=== PATIENT | male | born 1930 | race Caucasian/White ===

== ENCOUNTER → 2016-11-11 | Outpatient (CLI) | payer OTHER ==
[~2016-11-11] MED LIST: ASPEC81 PO; ATOR10TA82 PO; CALC-5 PO; CMD5 PO; HYDR25TA4 PO; MISCTAB30 PO; MULT-845 PO; OMEG10007 PO
== END | disposition home or self-care (01) ==
LOC: C.LABPVFM 15:46
PROVIDERS: ATTEND Family Medicine
DX: R25.2 Cramp and spasm (principal); R82.90 Unspecified abnormal findings in urine

== ENCOUNTER → 2016-11-20 | Outpatient (CLI) | payer OTHER ==
[~2016-11-20] MED LIST changes: -ATOR10TA82 PO; +ATOR10TA88 PO
[2016-11-20 13:25] LABS: URINE APPEARANCE CLEAR (CLEAR); URINE BILIRUBIN NEG (NEG); URINE COLOR YELLOW; URINE EPITHELIAL CELL AUTO 0-5 /lpf (0-5); URINE NITRITE NEG (NEG); URINE PH 6.5 (4.5-7.5); URINE SPECIFIC GRAVITY 1.018 (1.000-1.030); UROBILINOGEN NEG (NEG); ZZUR CULT IF INDIC CLEAN CATCH NO
[2016-11-20 13:26] LABS: MANUAL MICROSCOPIC REQUIRED? NO; REVIEW REQ? NO
== END | disposition home or self-care (01) ==
LOC: C.PATHSPEC 12:05
PROVIDERS: ATTEND Family Medicine
DX: R82.90 Unspecified abnormal findings in urine (principal)

== ENCOUNTER → 2017-02-23 | Outpatient (CLI) | payer OTHER ==
[2017-02-23 13:22] LABS: BLOOD UREA NITROGEN 21 mg/dl (7-18); CREATININE 0.99 mg/dl (0.60-1.40)
== END | disposition home or self-care (01) ==
LOC: C.LAB 10:39
PROVIDERS: ATTEND Urology
DX: R31.0 Gross hematuria (principal); R36.1 Hematospermia

== ENCOUNTER → 2017-03-09 | Outpatient (CLI) | payer OTHER ==
[~2017-03-09] MED LIST changes: +OPTIRAY 320 IV PRN
--- NOTE | 2017-03-09 15:58 | DIAGNOSTIC IMAGING REPORT ---
CT OF THE ABDOMEN AND PELVIS WITH AND WITHOUT CONTRAST HEMATURIA PROTOCOL CLINICAL HISTORY: Gross hematuria. COMPARISON STUDY: None. TECHNIQUE: Unenhanced and split bolus phase imaging of the abdomen and pelvis was performed. Injection of 93 cc of Optiray 320 IV was uneventful. A dose lowering technique was utilized adhering to the principles of ALARA. CT DOSE: 646.98 mGycm FINDINGS: A few tiny nodules within visualized portions of the lower lungs are likely benign. The liver, spleen, adrenal glands, kidneys and pancreas are unremarkable. There is no hydronephrosis or hydroureter. No renal, ureteral or bladder calculi are present. No upper tract urothelial lesions are identified by CT. No bladder lesion is identified although bladder is incompletely opacified. The prostate is moderately enlarged. A fat-containing left inguinal hernia is present. There is trace fluid within the pelvis. Caliber and wall thickness of small and large bowel are normal. No enlarged abdominal or pelvic lymph nodes are present. There is mild mesenteric infiltration with small mesenteric lymph nodes. The findings are of doubtful significance. No suspicious osseous lesions are identified. IMPRESSION: 1. No urinary calculi or hydronephrosis. No upper tract urothelial lesions identified. 2. No bladder lesion identified although bladder incompletely opacified. Moderate enlargement of the prostate. 3. Trace fluid within the pelvis. Electronically signed by: Ramon Cabrera M.D. 03/09/2017 3:57 PM Dictated Date/Time: 03/09/2017 3:17 PM
== END | disposition home or self-care (01) ==
LOC: C.CTS 14:10
PROVIDERS: ATTEND Urology
DX: R31.0 Gross hematuria (principal); N40.1 Benign prostatic hyperplasia with lower urinary tract symptoms

== ENCOUNTER → 2017-03-23 | Outpatient (CLI) | payer OTHER ==
[~2017-03-23] MED LIST changes: +ATOR10TA82 PO; -ATOR10TA88 PO; -OPTIRAY 320 IV PRN
[2017-03-23 11:43] LABS: BLOOD UREA NITROGEN 20 mg/dl (7-18); BUN/CREATININE RATIO 19.9 (10-20); CALCIUM 8.4 mg/dl (8.5-10.1); CARBON DIOXIDE 30 mmol/L (21-32); CHLORIDE 108 mmol/L (98-107); CREATININE 1.02 mg/dl (0.60-1.40); GLUCOSE 93 mg/dl (70-99); POTASSIUM 4.4 mmol/L (3.5-5.1); SODIUM 143 mmol/L (136-145)
[2017-03-23 11:45] LABS: CHOLESTEROL 121 mg/dl (0-200); HDL CHOLESTEROL 60 mg/dl; LDL CHOLESTEROL CALCULATED 49 mg/dl; TRIGLYCERIDES 61 mg/dl (0-150); VERY LOW DENSITY LIPOPROT CALC 12 mg/dl
== END | disposition home or self-care (01) ==
LOC: C.LAB 09:33
PROVIDERS: ATTEND Family Medicine
DX: E78.5 Hyperlipidemia, unspecified (principal); I10 Essential (primary) hypertension

== ENCOUNTER → 2017-05-12 | Outpatient (CLI) | payer OTHER ==
--- NOTE | 2017-05-12 13:42 | DIAGNOSTIC IMAGING REPORT ---
L SHOULDER MIN 2 VIEWS ROUTINE, L HUMERUS MIN 2 VIEWS ROUTINE CLINICAL HISTORY: Left shoulder and arm pain. COMPARISON STUDY: None. FINDINGS: No fracture or dislocation. Small calcification within the distal supraspinatus tendon. Mild AC joint arthrosis. The left clavicle is intact. No soft tissue swelling. Mild osteoarthritis at the glenohumeral joint. There appears be a patchy airspace opacity within the left midlung zone. IMPRESSION: 1. No fracture or dislocation within the left shoulder or left humerus. 2. Supraspinatus calcific tendinitis. 3. Mild osteoarthritis within the left shoulder. 4. Suggestion of a patchy airspace opacity within left midlung zone. Follow-up dedicated chest x-ray is recommended to assess for an abnormality such as a pneumonia or pulmonary lesion. 5. These findings were called/faxed to the referring physician's office following dictation. Electronically signed by: Odilon Cain M.D. 05/12/2017 1:40 PM Dictated Date/Time: 05/12/2017 1:36 PM
== END | disposition home or self-care (01) ==
LOC: C.RADPV 12:59
PROVIDERS: ATTEND Family Medicine
DX: S49.92XA Unspecified injury of left shoulder and upper arm, initial encounter (principal); X58.XXXA Exposure to other specified factors, initial encounter; M75.32 Calcific tendinitis of left shoulder; R91.8 Other nonspecific abnormal finding of lung field

== ENCOUNTER 2017-05-19 16:33 | Inpatient (IN) | payer OTHER ==
[~2017-05-19] VITALS: Ht 165.1 cm; Wt 61.3 kg
[2017-05-19 18:37] LABS: ISTAT IONIZED CALCIUM 1.16 mmol/l (1.12-1.32); ISTAT POTASSIUM 4.3 mEq/L (3.3-5.0)
[2017-05-19 18:56] LABS: HEMATOCRIT 27.1 % (42-52); MEAN CELL VOLUME 95.1 fL (80-100); MEAN CORPUSCULAR HEMOGLOBIN 31.6 pg (25-34); MEAN CORPUSCULAR HGB CONC 33.2 g/dl (32-36); MEAN PLATELET VOLUME 8.9 fL (7.4-10.4); PLATELET COUNT 507 K/uL (130-400); RED CELL DISTRIBUTION WIDTH CV 15.1 % (11.5-14.5); RED CELL DISTRIBUTION WIDTH SD 52.2 fL (36.4-46.3); WHITE BLOOD COUNT 9.83 K/uL (4.8-10.8)
[2017-05-19] MEDS ORDERED: PHYTONADIONE INJ 10 MG in SODIUM CHLORIDE 0.9% 50ML 50 ML IV ONE (19:00)
[2017-05-19] MEDS ORDERED: PRAM0.1212 PO ×2 (19:04)
[2017-05-19] MEDS ORDERED: ASPI-319 PO ×2 (19:07)
[2017-05-19] MEDS ORDERED: HYDR12.56 PO (19:13)
--- NOTE | 2017-05-19 19:39 | EMERGENCY ROOM VISIT NOTE ---
History Report prepared by Laura: Philip Heck Under the Supervision of: Dr. Shiva Argueta D.O. First contact with patient: 17:34 Chief Complaint: EDEMA TO EXTREMITY Stated Complaint: SWOLLEN LEGS History of Present Illness The patient is an 86 year old male who presents to the Emergency Room with complaints of constant swelling to his bilateral lower extremities beginning a few months ago. The patient states he was taking hydrochlorothiazide three times a day, but his swelling kept increasing. He reports he started taking hydrochlorothiazide every day, and his swelling decreased. The patient notes he has not tried using compression stockings even though his PCP told him to. He reports he has been sitting with his feel on a stool. He states he had his INR checked today, and it was elevated to a 6 when his baseline is a 2. The patient reports he just finished an antibiotic two days ago that was used to treat his recent bronchitis. He notes he just started a medication for arthritis in his hands. The patient states it controls his arthritis, but he did not know if it was causing his legs to swell as well. The patient denies calf pain. Source of History: patient Onset: few months ago Position: leg (bilateral) Quality: other (swelling) Timing: constant Modifying Factors (Relieving): other (hydrochlorothiazide) Note: Denies: calf tenderness Review of Systems See HPI for pertinent positives & negatives. A total of 10 systems reviewed and were otherwise negative. Past Medical & Surgical Medical Problems: (1) Atrial Fibrillation (2) Hypertension Nos (3) Hypertrophy Of Prostate (Benign) (4) Mixed Hyperlipidemia (5) S/P herniorrhaphy Surgical Problems: (1) S/P carotid endarterectomy (2) S/P radiofrequency ablation operation for arrhythmia Family History Patient reports no known family medical history. Social History Smoking Status: Never Smoker Marital Status: Occupation Status: retired Current/Historical Medications Scheduled Aspirin Enteric Coated (Ecotrin Or Generic), 81 MG PO QPM Atorvastatin (Lipitor), 10 MG PO DAILY Calcium-Magnesium W/ Vitamin D (Calcium 500), 1 TAB PO QAM Fish Oil ([place]-3), 1 CAP PO DAILY Hydrochlorothiazide (Hctz), 12.5 MG PO DAILY Misc Natural Products (Osteo Bi-Flex Joint Shiel), 1 TAB PO QAM Multiple Vitamins W/ Minerals (Centrum Silver Adult 50+), 1 TAB PO DAILY Pramipexole (Mirapex), 0.125 MG PO DAILY Allergies Coded Allergies: Clonazepam (Unverified Allergy, Unknown, WHEN TAKEN WITH HEART MEDS, 05/19) Prednisone (Unverified Allergy, Unknown, WHEN TAKEN WITH HEART MEDS, 05/19) Sulindac (Unverified Allergy, Unknown, ., 05/19/17) Physical Exam Vital Signs Date Time Temp Pulse Resp B/P (MAP) Pulse Ox O2 Delivery O2 Flow Rate FiO2 05/19/17 18:19 86 16 129/69 97 Room Air 05/19/17 16:41 36.6 102 20 131/63 96 Room Air Physical Exam CONSTITUTIONAL/VITAL SIGNS: Reviewed / noted above. GENERAL: Non-toxic in appearance. INTEGUMENTARY: Warm, dry, and [place]. HEAD: Normocephalic. EYES: without scleral icterus or trauma. ENT/OROPHARYNX: clear and moist. LYMPHADENOPATHY/NECK: Is supple without lymphadenopathy or meningismus. RESPIRATORY: Lungs clear and equal. CARDIOVASCULAR: Regular rate and rhythm. GI/ABDOMEN: Soft and nontender. No organomegaly or pulsatile mass. No rebound or guarding. Normal bowel sounds. RECTAL: Guaiac positive. Light brown stool. EXTREMITIES: Warm and well perfused. Moderate bilateral lower extremity pitting edema. No calf tenderness. BACK: No CVA tenderness. NEUROLOGICAL: Intact without focal deficits. PSYCHIATRIC: normal affect. MUSCULOSKELETAL: Normally developed with good muscle tone. Medical Decision & Procedures Laboratory Results 05/19/17 18:05 Test 05/19/17 18:05 05/19/17 18:25 05/19/17 18:35 Red Blood Count 2.85 M/uL (4.7-6.1) Mean Corpuscular Volume 95.1 fL (80-100) Mean Corpuscular Hemoglobin 31.6 pg (25-34) Mean Corpuscular Hemoglobin Concent 33.2 g/dl (32-36) RDW Standard Deviation 52.2 fL (36.4-46.3) RDW Coefficient of Variation 15.1 % (11.5-14.5) Mean Platelet Volume 8.9 fL (7.4-10.4) Bedside Hemoglobin 8.2 g/dl (14.0-18.0) Bedside Hematocrit 24 % (42-52) Bedside Sodium 140 mEq/L (135-144) Bedside Potassium 4.3 mEq/L (3.3-5.0) Bedside Chloride 101 mEq/L (101-112) Bedside Total CO2 28 mEq/l (24-31) Anion Gap 16.0 mmol/L (16-25) Bedside Blood Urea Nitrogen 16 mg/dl (7-18) Bedside Creatinine 1.0 mg/dl (0.6-1.3) Bedside Glucose (other) 96 mg/dl (70-99) Bedside Ionized Calcium (Liya) 1.16 mmol/l (1.12-1.32) Bedside Prothrombin Time INR 6.9 (0.9-1.1) Laboratory results as stated above per my review. ECG Indication: weakness Rate (beats per minute): 87 Rhythm: atrial fibrillation Findings: no acute ischemic change, no ectopy ED Course 1733: Previous medical records were reviewed. The patient was evaluated in room C05. A complete history and physical examination was performed. 1837: On reevaluation, the patient is resting comfortably. I performed a rectal exam. Refer to the PE for more information. I discussed the results and findings with him and his daughter. They verbalized agreement of the treatment plan. The patient will be evaluated for further management and care. 1899: Ordered Phytonadione 10mg/Sodium Chloride 51ml @ 102mls/hr Protocol IV 1932: I discussed the patient's case with Dr. Bill, [facility] Hospitalist. The patient will be evaluated for further management and care. Medical Decision Differential diagnosis: Etiologies such as DVT, musculoskeletal, infection, joint effusion, trauma, lymphedema, idiopathic, CHF, as well as others were entertained. This is an 86-year-old male who presents to the ED with a chief complaint of lower extremity edema. The patient states that he has had lower extremity edema for weeks. He states that he is on hydrochlorothiazide. He was initially on it 3 times a week and then recently increased to 5 times a week. The edema has not subsided. The patient had his INR checked earlier today and it was around 6. The patient has no other significant complaints. Denies any chest pains or shortness of breath. He has not had fevers or recent illness. Denies any trauma or local tenderness or pain to the lower extremities. The patient's exam reveals some bilateral lower extremity pitting edema. It appears to be symmetric. He has no calf tenderness. The patient's initial i- STAT lab revealed a hemoglobin of 8.2. Formal lab results showed 9.0. Guaiac testing of the stool revealed light brown stool that was guaiac positive. Chemistry panel was unremarkable. EKG shows a atrial fibrillation. INR 6.9. He is chronically on Coumadin.. The patient was told results of the test. Because of his low hemoglobin and the only recent hemoglobin that was taken was around a 12 in 2013 in addition to the guaiac positive stools, the patient was seen for further inpatient evaluation by the hospitalist. Medication Reconcilliation Current Medication List: was personally reviewed by me Blood Pressure Screening Patient's blood pressure: Normal blood pressure Blood pressure disposition: Did not require urgent referral Consults Time Called: 1848 Consulting Physician: Dr. Bill [facility] Hospitalist Returned Call: 1932 I discussed the patient's case with Dr. Bill [facility] Hospitalist. The patient will be evaluated for further management and care. Impression Primary Impression: Anemia Additional Impressions: GI bleed Elevated INR Scribe Attestation The scribe's documentation has been prepared under my direction and personally reviewed by me in its entirety. I confirm that the note above accurately reflects all work, treatment, procedures, and medical decision making performed by me. Departure Information Dispostion Being Evaluated By Hospitalist Referrals Carmen Chambers M.D. (PCP) Patient Instructions My [facility] Problem Qualifiers
[2017-05-19] MEDS ORDERED: ACETAMINOPHEN 325 MG TAB PO PRN ×2 (20:00→22:00)
[2017-05-19 20:42] LABS: ALBUMIN 2.5 gm/dl (3.4-5.0); CALCIUM 8.4 mg/dl (8.5-10.1); CREATININE 0.93 mg/dl (0.60-1.40); POTASSIUM 4.4 mmol/L (3.5-5.1)
[2017-05-19 20:43] LABS: TOTAL PROTEIN 6.2 gm/dl (6.4-8.2)
[2017-05-19 20:47] LABS: INR 6.2 (0.9-1.1); PTT PATIENT 59.2 SECONDS (21.0-31.0)
[2017-05-19 21:02] LABS: BASO % 0.9 %; BASO ABS # 0.09 K/uL (0-0.2); EOS % 3.2 %; EOS ABS # 0.32 K/uL (0-0.5); IG# 0.12 K/uL (0.00-0.02); LYMPH % 19.3 %; LYMPH ABS # 1.93 K/uL (1.2-3.4); MONO % 11.1 %; MONO ABS # 1.11 K/uL (0.11-0.59); NEUT % 64.3 %; NEUT ABS # 6.42 K/uL (1.4-6.5)
--- NOTE | 2017-05-19 22:00 | History and Physical ---
History & Physical Date & Time of Service: May 19, 2017 at 22:00 Chief Complaint: Swollen Legs Primary Care Physician: Carmen Chambers M.D. History of Present Illness Source: patient, hospital records The patient is an 86-year-old male who presents to the emergency department with complaint of persistent swelling of bilateral lower extremities over the past few months, with his 's concern regarding worsening over the past few weeks. He had had his hydrochlorothiazide increased, with some improvement in his lower extremity edema, but did not do a trial of compression stockings as directed by his PCP. His INR was tested in the outpatient setting and was found to be elevated at 6 earlier in the day today, thought secondary to being on antibiotics for bronchitis that resolved 2 days ago. Past Medical/Surgical History Medical Problems: (1) Atrial Fibrillation Status: Chronic (2) Hypertension Nos Status: Chronic (3) Hypertrophy Of Prostate (Benign) Status: Chronic (4) Mixed Hyperlipidemia Status: Chronic (5) S/P herniorrhaphy Status: Resolved Surgical Problems: (1) S/P carotid endarterectomy Status: Resolved (2) S/P radiofrequency ablation operation for arrhythmia Status: Resolved Family History Patient reports no known family medical history. Social History Smoking Status: Never Smoker Smokeless Tobacco Use: No Alcohol Use: none Drug Use: none Marital Status: Housing status: lives with family Occupational Status: retired Immunizations History of Influenza Vaccine: Unknown History of Tetanus Vaccine?: Unknown History of Pneumococcal: Unknown History of Hepatitis B Vaccine: Unknown Multi-Drug Resistant Organisms History of MDRO: No Allergies Coded Allergies: Clonazepam (Unverified Allergy, Unknown, WHEN TAKEN WITH HEART MEDS, 05/19) Prednisone (Unverified Allergy, Unknown, WHEN TAKEN WITH HEART MEDS, 05/19) Sulindac (Unverified Allergy, Unknown, ., 05/19/17) Home Medications Scheduled Aspirin Enteric Coated (Ecotrin Or Generic), 81 MG PO QPM Atorvastatin (Lipitor), 10 MG PO DAILY Calcium-Magnesium W/ Vitamin D (Calcium 500), 1 TAB PO QAM Fish Oil ([place]-3), 1 CAP PO DAILY Hydrochlorothiazide (Hctz), 12.5 MG PO DAILY Misc Natural Products (Osteo Bi-Flex Joint Shiel), 1 TAB PO QAM Multiple Vitamins W/ Minerals (Centrum Silver Adult 50+), 1 TAB PO DAILY Pramipexole (Mirapex), 0.125 MG PO DAILY Review of Systems The patient denies chest pain, palpitations, shortness of breath, cough, vision change, hearing change, sore throat, fevers, chills, sweats, weight change, nausea, vomiting, diarrhea or constipation, abdominal pain, pelvic pain, blood in urine or stool, dysuria, urinary frequency or urgency, lightheadedness , dizziness, headache, loss of consciousness, rash, abnormal bruising or bleeding, imbalance, focal weakness, numbness or tingling in arms or legs, generalized arthralgias or myalgias, back or neck pain, or night sweats. The review of systems is otherwise negative other than for that already noted above, and at least 10 systems have been reviewed. Physical Exam Vital Signs Date Time Temp Pulse Resp B/P (MAP) Pulse Ox O2 Delivery O2 Flow Rate FiO2 05/19/17 21:01 70 117/61 97 Room Air 05/19/17 18:19 86 16 129/69 97 Room Air 05/19/17 16:41 36.6 102 20 131/63 96 Room Air The patient is awake, well-developed and adequately nourished, alert and oriented 3, normocephalic and atraumatic, lying in bed and in no acute distress. HEENT--PERRL, EOMI, mucous membranes and oropharynx normal. Neck--supple, no JVD or bruits, thyroid normal, trachea midline, no adenopathy. Heart--irregularly irregular. No murmurs, rubs or gallops. Lungs--clear bilaterally with good air movement, no respiratory distress, no accessory muscle use. Abdomen--normal bowel sounds and soft, nontender and nondistended, no hernias or masses, no organomegaly. Extremities--no cyanosis or clubbing. There is 1+ bilateral pretibial and pedal pitting edema. There are good distal pulses b/l. Dermatologic--normal skin turgor, normal color, warm and dry, no abnormal lymph nodes, no rash. Neurologic--cranial nerves II through XII grossly intact. Rheumatologic--normal range of motion. Psychiatric--normal affect. Diagnostics Laboratory Results Results Past 24 Hours Test 05/19/17 18:05 05/19/17 18:15 05/19/17 18:25 05/19/17 18:35 Range/Units White Blood Count 9.83 4.8-10.8 K/uL Red Blood Count 2.85 4.7-6.1 M/uL Hemoglobin 9.0 14.0-18.0 g/dL Hematocrit 27.1 42-52 % Mean Corpuscular Volume 95.1 80-100 fL Mean Corpuscular Hemoglobin 31.6 25-34 pg Mean Corpuscular Hemoglobin Concent 33.2 32-36 g/dl Platelet Count 507 130-400 K/uL Mean Platelet Volume 8.9 7.4-10.4 fL Neutrophils (%) (Auto) 64.3 % Lymphocytes (%) (Auto) 19.3 % Monocytes (%) (Auto) 11.1 % Eosinophils (%) (Auto) 3.2 % Basophils (%) (Auto) 0.9 % Neutrophils # (Auto) 6.42 1.4-6.5 K/uL Lymphocytes # (Auto) 1.93 1.2-3.4 K/uL Monocytes # (Auto) 1.11 0.11-0.59 K/uL Eosinophils # (Auto) 0.32 0-0.5 K/uL Basophils # (Auto) 0.09 0-0.2 K/uL RDW Standard Deviation 52.2 36.4-46.3 fL RDW Coefficient of Variation 15.1 11.5-14.5 % Immature Granulocyte % (Auto) 1.2 % Immature Granulocyte # (Auto) 0.12 0.00-0.02 K/uL Nucleated RBC Absolute Count (auto) 0.00 0-0 K/uL Nucleated Red Blood Cells % 0.0 % Prothrombin Time 62.7 9.0-12.0 SECONDS Prothromb Time International Ratio 6.2 0.9-1.1 Activated Partial Thromboplast Time 59.2 21.0-31.0 SECONDS Partial Thromboplastin Ratio 2.3 Sodium Level 139 136-145 mmol/L Potassium Level 4.4 3.5-5.1 mmol/L Chloride Level 104 98-107 mmol/L Carbon Dioxide Level 29 21-32 mmol/L Anion Gap 6.0 16.0 16-25 mmol/L Blood Urea Nitrogen 16 7-18 mg/dl Creatinine 0.93 0.60-1.40 mg/dl Est Creatinine Clear Calc Drug Dose 49.6 ml/min Estimated GFR () 85.9 Estimated GFR (Non- 74.1 BUN/Creatinine Ratio 17.1 10-20 Random Glucose 92 70-99 mg/dl Calcium Level 8.4 8.5-10.1 mg/dl Magnesium Level 2.2 1.8-2.4 mg/dl Total Bilirubin 0.3 0.2-1 mg/dl Aspartate Amino Transf (AST/SGOT) 36 15-37 U/L Alanine Aminotransferase (ALT/SGPT) 37 12-78 U/L Alkaline Phosphatase 95 45-117 U/L Total Protein 6.2 6.4-8.2 gm/dl Albumin 2.5 3.4-5.0 gm/dl Globulin 3.7 2.5-4.0 gm/dl Albumin/Globulin Ratio 0.7 0.9-2 Bedside Hemoglobin 8.2 14.0-18.0 g/dl Bedside Hematocrit 24 42-52 % Bedside Sodium 140 135-144 mEq/L Bedside Potassium 4.3 3.3-5.0 mEq/L Bedside Chloride 101 101-112 mEq/L Bedside Total CO2 28 24-31 mEq/l Bedside Blood Urea Nitrogen 16 7-18 mg/dl Bedside Creatinine 1.0 0.6-1.3 mg/dl Bedside Glucose (other) 96 70-99 mg/dl Bedside Ionized Calcium (Liya) 1.16 1.12-1.32 mmol/l Bedside Prothrombin Time INR 6.9 0.9-1.1 EKG EKG shows atrial fibrillation at 87 bpm, no acute ST-T changes, and no change compared to 01/31/2014 Impression Assessment and Plan Supratherapeutic INR/Atrial fibrillation/hypertension-- The patient will be admitted to telemetry for serial cardiac enzymes, cardiac rhythm monitoring and a 2-D echocardiogram with Dopplers. INR 6.2 in the ED. Give vitamin K 10 mg IV 1. Hold warfarin Repeat INR in the a.m. Hold HCTZ Anemia/heme positive stool/supratherapeutic INR-- Nothing by mouth after midnight except medications NSS with KCl 20 mEq at 50 ML's per hour Hold aspirin and fish oil Vitamin K as noted above Add a differential to the CBC Repeat all laboratories in a.m. He is not anxious to have a colonoscopy, but we will consult gastroenterology for their opinion. He has not had any symptoms of upper or lower GI bleeding. Restless leg syndrome-- Continue pramipexole 0.15 mg by mouth daily Level of Care Telemetry Advanced Directives Existing Advance Directive: No Existing Living Will: No Existing Power of Scow Hand: No Resuscitation Status FULL RESUSCITATION VTE Prophylaxis VTE Risk Assessment Done? Y/N: Yes Risk Level: Moderate Given or contraindicated: Warfarin (Coumadin)
[2017-05-19] MEDS ORDERED: TAMSULOSIN HCL 0.4 MG CAP PO STA (22:09)
[2017-05-19] MEDS ORDERED: ONDANSETRON INJ 2 MG/ML 2 ML VIAL IV PRN (22:15)
[2017-05-19 22:30] VITALS: BP 130/56; PULSE 76; TEMP 36.8; O2SAT 95; Ht 165.1 cm; Wt 61.3 kg
--- NOTE | 2017-05-19 22:30 | NUR ---
Pt received from ED via wheelchair. Pt alert and oriented. Monitor A-Fib. Heart sounds regular. +1 edema of lower extrmities. Pulses +. Breath sounds diminished and clear. Pt denies any pain. Pt oriented to environment of care. Family at bedside. Call light at hand monitor on. Fall risk reinforced with patient.
[2017-05-19 22:37] LABS: CKMB 2.7 ng/ml (0.5-3.6)
[2017-05-19 23:45] VITALS: BP 138/75; PULSE 89; TEMP 36.4; O2SAT 96
[2017-05-19] MEDS: PRAMIPEXOLE DIHYDROCHLORIDE 0.25MG TAB PO SCH (23:54)
--- NOTE | 2017-05-20 | NUR ---
A: PT is alert and oriented x4, A-Fib on cardiac rehabilitation program director, denies chest pain or SOB, VSS, DC plan uncertain, supervision assist, SL, VIT, no complaints at this time, assessment compleat.
[2017-05-20 03:17] VITALS: BP 96/59; PULSE 72; TEMP 36.7; O2SAT 97
--- NOTE | 2017-05-20 04:00 | NUR ---
A: PT is alert and oriented x4, A-Fib on monitoring specialist, denies chest pain or SOB, no complaints at this time, assessment compleat.
--- NOTE | 2017-05-20 06:36 | NUR ---
A: completed a post residual void BS PT voided total of 200ml, and was blader scanned after for 38ml.
[2017-05-20] MEDS ORDERED: FUROSEMIDE INJ 40 MG in SYRINGE 0 ML IV ONE (06:45)
[2017-05-20 07:01] LABS: BASO % 1.4 %; BASO ABS # 0.11 K/uL (0-0.2); EOS % 4.1 %; EOS ABS # 0.33 K/uL (0-0.5); HEMATOCRIT 25.8 % (42-52); HEMOGLOBIN 8.6 g/dL (14.0-18.0); IG# 0.11 K/uL (0.00-0.02); LYMPH % 24.5 %; LYMPH ABS # 1.96 K/uL (1.2-3.4); MEAN CELL VOLUME 94.9 fL (80-100); MEAN CORPUSCULAR HEMOGLOBIN 31.6 pg (25-34); MEAN CORPUSCULAR HGB CONC 33.3 g/dl (32-36); MEAN PLATELET VOLUME 8.7 fL (7.4-10.4); MONO ABS # 1.04 K/uL (0.11-0.59); NEUT % 55.6 %; NEUT ABS # 4.46 K/uL (1.4-6.5); PLATELET COUNT 461 K/uL (130-400); RED CELL DISTRIBUTION WIDTH SD 51.6 fL (36.4-46.3); WHITE BLOOD COUNT 8.01 K/uL (4.8-10.8)
[2017-05-20 07:12] LABS: INR 1.7 (0.9-1.1); PTT PATIENT 39.8 SECONDS (21.0-31.0)
[2017-05-20 07:20] LABS: ALBUMIN 2.3 gm/dl (3.4-5.0); CALCIUM 8.1 mg/dl (8.5-10.1); CREATININE 0.87 mg/dl (0.60-1.40); POTASSIUM 4.1 mmol/L (3.5-5.1)
[2017-05-20 07:23] LABS: CKMB 2.1 ng/ml (0.5-3.6); TOTAL PROTEIN 5.5 gm/dl (6.4-8.2)
[2017-05-20 07:41] VITALS: BP 121/66; PULSE 88; TEMP 36.6; O2SAT 95
--- NOTE | 2017-05-20 08:00 | NUR ---
A: denies complaints. NPO status maintained. 20 jelco intact LAC, site clear. voiding without difficulty. bilateral TEDs on.
--- NOTE | 2017-05-20 08:40 | Clinical Documentation Query ---
KIMBERLEE Xiong : CLINICAL DOCUMENTATION QUERY Patient is an 86 year old male admitted for evaluation and treatment of anemia in the setting of an elevated INR while on Coumadin therapy. INR peaked at 6.9. H&H minimum of 8.2 g/dl and 24%. H&P notes that patient denies hematuria but then makes reference to the anemia being related to hematuria. Stool was guaiac positive. He was given Vitamin K IV x 1 in the ED. Warfarin held at this time. ASA held. GI consultation pending. He is being monitored with serial hematologic and coagulation studies. In your clinical opinion is this patient being managed for: (x ) Hemorrhagic disorder due to extrinsic circulating anticoagulants ( ) Not Agree ( ) Other explanation of clinical findings (Please Explain) ( ) Unable to determine (Please Define) ( ) Need to Discuss The medical record reflects the following clinical findings, treatment, and risk factors. Clinical Indicators:As above Treatment:He was given Vitamin K IV x 1 in the ED. Warfarin held at this time. ASA held. GI consultation pending. He is being monitored with serial hematologic and coagulation studies. Risk Factors: Elevated INR in the setting of coumadin use CC: Bleeding d/t Therapeutic Anticoagulation [facility]oding [facility] [id number], p14 Question: Should bleeding due to therapeutic anticoagulant be coded as a hemorrhagic disorder (category D68)? Answer: For the most part, "hemorrhagic disorder" or "coagulation defects" must be specifically diagnosed and documented by the provider, in order to assign codes at category D68, Other coagulation defects. However, for bleeding such as hemoptysis, hematuria, hematemesis, hematochezia, etc., that is associated with a drug, as part of anticoagulation therapy, assign code D68.32, Hemorrhagic disorder due to extrinsic circulating anticoagulants. This is supported by the inclusion term at D68.32 of "Drug-induced hemorrhagic disorder." The sequencing of code D68.32 and other codes describing the type or site of bleeding, (e.g., hemoptysis or hematuria), would be dependent on the circumstances of the admission. Copyright (2017), [facility] [employer] ("[employer]"), [place], [place]. Reproduced with permission. No portion of this publication may be copied without the express, written consent of [employer]. Your Clinical Example A 73 yo male presents to the ED from the physician's office for direct admit. He is complaining of blood in his urine. He has a history of recurrent Afib and takes Coumadin on daily basis. Interview of the patient reveals that he has taken his medication as directed. His admitting diagnosis is "Coumadin induced Coagulopathy with hematuria." *This patient's PDX is: D68.32, Hemorrhagic disorder due to extrinsic circulating anticoagulants with R31.9 Hematuria Please clarify and document your clinical opinion in the progress notes and discharge summary. Terms such as "probable", "suspected", "likely", "questionable", "possible", or "still to be ruled out" are acceptable. IF IN AGREEMENT, YOU MUST DOCUMENT ABOVE DIAGNOSTIC STATEMENT IN DAILY PROGRESS NOTES AND DISCHARGE SUMMARY. This document is not part of the patient's record. Thank You, Yusef Crespo, WARREN [phone]
[2017-05-20] MEDS ORDERED: NURSING VERBAL MED ORDER ONE (08:45)
[2017-05-20] MEDS ORDERED: PRAMIPEXOLE DIHYDROCHLORIDE 0.25MG TAB PO SCH (09:00)
[2017-05-20] MEDS ORDERED: ATORVASTATIN 10 MG TAB PO SCH (09:00)
--- NOTE | 2017-05-20 09:56 | NUR ---
Case Management: Consult received. Met with patient in room. He states he lives with his and is independent at baseline, including driving. He does not use any assistive devices or home health services. He denies any needs a d/c and plans to return home. Case management to follow
[2017-05-20 11:11] VITALS: BP 96/58; PULSE 86; TEMP 36.6; O2SAT 93
--- NOTE | 2017-05-20 12:00 | NUR ---
A: denies complaints. NPO maintained. saline lock intact, site clear. voiding without difficulty. assessment unchanged.
[2017-05-20 13:13] LABS: HEMOGLOBIN 8.9 g/dL (14.0-18.0)
--- NOTE | 2017-05-20 15:19 | Progress Note ---
Subjective Date of Service: May 20, 2017. Subjective Pt evaluation today including: conversation w/ patient, conversation w/ family , physical exam, lab review, review of inpatient medication list Pain: no pain PO Intake: adequate Voiding: no voiding problems patient feeling well, no vomiting, no melena reviewed labs, Hb stable at 8.9, INR now normalized after being reversed hold on GI consult, allow patient to eat Problem List Medical Problems: (1) Anemia Status: Acute (2) Atrial Fibrillation Status: Chronic (3) Elevated INR Status: Acute (4) GI bleed Status: Acute (5) Hypertension Nos Status: Chronic (6) Hypertrophy Of Prostate (Benign) Status: Chronic (7) Mixed Hyperlipidemia Status: Chronic Review of Systems Cardiac: + edema Male : + slowing stream All Other Systems: Reviewed and Negative Medications Current Inpatient Medications Medications (Trade) Dose Ordered Sig/Radha Route Start Time Stop Time Status Last Admin Dose Admin Acetaminophen (Tylenol Tab) 650 mg Q4H PRN PO 05/19/17 20:00 06/18/17 19:59 05/19/17 19:57 650 MG Tamsulosin HCl (Flomax Cap) 0.4 mg HS PO 05/20/17 21:00 06/19/17 20:59 Ondansetron HCl (Zofran Inj) 4 mg Q6H PRN IV 05/19/17 22:15 06/18/17 22:14 Pramipexole Dihydrochloride (miraPEX TAB) 0.125 mg HS PO 05/20/17 21:00 06/19/17 20:59 05/19/17 23:54 0.125 MG Atorvastatin Calcium (Lipitor Tab) 10 mg DAILY@1700 PO 05/20/17 17:00 06/19/17 08:59 Objective Vital Signs Date Time Temp Pulse Resp B/P (MAP) Pulse Ox O2 Delivery O2 Flow Rate FiO2 05/20/17 12:00 Room Air 05/20/17 11:11 36.6 86 20 96/58 (71) 93 Room Air 05/20/17 08:00 Room Air 05/20/17 07:41 36.6 88 20 121/66 (84) 95 Room Air 05/20/17 04:00 Room Air 05/20/17 03:17 36.7 72 18 96/59 (71) 97 Room Air 05/20/17 00:00 Room Air 05/19/17 23:45 36.4 89 18 138/75 (96) 96 Room Air 05/19/17 22:30 36.8 76 18 130/56 95 Room Air 05/19/17 22:15 36.6 70 16 117/61 97 05/19/17 21:01 70 117/61 97 Room Air 05/19/17 18:19 86 16 129/69 97 Room Air 05/19/17 16:41 36.6 102 20 131/63 96 Room Air Physical Exam General Appearance: WD/WN, no apparent distress Eyes: normal inspection, EOMI, sclerae normal Neck: supple, no adenopathy, no JVD, trachea midline Respiratory/Chest: chest non-tender, lungs clear, normal breath sounds, no respiratory distress, no accessory muscle use Cardiovascular: no edema, no gallop, no JVD, no murmur, + irregularly irregular Abdomen: normal bowel sounds, non tender, soft, no organomegaly Extremities: normal range of motion, non-tender, normal inspection, no pedal edema, no calf tenderness, pelvis stable 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, no motor/sensory deficits, alert, normal mood/affect, oriented x 3 Skin: normal color, warm/dry, no rash Laboratory Results Last 24 Hours Test 05/19/17 18:05 05/19/17 18:15 05/19/17 18:25 05/19/17 18:35 White Blood Count 9.83 K/uL Red Blood Count 2.85 M/uL Hemoglobin 9.0 g/dL Hematocrit 27.1 % Mean Corpuscular Volume 95.1 fL Mean Corpuscular Hemoglobin 31.6 pg Mean Corpuscular Hemoglobin Concent 33.2 g/dl Platelet Count 507 K/uL Mean Platelet Volume 8.9 fL Neutrophils (%) (Auto) 64.3 % Lymphocytes (%) (Auto) 19.3 % Monocytes (%) (Auto) 11.1 % Eosinophils (%) (Auto) 3.2 % Basophils (%) (Auto) 0.9 % Neutrophils # (Auto) 6.42 K/uL Lymphocytes # (Auto) 1.93 K/uL Monocytes # (Auto) 1.11 K/uL Eosinophils # (Auto) 0.32 K/uL Basophils # (Auto) 0.09 K/uL RDW Standard Deviation 52.2 fL RDW Coefficient of Variation 15.1 % Immature Granulocyte % (Auto) 1.2 % Immature Granulocyte # (Auto) 0.12 K/uL Nucleated RBC Absolute Count (auto) 0.00 K/uL Nucleated Red Blood Cells % 0.0 % Prothrombin Time 62.7 SECONDS Prothromb Time International Ratio 6.2 Activated Partial Thromboplast Time 59.2 SECONDS Partial Thromboplastin Ratio 2.3 Sodium Level 139 mmol/L Potassium Level 4.4 mmol/L Chloride Level 104 mmol/L Carbon Dioxide Level 29 mmol/L Anion Gap 6.0 mmol/L 16.0 mmol/L Blood Urea Nitrogen 16 mg/dl Creatinine 0.93 mg/dl Est Creatinine Clear Calc Drug Dose 49.6 ml/min Estimated GFR () 85.9 Estimated GFR (Non- 74.1 BUN/Creatinine Ratio 17.1 Random Glucose 92 mg/dl Calcium Level 8.4 mg/dl Magnesium Level 2.2 mg/dl Total Bilirubin 0.3 mg/dl Aspartate Amino Transf (AST/SGOT) 36 U/L Alanine Aminotransferase (ALT/SGPT) 37 U/L Alkaline Phosphatase 95 U/L Total Creatine Kinase 102 U/L Creatine Kinase MB 2.7 ng/ml Creatine Kinase MB Ratio 2.6 Troponin I < 0.015 ng/ml Total Protein 6.2 gm/dl Albumin 2.5 gm/dl Globulin 3.7 gm/dl Albumin/Globulin Ratio 0.7 Bedside Hemoglobin 8.2 g/dl Bedside Hematocrit 24 % Bedside Sodium 140 mEq/L Bedside Potassium 4.3 mEq/L Bedside Chloride 101 mEq/L Bedside Total CO2 28 mEq/l Bedside Blood Urea Nitrogen 16 mg/dl Bedside Creatinine 1.0 mg/dl Bedside Glucose (other) 96 mg/dl Bedside Ionized Calcium (Liya) 1.16 mmol/l Bedside Prothrombin Time INR 6.9 Test 05/19/17 23:45 05/20/17 06:40 05/20/17 13:01 Urine Color YELLOW Urine Appearance CLEAR Urine pH 7.5 Urine Specific [place] 1.011 Urine Protein NEG Urine Glucose (UA) NEG Urine Ketones NEG Urine Occult Blood NEG Urine Nitrite NEG Urine Bilirubin NEG Urine Urobilinogen NEG Urine Leukocyte Esterase NEG White Blood Count 8.01 K/uL Red Blood Count 2.72 M/uL Hemoglobin 8.6 g/dL 8.9 g/dL Hematocrit 25.8 % 27.0 % Mean Corpuscular Volume 94.9 fL Mean Corpuscular Hemoglobin 31.6 pg Mean Corpuscular Hemoglobin Concent 33.3 g/dl Platelet Count 461 K/uL Mean Platelet Volume 8.7 fL Neutrophils (%) (Auto) 55.6 % Lymphocytes (%) (Auto) 24.5 % Monocytes (%) (Auto) 13.0 % Eosinophils (%) (Auto) 4.1 % Basophils (%) (Auto) 1.4 % Neutrophils # (Auto) 4.46 K/uL Lymphocytes # (Auto) 1.96 K/uL Monocytes # (Auto) 1.04 K/uL Eosinophils # (Auto) 0.33 K/uL Basophils # (Auto) 0.11 K/uL RDW Standard Deviation 51.6 fL RDW Coefficient of Variation 15.0 % Immature Granulocyte % (Auto) 1.4 % Immature Granulocyte # (Auto) 0.11 K/uL Red Blood Cell Morphology Unremarkable Prothrombin Time 17.3 SECONDS Prothromb Time International Ratio 1.7 Activated Partial Thromboplast Time 39.8 SECONDS Partial Thromboplastin Ratio 1.5 Sodium Level 140 mmol/L Potassium Level 4.1 mmol/L Chloride Level 108 mmol/L Carbon Dioxide Level 30 mmol/L Anion Gap 2.0 mmol/L Blood Urea Nitrogen 17 mg/dl Creatinine 0.87 mg/dl Est Creatinine Clear Calc Drug Dose 53.0 ml/min Estimated GFR () 90.6 Estimated GFR (Non- 78.1 BUN/Creatinine Ratio 19.4 Random Glucose 100 mg/dl Calcium Level 8.1 mg/dl Magnesium Level 2.0 mg/dl Iron Level 70 mcg/dl Total Iron Binding Capacity 185 mcg/dl Total Bilirubin 0.4 mg/dl Direct Bilirubin 0.2 mg/dl Aspartate Amino Transf (AST/SGOT) 33 U/L Alanine Aminotransferase (ALT/SGPT) 32 U/L Alkaline Phosphatase 77 U/L Total Creatine Kinase 53 U/L Creatine Kinase MB 2.1 ng/ml Creatine Kinase MB Ratio 4.0 Troponin I 0.016 ng/ml 0.015 ng/ml Total Protein 5.5 gm/dl Albumin 2.3 gm/dl Vitamin B12 Level 1374 pg/mL Folate 20.88 ng/mL Assessment and Plan 86 yo male with h/o atrial fibrillation, had increased swelling in legs, supratherapeutic INR and heme positive stools with some anemia - Anemia: Hb stable, was 9.0 then 8.6 and then 8.9 no signs of active bleeding and patient not interested in scopes will allow him to eat repeat Hb tomorrow AM - Hemorrhagic disorder due to extrinsic circulating anticoagulants: reversed yesterday follow INR, should be able to resume Coumadin in another day - Chronic atrial fibrillation: rates controlled - Restless leg syndrome - Peripheral edema: continue compression stockings, HCTZ, edema is not significant continue on tele, repeat labs in the AM, PT/OT consult, likely try for d/c to home tomorrow
[2017-05-20 15:36] VITALS: BP 110/65; PULSE 112; TEMP 36.4; O2SAT 95
--- NOTE | 2017-05-20 15:58 | NUR ---
A:ID PT ALERT IN BED. INSTRUCTED PATIENT TO DRINK WATER AND CALL THIS RN TO SEND HIM FOR HIS BLADDER U/S. PT VERBALIZED UNDERSTANDING. PT FROM HOME WITH WILL RETURN THERE ON D.C ASSESSMENT COMPLETED. DENIES NEEDS AT THIS TIME. CALL MARTIN IN REACH WILL CONT TO MONITOR.
--- NOTE | 2017-05-20 16:55 | NUR ---
RD At Risk Screen completed, see linked note for details. Will assign pt to level of care I & f/u on a PRN basis. Addendum: 05/20/17 at [address] Amended: Links added.
[2017-05-20] MEDS: ATORVASTATIN 10 MG TAB PO SCH (17:39)
--- NOTE | 2017-05-20 17:42 | DIAGNOSTIC IMAGING REPORT ---
ULTRASOUND OF THE BLADDER CLINICAL HISTORY: Bladder outlet obstruction. COMPARISON STUDY: Pelvic CT dated 03/09/2017. FINDINGS: Real-time grayscale and color flow sonography of the bladder is performed. The bladder wall appears mildly thickened and trabeculated consistent with chronic outlet obstruction. The prostate gland is enlarged and there is evidence of median lobe hypertrophy. Both ureteral jets are identified. The prevoid volume measures 284 cc. There is no significant post void residual. The post void volume measures 13 cc. IMPRESSION: 1. Prostatomegaly with evidence of chronic bladder outlet obstruction. 2. The post void residual volume measures 13 cc. Electronically signed by: Timur Rios M.D. 05/20/2017 5:41 PM Dictated Date/Time: 05/20/2017 5:39 PM
[2017-05-20 20:00] VITALS: BP 121/70; PULSE 85; TEMP 36.5; O2SAT 97
--- NOTE | 2017-05-20 20:00 | NUR ---
pt alert in bed. reassessed. denies needs at this time. call fernández in reach will cont to monitor.
[2017-05-20] MEDS: TAMSULOSIN HCL 0.4 MG CAP PO SCH (20:05)
[2017-05-20] MEDS: PRAMIPEXOLE DIHYDROCHLORIDE 0.25MG TAB PO SCH (20:05)
[2017-05-20 23:57] VITALS: BP 140/55; PULSE 79; TEMP 36.7; O2SAT 97
[2017-05-21] VITALS (11 sets, daily range): BP systolic 82–127; BP diastolic 45–84; PULSE 67–86; TEMP 36.4–36.9; O2SAT 90–95
--- NOTE | 2017-05-21 00:01 | NUR ---
PT ASSESSMENT COMPLETE. SEE EMR FOR DETAILS. PT RESTING IN BED. VSS. DENIES PAIN/SOB. CALL MARTIN WITHIN REACH. PT ENCOURAGED TO RING FOR ASSISTANCE. CALL MARTIN WITHIN REACH.
--- NOTE | 2017-05-21 04:00 | NUR ---
PT ASSESSMENT COMPLETE. SEE EMR FOR DETAILS. PT RESTING IN BED. VSS. PT OFFERS NO COMPLAINTS. CALL MARTIN WITHIN REACH. WILL CONTINUE TO MONITOR.
[2017-05-21 06:43] LABS: BASO % 1.6 %; BASO ABS # 0.14 K/uL (0-0.2); EOS % 2.9 %; EOS ABS # 0.25 K/uL (0-0.5); HEMATOCRIT 26.7 % (42-52); HEMOGLOBIN 8.9 g/dL (14.0-18.0); IG# 0.07 K/uL (0.00-0.02); LYMPH % 24.8 %; LYMPH ABS # 2.11 K/uL (1.2-3.4); MEAN CELL VOLUME 94.7 fL (80-100); MEAN CORPUSCULAR HEMOGLOBIN 31.6 pg (25-34); MEAN CORPUSCULAR HGB CONC 33.3 g/dl (32-36); MEAN PLATELET VOLUME 8.8 fL (7.4-10.4); MONO % 8.7 %; MONO ABS # 0.74 K/uL (0.11-0.59); NEUT % 61.2 %; PLATELET COUNT 516 K/uL (130-400); RED CELL DISTRIBUTION WIDTH CV 14.8 % (11.5-14.5); RED CELL DISTRIBUTION WIDTH SD 51.1 fL (36.4-46.3); WHITE BLOOD COUNT 8.51 K/uL (4.8-10.8)
[2017-05-21 06:59] LABS: INR 1.2 (0.9-1.1); PTT PATIENT 31.8 SECONDS (21.0-31.0)
[2017-05-21 07:14] LABS: CREATININE 0.91 mg/dl (0.60-1.40); POTASSIUM 3.9 mmol/L (3.5-5.1)
--- NOTE | 2017-05-21 08:00 | NUR ---
A: denies complaints this morning. OOB to chair with assist of one. 20 jelco intact LAC, site clear. consumed 100% breakfast. voiding without difficulty.
--- NOTE | 2017-05-21 08:46 | NUR ---
OT screen received and completed this date. EMR and nursing notes reviewed. Recommend OT evaluation to assist with safe discharge planning when medically stable
[2017-05-21] MEDS ORDERED: METOPROLOL TARTRATE 25 MG TAB PO SCH ×2 (09:00→21:00)
[2017-05-21] MEDS ORDERED: METOPROLOL TARTRATE 1 MG/ML VIAL IV STA (09:02)
[2017-05-21] MEDS ORDERED: METOPROLOL TARTRATE 1 MG/ML VIAL ONE (09:03)
--- NOTE | 2017-05-21 09:30 | NUR ---
A: patient back to bed. HR up 120-150. Dr. Ness aware. orders received, will follow.
--- NOTE | 2017-05-21 12:00 | NUR ---
A: denies complaints at present. sitting in bed. consumed 100% lunch. saline lock intact, site clear. voiding without difficulty. assessment unchanged.
--- NOTE | 2017-05-21 14:07 | Progress Note ---
Subjective Date of Service: May 21, 2017. Subjective Pt evaluation today including: conversation w/ patient, conversation w/ family (), physical exam, lab review, review of inpatient medication list Pain: denies pain PO Intake: eating well Voiding: no voiding problems Hb stable on morning labs, patient feeling well, OOB to chair his then went into SVT and we broke her with Adenosine the patient started to get worked up, his HR went into the 130-140's but he was not symptomatic he used the bathroom and HR again up into the 140's typically does not take rate control medications gave him 5mg of Lopressor IV and HR came down, BP low normal discussed that we would keep him here instead of discharging him as previously planned Problem List Medical Problems: (1) Anemia Status: Acute (2) Atrial Fibrillation Status: Chronic (3) Elevated INR Status: Acute (4) GI bleed Status: Acute (5) Hypertension Nos Status: Chronic (6) Hypertrophy Of Prostate (Benign) Status: Chronic (7) Mixed Hyperlipidemia Status: Chronic Review of Systems Constitutional: + weakness, + fatigue Cardiac: + edema All Other Systems: Reviewed and Negative Medications Current Inpatient Medications Medications (Trade) Dose Ordered Sig/Radha Route Start Time Stop Time Status Last Admin Dose Admin Acetaminophen (Tylenol Tab) 650 mg Q4H PRN PO 05/19/17 20:00 06/18/17 19:59 05/19/17 19:57 650 MG Tamsulosin HCl (Flomax Cap) 0.4 mg HS PO 05/20/17 21:00 06/19/17 20:59 05/20/17 20:05 0.4 MG Ondansetron HCl (Zofran Inj) 4 mg Q6H PRN IV 05/19/17 22:15 06/18/17 22:14 Pramipexole Dihydrochloride (miraPEX TAB) 0.125 mg HS PO 05/20/17 21:00 06/19/17 20:59 05/20/17 20:05 0.125 MG Atorvastatin Calcium (Lipitor Tab) 10 mg DAILY@1700 PO 05/20/17 17:00 06/19/17 08:59 05/20/17 17:39 10 MG Metoprolol Tartrate (Lopressor Tab) 25 mg BID PO 05/21/17 21:00 1/27/18 08:59 Future Hold Objective Vital Signs Date Time Temp Pulse Resp B/P (MAP) Pulse Ox O2 Delivery O2 Flow Rate FiO2 05/21/17 11:06 36.5 67 20 96/58 (71) 95 Room Air 05/21/17 10:02 69 95/60 (72) 05/21/17 09:29 70 86/45 (59) 95 Room Air 05/21/17 09:12 77 82/46 (58) 92 Room Air 05/21/17 09:07 105 105/62 05/21/17 08:00 Room Air 05/21/17 07:30 36.6 81 20 104/60 (75) 92 Room Air 05/21/17 04:06 36.9 80 18 102/52 (69) 93 Room Air 05/21/17 04:00 Room Air 05/20/17 23:59 Room Air 05/20/17 23:57 36.7 79 18 140/55 (83) 97 Room Air 05/20/17 20:00 Room Air 05/20/17 20:00 36.5 85 18 121/70 (87) 97 Room Air 05/20/17 16:00 Room Air 05/20/17 15:36 36.4 112 16 110/65 (80) 95 Room Air Physical Exam General Appearance: WD/WN, no apparent distress Eyes: normal inspection, EOMI, sclerae normal ENT: normal ENT inspection, hearing grossly normal, pharynx normal Neck: supple, no adenopathy, no JVD, trachea midline Respiratory/Chest: chest non-tender, lungs clear, normal breath sounds, no respiratory distress, no accessory muscle use Cardiovascular: no edema, no gallop, no JVD, no murmur, + tachycardia, + irregularly irregular Abdomen: normal bowel sounds, non tender, soft, no organomegaly Extremities: normal range of motion, non-tender, normal inspection, no pedal edema, no calf tenderness, pelvis stable 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, no motor/sensory deficits, alert, normal mood/affect, oriented x 3 Skin: normal color, warm/dry, no rash Lymphatic: no adenopathy Laboratory Results Last 24 Hours Test 05/21/17 06:24 White Blood Count 8.51 K/uL Red Blood Count 2.82 M/uL Hemoglobin 8.9 g/dL Hematocrit 26.7 % Mean Corpuscular Volume 94.7 fL Mean Corpuscular Hemoglobin 31.6 pg Mean Corpuscular Hemoglobin Concent 33.3 g/dl Platelet Count 516 K/uL Mean Platelet Volume 8.8 fL Neutrophils (%) (Auto) 61.2 % Lymphocytes (%) (Auto) 24.8 % Monocytes (%) (Auto) 8.7 % Eosinophils (%) (Auto) 2.9 % Basophils (%) (Auto) 1.6 % Neutrophils # (Auto) 5.20 K/uL Lymphocytes # (Auto) 2.11 K/uL Monocytes # (Auto) 0.74 K/uL Eosinophils # (Auto) 0.25 K/uL Basophils # (Auto) 0.14 K/uL RDW Standard Deviation 51.1 fL RDW Coefficient of Variation 14.8 % Immature Granulocyte % (Auto) 0.8 % Immature Granulocyte # (Auto) 0.07 K/uL Red Blood Cell Morphology Unremarkable Prothrombin Time 12.2 SECONDS Prothromb Time International Ratio 1.2 Activated Partial Thromboplast Time 31.8 SECONDS Partial Thromboplastin Ratio 1.2 Sodium Level 140 mmol/L Potassium Level 3.9 mmol/L Chloride Level 105 mmol/L Carbon Dioxide Level 28 mmol/L Anion Gap 7.0 mmol/L Blood Urea Nitrogen 18 mg/dl Creatinine 0.91 mg/dl Est Creatinine Clear Calc Drug Dose 50.7 ml/min Estimated GFR () 88.1 Estimated GFR (Non- 76.0 BUN/Creatinine Ratio 19.3 Random Glucose 98 mg/dl Calcium Level 8.0 mg/dl Assessment and Plan 86 yo male with h/o atrial fibrillation, had increased swelling in legs, supratherapeutic INR and heme positive stools with some anemia - Anemia: Hb stable, was 9.0 then 8.6 and then 8.9 and today it is 8.9 again no signs of active bleeding and patient not interested in scopes will allow him to eat no further work up in the hospital and issue appears to be stable - Hemorrhagic disorder due to extrinsic circulating anticoagulants: reversed on 05/19 INR normal today, will resume Coumadin today - Chronic atrial fibrillation: rates became elevated today reaching 130-140's when anxious and when walking typically not on rate control medications gave him Lopressor 5mg, responded well - Restless leg syndrome - Peripheral edema: continue compression stockings, HCTZ, edema is not significant keep on tele today, try to d/c home tomorrow
[2017-05-21] MEDS: ATORVASTATIN 10 MG TAB PO SCH (15:34)
--- NOTE | 2017-05-21 16:00 | NUR ---
A: Patient resting in bed. Denies any pain or SOB. Afib on the monitor. HR is controlled. One assist with ambulation. Call fernández is in reach.
--- NOTE | 2017-05-21 20:00 | NUR ---
A: Patient resting in bed. Denies any pain or SOB. Afib on the monitor. HR is controlled. One assist with ambulation. Call fernández is in reach.
[2017-05-21] MEDS: PRAMIPEXOLE DIHYDROCHLORIDE 0.25MG TAB PO SCH (20:46)
[2017-05-21] MEDS: TAMSULOSIN HCL 0.4 MG CAP PO SCH (20:47)
[2017-05-22] VITALS (8 sets, daily range): BP systolic 101–113; BP diastolic 54–68; PULSE 65–97; TEMP 36.4–36.7; O2SAT 94–96
--- NOTE | 2017-05-22 | NUR ---
A. Patient assessed, resting in bed. He is AAOx4, pleasant and cooperative. He is denying any pain, SOB, dizziness or bleeding. VSS. AFIB with HR in 80s. Tolerating diet. Voiding in urinal. IV intact and patent. TEDs on. He was reminded on his fall risk and not to get up without staff present in room. Bed alarm turned on. Warm blanket given. Call fernández within reach.
--- NOTE | 2017-05-22 04:00 | NUR ---
A. Patient reassessed, no changes at this time. He has been sleeping well. VSS. AFIB. Voiding in urinal. Using call fernández appropriately.
[2017-05-22 07:16] LABS: BASO % 1.4 %; BASO ABS # 0.13 K/uL (0-0.2); EOS % 2.5 %; EOS ABS # 0.23 K/uL (0-0.5); HEMATOCRIT 27.5 % (42-52); HEMOGLOBIN 9.1 g/dL (14.0-18.0); IG# 0.09 K/uL (0.00-0.02); LYMPH % 24.2 %; LYMPH ABS # 2.23 K/uL (1.2-3.4); MEAN CELL VOLUME 94.5 fL (80-100); MEAN CORPUSCULAR HEMOGLOBIN 31.3 pg (25-34); MEAN CORPUSCULAR HGB CONC 33.1 g/dl (32-36); MONO % 8.1 %; MONO ABS # 0.75 K/uL (0.11-0.59); NEUT % 62.8 %; NEUT ABS # 5.78 K/uL (1.4-6.5); PLATELET COUNT 555 K/uL (130-400); RED CELL DISTRIBUTION WIDTH CV 14.9 % (11.5-14.5); RED CELL DISTRIBUTION WIDTH SD 51.1 fL (36.4-46.3); WHITE BLOOD COUNT 9.21 K/uL (4.8-10.8)
[2017-05-22 07:23] LABS: INR 1.2 (0.9-1.1); PTT PATIENT 29.8 SECONDS (21.0-31.0)
[2017-05-22 07:41] LABS: CALCIUM 8.1 mg/dl (8.5-10.1); CREATININE 0.97 mg/dl (0.60-1.40)
--- NOTE | 2017-05-22 08:00 | NUR ---
A: Pt. is A&OX4, denies any complaints. States he slept well and feels good this morning. Telemetry intact showing atrial fibrillation in 80s. Denies CP or palpitations. Denies SOB or difficulty breathing on RA. Lungs are clear. Voiding in urinal without difficulty. H/H increased to 9.1/27.5. See EMR for full head to toe assessment. Call fernández within reach, all needs addressed and denies pain. Will continue to closely monitor.
--- NOTE | 2017-05-22 10:31 | NUR ---
I have been asked to arrange a PCP follow up for Mr. Chao. The appointment information is below as it has been documented in the discharge. JOHNSON "Important Appointment Information Mr. Chao, The following appointment has been arranged for you, Please follow up with Dr. Chambers on Friday, May 26, 2017 at 10:00am. *If you need to reschedule this appointment please call the office at [phone]. Thank you."
[2017-05-22] MEDS ORDERED: FLM4 PO ×2 (10:41)
[2017-05-22] MEDS ORDERED: HYDR25TA5 PO ×2 (10:41)
[2017-05-22] MEDS ORDERED: LSX20 PO ×2 (10:41)
[2017-05-22] MEDS ORDERED: CMD5 PO ×2 (10:43)
--- NOTE | 2017-05-22 10:50 | Discharge Instructions ---
Discharge Instructions Date of Service May 22, 2017. Admission Reason for Admission: Anemia, Supratherapeutic Inr Discharge Discharge Diagnosis / Problem: Heme positive stool, supratherapeutic INR, lower extremity edema Discharge Goals Goal(s): Decrease discomfort, Improve function Activity Recommendations Activity Limitations: resume your previous activity . Instructions / Follow-Up Instructions / Follow-Up Medications: - HCTZ: continue taking 25mg daily - TAMSULOSIN: 0.4mg daily, started to relax prostate, help urinary stream - COUMADIN: resume previous dosing and follow with family doctor - LASIX: 20mg tablet, can take as needed for edema in legs - METOPROLOL: 12.5mg (1/2 a tablet) in the morning to help control heart rate Elevated INR and heme positive stools, mild anemia blood counts have been stable, hemoglobin going up on its own, today it is 9.1 no signs of akua bleeding your INR was reversed at time of admission, it is now safe to resume Coumadin at prior dosing INR was likely high because of recent antibiotic use Lower extremity swelling: continue taking HCTZ every day, you need to use compression stockings every day if you have swelling despite the above measures, you can take a Lasix 20mg tablet for extra diuresis but you should not be doing this everyday, ONLY as needed Atrial fibrillation with episodes of tachycardia, HR hitting 140-160's will treat with Lopressor 12.5mg once in the morning reviewing monitor, you never have tachycardia in the evening when sleeping the Lopressor lasts 12 hours so if you take in the morning it will cover you during the day FOLLOW UP - Dr. Chambers in one week, call for appointment, hospital follow up Current Hospital Diet Patient's current hospital diet: AHA Diet (Heart Healthy) Discharge Diet Recommended Diet: AHA Diet (Heart Healthy) Pending Studies Studies pending at discharge: no Laboratory Results Lipid Panel Test 03/23/17 09:47 Range/Units Triglycerides Level 61 0-150 mg/dl Cholesterol Level 121 0-200 mg/dl HDL Cholesterol 60 mg/dl Cholesterol/HDL Ratio 2.0 LDL Cholesterol, Calculated 49 mg/dl Medical Emergencies . Who to Call and When: Medical Emergencies: If at any time you feel your situation is an emergency, please call 911 immediately. . Non-Emergent Contact Non-Emergency issues call your: Primary Care Provider Call Non-Emergent contact if: you have any medication questions . . "Provider Documentation" section prepared by Nirav Ness. . VTE Core Measure Inpt VTE Proph given/why not?: Warfarin (Coumadin) [place] Drug Monitoring Program Search Results: no issues identified
--- NOTE | 2017-05-22 12:44 | NUR ---
Dr. Ness paged and notified of patient HR up to 160s at rest. Dr. Ness states he will come to floor to evaluate patient. BP 113/65. Documented in appropriate section.
[2017-05-22] MEDS ORDERED: METOPROLOL TARTRATE 25 MG TAB PO SCH (13:00)
[2017-05-22] MEDS ORDERED: DILTIAZEM HCL 5 MG/ML 5 ML VIAL IV STA (13:00)
--- NOTE | 2017-05-22 13:00 | NUR ---
Pt. was going to be discharged home, but patient had elevated HR to 150s-160s as stated in previous note. Dr. Ness made decision to bolus with 5 mg of IV cardizem and start PO cardizem at 1400. Will continue to closely monitor patient.
--- NOTE | 2017-05-22 15:19 | Progress Note ---
Subjective Date of Service: May 22, 2017. Subjective Pt evaluation today including: conversation w/ patient, conversation w/ family , physical exam, lab review, review of inpatient medication list Pain: no pain PO Intake: adequate Voiding: no voiding problems was going to discharge patient, then he had a HR of 160's just from standing up and blowing nose HR did not improve at best his HR was in the 120's no symptoms reviewed telemetry, he was okay all night long feel he likely has tachycardia at home, no symptoms Problem List Medical Problems: (1) Anemia Status: Acute (2) Atrial Fibrillation Status: Chronic (3) Elevated INR Status: Acute (4) GI bleed Status: Acute (5) Hypertension Nos Status: Chronic (6) Hypertrophy Of Prostate (Benign) Status: Chronic (7) Mixed Hyperlipidemia Status: Chronic Review of Systems All Other Systems: Reviewed and Negative Medications Current Inpatient Medications Medications (Trade) Dose Ordered Sig/Radha Route Start Time Stop Time Status Last Admin Dose Admin Acetaminophen (Tylenol Tab) 650 mg Q4H PRN PO 05/19/17 20:00 06/18/17 19:59 05/19/17 19:57 650 MG Tamsulosin HCl (Flomax Cap) 0.4 mg HS PO 05/20/17 21:00 06/19/17 20:59 05/21/17 20:47 0.4 MG Ondansetron HCl (Zofran Inj) 4 mg Q6H PRN IV 05/19/17 22:15 06/18/17 22:14 Pramipexole Dihydrochloride (miraPEX TAB) 0.125 mg HS PO 05/20/17 21:00 06/19/17 20:59 05/21/17 20:46 0.125 MG Atorvastatin Calcium (Lipitor Tab) 10 mg DAILY@1700 PO 05/20/17 17:00 06/19/17 08:59 05/21/17 15:34 10 MG Diltiazem HCl (Cardizem Tab) 30 mg TID PO 05/22/17 14:00 06/21/17 13:59 Objective Vital Signs Date Time Temp Pulse Resp B/P (MAP) Pulse Ox O2 Delivery O2 Flow Rate FiO2 05/22/17 13:41 102/62 (75) 05/22/17 12:44 113/65 (81) 05/22/17 12:00 Room Air 05/22/17 11:31 36.4 92 18 110/54 (72) 94 05/22/17 08:00 Room Air 05/22/17 07:25 36.4 80 18 101/61 (74) 94 Room Air 05/22/17 04:00 Room Air 05/22/17 03:49 36.7 82 20 104/65 (78) 94 Room Air 05/21/17 23:59 Room Air 05/21/17 23:32 36.7 69 18 103/62 (76) 94 Room Air 05/21/17 20:00 95 Room Air 05/21/17 18:55 36.8 79 20 127/84 (98) 90 Room Air 05/21/17 16:00 94 Room Air 05/21/17 15:22 36.4 72 18 101/64 (76) 94 Room Air Physical Exam General Appearance: WD/WN, no apparent distress Eyes: normal inspection, EOMI, sclerae normal ENT: normal ENT inspection, hearing grossly normal, pharynx normal Neck: supple, no adenopathy, no JVD, trachea midline Respiratory/Chest: chest non-tender, lungs clear, normal breath sounds, no respiratory distress, no accessory muscle use Cardiovascular: no edema, no gallop, no JVD, no murmur, + tachycardia, + irregularly irregular Abdomen: normal bowel sounds, non tender, soft, no organomegaly Extremities: normal range of motion, non-tender, normal inspection, no pedal edema, no calf tenderness, pelvis stable Neurologic/Psychiatric: 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, no motor/sensory deficits, alert, normal mood/affect, oriented x 3 Skin: normal color, warm/dry, no rash Lymphatic: no adenopathy Laboratory Results Last 24 Hours Test 05/22/17 06:26 White Blood Count 9.21 K/uL Red Blood Count 2.91 M/uL Hemoglobin 9.1 g/dL Hematocrit 27.5 % Mean Corpuscular Volume 94.5 fL Mean Corpuscular Hemoglobin 31.3 pg Mean Corpuscular Hemoglobin Concent 33.1 g/dl Platelet Count 555 K/uL Mean Platelet Volume 9.0 fL Neutrophils (%) (Auto) 62.8 % Lymphocytes (%) (Auto) 24.2 % Monocytes (%) (Auto) 8.1 % Eosinophils (%) (Auto) 2.5 % Basophils (%) (Auto) 1.4 % Neutrophils # (Auto) 5.78 K/uL Lymphocytes # (Auto) 2.23 K/uL Monocytes # (Auto) 0.75 K/uL Eosinophils # (Auto) 0.23 K/uL Basophils # (Auto) 0.13 K/uL RDW Standard Deviation 51.1 fL RDW Coefficient of Variation 14.9 % Immature Granulocyte % (Auto) 1.0 % Immature Granulocyte # (Auto) 0.09 K/uL Prothrombin Time 12.1 SECONDS Prothromb Time International Ratio 1.2 Activated Partial Thromboplast Time 29.8 SECONDS Partial Thromboplastin Ratio 1.1 Sodium Level 139 mmol/L Potassium Level 4.0 mmol/L Chloride Level 107 mmol/L Carbon Dioxide Level 27 mmol/L Anion Gap 5.0 mmol/L Blood Urea Nitrogen 21 mg/dl Creatinine 0.97 mg/dl Est Creatinine Clear Calc Drug Dose 47.2 ml/min Estimated GFR () 81.6 Estimated GFR (Non- 70.4 BUN/Creatinine Ratio 21.6 Random Glucose 98 mg/dl Calcium Level 8.1 mg/dl Assessment and Plan 86 yo male with h/o atrial fibrillation, had increased swelling in legs, supratherapeutic INR and heme positive stools with some anemia - Anemia: Hb stable, was 9.0 then 8.6 and then 8.9 and today it is 9.1 no signs of active bleeding and patient not interested in scopes will allow him to eat no further work up in the hospital and issue appears to be stable - Hemorrhagic disorder due to extrinsic circulating anticoagulants: reversed on 05/19 INR normal today, will resume Coumadin - Chronic atrial fibrillation, now with frequent RVR: episode yesterday with rates 140's, now again today with rates in 160's yesterday resolved with Lopressor 5mg IV suspect he has RVR at home, no symptoms, may be contributing to his peripheral edema will give Cardizem 5mg IV, start on 30mg TID and follow HR continue Coumadin - Restless leg syndrome - Peripheral edema: continue compression stockings, HCTZ, edema is not significant can use Lasix PRN keep on tele today, should be ready for d/c tomorrow on Cardizem
[2017-05-22] MEDS: DILTIAZEM HCL 30 MG TAB PO SCH ×2 (15:27→20:23)
--- NOTE | 2017-05-22 15:59 | NUR ---
Case Management Note- Plan remains for patient to return home at discharge. No further needs at this time.
--- NOTE | 2017-05-22 16:00 | NUR ---
A: Pt. is A&Ox4, pleasant and cooperative. Telemetry intact showing a fib in 100s-110s. Pt. has had no elevated HR to 150s-160s since last episode around 1245pm. BPs stable after administration of IV cardizem and start of PO cardizem. Denies SOB or difficulty breathing on RA. Independent in room with slow steady gait. Voiding in bathroom or urinal. See EMR for full head to toe assessment. Call fernández within reach, all needs addressed and denies pain. Currently sitting up in chair next to , as he has been all day. Will continue to closely monitor
[2017-05-22] MEDS: ATORVASTATIN 10 MG TAB PO SCH (17:32)
--- NOTE | 2017-05-22 20:00 | NUR ---
A. Patient assessed, resting in chair watching TV. He is AAOx4, pleasant and cooperative. He is denying any complaints of pain, SOB, dizziness or weakness. VSS. AFIB with HR in 80s. Repositioning well on own. Voiding in urinal. IV intact and patent. Tolerating diet. TEDs on. He was reminded on his fall risk and not to ambulate without staff present. Call fernández within reach.
[2017-05-22] MEDS: TAMSULOSIN HCL 0.4 MG CAP PO SCH (20:22)
[2017-05-22] MEDS: PRAMIPEXOLE DIHYDROCHLORIDE 0.25MG TAB PO SCH (20:23)
--- NOTE | 2017-05-23 | NUR ---
A. Patient reassessed, resting in bed. No changes at this time. He is denying any needs or complaints. VSS. AFIB with HR in 50s. Repositioning on own. Voiding in urinal. IV intact.
[2017-05-23 00:34] VITALS: PULSE 105; TEMP 36.9; O2SAT 91
--- NOTE | 2017-05-23 03:33 | NUR ---
Spoke to Dr. Lancaster over the phone concerning patient's HR dropping to at times 38-42 AFIB while sleeping. MD made aware of patient being started to Cardizem PO due to episodes of RVR. He was also made aware that while patient is awake his heart rate increases to 80s-90s so he did receive his night time dose last night. No new orders received at this time.
--- NOTE | 2017-05-23 04:00 | NUR ---
A. Patient reassessed, resting in bed. No changes at this time. He is denying any needs or complaints, has been sleeping well throughout the night. VSS. AFIB with HR 40-70. Voiding in urinal. IV intact and patent. He was reminded to use call fernández if needing anything.
[2017-05-23 04:45] VITALS: BP 87/50; PULSE 66; TEMP 36.4; O2SAT 95
[2017-05-23 05:09] VITALS: BP 110/66; PULSE 58
[2017-05-23 07:34] VITALS: BP 113/56; PULSE 71; TEMP 36.6; O2SAT 96
[2017-05-23] MEDS: DILTIAZEM HCL 30 MG TAB PO SCH ×3 (07:53→12:50)
--- NOTE | 2017-05-23 08:00 | NUR ---
A/ID NOTE:PT ASSESSED. OOB IN CHAIR. NO COMPLAINTS OF PAIN/SOB. SINUS IN THE 50'S-80'S. NO EDEMA. LUNGS CLEAR, RA. +BS. VOIDING IN URINAL. OOB W/ ASSIST. SALINE LOCK INTACT. DC UNCERTAIN, CALL MARTIN WITHIN REACH-WILL CONTINUE TO MONITOR.
[2017-05-23 10:52] VITALS: BP 92/53; PULSE 75; TEMP 36.5; O2SAT 95
[2017-05-23] MEDS ORDERED: METO25TA56 PO ×2 (11:06)
[2017-05-23 11:23] VITALS: BP 92/53; PULSE 75; TEMP 36.5; O2SAT 95
--- NOTE | 2017-05-23 11:42 | NUR ---
A: PT BEING DISCHARGED HOME. TELE MONITOR TAKEN OFF AND IV REMOVED. WAITING FOR DAUGHTER TO BE PRESENT TO GO OVER DISCHARGE INSTRUCTIONS.
--- NOTE | 2017-05-23 11:55 | NUR ---
Case Management: Pt's called to Case Management regarding a follow up appointment for pt as he is being discharged today. They are seen in the [facility]. I called to the [facility] and spoke with "Yamel". She informs me that pt has an appointment scheduled for May [address] Diane Chambers. I provided this information to pt and . I also provided him with a [employer] in the even he needs transportation.
--- NOTE | 2017-05-23 13:45 | NUR ---
A: PT BEING DISCHARGED HOME. DAUGHTER PRESENT FOR INSTRUCTIONS. BOTH PATIENT AND DAUGHTER VERBALIZED UNDERSTANDING OF INSTRUCTIONS TO HOME. ALL BELONGINGS W/ PT. TAKEN OUT IN WHEEL CHAIR W/ VOLUNTEER.
--- NOTE | 2017-05-23 15:05 | Discharge Summary ---
Discharge Summary Date of Service May 23, 2017. Discharge Summary Admission Date: May 19, 2017 at 21:30 Discharge Date: May 23, 2017 Discharge Disposition: Home Principal Diagnosis: Atrial fibrillation with RVR Problems/Secondary Diagnoses: Anemia with heme positive stools Peripheral edema LUTS due to BPH Immunizations: Have You Had Influenza Vaccine: Unknown History of Tetanus Vaccine?: Unknown History of Pneumococcal: Unknown History of Hepatitis B Vaccine: Unknown Procedures: none Consultations: none Medication Reconciliation New Medications: Furosemide (Furosemide) 20 Mg Tab 1 TAB PO DAILY PRN for swelling, #30 TABS 0 Refills Metoprolol Tartrate (Lopressor) (Lopressor) 25 Mg Tab 12.5 MG PO DAILY for 30 Days, #15 TAB 1 Refill Tamsulosin HCl (Tamsulosin HCl) 0.4 Mg Cap 0.4 MG PO HS, #30 CAP 3 Refills Changed Medications: Hydrochlorothiazide (Hydrochlorothiazide) 25 Mg Tab 25 MG PO DAILY for 30 Days, #30 TABS 3 Refills (Changed from: Hydrochlorothiazide (Hctz) 12.5 Mg Cap 12.5 Mg PO DAILY) Continued Medications: Aspirin Enteric Coated (Ecotrin Or Generic) 81 Mg Tab 81 MG PO QPM, TAB Atorvastatin (Lipitor) 10 Mg Tab 10 MG PO DAILY Calcium-Magnesium W/ Vitamin D (Calcium 500) 1 Tab Tab 1 TAB PO QAM Fish Oil (Elysian-3) 1 Ea Cap 1 CAP PO DAILY, 0 Refills Misc Natural Products (Osteo Bi-Flex Joint Shiel) 1 Tab Tab 1 TAB PO QAM Multiple Vitamins W/ Minerals (Centrum Silver Adult 50+) 1 Tab Tab 1 TAB PO DAILY Pramipexole (Mirapex) 0.125 Mg Tab 0.125 MG PO DAILY Warfarin Sod (Coumadin) 5 Mg Tab 5 MG PO DAILY for 30 Days, #30 TABS 3 Refills Discharge Exam patient feeling well, no complaints, eating well, breathing well HR well controlled since starting Diltiazem long discussed about discharge plans, all questions answered. Review of Systems: Constitutional: No fever, No chills, No sweats, No weight loss, No weakness , No fatigue, No problem reported Eyes: No worsening of vision, No eye pain, No redness, No discharge, No diplopia, No problem reported ENT: No hearing loss, No unusual epistaxis, No nasal symptoms, No sore throat, No tinnitus, No dental problems, No trouble swallowing, No problem reported Respiratory: No cough, No sputum, No wheezing, No shortness of breath, No dyspnea on exertion, No dyspnea at rest, No hemoptysis, No problem reported Cardiovascular: No chest pain, No orthopnea, No PND, No edema, No claudication, No palpitations, No problem reported Abdomen: No pain, No nausea, No vomiting, No diarrhea, No constipation, No GI bleeding, No problem reported Musculoskeletal: No joint pain, No muscle pain, No swelling, No calf pain, No problem reported Genitourinary - Male: No hematuria, No dysuria, No urinary frequency, No urinary urgency Neurologic: No memory loss, No paralysis, No weakness, No numbness/tingling , No vertigo, No balance problems, No problem reported Psychiatric: No depression symptoms, No anhedonism, No anxiety, No insomnia , No substance abuse, No problem reported Endocrine: No fatigue, No excessive thirst, No excessive urination, No problem reported Hematologic / Lymphatic: No abnormal bleeding/bruising, No clotting problems , No swollen lymph nodes, No night sweats, No problem reported Integumentary: No rash, No itch, No new/changing skin lesions, No color change, No bleeding, No problem reported Physical Exam: General Appearance: WD/WN, no apparent distress Eyes: normal inspection, EOMI, sclerae normal ENT: normal ENT inspection, hearing grossly normal, pharynx normal Neck: supple, no adenopathy, no JVD, trachea midline Respiratory/Chest: chest non-tender, lungs clear, normal breath sounds, no respiratory distress, no accessory muscle use Cardiovascular: no edema, no gallop, no JVD, no murmur, normal peripheral pulses, + irregularly irregular Abdomen / GI: normal bowel sounds, non tender, soft, no organomegaly Extremities: normal inspection, no calf tenderness, normal capillary refill , no pedal edema, normal range of motion, pelvis stable Neurologic/Psychiatric: subscription agent II-XII nml as tested, no motor/sensory deficits , alert, normal mood/affect, normal reflexes, oriented x 3 Skin: normal color, warm/dry, no rash Hospital Course 86 yo male with h/o atrial fibrillation, had increased swelling in legs, supratherapeutic INR and heme positive stools with some anemia - Anemia: Hb stable, was 9.0 then 8.6 and then 8.9 and yesterday it was 9.1 no signs of active bleeding and patient not interested in scopes will allow him to eat no further work up in the hospital and issue appears to be stable - Hemorrhagic disorder due to extrinsic circulating anticoagulants: reversed on 05/19 INR normal today, will resume Coumadin on discharge - Chronic atrial fibrillation, now with frequent RVR episodes: episode 05/21 with rates 140's, then again on 05/22 with rates in 160's better control on Cardizem 30mg TID, although he had some bradycardia overnight patient did not have chest pain or palpitations with HR in 140-160 suspect he has these bursts at home and does not know it reviewed tele, never had tachycardia while sleeping will prescribe Lopressor 12.5mg once daily in the morning BP runs low normal so would not want to give more than just the starting dose follow up with PCP - Restless leg syndrome - Peripheral edema: continue compression stockings, HCTZ, edema is not significant can use Lasix PRN, 20mg daily only if he has edema despite taking HCTZ and utilizing compression stockings d/c to home Total Time Spent: Greater than 30 minutes This includes examination of the patient, discharge planning, medication reconciliation, and communication with other providers. Discharge Instructions Please refer to the electronic Patient Visit Report (Discharge Instructions) for additional information. Follow-Up Dr. Chambers in one week Additional Copies To Carmen Chambers M.D.
[2017-05-24] MEDS ORDERED: METOPROLOL TARTRATE 25 MG TAB PO SCH (09:00)
== END 2017-05-23 14:00 | disposition home or self-care (01) | DRG 813 ==
LOC: C.EDB 16:35 → C.2T 21:30 → ENRESERV 21:39
PROVIDERS: ADMIT Hospitalist; ATTEND Internal Medicine
DX: D68.32 Hemorrhagic disorder due to extrinsic circulating anticoagulants (principal); T45.515A Adverse effect of anticoagulants, initial encounter; D64.9 Anemia, unspecified; I48.2 Chronic atrial fibrillation; R00.0 Tachycardia, unspecified; I10 Essential (primary) hypertension; R19.5 Other fecal abnormalities; N40.1 Benign prostatic hyperplasia with lower urinary tract symptoms; R31.9 Hematuria, unspecified; G25.81 Restless legs syndrome; M79.89 Other specified soft tissue disorders; Z79.82 Long term (current) use of aspirin; Z79.899 Other long term (current) drug therapy

== ENCOUNTER → 2017-05-26 | Outpatient (CLI) | payer OTHER ==
[~2017-05-26] MED LIST changes: +ASPI-319 PO; +FLM4 PO; +HYDR12.56 PO; +HYDR25TA5 PO; +LSX20 PO; +METO25TA56 PO; +PRAM0.1212 PO
[2017-05-26 12:40] LABS: BASO ABS # 0.24 K/uL (0-0.2); EOS % 2.8 %; EOS ABS # 0.23 K/uL (0-0.5); HEMATOCRIT 32.8 % (42-52); HEMOGLOBIN 10.6 g/dL (14.0-18.0); IG# 0.03 K/uL (0.00-0.02); LYMPH % 29.9 %; LYMPH ABS # 2.42 K/uL (1.2-3.4); MEAN CELL VOLUME 96.2 fL (80-100); MEAN CORPUSCULAR HEMOGLOBIN 31.1 pg (25-34); MEAN CORPUSCULAR HGB CONC 32.3 g/dl (32-36); MEAN PLATELET VOLUME 9.4 fL (7.4-10.4); MONO % 11.2 %; MONO ABS # 0.91 K/uL (0.11-0.59); NEUT % 52.7 %; NEUT ABS # 4.27 K/uL (1.4-6.5); PLATELET COUNT 599 K/uL (130-400); RED CELL DISTRIBUTION WIDTH CV 15.6 % (11.5-14.5); RED CELL DISTRIBUTION WIDTH SD 54.1 fL (36.4-46.3)
[2017-05-26 12:52] LABS: INR 1.3 (0.9-1.1)
== END | disposition home or self-care (01) ==
LOC: C.LABPVFM 10:40
PROVIDERS: ATTEND Family Medicine
DX: E78.5 Hyperlipidemia, unspecified (principal)

== ENCOUNTER → 2017-12-10 | Outpatient (CLI) | payer OTHER ==
[~2017-12-10] MED LIST changes: -ASPEC81 PO; -HYDR12.56 PO; -HYDR25TA4 PO
[2017-12-10 17:26] LABS: BASO ABS # 0.08 K/uL (0-0.2); EOS % 4.2 %; EOS ABS # 0.33 K/uL (0-0.5); HEMATOCRIT 34.7 % (42-52); HEMOGLOBIN 11.3 g/dL (14.0-18.0); IG# 0.01 K/uL (0.00-0.02); LYMPH ABS # 1.91 K/uL (1.2-3.4); MEAN CELL VOLUME 97.2 fL (80-100); MEAN CORPUSCULAR HEMOGLOBIN 31.7 pg (25-34); MEAN CORPUSCULAR HGB CONC 32.6 g/dl (32-36); MEAN PLATELET VOLUME 10.7 fL (7.4-10.4); MONO % 7.8 %; MONO ABS # 0.62 K/uL (0.11-0.59); NEUT % 62.9 %; PLATELET COUNT 209 K/uL (130-400); RED CELL DISTRIBUTION WIDTH CV 14.4 % (11.5-14.5); RED CELL DISTRIBUTION WIDTH SD 51.2 fL (36.4-46.3); WHITE BLOOD COUNT 7.95 K/uL (4.8-10.8)
[2017-12-10 17:48] LABS: ALBUMIN 3.7 gm/dl (3.4-5.0); ALKALINE PHOSPHATASE 59 U/L (45-117); ALT/SGPT 23 U/L (12-78); AST/SGOT 26 U/L (15-37); BLOOD UREA NITROGEN 24 mg/dl (7-18); CALCIUM 8.6 mg/dl (8.5-10.1); CARBON DIOXIDE 31 mmol/L (21-32); CREATININE 1.45 mg/dl (0.60-1.40); GLUCOSE 122 mg/dl (70-99); POTASSIUM 4.2 mmol/L (3.5-5.1); SODIUM 140 mmol/L (136-145); TOTAL PROTEIN 6.7 gm/dl (6.4-8.2); TRANSFERRIN 222 mg/dl (200-360)
== END | disposition home or self-care (01) ==
LOC: C.LABBFT 15:36
PROVIDERS: ATTEND Internal Medicine
DX: D64.9 Anemia, unspecified (principal); I48.91 Unspecified atrial fibrillation

== ENCOUNTER → 2017-12-15 | Outpatient (CLI) | payer OTHER ==
--- NOTE | 2017-12-15 10:30 | DIAGNOSTIC IMAGING REPORT ---
ABDOMEN ULTRASOUND FOR HERNIA CLINICAL HISTORY: K40.90 Left inguinal hernia please evaluate size of left inguinal COMPARISON STUDY: Abdomen and pelvis CT 03/09/2017. FINDINGS: Real-time sonographic imaging of the left renal canal was performed with commercial representative images submitted. There is a small partially reducible fat-containing left inguinal hernia. The hernia measures 2.5 cm. No bowel identified within the hernia. IMPRESSION: Small partially reducible fat-containing left inguinal hernia. Electronically signed by: Odilon Cain M.D. 12/15/2017 10:29 AM Dictated Date/Time: 12/15/2017 10:27 AM
== END | disposition home or self-care (01) ==
LOC: C.ULTR 10:01
PROVIDERS: ATTEND Nurse Practitioner
DX: K40.90 Unilateral inguinal hernia, without obstruction or gangrene, not specified as recurrent (principal)

== ENCOUNTER 2019-08-28 15:00 | Inpatient (IN) ==
[2019-08-28] MEDS ORDERED: ONDANSETRON INJ 2 MG/ML 2 ML VIAL IV STA (15:28)
[2019-08-28] MEDS ORDERED: SODIUM CHLORIDE 0.9% 1000ML 1,000 ML IV SCH (15:30)
--- NOTE | 2019-08-28 15:32 | Emergency Department Note ---
Impression & Plan Partial bowel obstruction, Anemia, Nausea & vomiting ED Provider Note NAME: SYLVESTER RIVAS AGE: 89 SEX: M : 1930 ARRIVES VIA: Walk-In INFORMANT: Patient, ED PROVIDER(S): Gamal Fall MD Chief Complaint: Abdominal pain HPI: Patient does present with abdominal pain. The patient states it is epigastric and left lower quadrant. The patient describes it as 10 out of 10 and strong. The patient states it has been fairly constant but has improved on its own since he vomited today. The patient has had 2 episodes of vomiting since this started yesterday. The patient denies any recent change in diet. The patient denies any trauma. Patient was referred due to concern for his abdominal pain and his aspirin and Coumadin use for rule out a possible GI bleed. ROS: See HPI for pertinent positives and negatives. A total of 10 systems were reviewed and otherwise negative. Past medical history: See below Surgical history: See below Social history: See below Physical Exam: GENERAL: Well appearing, well nourished, NAD, non-toxic. Wearing glasses. EYE EXAM: Normal conjunctiva. PERRL, no anisocoria and EOM's grossly intact w/o pain. OROPHARYNX: Moist mucus membranes. Grossly normal dentition. NECK: Supple, no nuchal rigidity, no adenopathy, non-tender. No signs of meningismus. LUNGS: Clear to auscultation. Normal chest wall mechanics. HEART: NSR, no MRG. ABDOMEN: Abdomen soft, epigastric and left lower quadrant pain without peritonitis, normo-active bowel sounds, no masses, no rebound or guarding. BACK: No CVA TTP. SKIN: No rashes and no bruising. UPPER EXTREMITIES: Upper extremities are grossly normal. LOWER EXTREMITIES: Grossly normal, no edema. NEURO EXAM: A&O x3, cranial nerves II-XII grossly intact, normal speech, moves all 4 extremities on command w/o issue. Differential diagnoses: Appendicitis, testicular torsion, infections, diverticulitis, UTI, obstruction, mesenteric ischemia, aortic pathology, inflammatory bowel disease, renal colic, PUD, pancreatitis, biliary pathology, hernia, volvulus, constipation, as well as other pathologies. Course: Patient was seen and evaluated the bedside. A full history and physical exam was performed. Patient was reevaluated and is comfortable. No abdominal pain or nausea. The patient was reevaluated and still feels well. I did discuss the treatment plan. The patient would like me to call his and daughter. I did have a discussion with both the and daughter in terms of the current management. They are currently agreeable as does the patient. Did speak with Stiven Odell [facility]. The patient will be admitted by Dr. Ju Aj [facility] service. EKG: Indication: Upper abdominal pain and vomiting Atrial fibrillation, rate of 80, normal QRS duration, normal axis, no obvious ischemic change. No obvious change from May 21, 2017. Imaging Studies: Radiology results as stated below per my review in the radiologist's interpretation: CT OF THE ABDOMEN AND PELVIS WITH CONTRAST CLINICAL HISTORY: upper and LLQ pain COMPARISON STUDY: CT of the abdomen and pelvis March 09, 2017. TECHNIQUE: Following IV administration of 94 mL of Optiray-320, axial images of the abdomen and pelvis were obtained from the lung bases to the proximal femurs. Images were reviewed in the axial, sagittal, and coronal planes. IV contrast was administered without complication. Automated exposure control was utilized for the study. A dose lowering technique was utilized adhering to the principles of ALARA. CT DOSE: 292.94 mGy.cm FINDINGS: Imaged portions of the lower chest demonstrate mild airspace opacities within the lower lungs. A small amount of ascites is noted within the abdomen and pelvis. Numerous small hepatic lesions are new since CT of March 09, 2017. These measure up to 1.3 cm. The spleen, adrenal glands, pancreas and kidneys are unremarkable. There is no biliary or pancreatic ductal dilatation. No peripancreatic or pericholecystic infiltration. The mid to distal small bowel is mildly dilated and fluid-filled to the level of the ileocecal valve. Note is made of an enhancing mass within the cecum at the level of the ileocecal valve. This results in a small bowel obstruction. A necrotic ileocolic lymph node measures 2.8 cm.. Numerous peritoneal nodules are noted with omental implants measuring up to 1.5 cm. Major vasculature is patent. Left inguinal hernia contains a small amount of fluid. No pneumatosis, free air or portal venous gas is present. No suspicious osseous lesions are identified. IMPRESSION: 1. Cecal mass which involves the ileocecal valve and results in a partial small bowel obstruction. This favors colonic adenocarcinoma. Necrotic 2.8 cm ileocolic lymph node consistent with franco spread of disease. 2. Multiple small hepatic metastases measuring up to 1.3 cm. Small amount of ascites with omental implants consistent with peritoneal carcinomatosis. 3. Mild airspace opacities within the lower lungs which favor atelectasis however an infectious process could appear similar. ACT 112: Positive. There are findings on this exam that require communication between the performing entity and the patient following Patient Test Result Information Act ([place] Act 112) guidelines. Electronically signed by: Ramon Cabrera M.D. 08/28/2019 5:33 PM Dictated: 08/28/191712 Transcribed: 08/28/191712 Cardiac monitoring: An order was placed for continuous cardiac monitoring. The monitor shows a rate of 78 with irregularly irregular rhythm. MDM: Patient was seen and evaluated the bedside. The patient did present with abdominal pain with associated nausea vomiting. This has improved since yesterday. The patient did a bladder completed along with coagulation studies EKG troponin and CT of the abdomen pelvis. EKG is unchanged A. fib well- controlled rate. Urinalysis is negative. Troponin is not detectable. I do not believe that this is atypical chest pain. Patient's INR is therapeutic. The patient does have a hemoglobin 9.3 but that is improved compared to prior. Very mild white count at just below 12,000. Patient did have a CT abdomen pelvis is does show concern for cecal mass and partial small bowel obstruction. 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 Given this acute concern I did speak the on-call general fuentes geon. As the patient is currently asymptomatic and no current vomiting or pain does not believe an NG needs to be placed at this time. I believe this is reasonable. I did speak the on-call hospitalist who agreed to further evaluate treat the patient. Patient was admitted to the medicine service. Past Med/Surg History Medical History Acute CHF (congestive heart failure) (Resolved) GLEN (acute kidney injury) (Acute) Atrial fibrillation Basal cell carcinoma of face (Resolved) Change in bowel habits (Resolved) Dysplastic nevus (Resolved) Hearing loss (Resolved) Hematospermia (Resolved) Hypercholesterolemia Hypertension Left inguinal hernia (Resolved) Seborrheic keratosis (Resolved) Seborrheic keratosis, inflamed (Resolved) Segmental and somatic dysfunction of thoracic region (Resolved) Speech disorder (Resolved) Surgical History History of cataract surgery History of hernia repair History of prior ablation treatment History of thyroid surgery Family History Father Diabetes Cardiac disorder Social History Preferred Language: Syriac Communication Ability: Effective Hearing Ability: Use of Hearing Aid marital status: Current Living Situation: Spouse current occupational status: retired Feels Safe at Home: Yes Smoking Status: Never smoker Hx Alcohol Use: No Hx Substance Use: No Seatbelt Use: always Sunscreen Use: No Allergies Allergies Allergy/AdvReac Type Severity Reaction Status Date / Time NSAIDS (Non-Steroidal Allergy Unknown . Verified 08/28/19 16:30 Anti-Inflamma sulindac Allergy Unknown . Verified 08/28/19 16:30 Home Meds Home Medications Medication Instructions Recorded Confirmed artificial tears(hypromellose) 0.4 1 drp OP DIRECTED 10/01/18 08/28/19 % eye drops ferrous gluconate 324 mg (38 mg 324 mg PO DIRECTED tab 10/20/18 08/28/19 iron) tablet omega-3 acid ethyl esters 1 gram 1 cap PO DAILY cap 10/25/18 08/28/19 capsule aspirin 81 mg PO DAILY 08/28/19 08/28/19 furosemide 20 mg PO 2XWK 08/28/19 08/28/19 hydrochlorothiazide See Rx Instructions .ROUTE .COMPLEX 08/28/19 08/28/19 pramipexole 0.125 mg PO HS 08/28/19 08/28/19 warfarin [Jantoven] 5 mg PO DAILY 08/28/19 08/28/19 Previous Rx's Medication Instructions Recorded tamsulosin 0.4 mg capsule 0.4 mg PO HS #90 cap 03/01/19 atorvastatin 10 mg tablet 10 mg PO DAILY #90 tab 08/08/19 metoprolol tartrate 25 mg tablet 12.5 mg PO DAILY #45 tab 08/08/19 Results & Data (ED) Vital Signs Vital Signs - 24 hr 08/28/19 15:03 08/28/19 16:00 08/28/19 16:30 Temperature 36.7 C Temperature Source Oral Pulse Rate 99 H 77 68 Pulse Rate [Apical] 72 Pulse Rate from SpO2 Sensor 76 69 Pulse Rhythm Regular Pulse Strength Normal Respiratory Rate 20 12 Respiratory Effort / Characteristics Non-Labored Spontaneous Respiratory Depth Normal Respiratory Pattern Regular Blood Pressure 133/69 121/70 124/56 L Blood Pressure [Left Arm] 121/70 Blood Pressure Mean 90 83 87 Blood Pressure Mean [Left Arm] 87 Blood Pressure Position Sitting Pulse Oximetry 96 95 96 Oxygen Delivery Method Room Air Room Air Room Air Sepsis Recent Fever Within 48 Hours No Sepsis Action Taken by Nursing No Action Required 08/28/19 16:31 08/28/19 17:31 08/28/19 18:01 Temperature Temperature Source Pulse Rate 80 78 73 Pulse Rate [Apical] Pulse Rate from SpO2 Sensor 76 79 73 Pulse Rhythm Pulse Strength Respiratory Rate Respiratory Effort / Characteristics Respiratory Depth Respiratory Pattern Blood Pressure 131/103 H 170/85 H Blood Pressure [Left Arm] Blood Pressure Mean 107 96 Blood Pressure Mean [Left Arm] Blood Pressure Position Pulse Oximetry 96 95 97 Oxygen Delivery Method Sepsis Recent Fever Within 48 Hours Sepsis Action Taken by Nursing 08/28/19 18:31 Temperature Temperature Source Pulse Rate 78 Pulse Rate [Apical] Pulse Rate from SpO2 Sensor Pulse Rhythm Pulse Strength Respiratory Rate 20 Respiratory Effort / Characteristics Respiratory Depth Respiratory Pattern Blood Pressure 129/74 Blood Pressure [Left Arm] Blood Pressure Mean 84 Blood Pressure Mean [Left Arm] Blood Pressure Position Pulse Oximetry Oxygen Delivery Method Sepsis Recent Fever Within 48 Hours Sepsis Action Taken by Nursing Laboratory Data Result diagrams: 08/28/19 15:46 08/28/19 15:46 Lab Results 08/28/19 08/28/19 08/28/19 Range/Units 15:46 15:46 15:46 WBC 11.93 H (4.8-10.8) K/uL RBC 3.16 L (4.7-6.1) M/uL Hgb 9.3 L (14.0-18.0) g/dL Hct 29.4 L (42-52) % MCV 93.0 (80-100) fL MCH 29.4 (25-34) pg MCHC 31.6 L (32-36) g/dL RDW Std Deviation 53.9 H (36.4-46.3) fL RDW Coeff of Jaziel 15.9 H (11.5-14.5) % Plt Count 340 (130-400) K/uL MPV 9.2 (7.4-10.4) fL Immature Gran % (Auto) 0.2 % Neut % (Auto) 83.9 % Lymph % (Auto) 7.5 % Brooks % (Auto) 7.1 % Eos % (Auto) 0.5 % Baso % (Auto) 0.8 % Immature Gran # (Auto) 0.02 (0.00-0.02) K/uL Neut # (Auto) 10.02 H (1.4-6.5) K/uL Lymph # (Auto) 0.89 L (1.2-3.4) K/uL Brooks # (Auto) 0.85 H (0.11-0.59) K/uL Eos # (Auto) 0.06 (0-0.5) K/uL Baso # (Auto) 0.09 (0-0.2) K/uL PT (9.0-12.0) Seconds INR (0.9-1.1) APTT (21.0-31.0) Seconds PTT Ratio Sodium 137 (136-145) mmol/L Potassium 3.9 (3.5-5.1) mmol/L Chloride 100 (98-107) mmol/L Carbon Dioxide 31 (21-32) mmol/L Anion Gap 6.0 (3-11) BUN 16 (7-18) mg/dl Creatinine 1.13 (0.6-1.4) mg/dl Est Cr Clr Drug Dosing Not Reportable Est GFR ( Amer) 66.4 Est GFR (Non-Af Amer) 57.3 BUN/Creatinine Ratio 13.7 (10-20) Glucose 129 H (70-99) mg/dl Calcium 9.1 (8.5-10.1) mg/dl Total Bilirubin 0.6 (0.2-1) mg/dl AST 24 (15-37) U/L ALT 27 (12-78) U/L Alkaline Phosphatase 85 (45-117) U/L Troponin I < 0.015 (0-0.045) ng/ml Total Protein 6.5 (6.4-8.2) gm/dl Albumin 3.5 (3.4-5.0) gm/dl Globulin 3.0 (2.5-4.0) gm/dl Albumin/Globulin Ratio 1.2 (0.9-2) Lipase 105 (73-393) U/L Urine Color Urine Appearance (Clear) Urine pH (4.5-7.5) Ur Specific [place] (1.000-1.030) Urine Protein (Negative) Urine Glucose (UA) (Negative) Urine Ketones (Negative) Urine Blood (Negative) Urine Nitrite (Negative) Urine Bilirubin (Negative) Urine Urobilinogen (Negative) Ur Leukocyte Esterase (Negative) Blood Type A Positive Antibody Screen NEGATIVE 08/28/19 08/28/19 Range/Units 15:46 18:20 WBC (4.8-10.8) K/uL RBC (4.7-6.1) M/uL Hgb (14.0-18.0) g/dL Hct (42-52) % MCV (80-100) fL MCH (25-34) pg MCHC (32-36) g/dL RDW Std Deviation (36.4-46.3) fL RDW Coeff of Jaziel (11.5-14.5) % Plt Count (130-400) K/uL MPV (7.4-10.4) fL Immature Gran % (Auto) % Neut % (Auto) % Lymph % (Auto) % Brooks % (Auto) % Eos % (Auto) % Baso % (Auto) % Immature Gran # (Auto) (0.00-0.02) K/uL Neut # (Auto) (1.4-6.5) K/uL Lymph # (Auto) (1.2-3.4) K/uL Brooks # (Auto) (0.11-0.59) K/uL Eos # (Auto) (0-0.5) K/uL Baso # (Auto) (0-0.2) K/uL PT 29.7 H (9.0-12.0) Seconds INR 3.0 H (0.9-1.1) APTT 38.7 H (21.0-31.0) Seconds PTT Ratio 1.4 Sodium (136-145) mmol/L Potassium (3.5-5.1) mmol/L Chloride (98-107) mmol/L Carbon Dioxide (21-32) mmol/L Anion Gap (3-11) BUN (7-18) mg/dl Creatinine (0.6-1.4) mg/dl Est Cr Clr Drug Dosing Est GFR ( Amer) Est GFR (Non-Af Amer) BUN/Creatinine Ratio (10-20) Glucose (70-99) mg/dl Calcium (8.5-10.1) mg/dl Total Bilirubin (0.2-1) mg/dl AST (15-37) U/L ALT (12-78) U/L Alkaline Phosphatase (45-117) U/L Troponin I (0-0.045) ng/ml Total Protein (6.4-8.2) gm/dl Albumin (3.4-5.0) gm/dl Globulin (2.5-4.0) gm/dl Albumin/Globulin Ratio (0.9-2) Lipase (73-393) U/L Urine Color Yellow Urine Appearance Clear (Clear) Urine pH 8.5 H (4.5-7.5) Ur Specific [place] > 1.045 H (1.000-1.030) Urine Protein Negative (Negative) Urine Glucose (UA) Negative (Negative) Urine Ketones Negative (Negative) Urine Blood Negative (Negative) Urine Nitrite Negative (Negative) Urine Bilirubin Negative (Negative) Urine Urobilinogen Negative (Negative) Ur Leukocyte Esterase Negative (Negative) Blood Type Antibody Screen Administered Medications Ioversol (Optiray 320 100ml) 94 ml IV ONCE PRN PRN Reason: Interaction Checking Stop: 09/01/19 16:56 Last Admin: 08/28/19 16:57 Dose: 94 ml Documented by: [id number] Discontinued Medications Sodium Chloride (Nss 1000ml) 1,000 mls @ 999 mls/hr IV .Q1H1M [id number] Stop: 08/28/19 16:30 Last Infusion: 08/28/19 16:55 Dose: 0 mls/hr Documented by: [id number] Admin: 08/28/19 15:57 Dose: 999 mls/hr Documented by: [id number] Ondansetron HCl (Zofran) 4 mg IV NOW STA Stop: 08/28/19 15:29 Last Admin: 08/28/19 15:57 Dose: 4 mg Documented by: [id number] Discharge Plan Visit Data Chief Complaint: Hypotension Stated Complaint: BLOOD PRESSURE IN 70S, DIAREAH, VOMITING ED Provider: Gamal Fall Discharge Problem: Partial bowel obstruction, Anemia, Nausea & vomiting Forms Stand Alone Forms: [facility] [employer] Prescriptions Prescriptions: No Action tamsulosin 0.4 mg capsule 0.4 mg PO HS Qty: 90 RF: 3 atorvastatin 10 mg tablet 10 mg PO DAILY Qty: 90 RF: 3 metoprolol tartrate 25 mg tablet 12.5 mg PO DAILY Qty: 45 RF: 3 artificial tears(hypromellose) 0.4 % drops 1 drp OP DIRECTED RF: 0 ferrous gluconate 324 mg (38 mg iron) tablet 324 mg PO DIRECTED RF: 0 omega-3 acid ethyl esters 1 gram capsule 1 cap PO DAILY RF: 0 aspirin 81 mg Tablet,Delayed Release (Dr/Ec) 81 mg PO DAILY RF: 0 hydrochlorothiazide 12.5 mg capsule See Rx Instructions .ROUTE .COMPLEX RF: 0 furosemide 20 mg tablet 20 mg PO 2XWK RF: 0 warfarin [Jantoven] 5 mg tablet 5 mg PO DAILY RF: 0 pramipexole 0.125 mg tablet 0.125 mg PO HS RF: 0 Discharge Problem: Partial bowel obstruction Qualifiers: Intestinal obstruction type: unspecified Qualified Code(s): K56.600 - Partial intestinal obstruction, unspecified as to cause Anemia Qualifiers: Anemia type: unspecified type Qualified Code(s): D64.9 - Anemia, unspecified Nausea & vomiting Qualifiers: Vomiting type: unspecified Vomiting Intractability: non-intractable Qualified Code(s): R11.2 - Nausea with vomiting, unspecified
[2019-08-28 16:02] LABS: Basophils # (auto) 0.09 K/uL (0-0.2); Basophils % (auto) 0.8 %; Eosinophils # (auto) 0.06 K/uL (0-0.5); Eosinophils % (auto) 0.5 %; Hematocrit (blood only) 29.4 % (42-52); Hemoglobin 9.3 g/dL (14.0-18.0); Immature Granulocytes # (auto) 0.02 K/uL (0.00-0.02); Immature Granulocytes % (auto) 0.2 %; Lymphocytes # (auto) 0.89 K/uL (1.2-3.4); Lymphocytes % (auto) 7.5 %; Mean Corpuscular Hemoglobin 29.4 pg (25-34); Mean Corpuscular Hgb Conc 31.6 g/dL (32-36); Mean Platelet Volume 9.2 fL (7.4-10.4); Monocytes # (auto) 0.85 K/uL (0.11-0.59); Monocytes % (auto) 7.1 %; Neutrophils # (auto) 10.02 K/uL (1.4-6.5); Neutrophils % (auto) 83.9 %; Platelet Count 340 K/uL (130-400); RDW Coefficient of Variation 15.9 % (11.5-14.5); RDW Standard Deviation 53.9 fL (36.4-46.3); Red Blood Count 3.16 M/uL (4.7-6.1); White Blood Count 11.93 K/uL (4.8-10.8)
[2019-08-28 16:13] LABS: Partial Thromboplastin Ratio 1.4; Partial Thromboplastin Time 38.7 Seconds (21.0-31.0); Prothrombin Time 29.7 Seconds (9.0-12.0)
[2019-08-28 16:27] LABS: Alanine Aminotransferase 27 U/L (12-78); Albumin Level 3.5 gm/dl (3.4-5.0); Aspartate Aminotransferase 24 U/L (15-37); BUN Creatinine Ratio 13.7 (10-20); Blood Urea Nitrogen 16 mg/dl (7-18); Calcium 9.1 mg/dl (8.5-10.1); Carbon Dioxide 31 mmol/L (21-32); Chloride 100 mmol/L (98-107); Est GFR (African American) 66.4; Est GFR (Non-African American) 57.3; Glucose 129 mg/dl (70-99); Lipase 105 U/L (73-393); Potassium 3.9 mmol/L (3.5-5.1); Sodium 137 mmol/L (136-145)
[2019-08-28 16:31] LABS: Albumin Globulin Ratio 1.2 (0.9-2); Alkaline Phosphatase 85 U/L (45-117); Bilirubin,Total 0.6 mg/dl (0.2-1); Total Protein 6.5 gm/dl (6.4-8.2); Troponin I < 0.015 ng/ml (0-0.045)
[2019-08-28] MEDS ORDERED: IOVERSOL 100ml IV PRN (16:57)
--- NOTE | 2019-08-28 17:34 | CT Scan Report ---
CT OF THE ABDOMEN AND PELVIS WITH CONTRAST CLINICAL HISTORY: upper and LLQ pain COMPARISON STUDY: CT of the abdomen and pelvis March 09, 2017. TECHNIQUE: Following IV administration of 94 mL of Optiray-320, axial images of the abdomen and pelvi s were obtained from the lung bases to the proximal femurs. Images were reviewed in the axial, sagitt al, and coronal planes. IV contrast was administered without complication. Automated exposure contro l was utilized for the study. A dose lowering technique was utilized adhering to the principles of A RICHARD. CT DOSE: 292.94 mGy.cm FINDINGS: Imaged portions of the lower chest demonstrate mild airspace opacities within the lower mariajose gs. A small amount of ascites is noted within the abdomen and pelvis. Numerous small hepatic lesions are new since CT of March 09, 2017. These measure up to 1.3 cm. The spleen, adrenal glands, pancrea s and kidneys are unremarkable. There is no biliary or pancreatic ductal dilatation. No peripancreati c or pericholecystic infiltration. The mid to distal small bowel is mildly dilated and fluid-filled t o the level of the ileocecal valve. Note is made of an enhancing mass within the cecum at the level o f the ileocecal valve. This results in a small bowel obstruction. A necrotic ileocolic lymph node steven sures 2.8 cm.. Numerous peritoneal nodules are noted with omental implants measuring up to 1.5 cm. Ma ginger vasculature is patent. Left inguinal hernia contains a small amount of fluid. No pneumatosis, yenny e air or portal venous gas is present. No suspicious osseous lesions are identified. IMPRESSION: 1. Cecal mass which involves the ileocecal valve and results in a partial small bowel obstruction. Th is favors colonic adenocarcinoma. Necrotic 2.8 cm ileocolic lymph node consistent with franco spread o f disease. 2. Multiple small hepatic metastases measuring up to 1.3 cm. Small amount of ascites with omental imp lants consistent with peritoneal carcinomatosis. 3. Mild airspace opacities within the lower lungs which favor atelectasis however an infectious proce ss could appear similar. ACT 112: Positive. There are findings on this exam that require communication between the performing entity and the patient following Patient Test Result Information Act ([place] Act 112) guidelines. Electronically signed by: Ramon Cabrera M.D. 08/28/2019 5:33 PM
[2019-08-28] MEDS ORDERED: D5W AND 1/2NSS 1,000 ML IV SCH (18:15)
[2019-08-28 18:39] LABS: Appearance Urine Clear (Clear); Bilirubin Urine Negative (Negative); Blood Urine Negative (Negative); Color Urine Yellow; Glucose Urine UA Negative (Negative); Ketones Urine Negative (Negative); Leukocyte Esterase Urine Negative (Negative); Nitrite Urine Negative (Negative); Protein Urine Negative (Negative); Specific Gravity Urine > 1.045 (1.000-1.030); Urobilinogen Urine Negative (Negative); pH Urine 8.5 (4.5-7.5)
--- NOTE | 2019-08-28 20:10 | History & Physical Report ---
Date of Service August 28, 2019 Assessment & Plan (1) Cecum mass: 89yo C male presenting with abdominal pain, nausea/vomiting, found to have cecal mass causing partial SBO. 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 -Admit to medical floor -Consult Oncology - assistance appreciated -Consult General Surgery - assistance appreciated (2) Partial bowel obstruction: Patient nontender/nondistended at present. BS present, no nausea -Continue to monitor -IVF and electrolyte repletion -General Surgery consultation appreciated Present on Admission?: Yes (3) Anemia: Normochromic, normocytic anemia with Hgb=9.3, Hct=29.4 -Continue to monitor -Continue iron supplementation Present on Admission?: Yes (4) Hyperlipidemia: Chronic. -Continue Atorvastatin Present on Admission?: Yes (5) Benign hypertension: Blood pressure stable at present -Continue Metoprolol -Continue to monitor -Will continue to hold HCTZ as instructed by PCP Present on Admission?: Yes (6) BPH (benign prostatic hyperplasia): Chronic -Continue Tamsulosin Present on Admission?: Yes (7) Atrial fibrillation: Rate controlled. 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 Constant, 10/10 in severity, mildly relieved after belching. Associated with some nausea and two episodes of nonbloody/non-bilious vomiting. CT of the abdomen performed in the ER revealed a cecal mass involving the ileocecal valve resulting in partial SBO. Findings favor colonic adenocarcinoma. Patient also with a necrotic 2.8cm ileocolic lymph node, multiple small hepatic metastases and small amount of ascites with omental implants consistent with carcinomatosis. Patient had a colonoscopy appx 40 years ago. He denies melena/hematochezia but does report a change in bowel habits over the last few months, alternating between diarrhea and constipation. He also reports thin stools. Last BM this AM - loose. No flatus today. 6# unintentional weight loss since May Patient lives at home with his . He denies cough/fevers/chills/SOB. No sick contacts. No recent international or domestic travel. 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 Verified 08/28/19 16:30 Anti-Inflamma sulindac Allergy Unknown . Verified 08/28/19 16:30 Home Medications Home Medications Medication Instructions Recorded Confirmed Type artificial tears(hypromellose) 0.4 1 drp OP DIRECTED 10/01/18 08/28/19 History % eye drops ferrous gluconate 324 mg (38 mg 324 mg PO DIRECTED tab 10/20/18 08/28/19 History iron) tablet omega-3 acid ethyl esters 1 gram 1 cap PO DAILY cap 10/25/18 08/28/19 History capsule tamsulosin 0.4 mg capsule 0.4 mg PO HS #90 cap 03/01/19 08/28/19 Rx atorvastatin 10 mg tablet 10 mg PO DAILY #90 tab 08/08/19 08/28/19 Rx metoprolol tartrate 25 mg tablet 12.5 mg PO DAILY #45 tab 08/08/19 08/28/19 Rx aspirin 81 mg PO DAILY 08/28/19 08/28/19 History furosemide 20 mg PO 2XWK 08/28/19 08/28/19 History hydrochlorothiazide See Rx Instructions .ROUTE .COMPLEX 08/28/19 08/28/19 History pramipexole 0.125 mg PO HS 08/28/19 08/28/19 History warfarin [Jantoven] 5 mg PO DAILY 08/28/19 08/28/19 History Past Med/Surg History Medical History Acute CHF (congestive heart failure) (Resolved) GLEN (acute kidney injury) (Acute) Atrial fibrillation Basal cell carcinoma of face (Resolved) Change in bowel habits (Resolved) Dysplastic nevus (Resolved) Hearing loss (Resolved) Hematospermia (Resolved) Hypercholesterolemia Hypertension Left inguinal hernia (Resolved) Seborrheic keratosis (Resolved) Seborrheic keratosis, inflamed (Resolved) Segmental and somatic dysfunction of thoracic region (Resolved) Speech disorder (Resolved) Surgical History History of cataract surgery History of hernia repair History of prior ablation treatment History of thyroid surgery Family History Father Diabetes Cardiac disorder Social History Preferred Language: Mexican Communication Ability: Effective Hearing Ability: Use of Hearing Aid marital status: Current Living Situation: Spouse current occupational status: retired Feels Safe at Home: Yes Smoking Status: Never smoker Hx Alcohol Use: No Hx Substance Use: No Seatbelt Use: always Sunscreen Use: No Review of Systems Review of Systems: All systems reviewed & are unremarkable except as noted in HPI & below Physical Exam Physical Exam: General: patient resting comfortably, NAD, non-toxic in appearance, AA&O x 4 Skin: warm, dry, intact, no rashes or lesions HEENT: NC/AT, PERRL, EOMI, anicteric sclera, conjunctiva without injection, external ear normal to inspection and nontender, nares patent, moist mucus membranes, dentition intact, no oropharyngeal lesions, neck supple, trachea midline, no LAD, no thyromegaly, no JVD Heart: +S1/S2, irregularly irregular, 3/6 KELLEN across precordium Lungs: equal air entry bilaterally, no rales/rhonchi/wheezes Abd: +BS diminished slightly, soft, NT/ND, no masses/organomegaly/ascites Ext: warm, 2+ pulses in UE/LE bilaterally, no clubbing/cyanosis, trace pitting edema bilaterally Neuro: nonfocal, patient AA&O x 4, speech intact, no facial droop, moving all extremities on command with equal strength 5/5 Results & Data Results & Data ([facility]) Vital Signs (Past 12 Hours) Vital Signs Temp Pulse Pulse Resp BP BP Pulse Ox 08/28/19 19:31 73 24 114/60 08/28/19 19:30 64 26 H 04/05/20 19:00 75 21 123/66 08/28/19 18:32 70 19 08/28/19 18:31 78 20 129/74 08/28/19 18:01 73 170/85 H 97 08/28/19 17:31 78 131/103 H 95 08/28/19 16:31 80 96 08/28/19 16:30 68 124/56 L 96 08/28/19 16:00 77 72 12 121/70 121/70 95 08/28/19 15:03 36.7 C 99 H 20 133/69 96 Laboratory Results Lab Results 08/28/19 08/28/19 08/28/19 Range/Units 15:46 15:46 15:46 WBC 11.93 H (4.8-10.8) K/uL RBC 3.16 L (4.7-6.1) M/uL Hgb 9.3 L (14.0-18.0) g/dL Hct 29.4 L (42-52) % MCV 93.0 (80-100) fL MCH 29.4 (25-34) pg MCHC 31.6 L (32-36) g/dL RDW Std Deviation 53.9 H (36.4-46.3) fL RDW Coeff of Jaziel 15.9 H (11.5-14.5) % Plt Count 340 (130-400) K/uL MPV 9.2 (7.4-10.4) fL Immature Gran % (Auto) 0.2 % Neut % (Auto) 83.9 % Lymph % (Auto) 7.5 % [place] % (Auto) 7.1 % Eos % (Auto) 0.5 % Baso % (Auto) 0.8 % Immature Gran # (Auto) 0.02 (0.00-0.02) K/uL Neut # (Auto) 10.02 H (1.4-6.5) K/uL Lymph # (Auto) 0.89 L (1.2-3.4) K/uL [place] # (Auto) 0.85 H (0.11-0.59) K/uL Eos # (Auto) 0.06 (0-0.5) K/uL Baso # (Auto) 0.09 (0-0.2) K/uL PT (9.0-12.0) Seconds INR (0.9-1.1) APTT (21.0-31.0) Seconds PTT Ratio Sodium 137 (136-145) mmol/L Potassium 3.9 (3.5-5.1) mmol/L Chloride 100 (98-107) mmol/L Carbon Dioxide 31 (21-32) mmol/L Anion Gap 6.0 (3-11) BUN 16 (7-18) mg/dl Creatinine 1.13 (0.6-1.4) mg/dl Est Cr Clr Drug Dosing Not Reportable Est GFR ( Amer) 66.4 Est GFR (Non-Af Amer) 57.3 BUN/Creatinine Ratio 13.7 (10-20) Glucose 129 H (70-99) mg/dl Calcium 9.1 (8.5-10.1) mg/dl Total Bilirubin 0.6 (0.2-1) mg/dl AST 24 (15-37) U/L ALT 27 (12-78) U/L Alkaline Phosphatase 85 (45-117) U/L Troponin I < 0.015 (0-0.045) ng/ml Total Protein 6.5 (6.4-8.2) gm/dl Albumin 3.5 (3.4-5.0) gm/dl Globulin 3.0 (2.5-4.0) gm/dl Albumin/Globulin Ratio 1.2 (0.9-2) Lipase 105 (73-393) U/L Urine Color Urine Appearance (Clear) Urine pH (4.5-7.5) Ur Specific [place] (1.000-1.030) Urine Protein (Negative) Urine Glucose (UA) (Negative) Urine Ketones (Negative) Urine Blood (Negative) Urine Nitrite (Negative) Urine Bilirubin (Negative) Urine Urobilinogen (Negative) Ur Leukocyte Esterase (Negative) Blood Type A Positive Antibody Screen NEGATIVE 08/28/19 08/28/19 Range/Units 15:46 18:20 WBC (4.8-10.8) K/uL RBC (4.7-6.1) M/uL Hgb (14.0-18.0) g/dL Hct (42-52) % MCV (80-100) fL MCH (25-34) pg MCHC (32-36) g/dL RDW Std Deviation (36.4-46.3) fL RDW Coeff of Jaziel (11.5-14.5) % Plt Count (130-400) K/uL MPV (7.4-10.4) fL Immature Gran % (Auto) % Neut % (Auto) % Lymph % (Auto) % [place] % (Auto) % Eos % (Auto) % Baso % (Auto) % Immature Gran # (Auto) (0.00-0.02) K/uL Neut # (Auto) (1.4-6.5) K/uL Lymph # (Auto) (1.2-3.4) K/uL [place] # (Auto) (0.11-0.59) K/uL Eos # (Auto) (0-0.5) K/uL Baso # (Auto) (0-0.2) K/uL PT 29.7 H (9.0-12.0) Seconds INR 3.0 H (0.9-1.1) APTT 38.7 H (21.0-31.0) Seconds PTT Ratio 1.4 Sodium (136-145) mmol/L Potassium (3.5-5.1) mmol/L Chloride (98-107) mmol/L Carbon Dioxide (21-32) mmol/L Anion Gap (3-11) BUN (7-18) mg/dl Creatinine (0.6-1.4) mg/dl Est Cr Clr Drug Dosing Est GFR ( Amer) Est GFR (Non-Af Amer) BUN/Creatinine Ratio (10-20) Glucose (70-99) mg/dl Calcium (8.5-10.1) mg/dl Total Bilirubin (0.2-1) mg/dl AST (15-37) U/L ALT (12-78) U/L Alkaline Phosphatase (45-117) U/L Troponin I (0-0.045) ng/ml Total Protein (6.4-8.2) gm/dl Albumin (3.4-5.0) gm/dl Globulin (2.5-4.0) gm/dl Albumin/Globulin Ratio (0.9-2) Lipase (73-393) U/L Urine Color Yellow Urine Appearance Clear (Clear) Urine pH 8.5 H (4.5-7.5) Ur Specific [place] > 1.045 H (1.000-1.030) Urine Protein Negative (Negative) Urine Glucose (UA) Negative (Negative) Urine Ketones Negative (Negative) Urine Blood Negative (Negative) Urine Nitrite Negative (Negative) Urine Bilirubin Negative (Negative) Urine Urobilinogen Negative (Negative) Ur Leukocyte Esterase Negative (Negative) Blood Type Antibody Screen Diagnostic Findings CT OF THE ABDOMEN AND PELVIS WITH CONTRAST CLINICAL HISTORY: upper and LLQ pain COMPARISON STUDY: CT of the abdomen and pelvis March 09, 2017. TECHNIQUE: Following IV administration of 94 mL of Optiray-320, axial images of the abdomen and pelvis were obtained from the lung bases to the proximal femurs. Images were reviewed in the axial, sagittal, and coronal planes. IV contrast was administered without complication. Automated exposure control was utilized for the study. A dose lowering technique was utilized adhering to the principles of ALARA. CT DOSE: 292.94 mGy.cm FINDINGS: Imaged portions of the lower chest demonstrate mild airspace opacities within the lower lungs. A small amount of ascites is noted within the abdomen and pelvis. Numerous small hepatic lesions are new since CT of March 09, 2017. These measure up to 1.3 cm. The spleen, adrenal glands, pancreas and kidneys are unremarkable. There is no biliary or pancreatic ductal dilatation. No peripancreatic or pericholecystic infiltration. The mid to distal small bowel is mildly dilated and fluid-filled to the level of the ileocecal valve. Note is made of an enhancing mass within the cecum at the level of the ileocecal valve. This results in a small bowel obstruction. A necrotic ileocolic lymph node measures 2.8 cm.. Numerous peritoneal nodules are noted with omental implants measuring up to 1.5 cm. Major vasculature is patent. Left inguinal hernia contains a small amount of fluid. No pneumatosis, free air or portal venous gas is present. No suspicious osseous lesions are identified. IMPRESSION: 1. Cecal mass which involves the ileocecal valve and results in a partial small bowel obstruction. This favors colonic adenocarcinoma. Necrotic 2.8 cm ileocolic lymph node consistent with franco spread of disease. 2. Multiple small hepatic metastases measuring up to 1.3 cm. Small amount of ascites with omental implants consistent with peritoneal carcinomatosis. 3. Mild airspace opacities within the lower lungs which favor atelectasis cunningham candice an infectious process could appear similar. ACT 112: Positive. There are findings on this exam that require communication between the performing entity and the patient following Patient Test Result Information Act ([place] Act 112) guidelines. Electronically signed by: Ramon Cabrera M.D. 08/28/2019 5:33 PM Dictated: 08/28/191712 Transcribed: 08/28/191712 ECG Additional Comments: The study shows AF at 80bpm, normal axis, QRS=86, IZr=127, no acute ischemic changes Code Status & VTE Plan Code Status FULL CODE VTE Prophylaxis Plan VTE Prophylaxis will be ordered: Yes PG Care Time/CCT Total # of Minutes Spent Total Time Spent with Patient: Total time spent is greater than 50% in coordi nation of care (as documented) at patient's floor/unit and/or counseling patient: Coding Level of Care Code 68787 Initial Inpt Care Lvl 3 Diagnoses Cecum mass K63.89 Partial bowel obstruction K56.600 Intestinal obstruction type: unspecified Anemia D64.9 Anemia type: unspecified type Hyperlipidemia E78.5 Hyperlipidemia type: unspecified Benign hypertension I10 BPH (benign prostatic hyperplasia) N40.0 Lower urinary tract symptom presence: symptoms absent Atrial fibrillation I48.91 Atrial fibrillation type: unspecified (1) BPH (benign prostatic hyperplasia) Lower urinary tract symptom presence: symptoms absent Qualified Code(s): N40.0 - Benign prostatic hyperplasia without lower urinary tract symptoms (2) Partial bowel obstruction Intestinal obstruction type: unspecified Qualified Code(s): K56.600 - Partial intestinal obstruction, unspecified as to cause (3) Anemia Anemia type: unspecified type Qualified Code(s): D64.9 - Anemia, unspecified (4) Atrial fibrillation Atrial fibrillation type: unspecified Qualified Code(s): I48.91 - Unspecified atrial fibrillation (5) Hyperlipidemia Hyperlipidemia type: unspecified Qualified Code(s): E78.5 - Hyperlipidemia, unspecified
[2019-08-28] MEDS: D5W AND 1/2NSS 1,000 ML IV SCH (20:50)
[2019-08-28] MEDS ORDERED: Heparin IV Standard *NO* Bolus IV SCH (20:55)
[2019-08-28] MEDS ORDERED: HEPARIN SODIUM/DEXTROSE 25,000 UNITS/500 ML BAG IV SCH (20:55)
[2019-08-28] MEDS ORDERED: ARTIFICIAL TEARS OP PRN (21:13)
[2019-08-28] MEDS: TAMSULOSIN HCL 0.4 MG CAP PO SCH (21:36)
[2019-08-28] MEDS: PRAMIPEXOLE DIHYDROCHLO 0.25 MG TAB PO SCH (21:36)
[2019-08-28 21:46] LABS: Magnesium 2.2 mg/dl (1.8-2.4); Phosphorus 3.8 mg/dl (2.5-4.9)
[2019-08-29 04:47] LABS: Hematocrit (blood only) 22.1 % (42-52); Hemoglobin 6.9 g/dL (14.0-18.0); Mean Corpuscular Hemoglobin 29.2 pg (25-34); Mean Corpuscular Hgb Conc 31.2 g/dL (32-36); Mean Corpuscular Volume 93.6 fL (80-100); Mean Platelet Volume 9.2 fL (7.4-10.4); Platelet Count 299 K/uL (130-400); RDW Coefficient of Variation 16.2 % (11.5-14.5); RDW Standard Deviation 54.9 fL (36.4-46.3); Red Blood Count 2.36 M/uL (4.7-6.1); White Blood Count 11.04 K/uL (4.8-10.8)
[2019-08-29 04:53] LABS: BUN Creatinine Ratio 13.3 (10-20); Calcium 7.9 mg/dl (8.5-10.1); Creatinine Clr Calc Pharmacy 41.9 ml/min; Est GFR (African American) 73.4; Est GFR (Non-African American) 63.4; Potassium 3.9 mmol/L (3.5-5.1)
[2019-08-29] MEDS ORDERED: SODIUM CHLORIDE 0.9% 250 ML IV PRN (05:06)
[2019-08-29 05:09] LABS: Basophils # (auto) 0.06 K/uL (0-0.2); Basophils % (auto) 0.5 %; Eosinophils # (auto) 0.19 K/uL (0-0.5); Eosinophils % (auto) 1.7 %; Immature Granulocytes # (auto) 0.03 K/uL (0.00-0.02); Immature Granulocytes % (auto) 0.3 %; Lymphocytes # (auto) 2.28 K/uL (1.2-3.4); Lymphocytes % (auto) 20.7 %; Monocytes # (auto) 0.99 K/uL (0.11-0.59); Neutrophils # (auto) 7.49 K/uL (1.4-6.5); Neutrophils % (auto) 67.8 %; Ovalocytes 1+
[2019-08-29 05:18] LABS: Hematocrit (blood only) 21.7 % (42-52)
[2019-08-29] MEDS ORDERED: Nursing to Pharmacy Communication ONE (05:25)
[2019-08-29] MEDS ORDERED: SODIUM CHLORIDE 0.9% 1000ML 500 ML IV ONE (05:25)
[2019-08-29 05:42] LABS: Partial Thromboplastin Ratio > 5.0
[2019-08-29 05:47] LABS: Partial Thromboplastin Time > 139.0 Seconds (21.0-31.0)
--- NOTE | 2019-08-29 05:53 | Communication Note ---
Date of Service: August 29, 2019 Got notified of critical lab of hgb 6.9 for this patient. Repeat hgb of 7.0. Transfused 1 Unit of PRBCs and given a 500ml NSS fluid bolus. Can re-start his d5W/ 1/2NSS @80 after fluid bolus. Also holding his heparin drip, home Lasix and metoprolol, given anemia and hypotension currently. Resident Activity Tracking Resident Involvement: Social Science Teacher Coverage Note Care Provided: Adult Hospital Medicine
[2019-08-29] MEDS: D5W AND 1/2NSS 1,000 ML IV SCH ×2 (06:11→22:10)
--- NOTE | 2019-08-29 07:24 | Surgery Consultation ---
Date of Consultation August 29, 2019 Assessment & Plan (1) Cecum mass: This is an 89yM with a PMH of afib on coumadin, GLEN, BPH, and carotid stenosis who presents to the [facility] ED on 08/28/19 with complaints of abdominal pain. Workup in the ED with a CT a/p revealed concerns for a cecal mass, invol ving the ileocolic valve causing a partial small bowel obstruction. CT also showed evidence c/f hepatic mets and peritoneal carcinomatosis. Since admission patient's abdominal symptoms are improved, he denies pain and is tolerating liquids. He is passing gas and had a BM. There was concern for a bloody BM per nursing this AM while patient on heparin gtt, ptt >139 and has since been held. Hbg was 7 and patient received 1u PRBC. In regards to his cecal mass we believe he should have an operation to prevent bowel obstruction in the future. We will tentatively plan to book him for the OR this for an open R hemicolectomy pending his INR downtrends <1.5. He should remain on clear liquids, will add boost breeze in addition. Continue to hold coumadin. Will speak with medicine to see if hep gtt continues to be indicated since he is anticoagulated for afib. as above. impending complete SBO in near future from mass. discussed options and the pros/cons/risks of each which would be: 1. resection. discussed risks which include bleeding/infection/injury to another organ/leaks/dvt/pe/mi/cva etc... we also discussed this would not likely be curable but goal would be to prevent SBO . 2. diverting stoma. discussed decreased risks of this procedure and joint terminal attack controller consequences 3. do nothing, which I do not recommend all his questions answered. he adamantly does not want a stoma. will plan open right hemicolectomy once INR normalizes...hopefully . pt agreeable. will add liquid nutritional supplements. stay on liquids only/no solid food. I doubt he will tolerate a colon prep with mass. History of Present Illness Attending Physician: Manda Davila MD History of Present Illness This is an 89yM with a PMH of afib on coumadin, GLEN, BPH, and carotid stenosis who presents to the [facility] ED on 08/28/19 with complaints of abdominal pain. Patient reports the abdominal pain started around Thursday evening and was one of the worse pains he had ever felt. On Thursday AM his called his DrYisel and recommended patient come to the ED for further evaluation. In addition to the abdominal pain he did vomit x2 on Thursday morning, nonbloody. Since about Thursday evening patient reports his pain went away and denies feeling nauseated. In the ED patient was worked with up with a CT a/p that revealed a cecal mass which involves the ileocecal valve and results in a partial small bowel obstruction, favoring colonic adenocarcinoma. In addition there was a necrotic 2.8 cm ileocolic lymph node consistent with franco spread of disease, along with multiple small hepatic metastases measuring up to 1.3 cm and omental implants consistent with peritoneal carcinomatosis. Patient's Hbg 9.3 and INR: 3.0. Patient reports his last colonoscopy was about 40 years ago and per his report was unremarkable. He denies noticing any bright red blood in his stools, he takes iron and says it is often dark. He states he has had about a 4lb unintentional weight loss since beginning of May. He denies any shortness of breath, weakness, DIXON, dizziness, f/c. Had a bout of diarrhea yesterday and a small BM this AM. He has had some thin stools over the past few weeks. He is tolerating clear liquids and states he is now passing gas. He states he is pretty active at baseline and if often caring for his garden at home with his . Allergies Allergy/AdvReac Type Severity Reaction Status Date / Time NSAIDS (Non-Steroidal Allergy Unknown . Verified 08/28/19 16:30 Anti-Inflamma sulindac Allergy Unknown . Verified 08/28/19 16:30 Home Medications Home Medications Medication Instructions Recorded Confirmed Type artificial tears(hypromellose) 0.4 1 drp OP DIRECTED 10/01/18 08/28/19 History % eye drops ferrous gluconate 324 mg (38 mg 324 mg PO DIRECTED tab 10/20/18 08/28/19 History iron) tablet omega-3 acid ethyl esters 1 gram 1 cap PO DAILY cap 10/25/18 08/28/19 History capsule tamsulosin 0.4 mg capsule 0.4 mg PO HS #90 cap 03/01/19 08/28/19 Rx atorvastatin 10 mg tablet 10 mg PO DAILY #90 tab 08/08/19 08/28/19 Rx metoprolol tartrate 25 mg tablet 12.5 mg PO DAILY #45 tab 08/08/19 08/28/19 Rx aspirin 81 mg PO DAILY 08/28/19 08/28/19 History furosemide 20 mg PO 2XWK 08/28/19 08/28/19 History hydrochlorothiazide See Rx Instructions .ROUTE .COMPLEX 08/28/19 08/28/19 History pramipexole 0.125 mg PO HS 08/28/19 08/28/19 History warfarin [Jantoven] 5 mg PO DAILY 08/28/19 08/28/19 History Patient History Medical History Acute CHF (congestive heart failure) (Resolved) GLEN (acute kidney injury) (Acute) Atrial fibrillation Basal cell carcinoma of face (Resolved) Change in bowel habits (Resolved) Dysplastic nevus (Resolved) Hearing loss (Resolved) Hematospermia (Resolved) Hypercholesterolemia Hypertension Left inguinal hernia (Resolved) Seborrheic keratosis (Resolved) Seborrheic keratosis, inflamed (Resolved) Segmental and somatic dysfunction of thoracic region (Resolved) Speech disorder (Resolved) Surgical History History of cataract surgery History of hernia repair History of prior ablation treatment History of thyroid surgery Family History Father Diabetes Cardiac disorder Social History Preferred Language: French Communication Ability: Effective Hearing Ability: Use of Hearing Aid Clay Worker Required: No Beliefs That Will Affect Care: None marital status: Current Living Situation: Spouse current occupational status: retired Feels Safe at Home: Yes Smoking Status: Never smoker Hx Alcohol Use: Yes Alcohol type: other Hx Substance Use: No Seatbelt Use: always Sunscreen Use: No Review of Systems Constitutional: + weight loss (4lbs since may); no fever, no chills and no weakness Respiratory: no dyspnea Cardiovascular: no chest pain and no lightheadedness Gastrointestinal: + abdominal pain (generalized abd pain sat into thursday AM) and + vomiting (x2 thursday am); no bloating and no nausea thin stools Genitourinary: + problem reported (no urinary symptoms noted) Physical Exam Physical Exam: awake/alert Constitutional: well developed, well nourished, cooperative and comfortable; no acute distress Respiratory: normal respiratory effort Gastrointestinal (Abdomen): Inspection/Auscultation: abdomen not distended Percussion/Palpation: + abdomen tender (mild discomfort to palpation, no tenderness) and abdomen soft Results & Data Vital Signs (Past 12 Hours) Vital Signs Temp Pulse Pulse Resp BP BP BP 08/29/19 06:10 81 90/54 L 08/29/19 05:06 37 C 79 14 88/50 L 85/40 L 08/28/19 23:03 36.6 C 78 20 113/62 08/28/19 21:08 36.7 C 72 20 121/64 08/28/19 20:32 63 18 117/65 08/28/19 20:00 65 18 124/67 08/28/19 19:32 74 26 H 08/28/19 19:31 73 24 114/60 08/28/19 19:30 64 26 H Pulse Ox 08/29/19 06:10 08/29/19 05:06 95 08/28/19 23:03 96 08/28/19 21:08 99 08/28/19 20:32 98 08/28/19 20:00 08/28/19 19:32 08/28/19 19:31 08/28/19 19:30 CT OF THE ABDOMEN AND PELVIS WITH CONTRAST CLINICAL HISTORY: upper and LLQ pain COMPARISON STUDY: CT of the abdomen and pelvis March 09, 2017. TECHNIQUE: Following IV administration of 94 mL of Optiray-320, axial images of the abdomen and pelvis were obtained from the lung bases to the proximal femurs. Images were reviewed in the axial, sagittal, and coronal planes. IV contrast was administered without complication. Automated exposure control was utilized for the study. A dose lowering technique was utilized adhering to the principles of ALARA. CT DOSE: 292.94 mGy.cm FINDINGS: Imaged portions of the lower chest demonstrate mild airspace opacities within the lower lungs. A small amount of ascites is noted within the abdomen and pelvis. Numerous small hepatic lesions are new since CT of March 09, 2017. These measure up to 1.3 cm. The spleen, adrenal glands, pancreas and kidneys are unremarkable. There is no biliary or pancreatic ductal dilatation. No peripancreatic or pericholecystic infiltration. The mid to distal small bowel is mildly dilated and fluid-filled to the level of the ileocecal valve. Note is made of an enhancing mass within the cecum at the level of the ileocecal valve. This results in a small bowel obstruction. A necrotic ileocolic lymph node measures 2.8 cm.. Numerous peritoneal nodules are noted with omental implants measuring up to 1.5 cm. Major vasculature is patent. Left inguinal hernia contains a small amount of fluid. No pneumatosis, free air or portal venous gas is present. No suspicious osseous lesions are identified. IMPRESSION: 1. Cecal mass which involves the ileocecal valve and results in a partial small bowel obstruction. This favors colonic adenocarcinoma. Necrotic 2.8 cm ileocolic lymph node consistent with franco spread of disease. 2. Multiple small hepatic metastases measuring up to 1.3 cm. Small amount of ascites with omental implants consistent with peritoneal carcinomatosis. 3. Mild airspace opacities within the lower lungs which favor atelectasis however an infectious process could appear similar. ACT 112: Positive. There are findings on this exam that require communication between the performing entity and the patient following Patient Test Result Information Act ([place] Act 112) guidelines. Electronically signed by: Ramon Cabrera M.D. 08/28/2019 5:33 PM PG Care Time/CCT Total # of Minutes Spent Total Time Spent with Patient: Total time spent is greater than 50% in coordination of care (as documented) at patient's floor/unit and/or counseling patient: Coding Level of Care Code 72042 Initial Inpt Care Lvl 3 Diagnoses Cecum mass K63.89
[2019-08-29] MEDS: ATORVASTATIN 10 MG TAB PO SCH (08:22)
[2019-08-29] MEDS ORDERED: FUROSEMIDE 20 MG TAB PO SCH (09:00)
[2019-08-29] MEDS ORDERED: FERROUS GLUCONATE 324 MG TAB PO SCH (09:00)
[2019-08-29] MEDS ORDERED: PHYTONADIONE 5 MG TAB PO STA (09:36)
--- NOTE | 2019-08-29 10:36 | Hospitalist Progress Note ---
Date of Service August 29, 2019 Assessment & Plan (1) Cecum mass: 89yo C male presenting with abdominal pain, nausea/vomiting, found to have cecal mass causing partial SBO. 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 -PSBO now resolved, with acute GI bleeding as below -allow clears diet -Appreciate Surgery consult--> plan for right hemicolectomy on -Consult Oncology - cancelled for today but will place tomorrow -checked CEA--> elevated at 5.3 (2) Partial bowel obstruction: resolved, passing flatus and stool, no pain , no nausea, did not require NGT Secondary to cecal mass -plan for hemicolectomy as above -continue IVFs (3) Anemia: Normochromic, normocytic anemia with Hgb=9.3, Hct=29.4 on admission With acute blood loss anemia overnight with witnessed GI bleeding, hgb dropped to 6.9 -transfused 1 unit PRBCs -repeat hgb up to 8,3 -Continue to monitor CBC, transfusional support as needed in light of upcoming hemicolectomy on -dc iron supplementation for now as can be constipating -reverse INR with Vit K 2.5mg po x 1 now, can give more if has further bleeding -follow INR -holding coumadin (4) Hyperlipidemia: Chronic. -Continue Atorvastatin (5) Benign hypertension: Blood pressure low overnight with GI bleeding -hold home Metoprolol tartrate 12,5mg daily - continue to hold HCTZ as instructed by PCP prior to admission -would be best if possible to get back on beta sharda prior to surgery (6) Atrial fibrillation: Rate controlled but now metoprolol on hold as above for hypotension. Anticoagulated on Coumadin -INR remains elevated at 3.2 today -Hold Coumadin -given Vit K 2.5mg po x 1 now -follow INR in AM (7) BPH (benign prostatic hyperplasia): Chronic -Continue Tamsulosin (8) Murmur, cardiac: seconnary to AV sclerosis but no stenosis, also with mild MR on ECHO here Appreciate Cardiology consult for preop assessment--> moderate risk for surgery (9) Carotid stenosis: s/p endarterectomy -holding coumadin -continue statin (10) DVT prophylaxis: Coumadin-being reversed Code -Full per discussion with patient Dispo - continued stay Admission and Anticipated Discharge Date Admission Date: August 28, 2019 Anticipated date of discharge: 09/05/19 Subjective Pt had some witnessed dark red blood in his stool overnight. He now says he has no further abd pain, no nausea. He is passing flatus and stool. Denies chest pain or SOb. No headache or lightheadedness. I discussed his case with Surgery, Cardiology and with RN. Also discussed his case with his and daughter on the phone. Review of Systems Review of Systems: All systems reviewed & are unremarkable except as noted in HPI & below Physical Exam Constitutional: WD/WN, vitals as above no acute distress Eyes: + anicteric sclerae Neck: trachea midline, no thyromegaly Respiratory: normal respiratory effort, lungs clear to auscultation Cardiovascular: Rate/Rhythm: regular rate and + irregularly irregular Heart Sounds: + murmur (3/6 systolic at RUSB) Chest (Breasts): Chest: normal inspection of chest Gastrointestinal (Abdomen): normal bowel sounds, soft, nontender, no hepatosplenomegaly Musculoskeletal: Extremities: extremities normal to inspection; no cyanosis and no clubbing Skin: no rashes, warm and dry Neurologic: moves all extremities and awake; no focal motor deficits Psychiatric: A+Ox3, euthymic affect Lymphatic: no lymphedema Results & Data Results & Data ([facility]) Vital Signs (Past 12 Hours) Vital Signs Temp Pulse Pulse Resp BP BP BP 08/29/19 09:59 36.6 C 80 18 101/59 L 08/29/19 08:59 36.9 C 90 20 98/64 L 08/29/19 08:29 36.7 C 85 20 94/54 L 08/29/19 08:26 36.9 C 79 18 109/51 L 08/29/19 08:14 103 H 18 102/57 L 08/29/19 07:56 36.6 C 91 H 18 95/54 L 08/29/19 07:15 36.7 C 90 16 100/58 L 08/29/19 06:10 81 90/54 L 08/29/19 05:06 37 C 79 14 88/50 L 85/40 L 08/28/19 23:03 36.6 C 78 20 113/62 Pulse Ox 08/29/19 09:59 92 08/29/19 08:59 95 08/29/19 08:29 95 08/29/19 08:26 93 08/29/19 08:14 08/29/19 07:56 08/29/19 07:15 94 08/29/19 06:10 08/29/19 05:06 95 08/28/19 23:03 96 Care Time/CCT Total # of Minutes Spent Total Time Spent with Patient: Total time spent is greater than 50% in coordination of care (as documented) at patient's floor/unit and/or counseling patient: Coding Level of Care Code 30258 Subseq Hosp Care Lvl 3 Diagnoses Cecum mass K63.89 Partial bowel obstruction K56.600 Intestinal obstruction type: unspecified Anemia D64.9 Anemia type: unspecified type Hyperlipidemia E78.5 Hyperlipidemia type: unspecified Benign hypertension I10 Atrial fibrillation I48.91 Atrial fibrillation type: unspecified BPH (benign prostatic hyperplasia) N40.0 Lower urinary tract symptom presence: symptoms absent Murmur, cardiac R01.1 Carotid stenosis I65.29 DVT prophylaxis Z29.9 (1) BPH (benign prostatic hyperplasia) Lower urinary tract symptom presence: symptoms absent Qualified Code(s): N40.0 - Benign prostatic hyperplasia without lower urinary tract symptoms (2) Partial bowel obstruction Intestinal obstruction type: unspecified Qualified Code(s): K56.600 - Partial intestinal obstruction, unspecified as to cause (3) Anemia Anemia type: unspecified type Qualified Code(s): D64.9 - Anemia, unspecified (4) Atrial fibrillation Atrial fibrillation type: unspecified Qualified Code(s): I48.91 - Unspecified atrial fibrillation (5) Hyperlipidemia Hyperlipidemia type: unspecified Qualified Code(s): E78.5 - Hyperlipidemia, unspecified
[2019-08-29 12:09] LABS: Basophils # (auto) 0.08 K/uL (0-0.2); Basophils % (auto) 0.8 %; Eosinophils % (auto) 2.1 %; Hematocrit (blood only) 25.8 % (42-52); Hemoglobin 8.3 g/dL (14.0-18.0); Immature Granulocytes # (auto) 0.02 K/uL (0.00-0.02); Immature Granulocytes % (auto) 0.2 %; Lymphocytes # (auto) 1.64 K/uL (1.2-3.4); Lymphocytes % (auto) 17.2 %; Mean Corpuscular Hemoglobin 29.7 pg (25-34); Mean Corpuscular Hgb Conc 32.2 g/dL (32-36); Mean Corpuscular Volume 92.5 fL (80-100); Mean Platelet Volume 9.4 fL (7.4-10.4); Monocytes # (auto) 0.79 K/uL (0.11-0.59); Monocytes % (auto) 8.3 %; Neutrophils # (auto) 6.82 K/uL (1.4-6.5); Neutrophils % (auto) 71.4 %; Platelet Count 276 K/uL (130-400); RDW Coefficient of Variation 16.2 % (11.5-14.5); RDW Standard Deviation 54.2 fL (36.4-46.3); Red Blood Count 2.79 M/uL (4.7-6.1); White Blood Count 9.55 K/uL (4.8-10.8)
[2019-08-29 12:19] LABS: INR 3.2 (0.9-1.1); Partial Thromboplastin Ratio 1.5; Prothrombin Time 31.3 Seconds (9.0-12.0)
--- NOTE | 2019-08-29 13:40 | Cardiology Consultation ---
Date of Consultation August 29, 2019 Assessment & Plan (1) Preop cardiovascular exam: I spoke with Mr. Thornton at his bedside and his by phone. I counseled both of them that given his history of atrial fibrillation and hypertension without any recent cardiac symptoms that I would place him at a moderate risk for any adverse perioperative cardiovascular event with his risk being approximately less than 5%. I further counseled him that no further cardiac testing or intervention would further lower that risk. They both state that they understand, they are accepting of that risk and wish to proceed with the surgery. So, from a cardiac standpoint I have no reason to delay the surgery. I would recommend that his metoprolol be continued throughout the perioperative period to help further reduce perioperative risk. (2) Syncope: Patient has a standing history of orthostatic hypotension due to decreased fluid intake. In discussion with his , she states that he was not drinking much water that day. I believe this event was secondary to orthostatic hypotension and do not believe any further cardiac work-up is necessary at this time. (3) Murmur, cardiac: His echocardiogram remained stable compared to most recent study in 2017. 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 (4) Atrial fibrillation: Chronic, rate controlled. Obviously anticoagulation being held at this time. Will need to determine risk versus benefits of anticoagulation going forward after the surgery has been performed. History of Present Illness Reason for Consultation: Preop cardiovascular risk assessment Requesting Physician: Dr. Davila Attending Physician: Manda Davila MD History of Present Illness It was my pleasure to see Mr. Thornton in consultation today August 29, 2019. He is a very pleasant 89-year-old gentleman who routinely follows with myself as an outpatient. He presented to [facility] emergency department on 08/28/2019 with complaints of abdominal pain. Unfortunately, a CT of the abdomen revealed a cecal mass favoring adenocarcinoma with signs of metastatic disease to the liver, nodes and peritoneal cavity. A partial small bowel obstruction was also found. He was admitted to the floor and states that his belly is now feeling better. His INR was supratherapeutic and that is being reversed. And he is tentatively scheduled to undergo mass resection later on this week. From a cardiac standpoint he denies any complaints and specifically denies experiencing chest pain, shortness of breath, palpitations, or dizziness. He admits he did have a syncopal spell a few weeks ago, however, this is consistent with his previous episodes of orthostatic hypotension and that it occurred after standing and walking across the room. Chronically, the patient does not drink much fluids and this is been an issue in the past. PAST MEDICAL HISTORY: 1.Permanent atrial fibrillation, rate controlled on chronic Coumadin therapy. 2.Questionable TIA. 3.Carotid stenosisstatus post carotid endarterectomy 4.History of chronic venous insufficiency. Allergies Allergy/AdvReac Type Severity Reaction Status Date / Time NSAIDS (Non-Steroidal Allergy Unknown . Verified 08/28/19 16:30 Anti-Inflamma sulindac Allergy Unknown . Verified 08/28/19 16:30 Home Medications Home Medications Medication Instructions Recorded Confirmed Type artificial tears(hypromellose) 0.4 1 drp OP DIRECTED 10/01/18 08/28/19 History % eye drops ferrous gluconate 324 mg (38 mg 324 mg PO DIRECTED tab 10/20/18 08/28/19 History iron) tablet omega-3 acid ethyl esters 1 gram 1 cap PO DAILY cap 10/25/18 08/28/19 History capsule tamsulosin 0.4 mg capsule 0.4 mg PO HS #90 cap 03/01/19 08/28/19 Rx atorvastatin 10 mg tablet 10 mg PO DAILY #90 tab 08/08/19 08/28/19 Rx metoprolol tartrate 25 mg tablet 12.5 mg PO DAILY #45 tab 08/08/19 08/28/19 Rx aspirin 81 mg PO DAILY 08/28/19 08/28/19 History furosemide 20 mg PO 2XWK 08/28/19 08/28/19 History hydrochlorothiazide See Rx Instructions .ROUTE .COMPLEX 08/28/19 08/28/19 History pramipexole 0.125 mg PO HS 08/28/19 08/28/19 History warfarin [Jantoven] 5 mg PO DAILY 08/28/19 08/28/19 History Patient History Medical History Acute CHF (congestive heart failure) (Resolved) GLEN (acute kidney injury) (Acute) Atrial fibrillation Basal cell carcinoma of face (Resolved) Change in bowel habits (Resolved) Dysplastic nevus (Resolved) Hearing loss (Resolved) Hematospermia (Resolved) Hypercholesterolemia Hypertension Left inguinal hernia (Resolved) Seborrheic keratosis (Resolved) Seborrheic keratosis, inflamed (Resolved) Segmental and somatic dysfunction of thoracic region (Resolved) Speech disorder (Resolved) Surgical History History of cataract surgery History of hernia repair History of prior ablation treatment History of thyroid surgery Family History Father Diabetes Cardiac disorder Social History Preferred Language: Israeli Communication Ability: Effective Hearing Ability: Use of Hearing Aid Noise Tester Required: No Beliefs That Will Affect Care: None marital status: Current Living Situation: Spouse current occupational status: retired Feels Safe at Home: Yes Smoking Status: Never smoker Hx Alcohol Use: Yes Alcohol type: other Hx Substance Use: No Seatbelt Use: always Sunscreen Use: No Review of Systems Review of Systems: All systems reviewed & are unremarkable except as noted in HPI & below Physical Exam Physical Exam: General: Awake, alert and oriented x 3. No acute distress. HEENT: Normocephalic, atraumatic. Pupils equal, round and reactive to light and accommodation. Extraocular muscles are intact. Anicteric sclera. Moist mucous membranes. Neck: No JVD. No bruit. Cardiovascular: irregularly irregular, harsh, 4 out of 6 mid-to-late systolic ejection murmur greatest at the right sternal border second intercostal space with radiation to the bilateral carotids. Pulmonary: Clear to auscultation bilaterally. No rales, rhonchi, or wheezing. Abdomen: Deferred Extremities: No clubbing, cyanosis or edema. +2 pedal pulses bilaterally. Skin: Warm and dry. Results & Data ([facility]) Vital Signs (Past 12 Hours) Vital Signs Temp Pulse Pulse Resp BP BP BP 08/29/19 10:52 36.8 C 80 20 94/59 L 08/29/19 09:59 36.6 C 80 18 101/59 L 08/29/19 08:59 36.9 C 90 20 98/64 L 08/29/19 08:29 36.7 C 85 20 94/54 L 08/29/19 08:26 36.9 C 79 18 109/51 L 08/29/19 08:14 103 H 18 102/57 L 08/29/19 07:56 36.6 C 91 H 18 95/54 L 08/29/19 07:15 36.7 C 90 16 100/58 L 08/29/19 06:10 81 90/54 L 08/29/19 05:06 37 C 79 14 88/50 L 85/40 L Pulse Ox 08/29/19 10:52 94 08/29/19 09:59 92 08/29/19 08:59 95 08/29/19 08:29 95 08/29/19 08:26 93 08/29/19 08:14 08/29/19 07:56 08/29/19 07:15 94 08/29/19 06:10 08/29/19 05:06 95 Diagnostic Findings Dobutamine stress echocardiogram from 12/17/2016: Interpretation Summary The examination is adequate to evaluate the referral indication. STRESS STUDY: The stress echo is negative for inducible ischemia. RESTING STUDY: The left atrium is moderately enlarged. The qualitative LV ejection fraction is 5559% (normal). Moderate aortic valve sclerosis is present. Aortic stenosis is absent. Mild mitral regurgitation is present. Moderate tricuspid regurgitation is present. There is no evidence of pulmonary hypertension. Compared to the prior study dated 02/02/2015, moderate tricuspid regurgitation is noted on the present study. (1) Atrial fibrillation Atrial fibrillation type: unspecified Qualified Code(s): I48.91 - Unspecified atrial fibrillation
--- NOTE | 2019-08-29 14:57 | Electrocardiogram Report ---
Test Reason : Blood Pressure : / mmHG Vent. Rate : 080 BPM Atrial Rate : 087 BPM P-R Int : 000 ms QRS Dur : 086 ms QT Int : 360 ms P-R-T Axes : 000 014 038 degrees QTc Int : 415 ms Atrial fibrillation Abnormal ECG When compared with ECG of 21-MAY-2017 06:29, No significant change was found Confirmed by Ubaldo Oliveira ([id number]) on 08/29/2019 2:56:36 PM Referred By: REFERRED SELF Confirmed By:Ubaldo Oliveira
[2019-08-29] MEDS: PRAMIPEXOLE DIHYDROCHLO 0.25 MG TAB PO SCH (21:26)
[2019-08-29] MEDS: TAMSULOSIN HCL 0.4 MG CAP PO SCH (21:26)
[2019-08-30 05:17] LABS: Hematocrit (blood only) 26.1 % (42-52); Hemoglobin 8.4 g/dL (14.0-18.0); Mean Corpuscular Hemoglobin 30.1 pg (25-34); Mean Corpuscular Hgb Conc 32.2 g/dL (32-36); Mean Corpuscular Volume 93.5 fL (80-100); Mean Platelet Volume 9.2 fL (7.4-10.4); Platelet Count 261 K/uL (130-400); RDW Coefficient of Variation 16.6 % (11.5-14.5); RDW Standard Deviation 56.5 fL (36.4-46.3); Red Blood Count 2.79 M/uL (4.7-6.1); White Blood Count 10.68 K/uL (4.8-10.8)
[2019-08-30 05:31] LABS: INR 1.9 (0.9-1.1)
--- NOTE | 2019-08-30 05:31 | Communication Note ---
Date of Service: August 30, 2019 Was notified overnight that pt was complaining of right lower extremity calf pain. Stat RLE doppler showed no DVT. SCDs ordered for DVT prophylaxis given pt's heparin discontinued due to anemia.
[2019-08-30 05:58] LABS: Albumin Globulin Ratio 1.1 (0.9-2); Albumin Level 2.6 gm/dl (3.4-5.0); BUN Creatinine Ratio 8.5 (10-20); Bilirubin,Total 0.8 mg/dl (0.2-1); Calcium 7.4 mg/dl (8.5-10.1); Creatinine Clr Calc Pharmacy 44.9 ml/min; Est GFR (African American) 79.9; Est GFR (Non-African American) 68.9; Globulin 2.3 gm/dl (2.5-4.0); Magnesium 1.6 mg/dl (1.8-2.4); Potassium 3.7 mmol/L (3.5-5.1); Total Protein 4.9 gm/dl (6.4-8.2)
--- NOTE | 2019-08-30 06:18 | Ultrasound Report ---
US venous doppler LE RT CLINICAL HISTORY: R calf pain COMPARISON STUDY: None FINDINGS: Real-time and color flow Doppler imaging were performed. Flow was seen within the femoral, popliteal and calf veins with no intraluminal thrombus demonstrated. The saphenous vein is patent. IMPRESSION: No evidence of right lower extremity DVT. ACT 112: Negative or not required by law. Electronically signed by: Sunil Lewis M.D. 08/30/2019 6:17 AM
--- NOTE | 2019-08-30 07:56 | Surgery Progress Note ---
Date of Service August 30, 2019 Assessment & Plan (1) Cecum mass: 89yM here with cecal mass that was causing partial small bowel obstruction; currently denying abd. pain, nausea/vomiting - Patient agreeable to surgical intervention this admission; awaiting INR to downtrend today it's 1.9, he is tentatively placed on the OR schedule for 09/01/[address] Valdes - Hbg stable today at 8.4 after transfusion yesterday - Continue clear liquid diet, boost breeze supplements have been added - Appreciate medicine care of patient and cardiology pre-op assessment as above. had long discussion with pt's yesterday. they are in agreement with plan. INR 1.9 today, still planning on OR morning. Subjective Patient tolerating clears without nausea/vomiting. Says he feels a little bit full, but otherwise denies abdominal pain. Having BM's as of yesterday. Physical Exam Physical Exam: awake/alert Respiratory: normal respiratory effort Gastrointestinal (Abdomen): Inspection/Auscultation: abdomen not distended Percussion/Palpation: + abdomen tender (mild discomfort to palpation in the lower abd.) and abdomen soft Results & Data Vital Signs (Past 12 Hours) Vital Signs Temp Pulse Resp BP BP Pulse Ox 08/30/19 07:32 36.8 C 82 18 99/54 L 93 08/29/19 23:32 36.6 C 74 20 110/64 95 08/29/19 19:55 36.6 C 95 H 18 109/64 94 PG Care Time/CCT Total # of Minutes Spent Total Time Spent with Patient: Total time spent is greater than 50% in coordination of care (as documented) at patient's floor/unit and/or counseling patient: Coding Level of Care Code 43060 Subseq Hosp Care Lvl 2 Diagnoses Cecum mass K63.89
[2019-08-30] MEDS: ATORVASTATIN 10 MG TAB PO SCH (09:51)
[2019-08-30] MEDS: METOPROLOL TARTRATE 25 MG TAB PO SCH (10:19)
[2019-08-30] MEDS: D5W AND 1/2NSS 1,000 ML IV SCH (11:12)
--- NOTE | 2019-08-30 11:12 | Hospitalist Progress Note ---
Date of Service August 30, 2019 Assessment & Plan (1) Cecum mass: This pt is an 89yo C male presenting with abdominal pain, nausea/vomiting, found to have cecal mass causing partial SBO. 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 -PSBO now resolved, with acute GI bleeding as below -continue clears diet -Appreciate Surgery consult--> plan for right hemicolectomy on -Consult Oncology - cancelled until after pathology returns -checked CEA--> elevated at 5.3 (2) Partial bowel obstruction: resolved, passing flatus and stool, no pain , no nausea, did not require NGT Secondary to cecal mass With some mild distension but continues to pass BMs -plan for hemicolectomy as above -will now discontinue IVFs as taking po (3) Anemia: Normochromic, normocytic anemia with Hgb=9.3, Hct=29.4 on admission With acute blood loss anemia overnight on the first night with witnessed GI bleeding, hgb dropped to 6.9 -transfused 1 unit PRBCs -repeat hgb up to 8.4 and stable today -but had large black BM AM of 08/29--> repeat CBC this afternoon -Continue to monitor CBC, transfusional support as needed in light of upcoming hemicolectomy on -dc iron supplementation for now as can be constipating -reversed INR with Vit K 2.5mg po x 1 --> INR down to 1.9, can give more if has further bleeding -follow INR again in the AM -continue holding coumadin and holding home ASA (4) Hyperlipidemia: Chronic. 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 Had a large dark BM this AM, he thinks darker than his usual color of stol on iron pills. Denies chest pain, or SOB. No weakness. I watched him ambulate independently from bathroom to his chair. Has concern about if he will have a Troncoso placed after his surgery as it caused him a lot of pain in penis 20+ years ago after his carotid endarterectomy. Also had some right calf pain yesterday and last night--> overnight house offi cer checked DOppler which was neg. Pt suspects it was a strain. Review of Systems Review of Systems: All systems reviewed & are unremarkable except as noted in HPI & below Physical Exam Constitutional: WD/WN, vitals as above no acute distress Eyes: + anicteric sclerae Neck: trachea midline, no thyromegaly Respiratory: normal respiratory effort, lungs clear to auscultation Cardiovascular: Rate/Rhythm: regular rate and + irregularly irregular Heart Sounds: + murmur (3/6 systolic at RUSB) Chest (Breasts): Chest: normal inspection of chest Gastrointestinal (Abdomen): Inspection/Auscultation: abdomen normal to inspection, + abdomen distended (mild) and normal bowel sounds Percussion/Palpation: abdomen soft; abdomen nontender Musculoskeletal: Extremities: extremities normal to inspection; no cyanosis and no clubbing Skin: no rashes, warm and dry Neurologic: moves all extremities and awake; no focal motor deficits Psychiatric: A+Ox3, euthymic affect Lymphatic: no lymphedema Results & Data Results & Data ([facility]) Vital Signs (Past 12 Hours) Vital Signs Temp Pulse Resp BP BP Pulse Ox 08/30/19 10:18 98 H 129/69 08/30/19 07:32 36.8 C 82 18 99/54 L 93 08/29/19 23:32 36.6 C 74 20 110/64 95 Laboratory Results 08/30/19 08/30/19 08/30/19 Range/Units 04:53 04:53 04:53 WBC 10.68 (4.8-10.8) K/uL RBC 2.79 L (4.7-6.1) M/uL Hgb 8.4 L (14.0-18.0) g/dL Hct 26.1 L (42-52) % MCV 93.5 (80-100) fL MCH 30.1 (25-34) pg MCHC 32.2 (32-36) g/dL RDW Std Deviation 56.5 H (36.4-46.3) fL RDW Coeff of Jaziel 16.6 H (11.5-14.5) % Plt Count 261 (130-400) K/uL MPV 9.2 (7.4-10.4) fL Immature Gran % (Auto) % Neut % (Auto) % Lymph % (Auto) % [place] % (Auto) % Eos % (Auto) % Baso % (Auto) % Immature Gran # (Auto) (0.00-0.02) K/uL Neut # (Auto) (1.4-6.5) K/uL Lymph # (Auto) (1.2-3.4) K/uL [place] # (Auto) (0.11-0.59) K/uL Eos # (Auto) (0-0.5) K/uL Baso # (Auto) (0-0.2) K/uL PT 19.0 H (9.0-12.0) Seconds INR 1.9 H (0.9-1.1) APTT (21.0-31.0) Seconds PTT Ratio Sodium 139 (136-145) mmol/L Potassium 3.7 (3.5-5.1) mmol/L Chloride 109 H (98-107) mmol/L Carbon Dioxide 27 (21-32) mmol/L Anion Gap 3.0 (3-11) BUN 8 D (7-18) mg/dl Creatinine 0.97 (0.6-1.4) mg/dl Est Cr Clr Drug Dosing 44.9 ml/min Est GFR ( Amer) 79.9 Est GFR (Non-Af Amer) 68.9 BUN/Creatinine Ratio 8.5 L (10-20) Glucose 107 H (70-99) mg/dl Calcium 7.4 L (8.5-10.1) mg/dl Magnesium 1.6 L (1.8-2.4) mg/dl Total Bilirubin 0.8 (0.2-1) mg/dl AST 20 (15-37) U/L ALT 17 (12-78) U/L Alkaline Phosphatase 65 (45-117) U/L Total Protein 4.9 L D (6.4-8.2) gm/dl Albumin 2.6 L (3.4-5.0) gm/dl Globulin 2.3 L (2.5-4.0) gm/dl Albumin/Globulin Ratio 1.1 (0.9-2) Carcinoembryonic Ag (0-2.5) ng/ml 08/29/19 08/29/19 08/29/19 Range/Units 11:56 11:56 11:56 WBC 9.55 (4.8-10.8) K/uL RBC 2.79 L (4.7-6.1) M/uL Hgb 8.3 L (14.0-18.0) g/dL Hct 25.8 L (42-52) % MCV 92.5 (80-100) fL MCH 29.7 (25-34) pg MCHC 32.2 (32-36) g/dL RDW Std Deviation 54.2 H (36.4-46.3) fL RDW Coeff of Jaziel 16.2 H (11.5-14.5) % Plt Count 276 (130-400) K/uL MPV 9.4 (7.4-10.4) fL Immature Gran % (Auto) 0.2 % Neut % (Auto) 71.4 % Lymph % (Auto) 17.2 % [place] % (Auto) 8.3 % Eos % (Auto) 2.1 % Baso % (Auto) 0.8 % Immature Gran # (Auto) 0.02 (0.00-0.02) K/uL Neut # (Auto) 6.82 H (1.4-6.5) K/uL Lymph # (Auto) 1.64 (1.2-3.4) K/uL [place] # (Auto) 0.79 H (0.11-0.59) K/uL Eos # (Auto) 0.20 (0-0.5) K/uL Baso # (Auto) 0.08 (0-0.2) K/uL PT 31.3 H (9.0-12.0) Seconds INR 3.2 H (0.9-1.1) APTT 42.0 H (21.0-31.0) Seconds PTT Ratio 1.5 Sodium (136-145) mmol/L Potassium (3.5-5.1) mmol/L Chloride (98-107) mmol/L Carbon Dioxide (21-32) mmol/L Anion Gap (3-11) BUN (7-18) mg/dl Creatinine (0.6-1.4) mg/dl Est Cr Clr Drug Dosing ml/min Est GFR ( Amer) Est GFR (Non-Af Amer) BUN/Creatinine Ratio (10-20) Glucose (70-99) mg/dl Calcium (8.5-10.1) mg/dl Magnesium (1.8-2.4) mg/dl Total Bilirubin (0.2-1) mg/dl AST (15-37) U/L ALT (12-78) U/L Alkaline Phosphatase (45-117) U/L Total Protein (6.4-8.2) gm/dl Albumin (3.4-5.0) gm/dl Globulin (2.5-4.0) gm/dl Albumin/Globulin Ratio (0.9-2) Carcinoembryonic Ag 5.3 H (0-2.5) ng/ml PG Care Time/CCT Total # of Minutes Spent Total Time Spent with Patient: Total time spent is greater than 50% in coordination of care (as documented) at patient's floor/unit and/or counseling patient: Coding Level of Care Code 68851 Subseq Hosp Care Lvl 3 Diagnoses Cecum mass K63.89 Partial bowel obstruction K56.600 Intestinal obstruction type: unspecified Anemia D64.9 Anemia type: unspecified type Hyperlipidemia E78.5 Hyperlipidemia type: unspecified Benign hypertension I10 Atrial fibrillation I48.91 Atrial fibrillation type: unspecified BPH (benign prostatic hyperplasia) N40.0 Lower urinary tract symptom presence: symptoms absent Murmur, cardiac R01.1 Carotid stenosis I65.29 Restless leg syndrome G25.81 DVT prophylaxis Z29.9 (1) Partial bowel obstruction Intestinal obstruction type: unspecified Qualified Code(s): K56.600 - Partial intestinal obstruction, unspecified as to cause (2) Anemia Anemia type: unspecified type Qualified Code(s): D64.9 - Anemia, unspecified (3) Hyperlipidemia Hyperlipidemia type: unspecified Qualified Code(s): E78.5 - Hyperlipidemia, unspecified (4) Atrial fibrillation Atrial fibrillation type: unspecified Qualified Code(s): I48.91 - Unspecified atrial fibrillation (5) BPH (benign prostatic hyperplasia) Lower urinary tract symptom presence: symptoms absent Qualified Code(s): N40.0 - Benign prostatic hyperplasia without lower urinary tract symptoms
[2019-08-30] MEDS ORDERED: MAGNESIUM SULFATE / D5W 1 GM/100 ML BAG IV ONE (11:20)
--- NOTE | 2019-08-30 15:54 | Anesthesiology Consultation ---
Date of Service August 30, 2019 Assessment & Plan (1) Encounter for pre-operative examination: Chart Review Chart Review: Acceptable Risk for Surgery and Patient NOT seen in Pre Admission Testing Check INR DOS Pt currently admitted for abdominal pain (CT scan showing cecal mass favoring adenocarcinoma with signs of metastatic disease to liver, nodes and peritoneal cavity as well as partial bowel obstruction). Pt seen as inpatient by cardio for preop clearance 08/29/19= " given his history of atrial fibrillation and hypertension without any recent cardiac symptoms that I would place him at a moderate risk for any adverse perioperative cardiovascular event with his risk being approximately less than 5%. I further counseled him that no further cardiac testing or intervention would further lower that risk. They both state that they understand, they are accepting of that risk and wish to proceed with the surgery.So, from a cardiac standpoint I have no reason to delay the surgery.I would recommend that his metoprolol be continued throughout the perioperative period to help further reduce perioperative risk." Had syncopal episode several weeks ago but consistent with orthostatic hypotension secondary to decreased fluid intake. History Surgery Operation Date: 09/01/19 07:15 Proposed Procedures p Right Open Hemicolectomy - Emmanuel Valdes, DO Height/Weight Height: 5 ft 5 in Weight: 64 kg Allergies Allergy/AdvReac Type Severity Reaction Status Date / Time NSAIDS (Non-Steroidal Allergy Unknown . Verified 08/28/19 16:30 Anti-Inflamma sulindac Allergy Unknown . Verified 08/28/19 16:30 Medications Home Medications Medication Instructions Recorded Confirmed Last Taken artificial tears(hypromellose) 0.4 1 drp OP DIRECTED 10/01/18 08/28/19 Unknown % eye drops ferrous gluconate 324 mg (38 mg 324 mg PO DIRECTED tab 10/20/18 08/28/19 Unknown iron) tablet omega-3 acid ethyl esters 1 gram 1 cap PO DAILY cap 10/25/18 08/28/19 Unknown capsule tamsulosin 0.4 mg capsule 0.4 mg PO HS #90 cap 03/01/19 08/28/19 Unknown atorvastatin 10 mg tablet 10 mg PO DAILY #90 tab 08/08/19 08/28/19 Unknown metoprolol tartrate 25 mg tablet 12.5 mg PO DAILY #45 tab 08/08/19 08/28/19 Unknown aspirin 81 mg PO DAILY 08/28/19 08/28/19 Unknown furosemide 20 mg PO 2XWK 08/28/19 08/28/19 Unknown hydrochlorothiazide See Rx Instructions .ROUTE .COMPLEX 08/28/19 08/28/19 Unknown pramipexole 0.125 mg PO HS 08/28/19 08/28/19 Unknown warfarin [Jantoven] 5 mg PO DAILY 08/28/19 08/28/19 Unknown Active Medications Generic Name Dose Route Start Last Admin Trade Name Blaine PRN Reason Stop Dose Admin Atorvastatin Calcium 10 mg 08/29/19 09:00 08/30/19 09:51 Lipitor PO 09/28/19 08:59 10 mg DAILY KAILYN Administration Metoprolol Tartrate 12.5 mg 08/29/19 09:00 08/30/19 10:19 Lopressor PO 09/28/19 08:59 12.5 mg DAILY KAILYN Administration Pramipexole Dihydrochloride 0.125 mg 08/28/19 21:00 08/29/19 21:26 Mirapex PO 09/27/19 20:59 0.125 mg HS KAILYN Administration Tamsulosin HCl 0.4 mg 08/28/19 21:00 08/29/19 21:26 Flomax PO 09/27/19 20:59 0.4 mg HS KAILYN Administration Past Medical History Medical History (Updated 08/30/19 @ 16:53 by Haritha Stanley PA-C) Acute CHF (congestive heart failure) (Resolved) GLEN (acute kidney injury) Anemia Atrial fibrillation Chronic/rate controlled- on Warfarin Basal cell carcinoma of face (Resolved) Carotid stenosis s/p left CEA Change in bowel habits (Resolved) Dysplastic nevus (Resolved) Hearing loss (Resolved) Hematospermia (Resolved) Hypercholesterolemia Hypertension Left inguinal hernia Murmur, 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/2019 ECHO Restless leg syndrome Seborrheic keratosis (Resolved) Seborrheic keratosis, inflamed (Resolved) Segmental and somatic dysfunction of thoracic region (Resolved) Speech disorder (Resolved) Past Family History Family History Father Diabetes Cardiac disorder Past Surgical History Surgical History (Updated 08/30/19 @ 16:53 by Haritha Stanley PA-C) History of cataract surgery History of hernia repair History of left-sided carotid endarterectomy History of prior ablation treatment History of thyroid surgery Social History Smoking Status: Never smoker Hx Alcohol Use: Yes Alcohol type: other alcohol intake frequency: other 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 Hx Substance Use: No substance use type: does not use Physical Exam Vital Signs Last Vital Signs Temp 37.5 C 08/30/19 16:12 Pulse 95 H 08/30/19 16:12 Resp 16 08/30/19 16:12 BP 106/63 08/30/19 16:12 Pulse Ox 93 08/30/19 16:12 Testing Laboratory Results 08/30/19 14:57 08/30/19 04:53 PT 19.0 Seconds (9.0-12.0) H 08/30/19 04:53 INR 1.9 (0.9-1.1) H 08/30/19 04:53 APTT 42.0 Seconds (21.0-31.0) H 08/29/19 11:56 Urine Color Yellow 08/28/19 18:20 Urine Appearance Clear (Clear) 08/28/19 18:20 Urine pH 8.5 (4.5-7.5) H 08/28/19 18:20 Ur Specific [place] > 1.045 (1.000-1.030) H 08/28/19 18:20 Urine Protein Negative (Negative) 08/28/19 18:20 Urine Glucose (UA) Negative (Negative) 08/28/19 18:20 Urine Ketones Negative (Negative) 08/28/19 18:20 Urine Nitrite Negative (Negative) 08/28/19 18:20 Ur Leukocyte Esterase Negative (Negative) 08/28/19 18:20 Blood Type A Positive 08/28/19 15:46 Antibody Screen NEGATIVE 08/28/19 15:46 Anemia since admission - did have transfusion on 08/29/19. Electrocardiogram Date: 08/28/19 Findings: + AFIB @ (80) and + no change from (May 21, 2017) Echocardiogram Date: 08/29/19 EF: 55-60% LV Function: normal RWMA: + none AV sclerosis moderate without significant aortic valve stenosis. Mild MR. Mild to moderate TR. LAE suggests diastolic dysfunction. Moderate LAE. Pulm HTN present with PASP of 44mmHg. Other Testing Carotid Duplex 03/26/18= Right carotid artery duplex examination indicates evidence of less than 50% stenosis of the internal carotid artery. Left carotid artery duplex examination indicates evidence of less than 50% stenosis of the internal carotid artery. The left internal carotid artery endarterectomy appears patent.
[2019-08-30 15:55] LABS: Hematocrit (blood only) 28.9 % (42-52); Hemoglobin 9.1 g/dL (14.0-18.0); Mean Corpuscular Hemoglobin 29.5 pg (25-34); Mean Corpuscular Hgb Conc 31.5 g/dL (32-36); Mean Corpuscular Volume 93.8 fL (80-100); Mean Platelet Volume 9.4 fL (7.4-10.4); Platelet Count 297 K/uL (130-400); RDW Coefficient of Variation 16.2 % (11.5-14.5); RDW Standard Deviation 55.7 fL (36.4-46.3); Red Blood Count 3.08 M/uL (4.7-6.1); White Blood Count 13.12 K/uL (4.8-10.8)
--- NOTE | 2019-08-30 17:01 | Cardiology Progress Note ---
Date of Service August 30, 2019 Assessment & Plan (1) Preop cardiovascular exam: I spoke with Mr. Thornton at his bedside and his by phone. I counseled both of them that given his history of atrial fibrillation and hypertension without any recent cardiac symptoms that I would place him at a moderate risk for any adverse perioperative cardiovascular event with his risk being approximately less than 5%. I further counseled him that no further cardiac testing or intervention would further lower that risk. They both state that they understand, they are accepting of that risk and wish to proceed with the surgery. So, from a cardiac standpoint I have no reason to delay the surgery. I would recommend that his metoprolol be continued throughout the perioperative period to help further reduce perioperative risk. (2) Syncope: Patient has a standing history of orthostatic hypotension due to decreased fluid intake. In discussion with his , she states that he was not drinking much water that day. I believe this event was secondary to orthostatic hypotension and do not believe any further cardiac work-up is necessary at this time. (3) Murmur, cardiac: His echocardiogram remained stable compared to most recent study in 2017. 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 (4) Atrial fibrillation: Chronic, rate controlled. Obviously anticoagulation being held at this time. Will need to determine risk versus benefits of anticoagulation going forward after the surgery has been performed. Subjective Patient seen and examined, laying supine in bed. States he has some slight abdominal discomfort today however not nearly as significant as it was upon presentation. He continues to deny any cardiac complaints of chest pain, shortness of breath, palpitations, lightheadedness, dizziness or syncope. Review of Systems Review of Systems: All systems reviewed & are unremarkable except as noted in HPI & below Physical Exam Physical Exam: General: Awake, alert and oriented x 3. No acute distress. HEENT: Normocephalic, atraumatic. Pupils equal, round and reactive to light and accommodation. Extraocular muscles are intact. Anicteric sclera. Moist mucous membranes. Neck: No JVD. No bruit. Cardiovascular: Regular. Positive S-4. Normal S-1 and S-2. No S-3. 3/6 mid to late systolic ejection murmur, greatest at the right sternal border, second intercostal space with radiation to the bilateral carotids. No rubs. Pulmonary: Clear to auscultation bilaterally. No rales, rhonchi, or wheezing. Abdomen: Bowel sounds x 4, soft. No rebound, guarding or tenderness. No organomegaly. Extremities: No clubbing, cyanosis or edema. +2 pedal pulses bilaterally. Skin: Warm and dry. Results & Data Vital Signs (Past 12 Hours) Vital Signs Temp Pulse Resp BP Pulse Ox 08/30/19 16:12 37.5 C 95 H 16 106/63 93 08/30/19 10:18 98 H 129/69 08/30/19 07:32 36.8 C 82 18 99/54 L 93 (1) Atrial fibrillation Atrial fibrillation type: unspecified Qualified Code(s): I48.91 - Unspecified atrial fibrillation
[2019-08-30] MEDS: PRAMIPEXOLE DIHYDROCHLO 0.25 MG TAB PO SCH (21:41)
[2019-08-30] MEDS: TAMSULOSIN HCL 0.4 MG CAP PO SCH (21:41)
[2019-08-31 05:56] LABS: Basophils # (auto) 0.09 K/uL (0-0.2); Eosinophils % (auto) 2.1 %; Hematocrit (blood only) 23.5 % (42-52); Hemoglobin 7.6 g/dL (14.0-18.0); Immature Granulocytes # (auto) 0.02 K/uL (0.00-0.02); Immature Granulocytes % (auto) 0.2 %; Lymphocytes # (auto) 1.73 K/uL (1.2-3.4); Lymphocytes % (auto) 18.3 %; Mean Corpuscular Hgb Conc 32.3 g/dL (32-36); Mean Corpuscular Volume 92.9 fL (80-100); Mean Platelet Volume 9.2 fL (7.4-10.4); Monocytes # (auto) 0.88 K/uL (0.11-0.59); Monocytes % (auto) 9.3 %; Neutrophils # (auto) 6.51 K/uL (1.4-6.5); Neutrophils % (auto) 69.1 %; Platelet Count 215 K/uL (130-400); RDW Standard Deviation 54.1 fL (36.4-46.3); Red Blood Count 2.53 M/uL (4.7-6.1); White Blood Count 9.43 K/uL (4.8-10.8)
[2019-08-31 06:16] LABS: INR 1.4 (0.9-1.1)
[2019-08-31 06:26] LABS: RBC Morphology Unremarkable
[2019-08-31 06:31] LABS: BUN Creatinine Ratio 9.6 (10-20); Calcium 7.4 mg/dl (8.5-10.1); Creatinine Clr Calc Pharmacy 46.3 ml/min; Est GFR (Non-African American) 71.6; Potassium 3.8 mmol/L (3.5-5.1)
--- NOTE | 2019-08-31 08:57 | Surgery Progress Note ---
Date of Service August 31, 2019 Assessment & Plan (1) Cecum mass: 89yM here with cecal mass initially causing partial bowel obstruction Continue clears today and will make NPO at midnight INR: 1.4 today Will plan to take patient to the OR tomorrow AM for open R hemicolectomy with Dr. Valdes as above. appreciate cardiology input. had long discussion with . discussed risks /options again ( bleeding/dvt/pe/mi/cva/anastomotic leak/injury to other organs/. family/pt agree with the plan. with large mass causing PSBO, progression to full SBO in near future would be inevitable. Emergent surgery would be very difficult because of coumadin. Taking the Covid -19 situation into account, I feel that delay in this surgery could/would potentially greatly increase morbidity and mortality in Mr. Chao and I recommend right hemicolectomy tomorrow while his INR is appropriate and he has been on clear liquids for several days. Subjective Pt sitting up in bed, eating breakfast. Offers no complaints. Tolerating clears without nausea/vomiting. Denies abdominal pain. Having diarrhea yesterday, no BM today yet. Physical Exam Physical Exam: awake/alert Results & Data Vital Signs (Past 12 Hours) Vital Signs Temp Pulse Resp BP Pulse Ox 08/31/19 07:34 96/55 L 08/31/19 07:01 36.6 C 57 L 16 91/53 L 98 08/30/19 23:46 37.3 C 87 16 109/62 96 PG Care Time/CCT Total # of Minutes Spent Total Time Spent with Patient: Total time spent is greater than 50% in coordination of care (as documented) at patient's floor/unit and/or counseling patient: Coding Level of Care Code 96043 Subseq Hosp Care Lvl 3 Diagnoses Cecum mass K63.89
[2019-08-31] MEDS ORDERED: SODIUM CHLORIDE 0.9% 250 ML IV PRN (09:00)
[2019-08-31] MEDS: ATORVASTATIN 10 MG TAB PO SCH (09:26)
[2019-08-31] MEDS: METOPROLOL TARTRATE 25 MG TAB PO SCH (09:27)
--- NOTE | 2019-08-31 19:11 | Hospitalist Progress Note ---
Date of Service August 31, 2019 Assessment & Plan (1) Cecum mass: This pt is an 89yo C male presenting with abdominal pain, nausea/vomiting, found to have cecal mass causing partial SBO. 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 -PSBO now resolved, with acute GI bleeding as below -continue clears diet -Appreciate Surgery consult--> plan for right hemicolectomy on -Consult Oncology - cancelled until after pathology returns -checked CEA--> elevated at 5.3 -NPO after midnight (2) Partial bowel obstruction: resolved, passing flatus and stool, no pain , no nausea, did not require NGT Secondary to cecal mass With some mild distension but continues to pass BMs -plan for hemicolectomy as above (3) Anemia: Normochromic, normocytic anemia with Hgb=9.3, Hct=29.4 on admission With acute blood loss anemia overnight on the first night with witnessed GI bleeding, hgb dropped to 6.9 -transfused 1 unit PRBCs and repeat hgb up to 8.4 -then had large black BM AM of 08/29--> hgb now dropped down again to 7.6 and BPs low in the 90s systolic -transfuse 1 unit PRBCs today for ongoing GI bleeding, hgb<8, and plan for surgery tomorrow -Continue to monitor CBC, transfusional support as needed in light of upcoming hemicolectomy on -dcd iron supplementation for now as can be constipating -reversed INR with Vit K 2.5mg po x 1 on hospital day#2 --> INR down to 1.4 now -follow INR again in the AM -continue holding coumadin and holding home ASA (4) Hyperlipidemia: Chronic. -Continue Atorvastatin (5) Benign hypertension: Blood pressures low this AM after hgb dropped further from GI bleeding yesterday -continue home Metoprolol tartrate 12.5mg daily with hold parameters -holding home lasix 2x/week (6) Atrial fibrillation: Rate controlled Typically anticoagulated on Coumadin -INR now down to 1.4 after low dose po Vit K and holding coumadin -continue to hold Coumadin -follow INR in AM -continue metoprolol 12.5mg po once daily (tartrate but confirmed home dose is once daily) (7) BPH (benign prostatic hyperplasia): Chronic, no LUTS here -Continue Tamsulosin (8) Murmur, cardiac: 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, also with mild MR on ECHO here Appreciate Cardiology consult for preop assessment--> moderate risk for surgery (9) Carotid stenosis: s/p endarterectomy in the on the left -holding coumadin, ASA -continue statin (10) Restless leg syndrome: continue home Mirapex (11) DVT prophylaxis: Coumadin-being reversed SCDs Code -Full per discussion with patient Dispo - continued stay, plan for surgery tomorrow and then likely another 3-5 day post-op stay Admission and Anticipated Discharge Date Admission Date: August 28, 2019 Anticipated date of discharge: 09/05/19 Subjective Pt reports no further black BMs today, no more diarrhea. Still some mild abd bloating but no pain, no nausea, is buddy clears diet. Denies CP or SOB, not lightheaded. Hgb dropped again today likely from bleeding yesterday with large black BM. Review of Systems Review of Systems: All systems reviewed & are unremarkable except as noted in HPI & below Physical Exam Constitutional: WD/WN, vitals as above no acute distress Eyes: + anicteric sclerae Neck: trachea midline, no thyromegaly Respiratory: normal respiratory effort, lungs clear to auscultation Cardiovascular: Rate/Rhythm: regular rate and + irregularly irregular Heart Sounds: + murmur (3/6 systolic at RUSB) Chest (Breasts): Chest: normal inspection of chest Gastrointestinal (Abdomen): normal bowel sounds, soft, nontender, no hepatosplenomegaly Inspection/Auscultation: abdomen normal to inspection, + abdomen distended (mild) and normal bowel sounds Percussion/Palpation: abdomen soft; abdomen nontender Musculoskeletal: Extremities: extremities normal to inspection; no cyanosis and no clubbing Skin: no rashes, warm and dry Neurologic: moves all extremities and awake; no focal motor deficits Psychiatric: A+Ox3, euthymic affect Lymphatic: no lymphedema Results & Data Results & Data ([facility]) Vital Signs (Past 12 Hours) Vital Signs Temp Pulse Pulse Resp BP BP Pulse Ox 08/31/19 15:35 36.8 C 73 16 126/70 98 08/31/19 14:27 36.8 C 73 16 114/74 98 08/31/19 14:03 36.8 C 73 16 115/69 97 08/31/19 12:36 36.7 C 78 16 113/71 97 08/31/19 12:35 36.9 C 71 18 112/67 97 08/31/19 12:05 36.9 C 73 18 112/65 98 08/31/19 11:50 36.8 C 78 18 109/64 98 08/31/19 11:35 36.6 C 80 16 113/66 08/31/19 07:34 96/55 L Laboratory Results 08/31/19 08/31/19 08/31/19 Range/Units 19:32 09:17 05:35 WBC 9.95 (4.8-10.8) K/uL RBC 3.10 L (4.7-6.1) M/uL Hgb 9.2 L (14.0-18.0) g/dL Hct 28.4 L (42-52) % MCV 91.6 (80-100) fL MCH 29.7 (25-34) pg MCHC 32.4 (32-36) g/dL RDW Std Deviation 52.3 H (36.4-46.3) fL RDW Coeff of Jaziel 15.7 H (11.5-14.5) % Plt Count 235 (130-400) K/uL MPV 9.3 (7.4-10.4) fL Immature Gran % (Auto) % Neut % (Auto) % Lymph % (Auto) % [place] % (Auto) % Eos % (Auto) % Baso % (Auto) % Immature Gran # (Auto) (0.00-0.02) K/uL Neut # (Auto) (1.4-6.5) K/uL Lymph # (Auto) (1.2-3.4) K/uL [place] # (Auto) (0.11-0.59) K/uL Eos # (Auto) (0-0.5) K/uL Baso # (Auto) (0-0.2) K/uL RBC Morphology PT (9.0-12.0) Seconds INR (0.9-1.1) Sodium 138 (136-145) mmol/L Potassium 3.8 (3.5-5.1) mmol/L Chloride 108 H (98-107) mmol/L Carbon Dioxide 26 (21-32) mmol/L Anion Gap 4.0 (3-11) BUN 9 (7-18) mg/dl Creatinine 0.94 (0.6-1.4) mg/dl Est Cr Clr Drug Dosing 46.3 ml/min Est GFR ( Amer) 83.0 Est GFR (Non-Af Amer) 71.6 BUN/Creatinine Ratio 9.6 L (10-20) Glucose 95 (70-99) mg/dl Calcium 7.4 L (8.5-10.1) mg/dl Blood Type A Positive Antibody Screen NEGATIVE Crossmatch See Detail 08/31/19 08/31/19 Range/Units 05:35 05:35 WBC 9.43 (4.8-10.8) K/uL RBC 2.53 L (4.7-6.1) M/uL Hgb 7.6 L (14.0-18.0) g/dL Hct 23.5 L (42-52) % MCV 92.9 (80-100) fL MCH 30.0 (25-34) pg MCHC 32.3 (32-36) g/dL RDW Std Deviation 54.1 H (36.4-46.3) fL RDW Coeff of Jaziel 16.0 H (11.5-14.5) % Plt Count 215 (130-400) K/uL MPV 9.2 (7.4-10.4) fL Immature Gran % (Auto) 0.2 % Neut % (Auto) 69.1 % Lymph % (Auto) 18.3 % [place] % (Auto) 9.3 % Eos % (Auto) 2.1 % Baso % (Auto) 1.0 % Immature Gran # (Auto) 0.02 (0.00-0.02) K/uL Neut # (Auto) 6.51 H (1.4-6.5) K/uL Lymph # (Auto) 1.73 (1.2-3.4) K/uL [place] # (Auto) 0.88 H (0.11-0.59) K/uL Eos # (Auto) 0.20 (0-0.5) K/uL Baso # (Auto) 0.09 (0-0.2) K/uL RBC Morphology Unremarkable PT 15.0 H (9.0-12.0) Seconds INR 1.4 H (0.9-1.1) Sodium (136-145) mmol/L Potassium (3.5-5.1) mmol/L Chloride (98-107) mmol/L Carbon Dioxide (21-32) mmol/L Anion Gap (3-11) BUN (7-18) mg/dl Creatinine (0.6-1.4) mg/dl Est Cr Clr Drug Dosing ml/min Est GFR ( Amer) Est GFR (Non-Af Amer) BUN/Creatinine Ratio (10-20) Glucose (70-99) mg/dl Calcium (8.5-10.1) mg/dl Blood Type Antibody Screen Crossmatch PG Care Time/CCT Total # of Minutes Spent Total Time Spent with Patient: Total time spent is greater than 50% in coordination of care (as documented) at patient's floor/unit and/or counseling patient: Coding Level of Care Code 29486 Subseq Hosp Care Lvl 2 Diagnoses Cecum mass K63.89 Partial bowel obstruction K56.600 Intestinal obstruction type: unspecified Anemia D64.9 Anemia type: unspecified type Hyperlipidemia E78.5 Hyperlipidemia type: unspecified Benign hypertension I10 Atrial fibrillation I48.91 Atrial fibrillation type: unspecified BPH (benign prostatic hyperplasia) N40.0 Lower urinary tract symptom presence: symptoms absent Murmur, cardiac R01.1 Carotid stenosis I65.29 Restless leg syndrome G25.81 DVT prophylaxis Z29.9 (1) BPH (benign prostatic hyperplasia) Lower urinary tract symptom presence: symptoms absent Qualified Code(s): N40.0 - Benign prostatic hyperplasia without lower urinary tract symptoms (2) Partial bowel obstruction Intestinal obstruction type: unspecified Qualified Code(s): K56.600 - Partial intestinal obstruction, unspecified as to cause (3) Anemia Anemia type: unspecified type Qualified Code(s): D64.9 - Anemia, unspecified (4) Atrial fibrillation Atrial fibrillation type: unspecified Qualified Code(s): I48.91 - Unspecified atrial fibrillation (5) Hyperlipidemia Hyperlipidemia type: unspecified Qualified Code(s): E78.5 - Hyperlipidemia, unspecified
[2019-08-31 19:44] LABS: Hematocrit (blood only) 28.4 % (42-52); Hemoglobin 9.2 g/dL (14.0-18.0); Mean Corpuscular Hemoglobin 29.7 pg (25-34); Mean Corpuscular Volume 91.6 fL (80-100); Mean Platelet Volume 9.3 fL (7.4-10.4); Platelet Count 235 K/uL (130-400); RDW Coefficient of Variation 15.7 % (11.5-14.5); RDW Standard Deviation 52.3 fL (36.4-46.3); White Blood Count 9.95 K/uL (4.8-10.8)
[2019-08-31 20:05] LABS: Mean Corpuscular Hgb Conc 32.4 g/dL (32-36)
[2019-08-31] MEDS: TAMSULOSIN HCL 0.4 MG CAP PO SCH (21:22)
[2019-08-31] MEDS: PRAMIPEXOLE DIHYDROCHLO 0.25 MG TAB PO SCH (21:22)
[2019-09-01 06:32] LABS: Hematocrit (blood only) 28.1 % (42-52); Hemoglobin 9.1 g/dL (14.0-18.0); Mean Corpuscular Hemoglobin 29.8 pg (25-34); Mean Corpuscular Hgb Conc 32.4 g/dL (32-36); Mean Corpuscular Volume 92.1 fL (80-100); Mean Platelet Volume 9.5 fL (7.4-10.4); Platelet Count 234 K/uL (130-400); RDW Coefficient of Variation 15.7 % (11.5-14.5); RDW Standard Deviation 53.1 fL (36.4-46.3); Red Blood Count 3.05 M/uL (4.7-6.1); White Blood Count 8.48 K/uL (4.8-10.8)
[2019-09-01 06:39] LABS: INR 1.3 (0.9-1.1); Prothrombin Time 13.7 Seconds (9.0-12.0)
[2019-09-01] MEDS ORDERED: LIDOCAINE HCL 2% 2 ML VIAL/AMP(20MG/ML) INFIL ONE (06:47)
[2019-09-01] MEDS ORDERED: ONDANSETRON INJ 2 MG/ML 2 ML VIAL ONE (06:47)
[2019-09-01] MEDS ORDERED: PROPOFOL IV EMULSION 10 MG/ML 20 ML VIAL IV ONE (06:47)
[2019-09-01] MEDS ORDERED: DEXAMETHASONE SOD INJ 4 MG/ML VIAL ONE (06:47)
[2019-09-01] MEDS ORDERED: GLYCOPYRROLATE 0.2 MG/ML VIAL ONE ×2 (06:47→09:05)
[2019-09-01] MEDS ORDERED: NEOSTIGMINE METHYLSULFATE 5 MG/5 ML SYR ONE (06:47)
[2019-09-01] MEDS ORDERED: fentaNYL citrate 100 MCG/2 ML VIAL ONE ×3 (06:47→10:32)
[2019-09-01] MEDS ORDERED: ePHEDrine sulfate 50 MG/ML AMP IV PRN (06:50)
[2019-09-01] MEDS ORDERED: ONDANSETRON INJ 2 MG/ML 2 ML VIAL IV PRN (06:50)
[2019-09-01] MEDS ORDERED: ATROPINE SULFATE 0.1 MG/ML 10ML SYR IV PRN (06:50)
[2019-09-01 06:58] LABS: BUN Creatinine Ratio 10.7 (10-20); Calcium 7.3 mg/dl (8.5-10.1); Creatinine Clr Calc Pharmacy 51.9 ml/min; Est GFR (Non-African American) 77.6; Potassium 3.8 mmol/L (3.5-5.1)
[2019-09-01] MEDS ORDERED: LACTATED RINGER'S 1,000 ML IV SCH (07:00)
--- NOTE | 2019-09-01 07:14 | History & Physical Bridge Note ---
Date of Service September 01, 2019 History & Physical Bridge Note I have examined the patient, reviewed the History & Physical and in the interval since the performance of the History & Physical I have noted the following changes of clinical significance: no changes noted
[2019-09-01] MEDS ORDERED: ROCURONIUM BROMIDE 10 MG/ML 5 ML VIAL ONE (08:37)
[2019-09-01] MEDS ORDERED: SUCCINYLCHOLINE CHLORIDE 20 MG/ML 10 ML VIAL ONE (08:37)
[2019-09-01] MEDS ORDERED: PHENYLEPHRINE 100MCG/ML 5ML SYR ONE (08:58)
--- NOTE | 2019-09-01 09:32 | Operative Report ---
PG Post Operative Report Pre & Post Diagnosis Operation Date: 09/01/19 07:00 Pre-Op Diagnosis: CECAL MASS Post-Op Diagnosis: CECAL MASS I identified the patient and participated in the time-out.: Yes Procedure Operation Date: 09/01/19 07:00 Actual Procedures p Right Open Hemicolectomy(Not Applicable) - Emmanuel Valdes DO Surgeon Emmanuel Valdes DO Supervisor Cd Area eufemia Infante Estimated Blood Loss 20 Findings Consistent with Post-Op Diagnosis Specimens terminal ileum, right colon,portion of transverse colon Description of Procedure After informed consent was obtained the patient was taken to the operating room and placed in supine position. After successful intubation a Troncoso catheter and NG tube were placed. The abdomen was shaved and sterilely prepped and draped in usual fashion. We began with a midline incision around the umbilicus with a 10 blade scalpel. This was carried down through soft tissue using cautery. The midline fascia was opened using cautery as well. Blunt finger penetration was used to enter the peritoneal cavity and then the incision was opened to both poles using cautery. A Bookwalter retractor was used throughout the case. Once in the abdomen we were able to readily identify a large cecal mass. This was near the ileocecal valve. There were also some clinically positive palpable lymph nodes in the mesentery of the right colon. There was also at least one right liver lesion that was very high up near the diaphragm. We began by mobilizing the right colon along the white line of Toldt using small amounts of cautery and blunt dissection. We continued this up and around the hepatic flexure. Once we had the transverse colon, hepatic flexure and right colon all mobilized we transected the terminal ileum several inches from the ileocecal valve using a brown cartridge CARLOS stapler. We found a spot on the transverse colon just proximal to the middle colic vessels and transected this using a brown cartridge CARLOS as well. LigaSure device was then used to take down the mesentery of the proximal transverse colon right colon and terminal ileum. We tried to include as many lymph nodes as possible without endangering the ureter or duodenum. Once we had the specimen out we then thoroughly irrigated the abdominal cavity. There was adequate hemostasis. Because of the location of the liver lesion, the patient's age, as well as clinically positive nodes I did not feel the risk reward would be worth extending the incision superiorly in order to try and obtain a liver biopsy. We created a side to side small bowel to transverse colon anastomosis using a CARLOS brown cartridge linear stapler. The common enterotomy was closed using a TA 60 stapling device. We placed a crotch stitch with 3-0 silk as well as inverted the corners of the staple lines in lembert fashion. We closed the mesenteric defect using 2-0 and 3-0 Vicryl in running fashion. Anastomosis was patent with no evidence of ischemia. Again there was adequate hemostasis throughout the case. No other gross abnormalities were identified. A final irrigation was performed. The fascia was closed using 0-looped PDS in a running fashion starting either pole and securing them in the midline. Soft tissue was irrigated and skin was closed using skin zackery. A silver sterile dressing was applied. The patient was awakened extubated and transferred recovery in stable condition. My physician special ed assistant was present for the entire case. He helped prep the patient. He helped with retraction and exposure throughout our dissection. Assisted with the anastomosis as well as with wound closure and dressing placement. I attest to the content of the Intraoperative Record and any orders documented therein. Any exceptions are noted below.
[2019-09-01] MEDS: fentaNYL citrate 100 MCG/2 ML VIAL IV PRN ×7 (10:11→10:47)
[2019-09-01] MEDS ORDERED: ACETAMINOPHEN 1000 MG/100 ML IV IV ONE (10:43)
--- NOTE | 2019-09-01 11:04 | Anesthesiology Progress Note ---
Date of Service September 01, 2019 Anesthesia Post Procedure Vital Signs Vital Signs: Temp Pulse Pulse Pulse Resp BP BP 09/01/19 10:55 99.0 F 92 H 20 09/01/19 10:45 86 18 09/01/19 10:35 99 H 20 09/01/19 10:25 94 H 19 09/01/19 10:15 103 H 24 09/01/19 10:05 100 H 22 09/01/19 09:55 86 20 09/01/19 09:47 97.5 F L 84 22 09/01/19 06:39 99.3 F 76 18 126/62 09/01/19 06:11 97.9 F 78 22 08/31/19 23:24 98.1 F 63 22 08/31/19 15:35 98.2 F 73 16 08/31/19 14:27 98.2 F 73 16 114/74 08/31/19 14:03 98.2 F 73 16 115/69 08/31/19 12:36 98.1 F 78 16 113/71 08/31/19 12:35 98.4 F 71 18 112/67 08/31/19 12:05 98.4 F 73 18 112/65 08/31/19 11:50 98.2 F 78 18 109/64 08/31/19 11:35 97.9 F 80 16 113/66 BP Pulse Ox 09/01/19 10:55 119/53 L 93 09/01/19 10:45 121/62 95 09/01/19 10:35 127/65 95 09/01/19 10:25 135/64 94 09/01/19 10:15 131/62 92 09/01/19 10:05 124/72 94 09/01/19 09:55 131/58 L 97 09/01/19 09:47 128/57 L 94 09/01/19 06:39 93 09/01/19 06:11 116/63 96 08/31/19 23:24 109/64 95 08/31/19 15:35 126/70 98 08/31/19 14:27 98 08/31/19 14:03 97 08/31/19 12:36 97 08/31/19 12:35 97 08/31/19 12:05 98 08/31/19 11:50 98 04/08/20 11:35 Pain Intensity Lower Abdomen: Pain Intensity: 2 Transfer of Care Handoff Completed per policy Notes Mental Status: alert / awake / arousable and participated in evaluation Patient Amnestic to Procedure: Yes Nausea / Vomiting: adequately controlled Pain: adequately controlled Airway Patency, RR, SpO2: stable & adequate BP & HR: stable & adequate Hydration State: stable & adequate Anesthetic Complications: no major complications apparent and Pt Satisfied with anesthetic care
[2019-09-01] MEDS ORDERED: ACETAMINOPHEN 1,000 MG/100 ML VIAL IV PRN (11:38)
[2019-09-01] MEDS ORDERED: NALOXONE HCL 0.4 MG/1 ML VIAL/CARP IV PRN (11:38)
[2019-09-01] MEDS: LACTATED RINGER'S 1,000 ML IV SCH ×2 (11:49→21:56)
[2019-09-01] MEDS: ATORVASTATIN 10 MG TAB PO SCH (11:50)
[2019-09-01] MEDS: METOPROLOL TARTRATE 25 MG TAB PO SCH (11:50)
--- NOTE | 2019-09-01 11:58 | Hospitalist Progress Note ---
Date of Service September 01, 2019 Assessment & Plan (1) Cecum mass: This pt is an 89yo C male presenting with abdominal pain, nausea/vomiting, found to have cecal mass causing partial SBO. 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 -PSBO now resolved, with acute GI bleeding as below -Remains on a clears diet and now status post right hemicolectomy on 08/31 with anastomosis-surgeon noted clinically palpable pathologic lymph nodes as well as a liver lesion however liver lesion was not biopsied during surgery as was felt not to be necessary given lymph nodes were sampled -Appreciate Surgery consult -checked CEA--> elevated at 5.3 -On clears diet-defer to surgery for advancement of diet -Follow bowel function -Await pathology results -Has morphine REPTILE KEEPER for pain control and IV Tylenol -Continue IV fluids with LR at 100 mL's per hour -Continue cefoxitin for prophylaxis (2) Partial bowel obstruction: resolved, passing flatus and stool prior to hemicolectomy Secondary to cecal mass (3) Anemia: Normochromic, normocytic anemia with Hgb=9.3, Hct=29.4 on admission With acute blood loss anemia overnight on the first night with witnessed GI bleeding, hgb dropped to 6.9 -transfused 1 unit PRBCs and repeat hgb up to 8.4 -then had large black BM AM of 08/29--> hgb then dropped down again to 7.6 and BPs low in the 90s systolic -transfused another 1 unit PRBCs on 08/30 and now hemoglobin today stable at 9.1 -Continue to monitor CBC, transfusional support as needed now status post hemicolectomy -dcd iron supplementation for now as can be constipating -reversed INR with Vit K 2.5mg po x 1 on hospital day#2 --> INR down to 1.3 now -continue holding coumadin and holding home ASA-cardiology recommends likely will not restart any anticoagulation in the setting of likely metastatic colon cancer given high risk of bleeding in the future (4) Hyperlipidemia: Chronic. -Continue Atorvastatin (5) Benign hypertension: Blood pressures low due to GI bleeding but then improved with transfusion Monitor closely in the postoperative period -continue home Metoprolol tartrate 12.5mg daily with hold parameters -holding home lasix 2x/week (6) Atrial fibrillation: Rate controlled Typically anticoagulated on Coumadin which is now been discontinued and reversed for surgery -continue metoprolol 12.5mg po once daily (tartrate but confirmed home dose is once daily) -As above, cardiology recommends most likely will not restart Coumadin or any anticoagulation postoperatively due to high risk for bleeding in the future given likely metastatic cancer -Monitor on telemetry postoperatively (7) BPH (benign prostatic hyperplasia): Chronic, no LUTS here -Continue Tamsulosin -Now has Troncoso catheter in place postoperatively-we will remove when appropriate (8) Murmur, cardiac: 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, also with mild MR on ECHO here Appreciate Cardiology consult for preop assessment--> moderate risk for surgery (9) Carotid stenosis: s/p endarterectomy in the on the left -holding coumadin, ASA -continue statin (10) Restless leg syndrome: continue home Mirapex (11) DVT prophylaxis: SQ Lovenox 30 mg daily SCDs Code -Full per discussion with patient Dispo - continued stay, now for surgical recovery, has been transferred to the PCU on 08/31 postoperatively Admission and Anticipated Discharge Date Admission Date: August 28, 2019 Anticipated date of discharge: 09/05/19 Subjective I saw the patient right after he returned from recovery from his hemicolectomy. He was very groggy and reported that all he wanted to do was rest. Denied pain at this time. Denied chest pain or shortness of breath. Discussed the case with cardiology. Review of Systems Review of Systems: All systems reviewed & are unremarkable except as noted in HPI & below Physical Exam Constitutional: average body habitus and + lethargic; no acute distress Eyes: + anicteric sclerae Neck: trachea midline, no thyromegaly Respiratory: normal respiratory effort; no labored breathing Auscultation: + rhonchi (A few coarse upper airway sounds); no crackles and no wheezes Cardiovascular: Rate/Rhythm: regular rate and + irregularly irregular Heart Sounds: + murmur (3/6 systolic at RUSB) Chest (Breasts): Chest: normal inspection of chest Gastrointestinal (Abdomen): Inspection/Auscultation: + hypoactive bowel sounds; + abdomen abnormal to inspection (Midline of the abdomen with incisional dressing clean dry and intact) Percussion/Palpation: + abdomen tender (Mild over incision) and abdomen soft Musculoskeletal: Extremities: extremities normal to inspection; no cyanosis and no clubbing Skin: no rashes, warm and dry Neurologic: moves all extremities and awake; no focal motor deficits Genitourinary: no penis abnormality (With Troncoso catheter in place) Lymphatic: no lymphedema Results & Data Results & Data ([facility]) Vital Signs (Past 12 Hours) Vital Signs Temp Pulse Pulse Resp BP BP Pulse Ox 09/01/19 11:05 89 18 113/53 L 94 09/01/19 10:55 37.2 C 92 H 20 119/53 L 93 09/01/19 10:45 86 18 121/62 95 09/01/19 10:35 99 H 20 127/65 95 09/01/19 10:25 94 H 19 135/64 94 09/01/19 10:15 103 H 24 131/62 92 09/01/19 10:05 100 H 22 124/72 94 09/01/19 09:55 86 20 131/58 L 97 09/01/19 09:47 36.4 C L 84 22 128/57 L 94 09/01/19 06:39 37.4 C 76 18 126/62 93 09/01/19 06:11 36.6 C 78 22 116/63 96 Laboratory Results 09/01/19 09/01/19 09/01/19 Range/Units 05:58 05:58 05:58 WBC 8.48 (4.8-10.8) K/uL RBC 3.05 L (4.7-6.1) M/uL Hgb 9.1 L (14.0-18.0) g/dL Hct 28.1 L (42-52) % MCV 92.1 (80-100) fL MCH 29.8 (25-34) pg MCHC 32.4 (32-36) g/dL RDW Std Deviation 53.1 H (36.4-46.3) fL RDW Coeff of Jaziel 15.7 H (11.5-14.5) % Plt Count 234 (130-400) K/uL MPV 9.5 (7.4-10.4) fL PT 13.7 H (9.0-12.0) Seconds INR 1.3 H (0.9-1.1) Sodium 139 (136-145) mmol/L Potassium 3.8 (3.5-5.1) mmol/L Chloride 108 H (98-107) mmol/L Carbon Dioxide 26 (21-32) mmol/L Anion Gap 5.0 (3-11) BUN 9 (7-18) mg/dl Creatinine 0.84 (0.6-1.4) mg/dl Est Cr Clr Drug Dosing 51.9 ml/min Est GFR ( Amer) 90.0 Est GFR (Non-Af Amer) 77.6 BUN/Creatinine Ratio 10.7 (10-20) Glucose 90 (70-99) mg/dl Calcium 7.3 L (8.5-10.1) mg/dl 08/31/19 Range/Units 19:32 WBC 9.95 (4.8-10.8) K/uL RBC 3.10 L (4.7-6.1) M/uL Hgb 9.2 L (14.0-18.0) g/dL Hct 28.4 L (42-52) % MCV 91.6 (80-100) fL MCH 29.7 (25-34) pg MCHC 32.4 (32-36) g/dL RDW Std Deviation 52.3 H (36.4-46.3) fL RDW Coeff of Jaziel 15.7 H (11.5-14.5) % Plt Count 235 (130-400) K/uL MPV 9.3 (7.4-10.4) fL PT (9.0-12.0) Seconds INR (0.9-1.1) Sodium (136-145) mmol/L Potassium (3.5-5.1) mmol/L Chloride (98-107) mmol/L Carbon Dioxide (21-32) mmol/L Anion Gap (3-11) BUN (7-18) mg/dl Creatinine (0.6-1.4) mg/dl Est Cr Clr Drug Dosing ml/min Est GFR ( Amer) Est GFR (Non-Af Amer) BUN/Creatinine Ratio (10-20) Glucose (70-99) mg/dl Calcium (8.5-10.1) mg/dl PG Care Time/CCT Total # of Minutes Spent Total Time Spent with Patient: Total time spent is greater than 50% in coordination of care (as documented) at patient's floor/unit and/or counseling patient: Coding Level of Care Code 66159 Subseq Hosp Care Lvl 3 Diagnoses Cecum mass K63.89 Partial bowel obstruction K56.600 Intestinal obstruction type: unspecified Anemia D64.9 Anemia type: unspecified type Hyperlipidemia E78.5 Hyperlipidemia type: unspecified Benign hypertension I10 Atrial fibrillation I48.91 Atrial fibrillation type: unspecified BPH (benign prostatic hyperplasia) N40.0 Lower urinary tract symptom presence: symptoms absent Murmur, cardiac R01.1 Carotid stenosis I65.29 Restless leg syndrome G25.81 DVT prophylaxis Z29.9 (1) BPH (benign prostatic hyperplasia) Lower urinary tract symptom presence: symptoms absent Qualified Code(s): N40.0 - Benign prostatic hyperplasia without lower urinary tract symptoms (2) Partial bowel obstruction Intestinal obstruction type: unspecified Qualified Code(s): K56.600 - Partial intestinal obstruction, unspecified as to cause (3) Anemia Anemia type: unspecified type Qualified Code(s): D64.9 - Anemia, unspecified (4) Atrial fibrillation Atrial fibrillation type: unspecified Qualified Code(s): I48.91 - Unspecified atrial fibrillation (5) Hyperlipidemia Hyperlipidemia type: unspecified Qualified Code(s): E78.5 - Hyperlipidemia, unspecified
[2019-09-01] MEDS: MORPHINE SULFATE PCA 30 MG/30 ML IV PRN (13:27)
[2019-09-01] MEDS: SODIUM CHLORIDE 0.9% 1000ML 1,000 ML IV SCH (14:15)
[2019-09-01] MEDS: cefOXitin 2,000 MG in DEXTROSE 5% 50 ML IV SCH ×2 (14:16→19:49)
--- NOTE | 2019-09-01 14:47 | Cardiology Progress Note ---
Date of Service September 01, 2019 Assessment & Plan (1) Preop cardiovascular exam: I spoke with Mr. Thornton at his bedside and his by phone. I counseled both of them that given his history of atrial fibrillation and hypertension without any recent cardiac symptoms that I would place him at a moderate risk for any adverse perioperative cardiovascular event with his risk being approximately less than 5%. I further counseled him that no further cardiac testing or intervention would further lower that risk. They both state that they understand, they are accepting of that risk and wish to proceed with the surgery. So, from a cardiac standpoint I have no reason to delay the surgery. I would recommend that his metoprolol be continued throughout the perioperative period to help further reduce perioperative risk. (2) Syncope: Patient has a standing history of orthostatic hypotension due to decreased fluid intake. In discussion with his , she states that he was not drinking much water that day. I believe this event was secondary to orthostatic hypotension and do not believe any further cardiac work-up is necessary at this time. (3) Murmur, cardiac: His echocardiogram remained stable compared to most recent study in 2017. 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 (4) Atrial fibrillation: Chronic, rate controlled. Obviously anticoagulation being held at this time. Will need to determine risk versus benefits of anticoagulation going forward after the surgery has been performed, however, I am doubtful that he would be a good anticoagulation candidate going forward. Subjective Patient seen and examined postoperatively states that he is feeling okay at this time. He does not believe he is having any abdominal discomfort at this point and denies any cardiac complaints of chest pain, shortness of breath, palpitations, lightheadedness, dizziness or syncope. Telemetry reviewed: Atrial fibrillation rate controlled. Review of Systems 2 Review of Systems: All systems reviewed & are unremarkable except as noted in HPI & below Physical Exam Physical Exam: General: Awake, alert and oriented x 3. No acute distress. HEENT: Normocephalic, atraumatic. Pupils equal, round and reactive to light and accommodation. Extraocular muscles are intact. Anicteric sclera. Moist mucous membranes. Neck: No JVD. No bruit. Cardiovascular: irregularly irregular, unable to appreciate murmur, rub or gallop. Pulmonary: Clear to auscultation bilaterally. No rales, rhonchi, or wheezing. Abdomen: Bowel sounds x 4, soft. No rebound, guarding or tenderness. No organomegaly. Extremities: No clubbing, cyanosis or edema. +2 pedal pulses bilaterally. Skin: Warm and dry. Results & Data Vital Signs (Past 12 Hours) Vital Signs Temp Pulse Pulse Resp BP BP Pulse Ox 09/01/19 12:00 73 12 106/58 L 95 09/01/19 11:45 74 14 97/56 L 95 09/01/19 11:30 36.8 C 75 12 101/58 L 96 09/01/19 11:05 89 18 113/53 L 94 09/01/19 10:55 37.2 C 92 H 20 119/53 L 93 09/01/19 10:45 86 18 121/62 95 09/01/19 10:35 99 H 20 127/65 95 09/01/19 10:25 94 H 19 135/64 94 09/01/19 10:15 103 H 24 131/62 92 09/01/19 10:05 100 H 22 124/72 94 09/01/19 09:55 86 20 131/58 L 97 09/01/19 09:47 36.4 C L 84 22 128/57 L 94 09/01/19 06:39 37.4 C 76 18 126/62 93 09/01/19 06:11 36.6 C 78 22 116/63 96 (1) Atrial fibrillation Atrial fibrillation type: unspecified Qualified Code(s): I48.91 - Unspecified atrial fibrillation
[2019-09-01] MEDS: TAMSULOSIN HCL 0.4 MG CAP PO SCH (19:52)
[2019-09-01] MEDS: PRAMIPEXOLE DIHYDROCHLO 0.25 MG TAB PO SCH (19:52)
[2019-09-02] MEDS: cefOXitin 2,000 MG in DEXTROSE 5% 50 ML IV SCH ×2 (01:36→07:47)
[2019-09-02 06:59] LABS: Basophils # (auto) 0.06 K/uL (0-0.2); Basophils % (auto) 0.4 %; Eosinophils # (auto) 0.05 K/uL (0-0.5); Eosinophils % (auto) 0.3 %; Hematocrit (blood only) 31.2 % (42-52); Immature Granulocytes # (auto) 0.03 K/uL (0.00-0.02); Immature Granulocytes % (auto) 0.2 %; Lymphocytes # (auto) 1.06 K/uL (1.2-3.4); Lymphocytes % (auto) 7.2 %; Mean Corpuscular Hemoglobin 29.8 pg (25-34); Mean Corpuscular Hgb Conc 32.1 g/dL (32-36); Mean Corpuscular Volume 92.9 fL (80-100); Mean Platelet Volume 9.4 fL (7.4-10.4); Monocytes # (auto) 1.03 K/uL (0.11-0.59); Neutrophils # (auto) 12.47 K/uL (1.4-6.5); Neutrophils % (auto) 84.9 %; Platelet Count 274 K/uL (130-400); RDW Coefficient of Variation 15.8 % (11.5-14.5); RDW Standard Deviation 53.3 fL (36.4-46.3); Red Blood Count 3.36 M/uL (4.7-6.1)
[2019-09-02 07:37] LABS: Calcium 7.6 mg/dl (8.5-10.1); Creatinine Clr Calc Pharmacy 48.4 ml/min; Est GFR (African American) 87.5; Est GFR (Non-African American) 75.5; Magnesium 1.9 mg/dl (1.8-2.4); Phosphorus 2.8 mg/dl (2.5-4.9)
[2019-09-02] MEDS: LACTATED RINGER'S 1,000 ML IV SCH ×2 (07:47→18:19)
[2019-09-02] MEDS: ENOXAPARIN INJ 30 MG/0.3 ML SYR SQ SCH (07:48)
[2019-09-02] MEDS: ATORVASTATIN 10 MG TAB PO SCH (07:49)
[2019-09-02] MEDS: METOPROLOL TARTRATE 25 MG TAB PO SCH (07:49)
--- NOTE | 2019-09-02 08:32 | Surgery Progress Note ---
Date of Service September 02, 2019 Assessment & Plan (1) Cecum mass: POD1 right hemicolectomy UOP approx 25 cc/hr, adequate Lovenox to start this AM keep on clears until passing flatus Supervising Physician Co-Signing Physician Notes pnt seen and examined, labs reviewed, agree with above. 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 no flatus, pain with coughing, otherwise doing well. incision with dressing in place, c/d/i. labs wnl. continue clears until flatus. hold off on coumadin for now. Dr. Finch covering over the weekend. Subjective no nausea or flatus, pain control adequate, started clears for breakfast Physical Exam Gastrointestinal (Abdomen): Inspection/Auscultation: + abdominal surgical incision (dressing dry); abdomen not distended Percussion/Palpation: abdomen soft Results & Data Vital Signs (Past 12 Hours) Vital Signs Temp Pulse Pulse Resp BP Pulse Ox 09/02/19 07:12 36.5 C 92 H 20 121/62 96 09/02/19 04:17 37 C 87 18 108/66 92 09/01/19 23:58 36.9 C 91 H 22 126/65 94 09/01/19 22:20 84 PG Care Time/CCT Total # of Minutes Spent Total Time Spent with Patient: Total time spent is greater than 50% in coordination of care (as documented) at patient's floor/unit and/or counseling patient: Coding Level of Care Code None Diagnoses Cecum mass K63.89
[2019-09-02] MEDS ORDERED: MAGNESIUM SULFATE / D5W 1 GM/100 ML BAG IV ONE (08:45)
--- NOTE | 2019-09-02 10:37 | Hospitalist Progress Note ---
Date of Service September 02, 2019 Assessment & Plan (1) Cecum mass: This pt is an 89yo C male presenting with abdominal pain, nausea/vomiting, found to have cecal mass causing partial SBO. 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 and IV Tylenol -Continue IV fluids with LR at 100 mL's per hour -Continue cefoxitin for prophylaxis -encouraged pain control and IS (2) Partial bowel obstruction: resolved, passing flatus and stool prior to hemicolectomy Secondary to cecal mass (3) Anemia: Normochromic, normocytic anemia with Hgb=9.3, Hct=29.4 on admission With acute blood loss anemia overnight on the first night with witnessed GI bleeding, hgb dropped to 6.9 -transfused 1 unit PRBCs and repeat hgb up to 8.4 -then had large black BM AM of 08/29--> hgb then dropped down again to 7.6 and BPs low in the 90s systolic -transfused another 1 unit PRBCs on 08/30 and now hemoglobin stable at 10 -Continue to monitor CBC, transfusional support as needed now status post hemicolectomy -dcd iron supplementation for now as can be constipating -reversed INR with Vit K 2.5mg po x 1 on hospital day#2 --> INR down to 1.3 -continue holding coumadin and holding home ASA-cardiology recommends likely will not restart any anticoagulation in the setting of likely metastatic colon cancer given high risk of bleeding in the future, but [facility] says ok from their standpoint to anticoagulate in a few days from now (4) Hyperlipidemia: Chronic. -Continue Atorvastatin (5) Benign hypertension: Blood pressures low due to GI bleeding but then improved with transfusion Monitor closely in the postoperative period -continue home Metoprolol tartrate 12.5mg daily with hold parameters -holding home lasix 2x/week (6) Atrial fibrillation: Rate controlled to mildly tachycardic likely secondary to pain Typically anticoagulated on Coumadin which is now been discontinued and reversed for surgery -continue metoprolol 12.5mg po once daily (tartrate but confirmed home dose is once daily) -As above, cardiology recommends most likely will not restart Coumadin or any anticoagulation postoperatively due to high risk for bleeding in the future given likely metastatic cancer -Monitor on telemetry postoperatively -will give 1 gm IV magnesium sulfate to keeo Mg>2.0 (7) BPH (benign prostatic hyperplasia): Chronic, no LUTS here -Continue Tamsulosin -Now has Troncoso catheter in place postoperatively-we will remove when appropriate (8) Murmur, cardiac: 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, also with mild MR on ECHO here Appreciate Cardiology consult for preop assessment--> moderate risk for surgery (9) Carotid stenosis: s/p endarterectomy in the on the left -holding coumadin, ASA -continue statin (10) Restless leg syndrome: continue home Mirapex (11) DVT prophylaxis: SQ Lovenox 30 mg daily SCDs Code -Full per discussion with patient Dispo - continued stay, now for surgical recovery, has been transferred to the PCU on 08/31 postoperatively Admission and Anticipated Discharge Date Admission Date: August 28, 2019 Anticipated date of discharge: 09/05/19 Subjective Pt having a lot of pain and not taking deep breaths. Denies CP or SOB. He thinks maybe he passed flatus earlier but not quite sure. No BM, no nausea. UOP low normal Review of Systems Review of Systems: All systems reviewed & are unremarkable except as noted in HPI & below Physical Exam Constitutional: WD/WN, vitals as above average body habitus; no acute distress Eyes: + anicteric sclerae Neck: trachea midline, no thyromegaly Respiratory: normal respiratory effort, lungs clear to auscultation Cardiovascular: Rate/Rhythm: regular rate and + irregularly irregular Heart Sounds: + murmur (3/6 systolic at RUSB) Chest (Breasts): Chest: normal inspection of chest Gastrointestinal (Abdomen): normal bowel sounds, soft, nontender, no hepatosplenomegaly Inspection/Auscultation: + hypoactive bowel sounds; + abdomen abnormal to inspection (Midline of the abdomen with incisional dressing clean dry and intact) Percussion/Palpation: + abdomen tender (Mild over incision) and abdomen soft Musculoskeletal: Extremities: extremities normal to inspection; no cyanosis and no clubbing Skin: no rashes, warm and dry Neurologic: moves all extremities and awake; no focal motor deficits Psychiatric: A+Ox3, euthymic affect Genitourinary: no penis abnormality (With Troncoso catheter in place) Lymphatic: no lymphedema Results & Data Results & Data ([facility]) Vital Signs (Past 12 Hours) Vital Signs Temp Pulse Pulse Resp BP Pulse Ox 09/02/19 08:00 95 H 09/02/19 07:12 36.5 C 92 H 20 121/62 96 09/02/19 04:17 37 C 87 18 108/66 92 09/01/19 23:58 36.9 C 91 H 22 126/65 94 Laboratory Results 09/02/19 09/02/19 Range/Units 06:30 06:30 WBC 14.70 H (4.8-10.8) K/uL RBC 3.36 L (4.7-6.1) M/uL Hgb 10.0 L (14.0-18.0) g/dL Hct 31.2 L (42-52) % MCV 92.9 (80-100) fL MCH 29.8 (25-34) pg MCHC 32.1 (32-36) g/dL RDW Std Deviation 53.3 H (36.4-46.3) fL RDW Coeff of Jaziel 15.8 H (11.5-14.5) % Plt Count 274 (130-400) K/uL MPV 9.4 (7.4-10.4) fL Immature Gran % (Auto) 0.2 % Neut % (Auto) 84.9 % Lymph % (Auto) 7.2 % [place] % (Auto) 7.0 % Eos % (Auto) 0.3 % Baso % (Auto) 0.4 % Immature Gran # (Auto) 0.03 H (0.00-0.02) K/uL Neut # (Auto) 12.47 H (1.4-6.5) K/uL Lymph # (Auto) 1.06 L (1.2-3.4) K/uL [place] # (Auto) 1.03 H (0.11-0.59) K/uL Eos # (Auto) 0.05 (0-0.5) K/uL Baso # (Auto) 0.06 (0-0.2) K/uL Sodium 135 L (136-145) mmol/L Potassium 4.0 (3.5-5.1) mmol/L Chloride 104 (98-107) mmol/L Carbon Dioxide 27 (21-32) mmol/L Anion Gap 4.0 (3-11) BUN 11 (7-18) mg/dl Creatinine 0.90 (0.6-1.4) mg/dl Est Cr Clr Drug Dosing 48.4 ml/min Est GFR ( Amer) 87.5 Est GFR (Non-Af Amer) 75.5 BUN/Creatinine Ratio 12.0 (10-20) Glucose 89 (70-99) mg/dl Calcium 7.6 L (8.5-10.1) mg/dl Phosphorus 2.8 (2.5-4.9) mg/dl Magnesium 1.9 (1.8-2.4) mg/dl PG Care Time/CCT Total # of Minutes Spent Total Time Spent with Patient: Total time spent is greater than 50% in coordination of care (as documented) at patient's floor/unit and/or counseling patient: Coding Level of Care Code 60326 Subseq Hosp Care Lvl 3 Diagnoses Cecum mass K63.89 Partial bowel obstruction K56.600 Intestinal obstruction type: unspecified Anemia D64.9 Anemia type: unspecified type Hyperlipidemia E78.5 Hyperlipidemia type: unspecified Benign hypertension I10 Atrial fibrillation I48.91 Atrial fibrillation type: unspecified BPH (benign prostatic hyperplasia) N40.0 Lower urinary tract symptom presence: symptoms absent Murmur, cardiac R01.1 Carotid stenosis I65.29 Restless leg syndrome G25.81 DVT prophylaxis Z29.9 (1) BPH (benign prostatic hyperplasia) Lower urinary tract symptom presence: symptoms absent Qualified Code(s): N40.0 - Benign prostatic hyperplasia without lower urinary tract symptoms (2) Partial bowel obstruction Intestinal obstruction type: unspecified Qualified Code(s): K56.600 - Partial intestinal obstruction, unspecified as to cause (3) Anemia Anemia type: unspecified type Qualified Code(s): D64.9 - Anemia, unspecified (4) Atrial fibrillation Atrial fibrillation type: unspecified Qualified Code(s): I48.91 - Unspecified atrial fibrillation (5) Hyperlipidemia Hyperlipidemia type: unspecified Qualified Code(s): E78.5 - Hyperlipidemia, unspecified
[2019-09-02] MEDS: SODIUM CHLORIDE 0.9% 1000ML 1,000 ML IV SCH (12:42)
--- NOTE | 2019-09-02 14:58 | Cardiology Progress Note ---
Date of Service September 02, 2019 Assessment & Plan (1) Preop cardiovascular exam: I spoke with Mr. Thornton at his bedside and his by phone. I counseled both of them that given his history of atrial fibrillation and hypertension without any recent cardiac symptoms that I would place him at a moderate risk for any adverse perioperative cardiovascular event with his risk being approximately less than 5%. I further counseled him that no further cardiac testing or intervention would further lower that risk. They both state that they understand, they are accepting of that risk and wish to proceed with the surgery. So, from a cardiac standpoint I have no reason to delay the surgery. I would recommend that his metoprolol be continued throughout the perioperative period to help further reduce perioperative risk. (2) Syncope: Patient has a standing history of orthostatic hypotension due to decreased fluid intake. In discussion with his , she states that he was not drinking much water that day. I believe this event was secondary to orthostatic hypotension and do not believe any further cardiac work-up is necessary at this time. (3) Murmur, cardiac: His echocardiogram remained stable compared to most recent study in 2017. 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 (4) Atrial fibrillation: Chronic, rate controlled. Obviously anticoagulation being held at this time. Postoperative bleeding risk will reportedly be acceptable in the next few days to restart anticoagulation. Reviewed the pros and cons of restarting anticoagulation with the patient today and he would like to think about what he like to do. We will hold off on restarting Coumadin until patient is made a definitive choice. Subjective Patient seen and examined states that he is feeling fairly well. Abdominal pain only with movement or coughing. Continues to deny cardiac complaints of chest pain, shortness of breath, palpitations, lightheadedness, dizziness or syncope. Has not been using his [employer] pump. Telemetry reviewed: Atrial fibrillation rates controlled at higher today. Review of Systems Review of Systems: All systems reviewed & are unremarkable except as noted in HPI & below Physical Exam Physical Exam: General: Awake, alert and oriented x 3. No acute distress. HEENT: Normocephalic, atraumatic. Pupils equal, round and reactive to light and accommodation. Extraocular muscles are intact. Anicteric sclera. Moist mucous membranes. Neck: No JVD. No bruit. Cardiovascular: irregularly irregular, unable to appreciate murmur, rub or gallop. Pulmonary: Clear to auscultation bilaterally. No rales, rhonchi, or wheezing. Abdomen: Deferred Extremities: No clubbing, cyanosis or edema. +2 pedal pulses bilaterally. Skin: Warm and dry. Results & Data Vital Signs (Past 12 Hours) Vital Signs Temp Pulse Pulse Resp BP Pulse Ox 09/02/19 12:41 36.7 C 95 H 20 123/72 96 09/02/19 08:00 95 H 09/02/19 07:12 36.5 C 92 H 20 121/62 96 09/02/19 04:17 37 C 87 18 108/66 92 (1) Atrial fibrillation Atrial fibrillation type: unspecified Qualified Code(s): I48.91 - Unspecified atrial fibrillation
[2019-09-02] MEDS ORDERED: dilTIAZem HCL 30 MG TAB PO STA (16:05)
[2019-09-02] MEDS: TAMSULOSIN HCL 0.4 MG CAP PO SCH (20:48)
[2019-09-02] MEDS: dilTIAZem HCL 30 MG TAB PO SCH (20:48)
[2019-09-02] MEDS: PRAMIPEXOLE DIHYDROCHLO 0.25 MG TAB PO SCH (20:48)
[2019-09-03] MEDS: LACTATED RINGER'S 1,000 ML IV SCH ×2 (05:00→16:09)
[2019-09-03 06:27] LABS: Hematocrit (blood only) 28.5 % (42-52); Hemoglobin 9.3 g/dL (14.0-18.0); Mean Corpuscular Hemoglobin 30.2 pg (25-34); Mean Corpuscular Hgb Conc 32.6 g/dL (32-36); Mean Corpuscular Volume 92.5 fL (80-100); Mean Platelet Volume 9.3 fL (7.4-10.4); Platelet Count 243 K/uL (130-400); RDW Coefficient of Variation 15.5 % (11.5-14.5); RDW Standard Deviation 52.3 fL (36.4-46.3); Red Blood Count 3.08 M/uL (4.7-6.1); White Blood Count 13.09 K/uL (4.8-10.8)
[2019-09-03 06:51] LABS: BUN Creatinine Ratio 14.4 (10-20); Calcium 7.6 mg/dl (8.5-10.1); Creatinine Clr Calc Pharmacy 55.8 ml/min; Est GFR (African American) 92.8; Potassium 3.9 mmol/L (3.5-5.1)
[2019-09-03] MEDS: ENOXAPARIN INJ 30 MG/0.3 ML SYR SQ SCH (08:00)
[2019-09-03] MEDS: METOPROLOL TARTRATE 25 MG TAB PO SCH (08:01)
[2019-09-03] MEDS: dilTIAZem HCL 30 MG TAB PO SCH ×3 (08:01→21:50)
[2019-09-03] MEDS: ATORVASTATIN 10 MG TAB PO SCH (08:02)
[2019-09-03] MEDS ORDERED: POTASSIUM PHOS 3 MMOL/1 ML INFUSION IV STA (08:51)
[2019-09-03] MEDS ORDERED: POTASSIUM PHOSPHATE 15 MMOL in SODIUM CHLORIDE 0.9% 250 ML IV ONE (09:00)
[2019-09-03] MEDS: MORPHINE SULFATE PCA 30 MG/30 ML IV PRN (09:13)
[2019-09-03] MEDS: SODIUM CHLORIDE 0.9% 1000ML 1,000 ML IV SCH (12:44)
--- NOTE | 2019-09-03 13:38 | Hospitalist Progress Note ---
Date of Service September 03, 2019 Assessment & Plan (1) Cecum mass: This pt is an 89yo C male presenting with abdominal pain, nausea/vomiting, found to have cecal mass causing partial SBO. 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 -PSBO now resolved, with acute GI bleeding as below now also resolved -Remains on a clears diet and now status post right hemicolectomy on 08/31 with anastomosis-surgeon noted clinically palpable pathologic lymph nodes as well as a liver lesion however liver lesion was not biopsied during surgery as was felt not to be necessary given lymph nodes were sampled -Appreciate Surgery consult -checked CEA--> elevated at 5.3 -On clears diet-defer to surgery for advancement of diet once passing flatus -Follow bowel function -Await pathology results -Has morphine INSPECTOR PROCESS for pain control and IV Tylenol -Continue IV fluids with LR but decrease to 70 mL's per hour -encouraged pain control and IS (2) Partial bowel obstruction: resolved, passing flatus and stool prior to hemicolectomy Secondary to cecal mass (3) Anemia: Normochromic, normocytic anemia with Hgb=9.3, Hct=29.4 on admission With acute blood loss anemia overnight on the first night with witnessed GI bleeding, hgb dropped to 6.9 -transfused 1 unit PRBCs and repeat hgb up to 8.4 -then had large black BM AM of 08/29--> hgb then dropped down again to 7.6 and BPs low in the 90s systolic -transfused another 1 unit PRBCs on 08/30 and now hemoglobin stable at 9-10 -Continue to monitor CBC, transfusional support as needed now status post hemicolectomy -dcd iron supplementation for now as can be constipating -reversed INR with Vit K 2.5mg po x 1 on hospital day#2 --> INR down to 1.3 -continue holding coumadin and holding home ASA-cardiology recommends likely will not restart any anticoagulation in the setting of likely metastatic colon cancer given high risk of bleeding in the future, but SUrgery says ok from their standpoint to anticoagulate in a few days from now (4) Hyperlipidemia: Chronic. -Continue Atorvastatin (5) Benign hypertension: Blood pressures low due to GI bleeding but then improved with transfusion Monitor closely in the postoperative period -continue home Metoprolol tartrate 12.5mg daily with hold parameters -holding home lasix 2x/week (6) Atrial fibrillation: Rate controlled now after starting po diltiazem yesterday by Cardiology Typically anticoagulated on Coumadin which is now been discontinued and reversed for surgery -continue metoprolol 12.5mg po once daily (tartrate but confirmed home dose is once daily) -continue po diltiazem for now -As above, cardiology recommends most likely will not restart Coumadin or any anticoagulation postoperatively due to high risk for bleeding in the future given likely metastatic cancer -Monitor on telemetry postoperatively -replace lytes as needed (7) BPH (benign prostatic hyperplasia): Chronic, no LUTS here -Continue Tamsulosin -Now has Troncoso catheter in place postoperatively-we will remove when appropriate (8) Murmur, cardiac: 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, also with mild MR on ECHO here Appreciate Cardiology consult for preop assessment--> moderate risk for surgery (9) Carotid stenosis: s/p endarterectomy in the on the left -holding coumadin, ASA -continue statin (10) Restless leg syndrome: continue home Mirapex (11) DVT prophylaxis: SQ Lovenox 30 mg daily SCDs Code -Full per discussion with patient Dispo - continued stay, now for surgical recovery, continue tele monitoring Admission and Anticipated Discharge Date Admission Date: August 28, 2019 Anticipated date of discharge: 09/05/19 Subjective Pt reports feeling much better today. Still having some abd pain but not able to take a deep breath. Denies chest pain. No flatus passed yet. No nausea or vomitung. Wants to know why he can't have regular food yet. Tele with Afib rates 60-80s Review of Systems Review of Systems: All systems reviewed & are unremarkable except as noted in HPI & below Physical Exam Constitutional: WD/WN, vitals as above average body habitus; no acute distress Eyes: + anicteric sclerae Neck: trachea midline, no thyromegaly Respiratory: + abnormal respiratory effort (shallow breaths but not tachypneic) and no labored breathing Auscultation: no crackles and no wheezes Cardiovascular: Rate/Rhythm: regular rate and + irregularly irregular Heart Sounds: + murmur (3/6 systolic at RUSB) Chest (Breasts): Chest: normal inspection of chest Gastrointestinal (Abdomen): Inspection/Auscultation: + hypoactive bowel sounds; + abdomen abnormal to inspection (Midline of the abdomen with incisional dressing clean dry and intact) Percussion/Palpation: + abdomen tender (Mild over incision) and abdomen soft Musculoskeletal: Extremities: extremities normal to inspection; no cyanosis and no clubbing Skin: no rashes, warm and dry Neurologic: moves all extremities and awake; no focal motor deficits Psychiatric: A+Ox3, euthymic affect Genitourinary: no penis abnormality (With Troncoso catheter in place) Lymphatic: no lymphedema Results & Data Results & Data ([facility]) Vital Signs (Past 12 Hours) Vital Signs Temp Pulse Resp BP Pulse Ox 09/03/19 11:16 36.4 C L 78 20 106/63 96 09/03/19 06:57 36.4 C L 70 22 109/62 95 09/03/19 03:53 36.3 C L 100 H 22 128/72 92 PG Care Time/CCT Total # of Minutes Spent Total Time Spent with Patient: Total time spent is greater than 50% in coordination of care (as documented) at patient's floor/unit and/or counseling patient: Coding Level of Care Code 63370 Subseq Hosp Care Lvl 3 Diagnoses Cecum mass K63.89 Partial bowel obstruction K56.600 Intestinal obstruction type: unspecified Anemia D64.9 Anemia type: unspecified type Hyperlipidemia E78.5 Hyperlipidemia type: unspecified Benign hypertension I10 Atrial fibrillation I48.91 Atrial fibrillation type: unspecified BPH (benign prostatic hyperplasia) N40.0 Lower urinary tract symptom presence: symptoms absent Murmur, cardiac R01.1 Carotid stenosis I65.29 Restless leg syndrome G25.81 DVT prophylaxis Z29.9 (1) BPH (benign prostatic hyperplasia) Lower urinary tract symptom presence: symptoms absent Qualified Code(s): N40.0 - Benign prostatic hyperplasia without lower urinary tract symptoms (2) Partial bowel obstruction Intestinal obstruction type: unspecified Qualified Code(s): K56.600 - Partial intestinal obstruction, unspecified as to cause (3) Anemia Anemia type: unspecified type Qualified Code(s): D64.9 - Anemia, unspecified (4) Atrial fibrillation Atrial fibrillation type: unspecified Qualified Code(s): I48.91 - Unspecified atrial fibrillation (5) Hyperlipidemia Hyperlipidemia type: unspecified Qualified Code(s): E78.5 - Hyperlipidemia, unspecified
--- NOTE | 2019-09-03 14:16 | Surgery Progress Note ---
Date of Service September 03, 2019 Assessment & Plan (1) Cecum mass: Postoperative day #2 status post right colectomy Doing well Peristalsis has not completely returned as yet Would continue clear liquids And agree with increasing ambulation Subjective Postoperative day #2 status post right colectomy for cecal cancer. Having minimal abdominal pain Has not passed flatus or bowels yet Tolerating clear liquids Physical Exam Gastrointestinal (Abdomen): Inspection/Auscultation: + abdominal surgical incision (Dressing is clean and dry) Percussion/Palpation: + abdomen tender (Incisional only) and abdomen soft Results & Data Vital Signs (Past 12 Hours) Vital Signs Temp Pulse Resp BP Pulse Ox 09/03/19 11:16 36.4 C L 78 20 106/63 96 09/03/19 06:57 36.4 C L 70 22 109/62 95 09/03/19 03:53 36.3 C L 100 H 22 128/72 92 Laboratory Results 09/03/19 09/03/19 Range/Units 06:08 06:08 WBC 13.09 H (4.8-10.8) K/uL RBC 3.08 L (4.7-6.1) M/uL Hgb 9.3 L (14.0-18.0) g/dL Hct 28.5 L (42-52) % MCV 92.5 (80-100) fL MCH 30.2 (25-34) pg MCHC 32.6 (32-36) g/dL RDW Std Deviation 52.3 H (36.4-46.3) fL RDW Coeff of Jaziel 15.5 H (11.5-14.5) % Plt Count 243 (130-400) K/uL MPV 9.3 (7.4-10.4) fL Sodium 135 L (136-145) mmol/L Potassium 3.9 (3.5-5.1) mmol/L Chloride 104 (98-107) mmol/L Carbon Dioxide 25 (21-32) mmol/L Anion Gap 6.0 (3-11) BUN 11 (7-18) mg/dl Creatinine 0.78 (0.6-1.4) mg/dl Est Cr Clr Drug Dosing 55.8 ml/min Est GFR ( Amer) 92.8 Est GFR (Non-Af Amer) 80.0 BUN/Creatinine Ratio 14.4 (10-20) Glucose 125 H (70-99) mg/dl Calcium 7.6 L (8.5-10.1) mg/dl Phosphorus 2.0 L (2.5-4.9) mg/dl Magnesium 2.0 (1.8-2.4) mg/dl
[2019-09-03] MEDS: TAMSULOSIN HCL 0.4 MG CAP PO SCH (21:50)
[2019-09-03] MEDS: PRAMIPEXOLE DIHYDROCHLO 0.25 MG TAB PO SCH (21:50)
[2019-09-04 06:29] LABS: BUN Creatinine Ratio 14.4 (10-20); Calcium 8.1 mg/dl (8.5-10.1); Creatinine Clr Calc Pharmacy 55.1 ml/min; Est GFR (African American) 92.3; Est GFR (Non-African American) 79.6
[2019-09-04] MEDS: LACTATED RINGER'S 1,000 ML IV SCH (06:44)
[2019-09-04 09:07] LABS: Basophils # (auto) 0.03 K/uL (0-0.2); Basophils % (auto) 0.2 %; Eosinophils % (auto) 0.7 %; Hematocrit (blood only) 29.6 % (42-52); Hemoglobin 9.6 g/dL (14.0-18.0); Immature Granulocytes # (auto) 0.04 K/uL (0.00-0.02); Immature Granulocytes % (auto) 0.3 %; Lymphocytes # (auto) 0.63 K/uL (1.2-3.4); Lymphocytes % (auto) 4.2 %; Mean Corpuscular Hemoglobin 29.8 pg (25-34); Mean Corpuscular Hgb Conc 32.4 g/dL (32-36); Mean Corpuscular Volume 91.9 fL (80-100); Mean Platelet Volume 9.1 fL (7.4-10.4); Monocytes # (auto) 0.88 K/uL (0.11-0.59); Monocytes % (auto) 5.9 %; Neutrophils # (auto) 13.16 K/uL (1.4-6.5); Neutrophils % (auto) 88.7 %; Platelet Count 304 K/uL (130-400); Red Blood Count 3.22 M/uL (4.7-6.1); White Blood Count 14.84 K/uL (4.8-10.8)
[2019-09-04] MEDS: ATORVASTATIN 10 MG TAB PO SCH (09:14)
[2019-09-04] MEDS: ENOXAPARIN INJ 30 MG/0.3 ML SYR SQ SCH (09:14)
[2019-09-04] MEDS: dilTIAZem HCL 30 MG TAB PO SCH ×3 (09:15→20:24)
[2019-09-04] MEDS: METOPROLOL TARTRATE 25 MG TAB PO SCH (09:15)
[2019-09-04 09:18] LABS: Potassium 3.9 mmol/L (3.5-5.1)
[2019-09-04 09:23] LABS: Phosphorus 2.1 mg/dl (2.5-4.9)
--- NOTE | 2019-09-04 10:22 | Hospitalist Progress Note ---
Date of Service September 04, 2019 Assessment & Plan (1) Cecum mass: This pt is an 89yo C male presenting with abdominal pain, nausea/vomiting, found to have cecal mass causing partial SBO. 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 -PSBO now resolved, then had acute GI bleeding prior to surgery as below--> resolved -Remains on a clears diet and now status post right hemicolectomy on 08/31 with anastomosis-surgeon noted clinically palpable pathologic lymph nodes as well as a liver lesion however liver lesion was not biopsied during surgery as was felt not to be necessary given lymph nodes were sampled -passing flatus--> will adv to full liquids if ok with Surgery -Appreciate Surgery consult -checked CEA--> elevated at 5.3 -Await pathology results -Has morphine RUBBER PRESS TENDER for pain control and IV Tylenol--> not using RUBBER PRESS TENDER much--> could likely dc RUBBER PRESS TENDER and convert to bolus morphine as needed--> will d/w Surgery -dc IVFs and give 1 dose IV lasix for volume overload (LE edema, +13L I/Os, weight up 4kg) -replace IV phos and IV K+ today -encouraged pain control and IS -needs ambulation and out of bed to chair for all meals -CBC with mild leukocytosis persisting but no fevers, doing well--> will follow (2) Partial bowel obstruction: resolved, passing flatus and stool prior to hemicolectomy Secondary to cecal mass (3) Anemia: Normochromic, normocytic anemia with Hgb=9.3, Hct=29.4 on admission With acute blood loss anemia overnight on the first night with witnessed GI bleeding, hgb dropped to 6.9 -transfused 1 unit PRBCs and repeat hgb up to 8.4 -reversed INR with Vit K 2.5mg po x 1 on hospital day#2 --> INR down to 1.3 -then had large black BM AM of 08/29--> hgb then dropped down again to 7.6 and BPs low in the 90s systolic -transfused another 1 unit PRBCs on 08/30 and now hemoglobin continues to remain stable post-operatively at 9-10 -Continue to monitor CBC, transfusional support as needed -dcd iron supplementation for now as can be constipating -continue holding coumadin and holding home ASA-cardiology recommends likely will not restart any anticoagulation in the setting of likely metastatic colon cancer given high risk of bleeding in the future, but SUrgery says ok from their standpoint to anticoagulate a few days after surgery (4) Hyperlipidemia: Chronic. -Continue Atorvastatin (5) Benign hypertension: Blood pressures low due to GI bleeding but then improved with transfusion BPs now remain stable/normal -continue home Metoprolol tartrate 12.5mg daily with hold parameters -continue po diltiazem added for rate control by Cardiology but could dc this if needed -holding home lasix 2x/week but now giving IV lasix and stopping IVFs as above for volume overload (6) Atrial fibrillation: Rate controlled now after starting po diltiazem by Cardiology Typically anticoagulated on Coumadin which is now been discontinued and reversed for surgery, continues to be held -continue metoprolol 12.5mg po once daily (tartrate but confirmed home dose is once daily) -continue po diltiazem for now, but may not need moving forward or upon discharge as typically is rate controlled with just metoprolol 12.5mg once daily -As above, cardiology recommends most likely will not restart Coumadin or any anticoagulation postoperatively due to high risk for bleeding in the future given likely metastatic cancer-defer decision to Cardiology -continue to monitor on telemetry postoperatively -replace lytes as needed (7) BPH (benign prostatic hyperplasia): Chronic, no LUTS here -Continue Tamsulosin -Now has Troncoso catheter in place postoperatively-we will remove when appropriate-not ready quite yet (8) Murmur, cardiac: 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, also with mild MR on ECHO here Appreciate Cardiology consult for preop assessment--> deemed moderate risk for surgery (9) Carotid stenosis: s/p endarterectomy in the on the left -holding coumadin, ASA -continue statin (10) Restless leg syndrome: continue home Mirapex (11) DVT prophylaxis: SQ Lovenox 30 mg daily SCDs Code -Full per discussion with patient Dispo - continued stay, now for surgical recovery, continue tele monitoring PT/OT evals appreciated Admission and Anticipated Discharge Date Admission Date: August 28, 2019 Anticipated date of discharge: 09/07/19 Subjective Pt passed four large amounts of flatus this AM. Pain in abd is improved. No chest pain, no SOB but is now 98% on 4LNC. Is anxious to advance his diet. Legs are getting swollen and is +13L for his stay, weight up 4kg Tolerating clears, no N/V. Tele with Afib, rates controlled Review of Systems Review of Systems: All systems reviewed & are unremarkable except as noted in HPI & below Physical Exam Constitutional: WD/WN, vitals as above average body habitus; no acute distress Eyes: + anicteric sclerae Neck: trachea midline, no thyromegaly Respiratory: normal respiratory effort (improved effort today) Auscultation: + diminished lung sounds (at bases bilat) and + wheezes (faint wheeze on right) Cardiovascular: Rate/Rhythm: regular rate and + irregularly irregular Heart Sounds: + murmur (3/6 systolic at RUSB) Extremities: + edema (2+ pitting edema legs bilat) Chest (Breasts): Chest: normal inspection of chest Gastrointestinal (Abdomen): normal bowel sounds, soft, nontender, no hepatosplenomegaly Inspection/Auscultation: normal bowel sounds; + abdomen abnormal to inspection (Midline of the abdomen with incisional dressing clean dry and intact) Percussion/Palpation: + abdomen tender (Mild over incision) and abdomen soft Musculoskeletal: Extremities: extremities normal to inspection; no cyanosis and no clubbing Skin: no rashes, warm and dry Neurologic: moves all extremities and awake; no focal motor deficits Psychiatric: A+Ox3, euthymic affect Genitourinary: no penis abnormality (With Troncoso catheter in place) Results & Data Results & Data ([facility]) Vital Signs (Past 12 Hours) Vital Signs Temp Pulse Pulse Resp BP Pulse Ox 09/04/19 07:00 36.5 C 71 20 135/52 L 99 09/04/19 03:26 36.6 C 87 20 130/73 97 09/03/19 23:26 76 09/03/19 23:20 37.1 C 83 22 129/70 97 Laboratory Results 09/04/19 09/04/19 09/04/19 Range/Units 08:55 08:55 05:45 WBC 14.84 H (4.8-10.8) K/uL RBC 3.22 L (4.7-6.1) M/uL Hgb 9.6 L (14.0-18.0) g/dL Hct 29.6 L (42-52) % MCV 91.9 (80-100) fL MCH 29.8 (25-34) pg MCHC 32.4 (32-36) g/dL RDW Std Deviation 51.0 H (36.4-46.3) fL RDW Coeff of Jaziel 15.0 H (11.5-14.5) % Plt Count 304 (130-400) K/uL MPV 9.1 (7.4-10.4) fL Immature Gran % (Auto) 0.3 % Neut % (Auto) 88.7 % Lymph % (Auto) 4.2 % [place] % (Auto) 5.9 % Eos % (Auto) 0.7 % Baso % (Auto) 0.2 % Immature Gran # (Auto) 0.04 H (0.00-0.02) K/uL Neut # (Auto) 13.16 H (1.4-6.5) K/uL Lymph # (Auto) 0.63 L (1.2-3.4) K/uL [place] # (Auto) 0.88 H (0.11-0.59) K/uL Eos # (Auto) 0.10 (0-0.5) K/uL Baso # (Auto) 0.03 (0-0.2) K/uL Sodium 132 L (136-145) mmol/L Potassium 3.9 (3.5-5.1) mmol/L Chloride 103 (98-107) mmol/L Carbon Dioxide 26 (21-32) mmol/L Anion Gap 3.0 (3-11) BUN 11 (7-18) mg/dl Creatinine 0.79 (0.6-1.4) mg/dl Est Cr Clr Drug Dosing 55.1 ml/min Est GFR ( Amer) 92.3 Est GFR (Non-Af Amer) 79.6 BUN/Creatinine Ratio 14.4 (10-20) Glucose 133 H (70-99) mg/dl Calcium 8.1 L (8.5-10.1) mg/dl Phosphorus 2.1 L (2.5-4.9) mg/dl Magnesium 2.0 (1.8-2.4) mg/dl PG Care Time/CCT Total # of Minutes Spent Total Time Spent with Patient: Total time spent is greater than 50% in coordination of care (as documented) at patient's floor/unit and/or counseling patient: Coding Level of Care Code 56008 Subseq Hosp Care Lvl 3 Diagnoses Cecum mass K63.89 Partial bowel obstruction K56.600 Intestinal obstruction type: unspecified Anemia D64.9 Anemia type: unspecified type Hyperlipidemia E78.5 Hyperlipidemia type: unspecified Benign hypertension I10 Atrial fibrillation I48.91 Atrial fibrillation type: unspecified BPH (benign prostatic hyperplasia) N40.0 Lower urinary tract symptom presence: symptoms absent Murmur, cardiac R01.1 Carotid stenosis I65.29 Restless leg syndrome G25.81 DVT prophylaxis Z29.9 (1) Partial bowel obstruction Intestinal obstruction type: unspecified Qualified Code(s): K56.600 - Partial intestinal obstruction, unspecified as to cause (2) Anemia Anemia type: unspecified type Qualified Code(s): D64.9 - Anemia, unspecified (3) Hyperlipidemia Hyperlipidemia type: unspecified Qualified Code(s): E78.5 - Hyperlipidemia, unspecified (4) Atrial fibrillation Atrial fibrillation type: unspecified Qualified Code(s): I48.91 - Unspecified atrial fibrillation (5) BPH (benign prostatic hyperplasia) Lower urinary tract symptom presence: symptoms absent Qualified Code(s): N40.0 - Benign prostatic hyperplasia without lower urinary tract symptoms
[2019-09-04] MEDS ORDERED: POTASSIUM PHOS 3 MMOL/1 ML INFUSION IV STA (10:23)
[2019-09-04] MEDS ORDERED: FUROSEMIDE 20 MG in SYRINGE 0 ML IV ONE (10:45)
[2019-09-04] MEDS ORDERED: POTASSIUM PHOSPHATE 21 MMOL in SODIUM CHLORIDE 0.9% 500 ML IV ONE (11:00)
[2019-09-04] MEDS: SODIUM CHLORIDE 0.9% 1000ML 1,000 ML IV SCH (11:52)
--- NOTE | 2019-09-04 12:40 | Surgery Progress Note ---
Date of Service September 04, 2019 Assessment & Plan (1) Cecum mass: Postoperative day #3 status post right colectomy for cecal carcinoma Has some mild pink area around the incision and white count is unchanged remaining just above 14,000 Continue to monitor incision Tolerating diet passing flatus his peristalsis is now returning Can advance to full liquid diet Subjective Having mild abdominal discomfort Denies nausea and vomiting and tolerated clear liquid diet Passed flatus multiple times this morning Ambulated as tolerated Physical Exam Gastrointestinal (Abdomen): Inspection/Auscultation: + abdomen distended and + abdominal surgical incision (Has some mild pink inferior to the incision over the mons pubis and towards the right side but it is not akua erythema and there is no drainage) Percussion/Palpation: + abdomen tender (Mild tenderness, mostly incisional) and abdomen soft Results & Data Vital Signs (Past 12 Hours) Vital Signs Temp Pulse Resp BP Pulse Ox 09/04/19 11:24 36.8 C 83 16 113/66 98 09/04/19 07:00 36.5 C 71 20 135/52 L 99 09/04/19 03:26 36.6 C 87 20 130/73 97 Laboratory Results 09/04/19 09/04/19 09/04/19 Range/Units 08:55 08:55 05:45 WBC 14.84 H (4.8-10.8) K/uL RBC 3.22 L (4.7-6.1) M/uL Hgb 9.6 L (14.0-18.0) g/dL Hct 29.6 L (42-52) % MCV 91.9 (80-100) fL MCH 29.8 (25-34) pg MCHC 32.4 (32-36) g/dL RDW Std Deviation 51.0 H (36.4-46.3) fL RDW Coeff of Jaziel 15.0 H (11.5-14.5) % Plt Count 304 (130-400) K/uL MPV 9.1 (7.4-10.4) fL Immature Gran % (Auto) 0.3 % Neut % (Auto) 88.7 % Lymph % (Auto) 4.2 % [place] % (Auto) 5.9 % Eos % (Auto) 0.7 % Baso % (Auto) 0.2 % Immature Gran # (Auto) 0.04 H (0.00-0.02) K/uL Neut # (Auto) 13.16 H (1.4-6.5) K/uL Lymph # (Auto) 0.63 L (1.2-3.4) K/uL [place] # (Auto) 0.88 H (0.11-0.59) K/uL Eos # (Auto) 0.10 (0-0.5) K/uL Baso # (Auto) 0.03 (0-0.2) K/uL Sodium 132 L (136-145) mmol/L Potassium 3.9 (3.5-5.1) mmol/L Chloride 103 (98-107) mmol/L Carbon Dioxide 26 (21-32) mmol/L Anion Gap 3.0 (3-11) BUN 11 (7-18) mg/dl Creatinine 0.79 (0.6-1.4) mg/dl Est Cr Clr Drug Dosing 55.1 ml/min Est GFR ( Amer) 92.3 Est GFR (Non-Af Amer) 79.6 BUN/Creatinine Ratio 14.4 (10-20) Glucose 133 H (70-99) mg/dl Calcium 8.1 L (8.5-10.1) mg/dl Phosphorus 2.1 L (2.5-4.9) mg/dl Magnesium 2.0 (1.8-2.4) mg/dl
[2019-09-04] MEDS: PRAMIPEXOLE DIHYDROCHLO 0.25 MG TAB PO SCH (20:23)
[2019-09-04] MEDS: TAMSULOSIN HCL 0.4 MG CAP PO SCH (20:24)
[2019-09-05 06:39] LABS: Basophils # (auto) 0.06 K/uL (0-0.2); Basophils % (auto) 0.6 %; Eosinophils # (auto) 0.34 K/uL (0-0.5); Eosinophils % (auto) 3.5 %; Hematocrit (blood only) 27.1 % (42-52); Hemoglobin 8.7 g/dL (14.0-18.0); Immature Granulocytes # (auto) 0.02 K/uL (0.00-0.02); Immature Granulocytes % (auto) 0.2 %; Lymphocytes # (auto) 0.85 K/uL (1.2-3.4); Lymphocytes % (auto) 8.7 %; Mean Corpuscular Hemoglobin 29.2 pg (25-34); Mean Corpuscular Hgb Conc 32.1 g/dL (32-36); Mean Corpuscular Volume 90.9 fL (80-100); Mean Platelet Volume 9.5 fL (7.4-10.4); Monocytes # (auto) 1.02 K/uL (0.11-0.59); Monocytes % (auto) 10.5 %; Neutrophils # (auto) 7.43 K/uL (1.4-6.5); Neutrophils % (auto) 76.5 %; Platelet Count 303 K/uL (130-400); RDW Coefficient of Variation 15.2 % (11.5-14.5); RDW Standard Deviation 50.4 fL (36.4-46.3); Red Blood Count 2.98 M/uL (4.7-6.1); White Blood Count 9.72 K/uL (4.8-10.8)
[2019-09-05 07:07] LABS: BUN Creatinine Ratio 15.1 (10-20); Calcium 7.3 mg/dl (8.5-10.1); Creatinine Clr Calc Pharmacy 55.1 ml/min; Est GFR (African American) 92.3; Est GFR (Non-African American) 79.6; Magnesium 1.8 mg/dl (1.8-2.4); Potassium 3.9 mmol/L (3.5-5.1)
[2019-09-05 07:10] LABS: Albumin Globulin Ratio 0.7 (0.9-2); Bilirubin,Total 0.8 mg/dl (0.2-1); Globulin 2.8 gm/dl (2.5-4.0); Phosphorus 2.5 mg/dl (2.5-4.9); Total Protein 4.8 gm/dl (6.4-8.2)
[2019-09-05] MEDS: dilTIAZem HCL 30 MG TAB PO SCH ×3 (08:32→20:53)
[2019-09-05] MEDS: ENOXAPARIN INJ 30 MG/0.3 ML SYR SQ SCH (08:32)
[2019-09-05] MEDS: METOPROLOL TARTRATE 25 MG TAB PO SCH (08:32)
[2019-09-05] MEDS: ATORVASTATIN 10 MG TAB PO SCH (08:32)
[2019-09-05] MEDS ORDERED: MoRPHine SULFATE 4 MG/ML 1 ML CARP\\VIAL IV PRN (08:57)
[2019-09-05] MEDS ORDERED: FUROSEMIDE 20 MG in SYRINGE 0 ML IV ONE (09:15)
--- NOTE | 2019-09-05 09:49 | Surgery Progress Note ---
Date of Service September 05, 2019 Assessment & Plan (1) Cecum mass: pod 4 doing well. +bm. will advance diet consult PT/OT for eval/treat as well as d/c rec's incision better today and wbc decreased path still pending. Subjective pt seen. doing well. +bm. no complaints. would like to eat Physical Exam Physical Exam: alert. OOB. nad abd: soft. incision looks good. no drainage or erythema. Results & Data Vital Signs (Past 12 Hours) Vital Signs Temp Pulse Resp BP Pulse Ox 09/05/19 08:01 36.9 C 91 H 22 105/56 L 97 09/05/19 03:47 36.5 C 82 19 120/62 97 09/04/19 23:20 37.0 C 108 H 19 130/64 96 PG Care Time/CCT Total # of Minutes Spent Total Time Spent with Patient: Total time spent is greater than 50% in coordination of care (as documented) at patient's floor/unit and/or counseling patient: Coding Level of Care Code None Diagnoses Cecum mass K63.89
[2019-09-05] MEDS: SODIUM CHLORIDE 0.9% 1000ML 1,000 ML IV SCH (12:08)
[2019-09-05] MEDS: MoRPHine SULFATE 2 MG/ML CARP IV PRN ×3 (14:54→23:45)
[2019-09-05] MEDS: ONDANSETRON INJ 2 MG/ML 2 ML VIAL IV PRN ×2 (14:58→23:22)
--- NOTE | 2019-09-05 15:14 | Hospitalist Progress Note ---
Date of Service September 05, 2019 Assessment & Plan (1) Cecum mass: This pt is an 89yo C male presenting with abdominal pain, nausea/vomiting, found to have cecal mass causing partial SBO. 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 s/p hemicolectomy on 08/31, patient is POD 4 diet per surgery, slowly advancing today, + flatus, no nausea pathology still pending, CEA was elevated at 5.3 examines volume overloaded, I/O show positive 13 liters, may not be entirely accurate responded well to Lasix 20mg IV will order Lasix 20mg IV q12 and follow response, follow BMP daily Hb is low but stable, WBC normal, less pain stop [employer] today, place on Morphine PRN Dr. Valdes following PT/OT consulted (2) Volume overload: iatrogenic from fluids and blood transfusions in perioperative period some mild dyspnea and edema in legs responded well to Lasix 20mg IV, continue q12 until he has adequate response typically he takes Lasix 20mg PO daily (3) Partial bowel obstruction: resolved, s/p hemicolectomy (4) Anemia: Normochromic, normocytic anemia with Hgb=9.3, Hct=29.4 on admission With acute blood loss anemia overnight on the first night with witnessed GI bleeding, hgb dropped to 6.9 -transfused 1 unit PRBCs and repeat hgb up to 8.4 -reversed INR with Vit K 2.5mg po x 1 on hospital day#2 --> INR down to 1.3 -then had large black BM AM of 08/29--> hgb then dropped down again to 7.6 and BPs low in the 90s systolic -transfused another 1 unit PRBCs on 08/30 and now hemoglobin continues to remain stable post-operatively Hb is 8.7 on 09/11, no signs of bleeding -continue holding coumadin and holding home ASA-cardiology recommends likely will not restart any anticoagulation in the setting of likely metastatic colon cancer given high risk of bleeding in the future, but Surgery says ok from their standpoint to anticoagulate a few days after surgery (5) Hyperlipidemia: Chronic. -Continue Atorvastatin (6) Benign hypertension: Blood pressures low due to GI bleeding but then improved with transfusion BPs now remain stable/normal -continue home Metoprolol tartrate 12.5mg daily with hold parameters -continue po diltiazem added for rate control by Cardiology but could dc this if needed -holding home lasix 2x/week but now giving IV lasix and stopping IVFs as above for volume overload (7) Atrial fibrillation: Rate controlled now after starting po diltiazem by Cardiology, HR in low 100's today Typically anticoagulated on Coumadin which is now been discontinued and reversed for surgery, continues to be held -continue metoprolol 12.5mg po once daily (tartrate but confirmed home dose is once daily) -continue po diltiazem for now, but may not need moving forward or upon discharge as typically is rate controlled with just metoprolol 12.5mg once daily -As above, cardiology recommends most likely will not restart Coumadin or any anticoagulation postoperatively due to high risk for bleeding in the future given likely metastatic cancer-defer decision to Cardiology -continue to monitor on telemetry postoperatively -replace lytes as needed -- normal today (8) BPH (benign prostatic hyperplasia): Chronic, no LUTS here -Continue Tamsulosin -Now has Troncoso catheter in place postoperatively-we will remove when appropriate-not ready quite yet (9) Murmur, cardiac: 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, also with mild MR on ECHO here Appreciate Cardiology consult for preop assessment--> deemed moderate risk for surgery (10) Carotid stenosis: s/p endarterectomy in the on the left -holding coumadin, ASA -continue statin (11) Restless leg syndrome: continue home Mirapex (12) DVT prophylaxis: SQ Lovenox 30 mg daily SCDs Code -Full per discussion with patient Dispo - continued stay, now for surgical recovery, continue tele monitoring PT/OT luz maria appreciated Admission and Anticipated Discharge Date Admission Date: August 28, 2019 Anticipated date of discharge: 09/07/19 Subjective patient feeling a little short of breath this morning no fever, admits that it hurts to cough or take a deep breath, encouraged him to control pain tolerating diet discussed with Dr. Valdes, appreciate his input reviewed I/O, positive 13 liters for admission, unsure how accurate reviewed labs, renal function and electrolytes stable gave Lasix 20mg IV this morning, responded well with over 1 liter out will make Lasix scheduled 20mg IV q12 no chest pain, no nausea, no vomiting Review of Systems Review of Systems: All systems reviewed & are unremarkable except as noted in HPI & below Constitutional: + fatigue and + weakness; no fever, no chills and no sweats Respiratory: + dyspnea and + dyspnea on exertion; no cough, no sputum production and no wheezing Cardiovascular: + edema; no chest pain, no palpitations and no syncope Gastrointestinal: + constipation; no abdominal pain, no nausea, no vomiting and no diarrhea/loose stools Physical Exam Constitutional: WD/WN, vitals as above Eyes: PERRL, conjunctivae normal, anicteric sclerae ENMT: external ear and nose normal, oropharynx normal Neck: trachea midline, no thyromegaly Respiratory: normal respiratory effort; no respiratory distress and no cough Auscultation: + diminished lung sounds and + rales (bibasilar); no crackles, no rhonchi and no wheezes Cardiovascular: Rate/Rhythm: regular rate and + tachycardic Heart Sounds: normal S1 and normal S2; no murmur Extremities: normal capillary refill and + edema Gastrointestinal (Abdomen): Inspection/Auscultation: abdomen normal to inspection and normal bowel sounds Percussion/Palpation: + abdomen tender (mild pain, surgical site) and abdomen soft; no guarding and abdomen not rigid Musculoskeletal: no cyanosis or clubbing, extremities motor strength 5/5 Skin: no rashes, warm and dry Neurologic: patellar DTR's 2+ bilat, sensation intact and PERRL, EOMI, accommodation nl, no face palsy, no dysarthria Psychiatric: A+Ox3, euthymic affect Lymphatic: no cervical or axillary lymphadenopathy Results & Data Results & Data ([facility]) Vital Signs (Past 12 Hours) Vital Signs Temp Pulse Pulse Resp BP Pulse Ox 09/05/19 15:03 36.5 C 103 H 18 114/69 93 09/05/19 14:20 112 H 145/77 H 09/05/19 12:11 36.6 C 104 H 20 111/74 96 09/05/19 08:01 36.9 C 91 H 22 105/56 L 97 09/05/19 03:47 36.5 C 82 19 120/62 97 Laboratory Results Laboratory Results - last 24 hr 09/01/19 09/05/19 09/05/19 Unknown 06:06 06:06 WBC 9.72 RBC 2.98 L Hgb 8.7 L Hct 27.1 L MCV 90.9 MCH 29.2 MCHC 32.1 RDW Std Deviation 50.4 H RDW Coeff of Jaziel 15.2 H Plt Count 303 MPV 9.5 Immature Gran % (Auto) 0.2 Neut % (Auto) 76.5 Lymph % (Auto) 8.7 [place] % (Auto) 10.5 Eos % (Auto) 3.5 Baso % (Auto) 0.6 Immature Gran # (Auto) 0.02 Neut # (Auto) 7.43 H Lymph # (Auto) 0.85 L [place] # (Auto) 1.02 H Eos # (Auto) 0.34 Baso # (Auto) 0.06 Sodium 136 Potassium 3.9 Chloride 104 Carbon Dioxide 27 Anion Gap 6.0 BUN 12 Creatinine 0.79 Est Cr Clr Drug Dosing 55.1 Est GFR ( Amer) 92.3 Est GFR (Non-Af Amer) 79.6 BUN/Creatinine Ratio 15.1 Glucose 134 H Calcium 7.3 L Phosphorus 2.5 Magnesium 1.8 Total Bilirubin 0.8 AST 36 ALT 26 Alkaline Phosphatase 64 Total Protein 4.8 L Albumin 2.0 L Globulin 2.8 Albumin/Globulin Ratio 0.7 L Misc Genetic Test Pending Medications Administered Current Inpatient Medications Artificial Tears (Artificial Tears) 1 drops OP PRN PRN PRN Reason: Dryness Stop: 09/27/19 21:12 Atorvastatin Calcium (Lipitor) 10 mg PO DAILY [facility] Stop: 09/28/19 08:59 Last Admin: 09/05/19 08:32 Dose: 10 mg Documented by: Diltiazem HCl (Cardizem) 30 mg PO TID [facility] Stop: 10/02/19 20:59 Last Admin: 09/05/19 14:21 Dose: 30 mg Documented by: Enoxaparin Sodium (Lovenox) 30 mg SQ QAM [facility] Stop: 10/02/19 08:59 Last Admin: 09/05/19 08:32 Dose: 30 mg Documented by: Metoprolol Tartrate (Lopressor) 12.5 mg PO DAILY [facility] Stop: 09/28/19 08:59 Last Admin: 09/05/19 08:32 Dose: 12.5 mg Documented by: Morphine Sulfate (Morphine Sulfate) 2 mg IV Q4H PRN PRN Reason: Pain Stop: 09/19/19 08:56 Last Admin: 09/05/19 14:54 Dose: 2 mg Documented by: Morphine Sulfate (Morphine Sulfate) 4 mg IV Q4H PRN PRN Reason: Severe Pain Stop: 09/19/19 08:56 Naloxone HCl (Narcan) 0.1 mg IV Q5M PRN; Protocol PRN Reason: Oversedation/Resp Depression Stop: 09/15/19 11:37 Ondansetron HCl (Zofran) 4 mg IV Q6H PRN PRN Reason: Nausea Stop: 09/27/19 20:54 Last Admin: 09/05/19 14:58 Dose: 4 mg Documented by: Pramipexole Dihydrochloride (Mirapex) 0.125 mg PO [facility] Stop: 09/27/19 20:59 Last Admin: 09/04/19 20:23 Dose: 0.125 mg Documented by: Tamsulosin HCl (Flomax) 0.4 mg PO [facility] Stop: 09/27/19 20:59 Last Admin: 09/04/19 20:24 Dose: 0.4 mg Documented by: PG Care Time/CCT Total # of Minutes Spent Total Time Spent with Patient: Total time spent is greater than 50% in coordination of care (as documented) at patient's floor/unit and/or counseling patient: Coding Level of Care Code 40865 Subseq Hosp Care Lvl 3 Diagnoses Cecum mass K63.89 Volume overload E87.70 Partial bowel obstruction K56.600 Intestinal obstruction type: unspecified Anemia D64.9 Anemia type: unspecified type Hyperlipidemia E78.5 Hyperlipidemia type: unspecified Benign hypertension I10 Atrial fibrillation I48.91 Atrial fibrillation type: unspecified BPH (benign prostatic hyperplasia) N40.0 Lower urinary tract symptom presence: symptoms absent Murmur, cardiac R01.1 Carotid stenosis I65.29 Restless leg syndrome G25.81 DVT prophylaxis Z29.9 (1) BPH (benign prostatic hyperplasia) Lower urinary tract symptom presence: symptoms absent Qualified Code(s): N40.0 - Benign prostatic hyperplasia without lower urinary tract symptoms (2) Partial bowel obstruction Intestinal obstruction type: unspecified Qualified Code(s): K56.600 - Partial intestinal obstruction, unspecified as to cause (3) Anemia Anemia type: unspecified type Qualified Code(s): D64.9 - Anemia, unspecified (4) Atrial fibrillation Atrial fibrillation type: unspecified Qualified Code(s): I48.91 - Unspecified atrial fibrillation (5) Hyperlipidemia Hyperlipidemia type: unspecified Qualified Code(s): E78.5 - Hyperlipidemia, unspecified
[2019-09-05] MEDS: TAMSULOSIN HCL 0.4 MG CAP PO SCH (20:54)
[2019-09-05] MEDS: PRAMIPEXOLE DIHYDROCHLO 0.25 MG TAB PO SCH (20:54)
[2019-09-05] MEDS: FUROSEMIDE 20 MG in SYRINGE 0 ML IV SCH (21:14)
[2019-09-06] MEDS ORDERED: PROCHLORPERAZINE 5 MG in SYRINGE 4 ML IV ONE (04:45)
[2019-09-06] MEDS: METOPROLOL TARTRATE 25 MG TAB PO SCH (07:38)
[2019-09-06] MEDS: dilTIAZem HCL 30 MG TAB PO SCH ×3 (07:38→21:34)
[2019-09-06] MEDS: ONDANSETRON INJ 2 MG/ML 2 ML VIAL IV PRN (07:38)
[2019-09-06] MEDS: ENOXAPARIN INJ 30 MG/0.3 ML SYR SQ SCH (07:39)
[2019-09-06] MEDS: ATORVASTATIN 10 MG TAB PO SCH (07:39)
[2019-09-06] MEDS: FUROSEMIDE 20 MG in SYRINGE 0 ML IV SCH (07:43)
[2019-09-06 07:49] LABS: Basophils # (auto) 0.04 K/uL (0-0.2); Basophils % (auto) 0.4 %; Eosinophils # (auto) 0.02 K/uL (0-0.5); Eosinophils % (auto) 0.2 %; Hematocrit (blood only) 32.7 % (42-52); Hemoglobin 10.6 g/dL (14.0-18.0); Immature Granulocytes # (auto) 0.03 K/uL (0.00-0.02); Immature Granulocytes % (auto) 0.3 %; Lymphocytes # (auto) 0.59 K/uL (1.2-3.4); Lymphocytes % (auto) 5.6 %; Mean Corpuscular Hemoglobin 29.7 pg (25-34); Mean Corpuscular Hgb Conc 32.4 g/dL (32-36); Mean Corpuscular Volume 91.6 fL (80-100); Mean Platelet Volume 9.2 fL (7.4-10.4); Monocytes # (auto) 1.15 K/uL (0.11-0.59); Monocytes % (auto) 10.8 %; Neutrophils # (auto) 8.78 K/uL (1.4-6.5); Neutrophils % (auto) 82.7 %; Platelet Count 429 K/uL (130-400); RDW Standard Deviation 50.9 fL (36.4-46.3); Red Blood Count 3.57 M/uL (4.7-6.1); White Blood Count 10.61 K/uL (4.8-10.8)
[2019-09-06 08:18] LABS: BUN Creatinine Ratio 16.2 (10-20); Calcium 8.4 mg/dl (8.5-10.1); Creatinine Clr Calc Pharmacy 39.6 ml/min; Est GFR (African American) 68.6; Est GFR (Non-African American) 59.2; Potassium 3.6 mmol/L (3.5-5.1)
--- NOTE | 2019-09-06 08:20 | Surgery Progress Note ---
Date of Service September 06, 2019 Assessment & Plan (1) Cecum mass: POD#5 open right hemicolectomy WBC: 10.6 & Hb.6; afebrile Patient feeling more nauseated after diet advancement Will back down to liquids, can consider advancing again tomorrow if symptoms improve and patient continues to have meaningful bowel function Continue prn anti-emetics if needed for nausea Consider KUB if ongoing vomiting Encourage ambulation Subjective Patient says he is not feeling so great this AM. Starting getting nauseated yesterday after diet was advanced. He says he has vomited multiple times during the night and feels like his stomach is sour. His diet was backed down to liquids this AM. He says he has not passed much gas since Thursday. Cannot remember if he had a BM yesterday, but is documented by nursing that he has. He denies abdominal pain. Physical Exam Physical Exam: awake, sitting up in chair Gastrointestinal (Abdomen): Inspection/Auscultation: + abdomen distended (mild) and + abdominal surgical incision (c/d/i with surgical zackery at midline) Percussion/Palpation: abdomen nontender Results & Data Vital Signs (Past 12 Hours) Vital Signs Temp Pulse Pulse Resp BP Pulse Ox 09/06/19 07:00 36.8 C 107 H 24 135/85 90 09/06/19 04:53 36.7 C 100 H 18 125/72 90 09/05/19 23:33 37 C 110 H 21 117/72 92 PG Care Time/CCT Total # of Minutes Spent Total Time Spent with Patient: Total time spent is greater than 50% in coordination of care (as documented) at patient's floor/unit and/or counseling patient: Coding Level of Care Code None Diagnoses Cecum mass K63.89
--- NOTE | 2019-09-06 13:09 | Hospitalist Progress Note ---
Date of Service September 06, 2019 Assessment & Plan (1) Adenocarcinoma of colon: S/p hemicolectomy on 08/[address] Valdes. Pathology with Stage IV adenocarcinoma. - Slowly improving, though bowel function is still not optimal. - Advancing diet as tolerated - Oncology and palliative care consulted given pathology results. (2) Volume overload: Iatrogenic from fluids and blood transfusions in perioperative period. Typically he takes Lasix 20mg PO daily. - Continue Lasix 20mg IV daily - Monitor I&Os and weights (3) Anemia: Normochromic, normocytic anemia with Hgb=9.3, Hct=29.4 on admission. With acute blood loss anemia overnight on the first night with witnessed GI bleeding, hgb dropped to 6.9. - Transfused 1 unit PRBCs; reversed INR with Vit K - Continue holding ASA and warfarin -> Cardiology recommends likely will not restart any anticoagulation in the setting of likely metastatic colon cancer given high risk of bleeding in the future, but surgery says ok from their standpoint to anticoagulate a few days after surgery. (4) Hyperlipidemia: Chronic. - Continue atorvastatin (5) Benign hypertension: Blood pressures low due to GI bleeding but then improved with transfusion. Today, BP remains 110/65. - Continue home metoprolol tartrate - Continue diltiazem added for rate control by cardiology but could dc this if needed (6) Atrial fibrillation: Rate controlled now after starting diltiazem by cardiology, HR in low 90's today. Typically anticoagulated on warfarin which is now been discontinued. - Continue metoprolol & diltiazem - As above, cardiology recommends most likely will not restart any anticoagulation post-operatively - Continue to monitor on telemetry (7) BPH (benign prostatic hyperplasia): Chronic, no LUTS here. - Continue tamsulosin - Now has Troncoso; will remove once IV diuresis complete. 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 - No inpatient needs (9) Carotid stenosis: S/p endarterectomy in the on the left. - Holding warfarin, ASA - Continue statin (10) Restless leg syndrome: - Continue home Mirapex (11) DVT prophylaxis: SQ Lovenox 30 mg daily Admission and Anticipated Discharge Date Admission Date: August 28, 2019 Subjective Some nausea and pain overnight, but now it's improving. Had a soft BM this morning. Reports no fevers/chills, chest pain, shortness of breath, or vomiting. Physical Exam Constitutional: WD/WN, vitals as above Eyes: EOM intact bilaterally; no conjunctival abnormality ENMT: external ear and nose normal, oropharynx normal Neck: trachea midline, no thyromegaly normal visual inspection Respiratory: normal respiratory effort, lungs clear to auscultation no respiratory distress Cardiovascular: RRR, no murmur, no edema Gastrointestinal (Abdomen): Inspection/Auscultation: abdomen normal to inspection; abdomen not distended Musculoskeletal: no cyanosis or clubbing, extremities motor strength 5/5 Skin: no rashes, warm and dry Neurologic: moves all extremities and awake Psychiatric: Orientation: alert, oriented to person and cooperative Results & Data Results & Data ([facility]) Vital Signs (Past 12 Hours) Vital Signs Temp Pulse Resp BP Pulse Ox 09/06/19 11:41 36.7 C 93 H 20 108/66 91 09/06/19 07:00 36.8 C 107 H 24 135/85 90 09/06/19 04:53 36.7 C 100 H 18 125/72 90 PG Care Time/CCT Total # of Minutes Spent Total Time Spent with Patient: Total time spent is greater than 50% in coordination of care (as documented) at patient's floor/unit and/or counseling patient: Coding Level of Care Code 24016 Subseq Hosp Care Lvl 3 Diagnoses Adenocarcinoma of colon C18.9 Volume overload E87.70 Anemia D64.9 Anemia type: unspecified type Hyperlipidemia E78.5 Hyperlipidemia type: unspecified Benign hypertension I10 Atrial fibrillation I48.91 Atrial fibrillation type: unspecified BPH (benign prostatic hyperplasia) N40.0 Lower urinary tract symptom presence: symptoms absent Murmur, cardiac R01.1 Carotid stenosis I65.29 Restless leg syndrome G25.81 DVT prophylaxis Z29.9 (1) Anemia Anemia type: unspecified type Qualified Code(s): D64.9 - Anemia, unspecified (2) Hyperlipidemia Hyperlipidemia type: unspecified Qualified Code(s): E78.5 - Hyperlipidemia, unspecified (3) Atrial fibrillation Atrial fibrillation type: unspecified Qualified Code(s): I48.91 - Unspecified atrial fibrillation (4) BPH (benign prostatic hyperplasia) Lower urinary tract symptom presence: symptoms absent Qualified Code(s): N40.0 - Benign prostatic hyperplasia without lower urinary tract symptoms
--- NOTE | 2019-09-06 14:05 | XRay Report ---
TWO VIEW CHEST CLINICAL HISTORY: Dyspnea. FINDINGS: PA and lateral chest radiographs are compared to study dated 05/13/2018. The heart is mildl y enlarged noting atherosclerotic calcification of the thoracic aorta. The pulmonary vasculature is n oncongested. There are small pleural effusions with bibasilar consolidation. There is no pneumothorax . The skeletal structures are osteopenic. The bony thorax appears intact. Degenerative change is note d in the thoracic spine. IMPRESSION: There are small pleural effusions with bibasilar consolidation. This could present atelec tasis and/or pneumonia/aspiration pneumonitis. Clinical correlation will be required and radiographic follow-up to resolution is recommended. ACT 112: Negative or not required by law. Electronically signed by: Timur Rios M.D. 09/06/2019 2:04 PM
[2019-09-06] MEDS: TAMSULOSIN HCL 0.4 MG CAP PO SCH (21:34)
[2019-09-06] MEDS: PRAMIPEXOLE DIHYDROCHLO 0.25 MG TAB PO SCH (21:34)
[2019-09-07 07:36] LABS: Basophils # (auto) 0.05 K/uL (0-0.2); Basophils % (auto) 0.5 %; Eosinophils # (auto) 0.12 K/uL (0-0.5); Eosinophils % (auto) 1.3 %; Hematocrit (blood only) 26.3 % (42-52); Hemoglobin 8.5 g/dL (14.0-18.0); Immature Granulocytes # (auto) 0.04 K/uL (0.00-0.02); Immature Granulocytes % (auto) 0.4 %; Lymphocytes # (auto) 0.87 K/uL (1.2-3.4); Lymphocytes % (auto) 9.4 %; Mean Corpuscular Hemoglobin 29.6 pg (25-34); Mean Corpuscular Hgb Conc 32.3 g/dL (32-36); Mean Corpuscular Volume 91.6 fL (80-100); Mean Platelet Volume 8.9 fL (7.4-10.4); Monocytes # (auto) 1.04 K/uL (0.11-0.59); Monocytes % (auto) 11.3 %; Neutrophils % (auto) 77.1 %; Platelet Count 316 K/uL (130-400); RDW Coefficient of Variation 15.1 % (11.5-14.5); RDW Standard Deviation 51.3 fL (36.4-46.3); Red Blood Count 2.87 M/uL (4.7-6.1); White Blood Count 9.22 K/uL (4.8-10.8)
[2019-09-07 08:07] LABS: BUN Creatinine Ratio 22.2 (10-20); Calcium 7.8 mg/dl (8.5-10.1); Creatinine Clr Calc Pharmacy 45.9 ml/min; Est GFR (African American) 81.9; Est GFR (Non-African American) 70.7; Potassium 3.2 mmol/L (3.5-5.1)
[2019-09-07] MEDS ORDERED: POTASSIUM CHLORIDE 20 MEQ TABCR PO STA (08:22)
[2019-09-07] MEDS: dilTIAZem HCL 30 MG TAB PO SCH ×3 (09:08→20:16)
[2019-09-07] MEDS: METOPROLOL TARTRATE 25 MG TAB PO SCH (09:08)
[2019-09-07] MEDS: ATORVASTATIN 10 MG TAB PO SCH (09:08)
--- NOTE | 2019-09-07 09:08 | Surgery Progress Note ---
Date of Service September 07, 2019 Assessment & Plan (1) Adenocarcinoma of colon: POD 6 clinically improving will advance diet. will add questran for loose bm's. ok even if C. diff + continue PT discussed path results with pt and Dr. Hernandez. will call today as well. Subjective pt seen. feeling better today. no n/v. still not much appetite. buddy full liquids. multiple loose bm's yesterday. stool for c.diff not collected yet. d enies pain. Physical Exam Physical Exam: alert. oriented. nad abd: soft. incision looks good. no sign of infection. no drainage. Results & Data Vital Signs (Past 12 Hours) Vital Signs Temp Pulse Pulse Resp BP Pulse Ox 09/07/19 07:00 36.6 C 73 20 108/63 95 09/07/19 06:20 67 09/07/19 04:17 36.3 C L 84 17 100/49 L 92 09/07/19 00:22 36.7 C 91 H 19 114/51 L 91 PG Care Time/CCT Total # of Minutes Spent Total Time Spent with Patient: Total time spent is greater than 50% in c oordination of care (as documented) at patient's floor/unit and/or counseling patient: Coding Level of Care Code None Diagnoses Adenocarcinoma of colon C18.9
[2019-09-07] MEDS: FUROSEMIDE 20 MG in SYRINGE 0 ML IV SCH (09:10)
[2019-09-07] MEDS: ENOXAPARIN INJ 30 MG/0.3 ML SYR SQ SCH (09:17)
--- NOTE | 2019-09-07 12:54 | Hospitalist Progress Note ---
Date of Service September 07, 2019 Assessment & Plan (1) Adenocarcinoma of colon: S/p hemicolectomy on 08/[address] Valdes. Pathology with Stage IV adenocarcinoma. - Slowly improving, though bowel function is still not optimal. - Advancing diet as tolerated - Oncology and palliative care consulted given pathology results. Discussed with oncology today; may be candidate for limited chemo. (2) Volume overload: Iatrogenic from fluids and blood transfusions in perioperative period. Typically he takes Lasix 20mg PO daily. - Continue Lasix 20mg IV daily - Monitor I&Os and weights -> Kidney function stable. Weight down to 69 kg. Still with LE edema. (3) Anemia: Normochromic, normocytic anemia with Hgb=9.3, Hct=29.4 on admission. With acute blood loss anemia overnight on the first night with witnessed GI bleeding, hgb dropped to 6.9. - Transfused 1 unit PRBCs; reversed INR with Vit K - Continue holding ASA and warfarin (4) Hyperlipidemia: Chronic. - Continue atorvastatin (5) Benign hypertension: Blood pressures low due to GI bleeding but then improved with transfusion. Today, BP remains 110/65. - Continue home metoprolol tartrate - Continue diltiazem added for rate control by cardiology but could dc this if needed (6) Atrial fibrillation: Rate controlled now after starting diltiazem by cardiology, HR in low 90's today. Typically anticoagulated on warfarin which is now been discontinued. Chads-Vasc is 3 (age, HTN), giving him ~3% annual risk of stroke. - Continue metoprolol & diltiazem - Will discuss with patient and restarting anticoagulation - Continue to monitor on telemetry (7) BPH (benign prostatic hyperplasia): Chronic, no LUTS here. - Continue tamsulosin - Now has Troncoso; will remove once IV diuresis complete. 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 - No inpatient needs (9) Carotid stenosis: S/p endarterectomy in the on the left. - Holding warfarin, ASA - Continue statin (10) Restless leg syndrome: - Continue home Mirapex (11) DVT prophylaxis: SQ Lovenox 30 mg daily Admission and Anticipated Discharge Date Admission Date: August 28, 2019 Subjective No major pain today. He is still having diarrhea. Overall, he feels his appetite is very poor. Reports no fevers/chills, chest pain, shortness of breath, abdominal pain, nausea, or vomiting. Physical Exam Constitutional: WD/WN, vitals as above Eyes: EOM intact bilaterally; no conjunctival abnormality ENMT: external ear and nose normal, oropharynx normal Neck: trachea midline, no thyromegaly normal visual inspection Respiratory: normal respiratory effort, lungs clear to auscultation no respiratory distress Cardiovascular: RRR, no murmur, no edema Gastrointestinal (Abdomen): Inspection/Auscultation: abdomen normal to inspection; abdomen not distended Musculoskeletal: no cyanosis or clubbing, extremities motor strength 5/5 Skin: no rashes, warm and dry Neurologic: moves all extremities and awake Psychiatric: Orientation: alert, oriented to person and cooperative Results & Data Results & Data ([facility]) Vital Signs (Past 12 Hours) Vital Signs Temp Pulse Pulse Resp BP BP Pulse Ox 09/07/19 11:38 36.9 C 79 20 107/63 97 09/07/19 07:00 36.6 C 73 20 108/63 95 09/07/19 06:20 67 09/07/19 04:17 36.3 C L 84 17 100/49 L 92 PG Care Time/CCT Total # of Minutes Spent Total Time Spent with Patient: Total time spent is greater than 50% in coordination of care (as documented) at patient's floor/unit and/or counseling patient: Coding Level of Care Code 05724 Subseq Hosp Care Lvl 3 Diagnoses Adenocarcinoma of colon C18.9 Volume overload E87.70 Anemia D64.9 Anemia type: unspecified type Hyperlipidemia E78.5 Hyperlipidemia type: unspecified Benign hypertension I10 Atrial fibrillation I48.91 Atrial fibrillation type: unspecified BPH (benign prostatic hyperplasia) N40.0 Lower urinary tract symptom presence: symptoms absent Murmur, cardiac R01.1 Carotid stenosis I65.29 Restless leg syndrome G25.81 DVT prophylaxis Z29.9 (1) Anemia Anemia type: unspecified type Qualified Code(s): D64.9 - Anemia, unspecified (2) Hyperlipidemia Hyperlipidemia type: unspecified Qualified Code(s): E78.5 - Hyperlipidemia, unspecified (3) Atrial fibrillation Atrial fibrillation type: unspecified Qualified Code(s): I48.91 - Unspecified atrial fibrillation (4) BPH (benign prostatic hyperplasia) Lower urinary tract symptom presence: symptoms absent Qualified Code(s): N40.0 - Benign prostatic hyperplasia without lower urinary tract symptoms
[2019-09-07] MEDS ORDERED: ACETAMINOPHEN 325 MG TAB PO PRN (13:15)
[2019-09-07] MEDS: IRON SUCROSE 300 MG in SODIUM CHLORIDE 0.9% 250 ML IV SCH (13:58)
[2019-09-07] MEDS: CHOLESTYRAMINE LIGHT 4 GM PKT PO SCH ×2 (14:18→22:00)
[2019-09-07] MEDS: TAMSULOSIN HCL 0.4 MG CAP PO SCH (20:16)
[2019-09-07] MEDS: PRAMIPEXOLE DIHYDROCHLO 0.25 MG TAB PO SCH (20:17)
[2019-09-08 06:56] LABS: Basophils # (auto) 0.05 K/uL (0-0.2); Basophils % (auto) 0.5 %; Eosinophils # (auto) 0.24 K/uL (0-0.5); Eosinophils % (auto) 2.2 %; Hematocrit (blood only) 26.7 % (42-52); Hemoglobin 8.5 g/dL (14.0-18.0); Immature Granulocytes # (auto) 0.07 K/uL (0.00-0.02); Immature Granulocytes % (auto) 0.6 %; Lymphocytes # (auto) 0.97 K/uL (1.2-3.4); Lymphocytes % (auto) 8.9 %; Mean Corpuscular Hgb Conc 31.8 g/dL (32-36); Mean Corpuscular Volume 91.1 fL (80-100); Mean Platelet Volume 9.5 fL (7.4-10.4); Monocytes # (auto) 1.06 K/uL (0.11-0.59); Monocytes % (auto) 9.8 %; Neutrophils # (auto) 8.46 K/uL (1.4-6.5); Platelet Count 356 K/uL (130-400); RDW Standard Deviation 50.1 fL (36.4-46.3); Red Blood Count 2.93 M/uL (4.7-6.1); White Blood Count 10.85 K/uL (4.8-10.8)
--- NOTE | 2019-09-08 07:12 | Oncology Consultation ---
Date of Consultation September 06, 2019 Assessment & Plan (1) Adenocarcinoma of colon: Mr. Chao has, at a minimum, a locally advanced colon cancer. His imaging is strongly suggestive of stage IV disease. Although he has been in generally good health, his age is a concern in terms of treatment. He also has an albumin of 2, which is a poor prognostic sign in patients with metastatic cancers. He was a bit delirious during our conversation today but he seemed to at least comprehend that he had a cancer. I will return to speak with him again later and will also contact his . Data is lacking regarding the safety and utility of chemotherapy in patients his age with colon cancers. Still, if he makes a good recovery, we could at least discuss the possibilty of some palliative therapy, likely with single-agent 5-FU. Present on Admission?: Yes (2) Anemia: He has been moderately anemic since at least 2017. He dipped some following surgery but has recovered back to his baseline. His MCV is normal and I suspect the anemia may be related to a bone marrow process. In light of his other health issues, I would not proceed with a bone marrow biopsy at this time. Present on Admission?: Yes History of Present Illness Reason for Consultation: Likely metastatic colon cancer Attending Physician: Geovany Locke MD History of Present Illness Mr. Chao is an 89 year old man with a history of atrial fibrillation on AC, HTN, and hyperlipidemia. He presented on 08/27 with severe epigastric abdominal pain, along with two episodes of vomiting. A CT in the ER revealed a cecal mass that involved the ileocecal valve, resulting in a partial SBO. Also noted were a necrotic 2.8cm ileocolic lymph node, multiple small hepatic metastases, and omental implants consistent with carcinomatosis. On 08/31, he underwent an open right hemicolectomy that revealed a moderately differentiated colon adenocarcinoma. It involved the serosa and at least 6/25 lymph nodes were positive for metastatic disease. Mr. Chao was comfortable when I saw him. He had an episode of fecal incontinence, however, during our encounter. He thinks his last colonoscopy was about 40 years ago. He has had variable bowel habits, switching between diarrhea and constipation. He did notice some thinning of his stool. However, he denies any blood in his stool. He denied any fevers, cough, shortness of breath, or severe pain. He lost about a few pounds since May. Allergies Allergy/AdvReac Type Severity Reaction Status Date / Time NSAIDS (Non-Steroidal Allergy Unknown . Verified 09/01/19 06:38 Anti-Inflamma sulindac Allergy Unknown . Verified 09/01/19 06:38 Home Medications Home Medications Medication Instructions Recorded Confirmed Type artificial tears(hypromellose) 0.4 1 drp OP DIRECTED 10/01/18 08/28/19 History % eye drops ferrous gluconate 324 mg (38 mg 324 mg PO DIRECTED tab 10/20/18 08/28/19 History iron) tablet omega-3 acid ethyl esters 1 gram 1 cap PO DAILY cap 10/25/18 08/28/19 History capsule tamsulosin 0.4 mg capsule 0.4 mg PO HS #90 cap 03/01/19 08/28/19 Rx atorvastatin 10 mg tablet 10 mg PO DAILY #90 tab 08/08/19 08/28/19 Rx metoprolol tartrate 25 mg tablet 12.5 mg PO DAILY #45 tab 08/08/19 08/28/19 Rx aspirin 81 mg PO DAILY 08/28/19 08/28/19 History furosemide 20 mg PO 2XWK 08/28/19 08/28/19 History hydrochlorothiazide See Rx Instructions .ROUTE .COMPLEX 08/28/19 08/28/19 History pramipexole 0.125 mg PO HS 08/28/19 08/28/19 History warfarin [Jantoven] 5 mg PO DAILY 08/28/19 08/28/19 History Patient History Medical History (Updated 09/06/19 @ 13:04 by Geovany Locke MD) Acute CHF (congestive heart failure) (Resolved) GLEN (acute kidney injury) Anemia Atrial fibrillation Chronic/rate controlled- on Warfarin Basal cell carcinoma of face (Resolved) Carotid stenosis s/p left CEA Change in bowel habits (Resolved) Dysplastic nevus (Resolved) Hearing loss (Resolved) Hematospermia (Resolved) Hypercholesterolemia Hypertension Left inguinal hernia Murmur, 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 Valdes 09/01/19 History of cataract surgery History of hernia repair History of left-sided carotid endarterectomy History of prior ablation treatment History of thyroid surgery Family History Father Diabetes Cardiac disorder Social History Preferred Language: [place] Communication Ability: Effective Hearing Ability: Use of Hearing Aid Miner Assistant Required: No Beliefs That Will Affect Care: None marital status: Current Living Situation: Spouse current occupational status: retired Feels Safe at Home: Yes Smoking Status: Never smoker Hx Alcohol Use: Yes Alcohol type: other Hx Substance Use: No Seatbelt Use: always Sunscreen Use: No Review of Systems Review of Systems: All systems reviewed & are unremarkable except as noted in HPI & below Physical Exam Constitutional: + thin and comfortable; no acute distress Eyes: + anicteric sclerae ENMT: external ear and nose normal, oropharynx normal Respiratory: normal respiratory effort, lungs clear to auscultation Cardiovascular: RRR, no murmur, no edema Gastrointestinal (Abdomen): Inspection/Auscultation: + hypoactive bowel sounds; abdomen not distended Percussion/Palpation: abdomen soft; abdomen nontender Lymphatic: no cervical or axillary lymphadenopathy Results & Data Vital Signs (Past 12 Hours) Vital Signs Temp Pulse Pulse Resp BP BP Pulse Ox 09/08/19 04:21 36.6 C 82 20 121/58 L 96 09/07/19 23:44 37.3 C 80 20 115/64 95 09/07/19 22:30 90 09/07/19 19:29 36.8 C 87 17 107/65 95 Laboratory Results Laboratory Tests 09/05/19 09/06/19 09/06/19 06:06 07:33 07:33 WBC 10.61 Hgb 10.6 L Plt Count 429 H Creatinine 1.10 D Total Protein 4.8 L Albumin 2.[address] A/P, 08/28/19: IMPRESSION: 1. Cecal mass which involves the ileocecal valve and results in a partial small bowel obstruction. This favors colonic adenocarcinoma. Necrotic 2.8 cm ileocolic lymph node consistent with franco spread of disease. 2. Multiple small hepatic metastases measuring up to 1.3 cm. Small amount of ascites with omental implants consistent with peritoneal carcinomatosis. 3. Mild airspace opacities within the lower lungs which favor atelectasis howeve r an infectious process could appear similar.
[2019-09-08 07:26] LABS: BUN Creatinine Ratio 24.3 (10-20); Calcium 7.4 mg/dl (8.5-10.1); Creatinine Clr Calc Pharmacy 48.9 ml/min; Est GFR (African American) 87.9; Est GFR (Non-African American) 75.8; Magnesium 1.7 mg/dl (1.8-2.4); Phosphorus 2.6 mg/dl (2.5-4.9)
[2019-09-08] MEDS: MAGNESIUM SULFATE / D5W 1 GM/100 ML BAG IV SCH ×2 (08:28→09:43)
[2019-09-08] MEDS: FUROSEMIDE 20 MG in SYRINGE 0 ML IV SCH (08:34)
[2019-09-08] MEDS: CHOLESTYRAMINE LIGHT 4 GM PKT PO SCH ×2 (08:35→20:36)
[2019-09-08] MEDS: ASPIRIN 81 MG ECTAB PO SCH (08:37)
[2019-09-08] MEDS: ATORVASTATIN 10 MG TAB PO SCH (08:37)
[2019-09-08] MEDS: METOPROLOL TARTRATE 25 MG TAB PO SCH (08:39)
[2019-09-08] MEDS: dilTIAZem HCL 30 MG TAB PO SCH ×3 (08:39→20:35)
[2019-09-08] MEDS: ENOXAPARIN INJ 30 MG/0.3 ML SYR SQ SCH (08:40)
--- NOTE | 2019-09-08 08:42 | Surgery Progress Note ---
Date of Service September 08, 2019 Assessment & Plan (1) Adenocarcinoma of colon: appears to be doing better each day +bm. buddy regular diet appreciate oncology consult had long discussion yesterday with pt's . she agrees with [facility] for acute Rehab. pt also agreeable ok from my standpoint for d/c to rehab whenover ok with primary service. zackery can be removed at day 14 f/u in office within next 2 weeks. Subjective pt seen. in bathroom. interview only and discussion with his RN doing better today. +formed bm today. buddy regular diet. no n/v. Physical Exam Physical Exam: unable to perform. pt in bathroom Results & Data Vital Signs (Past 12 Hours) Vital Signs Temp Pulse Pulse Resp BP Pulse Ox 09/08/19 07:43 36.7 C 75 19 122/62 96 09/08/19 04:21 36.6 C 82 20 121/58 L 96 09/07/19 23:44 37.3 C 80 20 115/64 95 09/07/19 22:30 90 PG Care Time/CCT Total # of Minutes Spent Total Time Spent with Patient: Total time spent is greater than 50% in coordination of care (as documented) at patient's floor/unit and/or counseling patient: Coding Level of Care Code None Diagnoses Adenocarcinoma of colon C18.9
[2019-09-08] MEDS ORDERED: POTASSIUM CHLORIDE PWD 20 MEQ PACK PO SCH (09:00)
--- NOTE | 2019-09-08 09:09 | Palliative Care Consultation ---
Date of Consultation September 08, 2019 Assessment & Plan (1) Goals of care, counseling/discussion: -89 year old male patient with PMH atrial fibrillation on Coumadin, htn, HLD, and others, presented to the hospital 11 days ago with severe epigastric and LLQ abdominal pain, along with nausea/vomiting. A CT abd/pelvis in the ER revealed a cecal mass that involved the ileocecal valve, resulting in a partial SBO. Also noted were a necrotic 2.8cm ileocolic lymph node, multiple small hepatic metastases, and omental implants consistent with carcinomatosis. Surgery was consulted, and on 08/31, he underwent an open right hemicolectomy that revealed a moderately differentiated colon adenocarcinoma. It involved the serosa and at least 6/25 lymph nodes were positive for metastatic disease. Post- operatively, patient is recovering seemingly well-- is tolerating his diet, had formed bowel movement yesterday. It is noted that he has had some delirium, but this of course is expected to improve. Heme/onc has been consulted who state that treatment options would be limited, but if patient recovers from surgery well, palliative treatment could be considered-- possibly with single agent 5- FU. Plan is for patient to go to after hospitalization. 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 -Patient seen in room 239-2. He is sitting up in chair, no distress. Eating lunch independently without issue. Patinet is alert and pleasant. Mostly oriented, but but had trouble recalling details of his hospitalization. At first, he told me he did not know he had cancer, later in the conversation he recalled meeting Dr. Toledo and knew that he had cancer in his lymph nodes. -Patient and I did discuss the fact that he likely has stage IV colon cancer and that treatment options would be limited. I asked him if he would want to be fully aggressive with his care, or focus more on palliation and quality f life. Without hesitation, patient said no to being aggressive. Patient stated, "At my age, what good would it do?" -Patient told me that he lives with his , Jing, in a two story home. He plans to remain at home as long as possible. He stated that he is going to for rehab after hospitalization. -Patient states he has four children. His oldest daughter, Samantha Husain, is his POA. Alternative POA is one of his sons. -Spoke with patient's , Jing, and daughter, Samantha, on phone. We discussed patient's diagnosis and I introduced palliative care. I told family what patient had said to me about not wanting to be aggressive. Family agreed that patient would likely want to take the conservative route. They agree that he likely will not want to do chemotherapy. -We discussed the plan and timeline for patient. First step is to get to for rehab and eventually return home. They will then meet with heme/onc-- we talked about some questions that they can ask the oncologist. Then, they can make a decision on goals and plan of care. -If patient needs outpatient palliative follow up, he can certainly see Dr. Hoskins in the future. If patient is ready to go with hospice at that point, can just refer to hospice. I discussed hospice with patient's family for future reference as well. -Nothing further to add from palliative care at this point. Please contact us with any further needs. Thanks again for this consult. (2) Adenocarcinoma of colon: (3) Volume overload: History of Present Illness Attending Physician: Geovany Locke MD Allergies Allergy/AdvReac Type Severity Reaction Status Date / Time NSAIDS (Non-Steroidal Allergy Unknown . Verified 09/01/19 06:38 Anti-Inflamma sulindac Allergy Unknown . Verified 09/01/19 06:38 Home Medications Home Medications Medication Instructions Recorded Confirmed Type artificial tears(hypromellose) 0.4 1 drp OP DIRECTED 10/01/18 08/28/19 History % eye drops ferrous gluconate 324 mg (38 mg 324 mg PO DIRECTED tab 10/20/18 08/28/19 History iron) tablet omega-3 acid ethyl esters 1 gram 1 cap PO DAILY cap 10/25/18 08/28/19 History capsule tamsulosin 0.4 mg capsule 0.4 mg PO HS #90 cap 03/01/19 08/28/19 Rx atorvastatin 10 mg tablet 10 mg PO DAILY #90 tab 08/08/19 08/28/19 Rx metoprolol tartrate 25 mg tablet 12.5 mg PO DAILY #45 tab 08/08/19 08/28/19 Rx aspirin 81 mg PO DAILY 08/28/19 08/28/19 History furosemide 20 mg PO 2XWK 08/28/19 08/28/19 History hydrochlorothiazide See Rx Instructions .ROUTE .COMPLEX 08/28/19 08/28/19 History pramipexole 0.125 mg PO HS 08/28/19 08/28/19 History warfarin [Jantoven] 5 mg PO DAILY 08/28/19 08/28/19 History Patient History Medical History (Updated 09/08/19 @ 09:08 by CORY Spicer) Acute CHF (congestive heart failure) (Resolved) GLEN (acute kidney injury) Anemia Atrial fibrillation Chronic/rate controlled- on Warfarin Basal cell carcinoma of face (Resolved) Carotid stenosis s/p left CEA Change in bowel habits (Resolved) Dysplastic nevus (Resolved) Hearing loss (Resolved) Hematospermia (Resolved) Hypercholesterolemia Hypertension Left inguinal hernia Murmur, 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 Valdes 09/01/19 History of cataract surgery History of hernia repair History of left-sided carotid endarterectomy History of prior ablation treatment History of thyroid surgery Family History Father Diabetes Cardiac disorder Social History Preferred Language: Lao Communication Ability: Effective Hearing Ability: Use of Hearing Aid Spreader Required: No Beliefs That Will Affect Care: None marital status: Current Living Situation: Spouse current occupational status: retired Feels Safe at Home: Yes Smoking Status: Never smoker Hx Alcohol Use: Yes Alcohol type: other Hx Substance Use: No Seatbelt Use: always Sunscreen Use: No Review of Systems Constitutional: no weakness Ear, Nose, Mouth, Throat: no dysphagia Respiratory: no cough and no dyspnea Cardiovascular: no chest pain and no edema Gastrointestinal: + abdominal pain (occasionally when moving, otherwsie, no abdominal pain); no nausea, no vomiting and no diarrhea/loose stools (resolved today) Neurologic: no memory loss (reported by family) Psychiatric: no anxiety Physical Exam Constitutional: well developed and well nourished; no acute distress ENMT: external ear and nose normal, oropharynx normal Respiratory: normal respiratory effort; no labored breathing Cardiovascular: Rate/Rhythm: regular rate and regular rhythm Neurologic: moves all extremities, awake and + confused Psychiatric: Orientation: alert, oriented to person, oriented to place and oriented to time (oriented somewhat to event, but had some confusion and forgetfulness) Insight: + limited insight Judgement: good judgement Results & Data Vital Signs (Past 12 Hours) Vital Signs Temp Pulse Pulse Resp BP Pulse Ox 09/08/19 07:43 36.7 C 75 19 122/62 96 09/08/19 04:21 36.6 C 82 20 121/58 L 96 09/07/19 23:44 37.3 C 80 20 115/64 95 09/07/19 22:30 90 PG Care Time/CCT Prolonged Care Time Prolonged Care Time: Yes Total Prolonged Care Time: 30 100 Coding Level of Care Code 61190 Inpt Consult Level 3 Diagnoses Goals of care, counseling/discussion Z71.89 Adenocarcinoma of colon C18.9 Volume overload E87.70 Additional Codes Prolonged Care Time - Prolonged Care Time: Yes ([id number]) Time Spent (min) 100 Time Spent Midlevel 100 minutes with >50% of time spent at bedside with patient discussing goals of care, as well as speaking on phone at length with family to discuss diagnosis and goals.
[2019-09-08] MEDS: IRON SUCROSE 300 MG in SODIUM CHLORIDE 0.9% 250 ML IV SCH (10:44)
--- NOTE | 2019-09-08 14:44 | Hospitalist Progress Note ---
Date of Service September 08, 2019 Assessment & Plan (1) Adenocarcinoma of colon: S/p hemicolectomy on 08/[address] Valdes. Pathology with Stage IV adenocarcinoma. - Slowly improving, though bowel function is still not optimal. - Advancing diet as tolerated - Oncology and palliative care consulted given pathology results. Discussed with oncology; may be candidate for limited chemo. - Palliative care consulted - Will discuss with them today. (2) Volume overload: Iatrogenic from fluids and blood transfusions in perioperative period. Typically he takes Lasix 20mg PO daily. - Continue Lasix 20mg IV daily - Monitor I&Os and weights -> Kidney function stable. Weight down to 69 kg. Still with LE edema. (3) Anemia: Normochromic, normocytic anemia with Hgb=9.3, Hct=29.4 on admission. With acute blood loss anemia overnight on the first night with witnessed GI bleeding, hgb dropped to 6.9. - Transfused 1 unit PRBCs; reversed INR with Vit K - Continue restart ASA and warfarin (4) Hyperlipidemia: Chronic. - Continue atorvastatin (5) Benign hypertension: Blood pressures low due to GI bleeding but then improved with transfusion. Today, BP remains 110/65. - Continue home metoprolol tartrate - Continue diltiazem added for rate control by cardiology but could dc this if needed (6) Atrial fibrillation: Rate controlled now after starting diltiazem by cardiology, HR in low 90's today. Typically anticoagulated on warfarin which is now been discontinued. Chads-Vasc is 3 (age, HTN), giving him ~3% annual risk of stroke. - Continue metoprolol & diltiazem - Will discuss with patient and restarting anticoagulation - Continue to monitor on telemetry (7) BPH (benign prostatic hyperplasia): Chronic, no LUTS here. - Continue tamsulosin - Now has Troncoso; will remove once IV diuresis complete. 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 - No inpatient needs (9) Carotid stenosis: S/p endarterectomy in the on the left. - Holding warfarin, ASA - Continue statin (10) Restless leg syndrome: - Continue home Mirapex (11) DVT prophylaxis: SQ Lovenox 30 mg daily Admission and Anticipated Discharge Date Admission Date: August 28, 2019 Subjective Doing well today. Overall, appetite is better. He is with less pain. Reports no fevers/chills, chest pain, shortness of breath, abdominal pain, nausea, or vomiting. Physical Exam Constitutional: WD/WN, vitals as above Eyes: EOM intact bilaterally; no conjunctival abnormality ENMT: external ear and nose normal, oropharynx normal Neck: trachea midline, no thyromegaly normal visual inspection Respiratory: normal respiratory effort, lungs clear to auscultation no respiratory distress Cardiovascular: RRR, no murmur, no edema Gastrointestinal (Abdomen): Inspection/Auscultation: abdomen normal to inspection; abdomen not distended Musculoskeletal: no cyanosis or clubbing, extremities motor strength 5/5 Skin: no rashes, warm and dry Neurologic: moves all extremities and awake Psychiatric: Orientation: alert, oriented to person and cooperative Results & Data Results & Data ([facility]) Vital Signs (Past 12 Hours) Vital Signs Temp Pulse Resp BP BP Pulse Ox 09/08/19 11:10 37.1 C 78 18 96/57 L 96 09/08/19 07:43 36.7 C 75 19 122/62 96 09/08/19 04:21 36.6 C 82 20 121/58 L 96 PG Care Time/CCT Total # of Minutes Spent Total Time Spent with Patient: Total time spent is greater than 50% in coordination of care (as documented) at patient's floor/unit and/or counseling patient: Coding Level of Care Code 46266 Subseq Hosp Care Lvl 2 Diagnoses Adenocarcinoma of colon C18.9 Volume overload E87.70 Anemia D64.9 Anemia type: unspecified type Hyperlipidemia E78.5 Hyperlipidemia type: unspecified Benign hypertension I10 Atrial fibrillation I48.91 Atrial fibrillation type: unspecified BPH (benign prostatic hyperplasia) N40.0 Lower urinary tract symptom presence: symptoms absent Murmur, cardiac R01.1 Carotid stenosis I65.29 Restless leg syndrome G25.81 DVT prophylaxis Z29.9 (1) Anemia Anemia type: unspecified type Qualified Code(s): D64.9 - Anemia, unspecified (2) Hyperlipidemia Hyperlipidemia type: unspecified Qualified Code(s): E78.5 - Hyperlipidemia, unspecified (3) Atrial fibrillation Atrial fibrillation type: unspecified Qualified Code(s): I48.91 - Unspecified atrial fibrillation (4) BPH (benign prostatic hyperplasia) Lower urinary tract symptom presence: symptoms absent Qualified Code(s): N40.0 - Benign prostatic hyperplasia without lower urinary tract symptoms
[2019-09-08] MEDS: WARFARIN SOD 5 MG TAB PO SCH (17:01)
[2019-09-08] MEDS ORDERED: POTASSIUM CHLORIDE 20 MEQ TABCR PO STA (17:44)
[2019-09-08] MEDS: TAMSULOSIN HCL 0.4 MG CAP PO SCH (20:35)
[2019-09-08] MEDS: PRAMIPEXOLE DIHYDROCHLO 0.25 MG TAB PO SCH (20:35)
[2019-09-09 06:11] LABS: Hematocrit (blood only) 28.2 % (42-52); Hemoglobin 9.1 g/dL (14.0-18.0); Mean Corpuscular Hemoglobin 29.4 pg (25-34); Mean Corpuscular Hgb Conc 32.3 g/dL (32-36); Mean Platelet Volume 9.1 fL (7.4-10.4); Platelet Count 447 K/uL (130-400); RDW Coefficient of Variation 15.2 % (11.5-14.5); RDW Standard Deviation 49.8 fL (36.4-46.3); White Blood Count 11.95 K/uL (4.8-10.8)
[2019-09-09 06:14] LABS: INR 1.1 (0.9-1.1); Prothrombin Time 11.7 Seconds (9.0-12.0)
[2019-09-09 06:37] LABS: BUN Creatinine Ratio 20.5 (10-20); Calcium 7.6 mg/dl (8.5-10.1); Creatinine Clr Calc Pharmacy 53.1 ml/min; Est GFR (African American) 90.9; Est GFR (Non-African American) 78.4; Potassium 3.4 mmol/L (3.5-5.1)
--- NOTE | 2019-09-09 07:45 | Surgery Progress Note ---
Date of Service September 09, 2019 Assessment & Plan (1) Adenocarcinoma of colon: POD#8 right open hemicolectomy patient appears well this AM with no complaints abdomen soft and non-tender, incisions c/d/i with zackery in midline tolerating a low fiber diet and having meaningful bowel function WBC up slightly today (11.9 from 10.8), but is afebrile and cdiff returned negative, no sign of infection claudio-incision will leave instructions for patient to follow up in clinic within 2 weeks & surgical zackery removed around POD#14 okay for discharge from our standpoint to rehab Dr Cope- pt seen in room- agree with above Subjective Patient tolerating low fiber diet. He denies nausea/vomiting or any abdominal pain. He is passing flatus and stool. Physical Exam Physical Exam: awake, lying in bed Constitutional: no acute distress Respiratory: normal respiratory effort Gastrointestinal (Abdomen): Inspection/Auscultation: + abdominal surgical incision (c/d/i with surgical zackery in midline, no evidence of infection); abdomen not distended Percussion/Palpation: abdomen soft; abdomen nontender Results & Data Vital Signs (Past 12 Hours) Vital Signs Temp Pulse Pulse Resp BP Pulse Ox 09/09/19 07:05 36.5 C 78 18 103/58 L 97 09/09/19 03:28 36.4 C L 67 17 102/59 L 95 09/08/19 23:25 36.5 C 78 17 110/64 96 09/08/19 23:00 75 PG Care Time/CCT Total # of Minutes Spent Total Time Spent with Patient: Total time spent is greater than 50% in coordination of care (as documented) at patient's floor/unit and/or counseling patient: Coding Level of Care Code None Diagnoses Adenocarcinoma of colon C18.9
[2019-09-09] MEDS: dilTIAZem HCL 30 MG TAB PO SCH (08:27)
[2019-09-09] MEDS: METOPROLOL TARTRATE 25 MG TAB PO SCH (08:28)
[2019-09-09] MEDS: ATORVASTATIN 10 MG TAB PO SCH (08:28)
[2019-09-09] MEDS: FUROSEMIDE 40 MG in SYRINGE 0 ML IV SCH (08:28)
[2019-09-09] MEDS: ASPIRIN 81 MG ECTAB PO SCH (08:28)
[2019-09-09] MEDS: ENOXAPARIN INJ 30 MG/0.3 ML SYR SQ SCH (08:29)
[2019-09-09] MEDS: CHOLESTYRAMINE LIGHT 4 GM PKT PO SCH ×2 (08:30→20:05)
[2019-09-09] MEDS: IRON SUCROSE 300 MG in SODIUM CHLORIDE 0.9% 250 ML IV SCH (08:33)
--- NOTE | 2019-09-09 10:31 | Hematology/Oncology Prog Note ---
Date of Service September 09, 2019 Assessment & Plan (1) Adenocarcinoma of colon: Mr. Chao has, at a minimum, a locally advanced colon cancer and his imaging is strongly suggestive of stage IV disease. Although he has been in generally good health, his age is a concern in terms of treatment. He also has an albumin of 2, which is a poor prognostic sign in patients with metastatic cancers. He was more lucid when I saw him today. I also spent some time speaking with his and I see that his family met with palliative care earlier as well. While we could theoretically attempt to treat his disease, at most he would be able to receive single-agent 5-FU and it is not even clear he would tolerate that. He also expressed to me that he did not want to have much "aggressive" done about his disease. As a result, I think hospice care is a totally appropriate consideration in his case. He is not actively dying and has been deconditioned some from his hospitalization and surgery. In light of those issues, a brief stay in rehab might make him better able to return home for hospice care. I would favor that approach, even if he has no interest in further treating his cancer. I gave his my contact information. I would be happy to see them in the office at any time if they reconsider and would like to discuss treatment options again. His prognosis is poor long-term, but in the short term I think there is reason to be hopeful that he can get stronger and spend some quality time at home on hospice. Present on Admission?: Yes (2) Anemia: He has been moderately anemic since at least 2018. He dipped some following surgery but has recovered back to his baseline. His MCV is normal and I suspect the anemia may be related to a bone marrow process. In light of his other health issues, I would not proceed with a bone marrow biopsy at this time. He is getting some IV iron, which is reasonable. Present on Admission?: Yes (3) Volume overload: I suspect his scrotal edema is related to his low albumin. He did not have significant pedal edema today. Present on Admission?: Yes Subjective Mr. Chao was seated comfortably in a chair today. He reports a general lack of appetite. He has no pain. He is concerned about scrotal edema which has been prominent during his stay, requiring a melendez catheter. His pedal edema has been better. He denies any more fecal incontinence. He denies any bleeding, abdominal pain, nausea, cough, or shortness of breath. Review of Systems Review of Systems: All systems reviewed & are unremarkable except as noted in HPI & below Physical Exam Constitutional: + thin and comfortable; no acute distress Eyes: + anicteric sclerae ENMT: external ear and nose normal, oropharynx normal Respiratory: normal respiratory effort, lungs clear to auscultation Cardiovascular: RRR, no murmur, no edema Rate/Rhythm: regular rate and regular rhythm Gastrointestinal (Abdomen): Inspection/Auscultation: + hypoactive bowel sounds; abdomen not distended Percussion/Palpation: abdomen soft; abdomen nontender Lymphatic: no cervical or axillary lymphadenopathy Results & Data Vital Signs (Past 12 Hours) Vital Signs Temp Pulse Pulse Resp BP Pulse Ox 09/09/19 07:05 36.5 C 78 18 103/58 L 97 09/09/19 03:28 36.4 C L 67 17 102/59 L 95 09/08/19 23:25 36.5 C 78 17 110/64 96 09/08/19 23:00 75 Laboratory Results Abnormal lab results 09/09/19 09/09/19 Range/Units 05:42 05:42 WBC 11.95 H (4.8-10.8) K/uL RBC 3.10 L (4.7-6.1) M/uL Hgb 9.1 L (14.0-18.0) g/dL Hct 28.2 L (42-52) % RDW Std Deviation 49.8 H (36.4-46.3) fL RDW Coeff of Jaziel 15.2 H (11.5-14.5) % Plt Count 447 H (130-400) K/uL Potassium 3.4 L (3.5-5.1) mmol/L Chloride 110 H (98-107) mmol/L BUN/Creatinine Ratio 20.5 H (10-20) Calcium 7.6 L (8.5-10.1) mg/dl
--- NOTE | 2019-09-09 11:13 | Hospitalist Progress Note ---
Date of Service September 09, 2019 Assessment & Plan (1) Adenocarcinoma of colon: S/p hemicolectomy on 08/[address] Valdes. Pathology with Stage IV adenocarcinoma. - Slowly improving, though bowel function is still not optimal. - Advancing diet as tolerated - Oncology and palliative care consulted given pathology results. Discussed with oncology; may be candidate for limited chemo. - Palliative care consulted - Patient and family are in agreement that he would not want aggressive measures and maybe not even chemo. (2) Volume overload: Iatrogenic from fluids and blood transfusions in perioperative period. Typically he takes Lasix 20mg PO daily. - Continue Lasix 40mg IV daily - Monitor I&Os and weights -> Kidney function stable. Weight down to 67 kg. Still with LE edema, but improving with JEANETTE hose on. (3) Anemia: Normochromic, normocytic anemia with Hgb=9.3, Hct=29.4 on admission. With acute blood loss anemia overnight on the first night with witnessed GI bleeding, hgb dropped to 6.9. - Transfused 1 unit PRBCs; reversed INR with Vit K - Received IV iron x 3 doses while in the hospital. - Continue ASA and warfarin (4) Hyperlipidemia: Chronic. - Continue atorvastatin (5) Benign hypertension: Blood pressures low due to GI bleeding but then improved with transfusion. Today, BP remains 100/60. - Continue metoprolol -> Switched to succinate as he is on daily and metoprolol tartrate daily makes no sense. - Hold diltiazem. (6) Atrial fibrillation: Rate controlled now after starting diltiazem by cardiology, HR in low 90's today. Typically anticoagulated on warfarin which is now been discontinued. Chads-Vasc is 3 (age, HTN), giving him ~3% annual risk of stroke. - Continue metoprolol - Restart anticoagulation -> Will need INR check in 2-3 days. - Continue to monitor on telemetry (7) BPH (benign prostatic hyperplasia): Chronic, no LUTS here. - Continue tamsulosin - Now has Troncoso; remove today. 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 - No inpatient needs (9) Carotid stenosis: S/p endarterectomy in the on the left. - Continue warfarin, ASA - Continue statin (10) Restless leg syndrome: - Continue home Mirapex (11) DVT prophylaxis: SQ Lovenox 30 mg daily Admission and Anticipated Discharge Date Admission Date: August 28, 2019 Subjective Doing great today he reports. Bowel movements still improving; not really diarrhea. No abdominal pain. Reports no fevers/chills, chest pain, shortness of breath, abdominal pain, nausea, or vomiting. Physical Exam Constitutional: WD/WN, vitals as above Eyes: EOM intact bilaterally; no conjunctival abnormality ENMT: external ear and nose normal, oropharynx normal Neck: trachea midline, no thyromegaly normal visual inspection Respiratory: normal respiratory effort, lungs clear to auscultation no respiratory distress Cardiovascular: RRR, no murmur, no edema Gastrointestinal (Abdomen): Inspection/Auscultation: abdomen normal to inspection and + abdominal surgical incision (Clean with zackery in place still. No drainage. No erythema.); abdomen not distended Percussion/Palpation: abdomen soft; abdomen nontender Musculoskeletal: no cyanosis or clubbing, extremities motor strength 5/5 Skin: no rashes, warm and dry Neurologic: moves all extremities and awake Psychiatric: Orientation: alert, oriented to person and cooperative Results & Data Results & Data ([facility]) Vital Signs (Past 12 Hours) Vital Signs Temp Pulse Resp BP Pulse Ox 09/09/19 10:59 36.7 C 78 19 96/60 L 97 09/09/19 07:05 36.5 C 78 18 103/58 L 97 09/09/19 03:28 36.4 C L 67 17 102/59 L 95 09/08/19 23:25 36.5 C 78 17 110/64 96 PG Care Time/CCT Total # of Minutes Spent Total Time Spent with Patient: Total time spent is greater than 50% in coordination of care (as documented) at patient's floor/unit and/or counseling patient: Coding Level of Care Code 42245 Subseq Hosp Care Lvl 2 Diagnoses Adenocarcinoma of colon C18.9 Volume overload E87.70 Anemia D64.9 Anemia type: unspecified type Hyperlipidemia E78.5 Hyperlipidemia type: unspecified Benign hypertension I10 Atrial fibrillation I48.91 Atrial fibrillation type: unspecified BPH (benign prostatic hyperplasia) N40.0 Lower urinary tract symptom presence: symptoms absent Murmur, cardiac R01.1 Carotid stenosis I65.29 Restless leg syndrome G25.81 DVT prophylaxis Z29.9 (1) Anemia Anemia type: unspecified type Qualified Code(s): D64.9 - Anemia, unspecified (2) Hyperlipidemia Hyperlipidemia type: unspecified Qualified Code(s): E78.5 - Hyperlipidemia, unspecified (3) Atrial fibrillation Atrial fibrillation type: unspecified Qualified Code(s): I48.91 - Unspecified atrial fibrillation (4) BPH (benign prostatic hyperplasia) Lower urinary tract symptom presence: symptoms absent Qualified Code(s): N40.0 - Benign prostatic hyperplasia without lower urinary tract symptoms
[2019-09-09] MEDS ORDERED: POTASSIUM CHLORIDE 20 MEQ TABCR PO STA (11:15)
[2019-09-09] MEDS ORDERED: LOPERAMIDE HCL 2 MG CAP PO STA (11:15)
--- NOTE | 2019-09-09 13:23 | XRay Report ---
XR chest 2V PA/lateral HISTORY: 89 years-old Male Rule out pneumonia acute shortness of breath COMPARISON: Chest radiographs 09/06/2019 TECHNIQUE: PA and lateral views of the chest FINDINGS: Mild cardiomegaly. Bilateral hilar prominence may reflect a degree of pulmonary vascular congestion. Blunting of the costophrenic angles suggested trace effusions. There is no pneumothorax or overt pulm onary edema. Mildly improved aeration of the lung bases with mild persistent bibasilar opacities. Deg enerative changes of the shoulders and spine. IMPRESSION: 1. Cardiomegaly without overt pulmonary edema. 2. Mildly improved aeration of the lung bases with persistent bibasilar opacities suggestive of atele ctasis versus pneumonitis. 3. Trace pleural effusions. ACT 112: Negative or not required by law. The above report was generated using voice recognition software. It may contain grammatical, syntax o r spelling errors. Electronically signed by: Quan Corona M.D. 09/09/2019 1:22 PM
[2019-09-09] MEDS: WARFARIN SOD 5 MG TAB PO SCH (16:11)
[2019-09-09] MEDS: TAMSULOSIN HCL 0.4 MG CAP PO SCH (20:05)
[2019-09-09] MEDS: PRAMIPEXOLE DIHYDROCHLO 0.25 MG TAB PO SCH (20:05)
[2019-09-10 07:42] LABS: Hematocrit (blood only) 29.1 % (42-52); Hemoglobin 9.2 g/dL (14.0-18.0); Mean Corpuscular Hemoglobin 28.9 pg (25-34); Mean Corpuscular Hgb Conc 31.6 g/dL (32-36); Mean Corpuscular Volume 91.5 fL (80-100); Mean Platelet Volume 9.3 fL (7.4-10.4); Platelet Count 495 K/uL (130-400); RDW Coefficient of Variation 15.3 % (11.5-14.5); RDW Standard Deviation 51.2 fL (36.4-46.3); Red Blood Count 3.18 M/uL (4.7-6.1); White Blood Count 10.75 K/uL (4.8-10.8)
[2019-09-10] MEDS: FUROSEMIDE 40 MG in SYRINGE 0 ML IV SCH (07:45)
[2019-09-10] MEDS: ATORVASTATIN 10 MG TAB PO SCH (07:45)
[2019-09-10] MEDS: ASPIRIN 81 MG ECTAB PO SCH (07:45)
[2019-09-10] MEDS: CHOLESTYRAMINE LIGHT 4 GM PKT PO SCH (07:46)
[2019-09-10] MEDS: ENOXAPARIN INJ 30 MG/0.3 ML SYR SQ SCH (07:46)
[2019-09-10 07:58] LABS: INR 1.2 (0.9-1.1)
[2019-09-10 08:36] LABS: BUN Creatinine Ratio 18.6 (10-20); Calcium 7.5 mg/dl (8.5-10.1); Creatinine Clr Calc Pharmacy 46.8 ml/min; Est GFR (African American) 84.1; Est GFR (Non-African American) 72.5; Phosphorus 2.1 mg/dl (2.5-4.9)
[2019-09-10] MEDS ORDERED: POTASSIUM PHOS 3 MMOL/1 ML INFUSION IV STA (08:42)
[2019-09-10] MEDS ORDERED: METOPROLOL SUCC 25MG EXT REL TAB PO STA (08:44)
[2019-09-10] MEDS ORDERED: dilTIAZem HCL 120 MG CAPCR PO SCH (09:00)
[2019-09-10] MEDS ORDERED: METOPROLOL SUCC 25MG EXT REL TAB PO SCH (09:00)
[2019-09-10] MEDS ORDERED: POTASSIUM PHOSPHATE 15 MMOL in SODIUM CHLORIDE 0.9% 250 ML IV ONE (09:00)
--- NOTE | 2019-09-10 11:25 | Discharge Summary ---
Date of Service September 10, 2019 Admission HPI Per Admitting Provider Austin Chao is a pleasant 89yo C male with history of AF on Coumadin, HTN/HLP presenting with epigastric abdominal pain which started last evening, some LLQ abdominal pain. Constant, 10/10 in severity, mildly relieved after belching. Associated with some nausea and two episodes of nonbloody/non-bilious vomiting. CT of the abdomen performed in the ER revealed a cecal mass involving the ileocecal valve resulting in partial SBO. Findings favor colonic adenocarcinoma. Patient also with a necrotic 2.8cm ileocolic lymph node, multiple small hepatic metastases and small amount of ascites with omental implants consistent with carcinomatosis. Patient had a colonoscopy appx 40 years ago. He denies melena/hematochezia but does report a change in bowel habits over the last few months, alternating between diarrhea and constipation. He also reports thin stools. Last BM this AM - loose. No flatus today. 6# unintentional weight loss since May Patient lives at home with his . He denies cough/fevers/chills/SOB. No sick contacts. No recent international or domestic travel. 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 No drainage. No erythema.); abdomen not distended Percussion/Palpation: abdomen soft; abdomen nontender Musculoskeletal no cyanosis or clubbing, extremities motor strength 5/5 Skin no rashes, warm and dry Neurologic moves all extremities and awake Psychiatric Orientation: alert, oriented to person and cooperative Discharge Data Allergies Allergy/AdvReac Type Severity Reaction Status Date / Time NSAIDS (Non-Steroidal Allergy Unknown . Verified 09/01/19 06:38 Anti-Inflamma sulindac Allergy Unknown . Verified 09/01/19 06:38 Consultations 08/28/19 18:56 ED Decision to Admit Stat 08/28/19 20:55 Consult General Surgery Routine 08/29/19 13:30 Consult Cardiology Routine 09/06/19 12:40 Consult Palliative Care Routine 09/06/19 12:58 Consult Oncology Routine Procedures Performed Operation Date: 09/01/19 07:00 Actual Procedures p Right Open Hemicolectomy(Not Applicable) - Emmanuel Valdes, Ordered Studies 08/28/19 15:28 CT abd pelvis IV con only Stat 08/30/19 04:04 US venous doppler LE RT Urgent Hospital Course (1) Adenocarcinoma of colon: S/p hemicolectomy on 08/[address] Valdes. Pathology with Stage IV adenocarcinoma. - Oncology and palliative care consulted given pathology results. Discussed with oncology & palliative and opted for no chemotherapy at this time. - Palliative care consulted - Patient and family are in agreement that he would not want aggressive measures and maybe not even chemo. Can arrange with hospice as desired. (2) Volume overload: Iatrogenic from fluids and blood transfusions in perioperative period. Typically he takes Lasix 20mg PO a few times a week. - Continue Lasix 40mg PO daily on discharge. - See discharge instructions below to see how to taper his Lasix. BMP should be checked in 2-3 days to be sure his kidney function is stable. (3) Anemia: Normochromic, normocytic anemia with Hgb=9.3, Hct=29.4 on admission. With acute blood loss anemia overnight on the first night with witnessed GI bleeding, hgb dropped to 6.9. - Transfused 1 unit PRBCs; reversed INR with Vit K - Received IV iron x 3 doses while in the hospital. - Continue ASA and warfarin (4) Hyperlipidemia: Chronic. - Continue atorvastatin (5) Benign hypertension: Blood pressures low due to GI bleeding but then improved with transfusion. Today, BP remains 100/60. - Switched to metoprolol succinate (6) Atrial fibrillation: Rate controlled now after starting diltiazem by cardiology, HR in low 90's today. Typically anticoagulated on warfarin which is now been discontinued. Chads-Vasc is 3 (age, HTN), giving him ~3% annual risk of stroke. - Continue metoprolol - Restart anticoagulation -> Will need INR check in 2-3 days. (7) BPH (benign prostatic hyperplasia): Chronic, no LUTS here. - Continue tamsulosin (8) Murmur, cardiac: Secondary to AV sclerosis but no stenosis, also with mild MR on ECHO here. - No inpatient needs (9) Carotid stenosis: S/p endarterectomy in the on the left. - Continue warfarin, ASA - Continue statin (10) Restless leg syndrome: - Continue home Mirapex Total Time Total Time Spent Total Time Spent (In Minutes): 35 Discharge Plan Discharge Items Patient Disposition: Transfer Inpatient Rehab Fac Reason For Visit: CECAL MASS Discharge Diagnosis: Adenocarcinoma of the colon with resection of cecal mass Activity: Per Instructions section Lifting: No more than 10 pounds Bathing Comment: May shower, no soaking in tubs Exercise/Sports: Wait until after follow-up appointment Non-emergency contact: Primary Care Provider and Surgeon Call non-emergency contact if: you have any medication questions, your symptoms worsen, your pain is not controlled, you have a fever, your temperature is above 101.5, your wound has increased redness, your wound has increased drainage and your wound pain has increased Follow-up/Referrals: Ozzie Zuniga MD [Primary Care Provider] - Emmanuel Valdes DO [Surgeon] - (Please call to schedule follow up in clinic within 2 weeks. Your surgical zackery may be removed on post-op day 14 (2 weeks out from surgery)) Diet: Regular Addtl Attending Provider Instructions: Ok to remove zackery on 09/15/2019 or after. Patient's stools were still soft, but not watery. C. diff has been tested and is negative. He is on cholestyramine powder and Imodium PRN which can both be adjusted or even stopped if soft stools resolve. INR was 1.2 on discharge day (09/09). As it is for afib and not a clot, and since he had recent bleeding from the cecal mass, we did not want to bridge him. INR should be checked in 2-3 days (09/11 or 09/12) to be sure he is moving toward therapeutic range of 2-3. CBC should also be checked. On discharge, his hgb was 9.2 and rising. He was given IV iron while in the hospital. FOR LASIX: Please give Lasix 40 mg PO daily. Weigh patient daily! Baseline w eight is ~140 lbs. On discharge from [facility], he is about 145 lbs due to fluids and blood products during his admission. Once his weight is down to 140 lbs, please cut the Lasix to 20 mg daily. If weight continues to drop to ~135 - 136 lbs, please make Lasix PRN and monitor leg swelling, scrotal swelling, and weight gain. Pending Studies at Discharge: No Stand-Alone Forms: My [facility] Skilled Items Patient informed of condition?: Yes DNR: No Discharge Level of Care: Acute rehab Communicable Disease: No Discharge Prognosis: Improving Lines: None Urinary Catheter: No Medications and DC Order Prescriptions: New metoprolol succinate 50 mg Tablet Extended Release 24 Hr 50 mg PO QAM Qty: 1 RF: 0 Cholestyramine Light 4 gram Powder In Packet 4 g PO BID Qty: 1 RF: 0 Continued tamsulosin 0.4 mg capsule 0.4 mg PO HS Qty: 90 RF: 3 atorvastatin 10 mg tablet 10 mg PO DAILY Qty: 90 RF: 3 artificial tears(hypromellose) 0.4 % drops 1 drp OP DIRECTED RF: 0 ferrous gluconate 324 mg (38 mg iron) tablet 324 mg PO DIRECTED RF: 0 aspirin 81 mg Tablet,Delayed Release (Dr/Ec) 81 mg PO DAILY RF: 0 warfarin [Jantoven] 5 mg tablet 5 mg PO DAILY RF: 0 pramipexole 0.125 mg tablet 0.125 mg PO HS RF: 0 Changed furosemide 20 mg tablet 40 mg PO DAILY Qty: 0 RF: 0 Discontinued metoprolol tartrate 25 mg tablet 12.5 mg PO DAILY Qty: 45 RF: 3 omega-3 acid ethyl esters 1 gram capsule 1 cap PO DAILY RF: 0 hydrochlorothiazide 12.5 mg capsule See Rx Instructions .ROUTE .COMPLEX RF: 0 Discharge Orders: Discharge Order (Routine); Ordered 09/10/19 Ordered By: Geovany Hogan/Other Patient Handouts: Diet Low Residue Admission Data Admit Date/Time: 08/28/19 19:58 Attending Provider: Geovany Locke Admit Provider: Ju Aj Primary Care Provider: Ozzie Zuniga Other Providers: Emmanuel Valdes ; Kan Alcocer ; [facility] ; Geovany Locke ; Jared Toledo ; Samantha Hoskins Other Interventions: Discharge Summary Assessment (RN) Last Done: 09/10/19 11:09 Coding Level of Care Code D/C Day Management >30 mins Diagnoses Adenocarcinoma of colon C18.9 Volume overload E87.70 Anemia D64.9 Anemia type: unspecified type Hyperlipidemia E78.5 Hyperlipidemia type: unspecified Benign hypertension I10 Atrial fibrillation I48.91 Atrial fibrillation type: unspecified BPH (benign prostatic hyperplasia) N40.0 Lower urinary tract symptom presence: symptoms absent Murmur, cardiac R01.1 Carotid stenosis I65.29 Restless leg syndrome G25.81
[2019-09-11] MEDS ORDERED: METOPROLOL SUCC 50MG EXT REL TAB PO SCH (09:00)
== END 2019-09-10 14:15 | DRG 330 ==
LOC: ED 15:00 → SUATTDRO 19:58 → 3E 19:58 → 2S 09-01 09:28

== ENCOUNTER 2020-01-16 22:43 | Inpatient (IN) ==
[2020-01-16] MEDS ORDERED: SODIUM CHLORIDE 0.9% 1000ML 1,000 ML IV SCH (23:00)
[2020-01-16] MEDS ORDERED: SODIUM CHLORIDE 0.9% 1000ML 500 ML IV ONE (23:32)
--- NOTE | 2020-01-16 23:39 | Emergency Department Note ---
Impression & Plan Diarrhea, Generalized weakness, Enteritis, Metastatic colon cancer to liver ED Provider Note INFORMANT: Patient patient's ED PROVIDER(S): Maco Acosta MD CHIEF COMPLAINT: Diarrhea PLAN: Disposition: Admitted Condition: Good MEDICAL DECISION MAKING: Patient presented due to diarrhea and weakness. He was dehydrated. Troponin and TSH were unremarkable. Mild anemia on CBC. He had an enteritis and diarrheal state noted on his CT. He was hydrated. C. difficile testing and stool cultures ordered. The patient's noted that she spoke with oncology who will follow with the patient in the hospital. Since he is significantly weaker and dehydrated inpatient treatment was felt to be appropriate. Consultation was made with Dr. Aj of internal medicine. She evaluated patient in the ER and admitted him. Triage Nursing notes reviewed and agree them. Additional history obtained from patient's Vital Signs: reviewed and remarkable for mild hypertension Differential diagnosis: Infection, dehydration, metabolic abnormality, hypo/hyperglycemia, electrolyte disturbance, anemia, hypoxia, cardiac sources, intracerebral event, toxicologic, neurologic, as well as other pathologies. Diagnostics interpreted by me: ECG: Twelve-lead ECG reveals atrial fibrillation at 93 bpm. There is a normal QRS and normal axis. No ST elevation or depression. No PVCs. Cardiac Monitoring: Cardiac monitoring ordered by me: The patient was placed on continuous cardiac monitoring and observed. It revealed atrial fibrillation at 88 beats per minute without ectopy or evidence of dysrhythmia. Imaging studies: CT scan of the abdomen pelvis is consistent with a diarrheal state. There is also thickening of the small bowel concerning for enteritis. Distended gallbladder. Increased hepatic metastases. Consultation(s): Hospitalist service [facility] HPI: The patient is a 89 year old male who presents to the Emergency Room with complaints of diarrhea. This started several weeks ago and is worsening. The patient also notes the following associated symptoms, generalized weakness. The patient has found no relieving factors. Current pain is rated as 0/10. Patient states he does get crampy abdominal pain from time to time and rates it up to a 9 out of 10. He is currently getting chemotherapy for his metastatic colon cancer. states that despite his recent evaluation here he is getting worse. She contacted Dr. Leslie and was sent back to the hospital. Pt denies LOC, headache, fevers, chills, diaphoresis, visual changes, neck pain, chest pain, breathing difficulties, nausea, vomiting, current abdominal pain, back pain, melena, hematochezia, urinary symptoms, numbness, lymphadenopathy, rash, or other complaints. ROS: See above HPI for pertinent positives & negatives. A total of 10 systems reviewed and were otherwise negative. PAST MEDICAL HISTORY:See Below metastatic colon cancer PAST SURGICAL HISTORY:See Below FAMILY HISTORY:See Below SOCIAL HISTORY:See Below HOME MEDICATIONS:See Below ALLERGIES:See Below VITALS:See Below PHYSICAL EXAMINATION: GENERAL: Awake, alert, [id number], in no distress HENT: Normocephalic, atraumatic. Oropharynx unremarkable. EYES: Normal conjunctiva. Sclera non-icteric. NECK: Inspection normal. Non-tender. Supple. No nuchal rigidity. FROM. No masses. RESPIRATORY: Clear to auscultation. No wheezes. No rales. Normal respiratory effort. CARDIAC: Normal rate. Irregular rhythm. No murmurs. No rubs. Extremities warm and well perfused. Pulses equal. No JVD. GI: Soft, non-distended. Minimal left-sided tenderness to palpation. No rebound or guarding. No masses. RECTAL: Deferred. MUSCULOSKELETAL: Atraumatic. Chest examination reveals no tenderness. The back is symmetrical on inspection without obvious abnormality. There is no CVA tenderness to palpation. No joint edema. LOWER EXTREMITIES: Calves are equal size bilaterally and non-tender. Trace edema. No discoloration. NEURO: Normal sensorium. No sensory or motor deficits noted. SKIN: No rash or jaundice noted. ED COURSE: Critical Care: None Maco Acosta MD Past Med/Surg History Medical History (Updated 01/17/20 @ 03:08 by Maco Acosta MD) Anemia Arthritis Atrial fibrillation Chronic/rate controlled- on Warfarin Basal cell carcinoma of face Carotid stenosis s/p left CEA Change in bowel habits CHF (congestive heart failure) Dysplastic nevus Enlarged prostate Hearing loss Hypercholesterolemia Hypertension Left inguinal hernia Restless leg syndrome Seborrheic keratosis Segmental and somatic dysfunction of thoracic region Speech disorder Surgical History H/O hemicolectomy (09/01/19) Right Open Hemicolectomy Dr. 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); Hx Alcohol Use: No Hx Substance Use: No Preferred Language: Dutch Communication Ability: Effective Hearing Ability: Use of Hearing Aid [employer] Required: No Beliefs That Will Affect Care: None marital status: Current Living Situation: Spouse current occupational status: retired Feels Safe at Home: Yes Seatbelt Use: always Sunscreen Use: No Allergies Allergies Allergy/AdvReac Type Severity Reaction Status Date / Time NSAIDS (Non-Steroidal Allergy Unknown Unknown Verified 01/16/20 23:40 Anti-Inflamma sulindac Allergy Unknown Unknown Verified 01/16/20 23:40 acetaminophen [From Percocet] AdvReac Unknown DISORIENTED Verified 01/16/20 23:40 oxycodone [From Percocet] AdvReac Unknown DISORIENTED Verified 01/16/20 23:40 Home Meds Home Medications Medication Instructions Recorded Confirmed ferrous gluconate 324 mg (38 mg 324 mg PO UD tab 10/20/18 01/16/20 iron) tablet aspirin 81 mg PO QAM 08/28/19 01/16/20 furosemide 20 mg tablet 20 mg PO 3XWK tab 01/03/20 01/16/20 atorvastatin 10 mg PO QAM 01/04/20 01/16/20 cholecalciferol (vitamin D3) 600 mcg PO QAM 01/04/20 01/16/20 loperamide 2 mg PO QID PRN 01/04/20 01/16/20 multivitamin 1 tab PO QPM 01/04/20 01/16/20 omega-3 fatty acids [Fish Oil 1,000 mg PO QPM 01/04/20 01/16/20 Concentrate] Previous Rx's Medication Instructions Recorded tamsulosin 0.4 mg capsule 0.4 mg PO HS #90 cap 03/01/19 metoprolol succinate 50 mg 50 mg PO QAM #90 tab 10/28/19 tablet,extended release 24 hr pramipexole 0.125 mg tablet 0.125 mg PO HS #30 tab 12/21/19 warfarin 5 mg tablet 5 mg PO QPM #90 tab 01/16/20 Results & Data (ED) Vital Signs Vital Signs - 24 hr 01/16/20 22:54 01/17/20 00:04 01/17/20 01:00 Temperature 37.1 C Temperature Source Oral Pulse Rate 94 H 93 H Pulse Rate from SpO2 Sensor 90 96 H Respiratory Rate 18 18 18 Blood Pressure 115/54 L 102/60 133/60 Blood Pressure Mean 74 69 86 Pulse Oximetry 96 96 96 Oxygen Delivery Method Room Air Sepsis Recent Fever Within 48 Hours No Sepsis New/Unexplained Change in Mental Status No Sepsis Action Taken by Nursing No Action Required 01/17/20 01:30 01/17/20 02:00 01/17/20 02:30 Temperature Temperature Source Pulse Rate 97 H 85 98 H Pulse Rate from SpO2 Sensor 100 H 90 107 H Respiratory Rate 18 18 19 Blood Pressure 119/64 112/55 L 106/48 L Blood Pressure Mean 72 71 69 Pulse Oximetry 97 97 97 Oxygen Delivery Method Sepsis Recent Fever Within 48 Hours Sepsis New/Unexplained Change in Mental Status Sepsis Action Taken by Nursing Laboratory Data Result diagrams: 01/16/20 20:34 01/16/20 23:56 Lab Results 01/16/20 01/16/20 Range/Units 20:34 23:56 WBC 5.09 (4.8-10.8) K/uL RBC 3.15 L (4.7-6.1) M/uL Hgb 10.3 L (14.0-18.0) g/dL Hct 29.8 L (42-52) % MCV 94.6 (80-100) fL MCH 32.7 (25-34) pg MCHC 34.6 (32-36) g/dL RDW Std Deviation 54.1 H (36.4-46.3) fL RDW Coeff of Jaziel 16.0 H (11.5-14.5) % Plt Count 247 (130-400) K/uL MPV 9.2 (7.4-10.4) fL Immature Gran % (Auto) 0.4 % Neut % (Auto) 65.0 % Lymph % (Auto) 21.0 % Barry % (Auto) 12.4 % Eos % (Auto) 0.6 % Baso % (Auto) 0.6 % Neut # (Auto) 3.31 (1.4-6.5) K/uL Lymph # (Auto) 1.07 L (1.2-3.4) K/uL Barry # (Auto) 0.63 H (0.11-0.59) K/uL Eos # (Auto) 0.03 (0-0.5) K/uL Baso # (Auto) 0.03 (0-0.2) K/uL Immature Gran # (Auto) 0.02 (0.00-0.02) K/uL Sodium 136 (136-145) mmol/L Potassium 3.1 L (3.5-5.1) mmol/L Chloride 106 (98-107) mmol/L Carbon Dioxide 22 (21-32) mmol/L Anion Gap 8.0 (3-11) BUN 19 H (7-18) mg/dl Creatinine 0.89 (0.6-1.4) mg/dl Est Cr Clr Drug Dosing 46.6 ml/min Est GFR ( Amer) 87.9 Est GFR (Non-Af Amer) 75.8 BUN/Creatinine Ratio 21.5 H (10-20) Glucose 120 H (70-99) mg/dl Calcium 7.5 L (8.5-10.1) mg/dl Total Bilirubin 0.6 (0.2-1) mg/dl AST 17 (15-37) U/L ALT 14 (12-78) U/L Alkaline Phosphatase 69 (45-117) U/L Troponin I < 0.015 (0-0.045) ng/ml Total Protein 5.7 L (6.4-8.2) gm/dl Albumin 2.7 L (3.4-5.0) gm/dl Globulin 3.0 (2.5-4.0) gm/dl Albumin/Globulin Ratio 0.9 (0.9-2) TSH 2.080 (0.300-4.500) uIu/ml Administered Medications Sodium Chloride (Nss 1000ml) 1,000 mls @ 125 mls/hr IV .Q8H [id number] Stop: 01/17/20 06:59 Last Admin: 01/17/20 00:18 Dose: 125 mls/hr Documented by: [id number] Discontinued Medications Sodium Chloride (Nss 1000ml) 500 mls @ 999 mls/hr IV .Q31M ONE Stop: 01/17/20 00:02 Last Infusion: 01/17/20 00:36 Dose: 0 mls/hr Documented by: [id number] Admin: 01/17/20 00:05 Dose: 999 mls/hr Documented by: [id number] Discharge Plan Visit Data Chief Complaint: Diarrhea Stated Complaint: WEKANESS, DIARRHEA ED Provider: Maco Acosta Discharge Problem: Diarrhea, Generalized weakness, Enteritis, Metastatic colon cancer to liver Forms Stand Alone Forms: My [facility] [employer] Prescriptions Prescriptions: No Action tamsulosin 0.4 mg capsule 0.4 mg PO HS Qty: 90 RF: 3 metoprolol succinate 50 mg tablet extended release 24 hr 50 mg PO QAM Qty: 90 RF: 1 pramipexole 0.125 mg tablet 0.125 mg PO HS Qty: 30 RF: 5 warfarin [Jantoven] 5 mg tablet 5 mg PO QPM Qty: 90 RF: 3 ferrous gluconate 324 mg (38 mg iron) tablet 324 mg PO UD RF: 0 furosemide 20 mg tablet 20 mg PO 3XWK RF: 0 aspirin 81 mg Tablet,Delayed Release (Dr/Ec) 81 mg PO QAM RF: 0 atorvastatin 10 mg tablet 10 mg PO QAM RF: 0 cholecalciferol (vitamin D3) 10 mcg (400 unit) capsule 600 mcg PO QAM RF: 0 multivitamin Tablet 1 tab PO QPM RF: 0 omega-3 fatty acids [Fish Oil Concentrate] 1,000 mg capsule 1,000 mg PO QPM RF: 0 loperamide 2 mg Capsule 2 mg PO QID PRN (Reason: Diarrhea) RF: 0 Referrals Referrals: Ozzie Zuniga MD [Primary Care Provider] -
[2020-01-17 00:10] LABS: Basophils # (auto) 0.03 K/uL (0-0.2); Basophils % (auto) 0.6 %; Eosinophils # (auto) 0.03 K/uL (0-0.5); Eosinophils % (auto) 0.6 %; Hematocrit (blood only) 29.8 % (42-52); Hemoglobin 10.3 g/dL (14.0-18.0); Immature Granulocytes # (auto) 0.02 K/uL (0.00-0.02); Immature Granulocytes % (auto) 0.4 %; Lymphocytes # (auto) 1.07 K/uL (1.2-3.4); Mean Corpuscular Hemoglobin 32.7 pg (25-34); Mean Corpuscular Hgb Conc 34.6 g/dL (32-36); Mean Corpuscular Volume 94.6 fL (80-100); Mean Platelet Volume 9.2 fL (7.4-10.4); Monocytes # (auto) 0.63 K/uL (0.11-0.59); Monocytes % (auto) 12.4 %; Neutrophils # (auto) 3.31 K/uL (1.4-6.5); Platelet Count 247 K/uL (130-400); RDW Standard Deviation 54.1 fL (36.4-46.3); Red Blood Count 3.15 M/uL (4.7-6.1); White Blood Count 5.09 K/uL (4.8-10.8)
[2020-01-17 00:28] LABS: Alanine Aminotransferase 14 U/L (12-78); Albumin Level 2.7 gm/dl (3.4-5.0); Aspartate Aminotransferase 17 U/L (15-37); BUN Creatinine Ratio 21.5 (10-20); Blood Urea Nitrogen 19 mg/dl (7-18); Calcium 7.5 mg/dl (8.5-10.1); Carbon Dioxide 22 mmol/L (21-32); Chloride 106 mmol/L (98-107); Creatinine Clr Calc Pharmacy 46.6 ml/min; Est GFR (African American) 87.9; Est GFR (Non-African American) 75.8; Glucose 120 mg/dl (70-99); Potassium 3.1 mmol/L (3.5-5.1); Sodium 136 mmol/L (136-145)
[2020-01-17 00:38] LABS: Albumin Globulin Ratio 0.9 (0.9-2); Alkaline Phosphatase 69 U/L (45-117); Bilirubin,Total 0.6 mg/dl (0.2-1); Total Protein 5.7 gm/dl (6.4-8.2); Troponin I < 0.015 ng/ml (0-0.045)
--- NOTE | 2020-01-17 03:02 | History & Physical Report ---
Date of Service January 17, 2020 Assessment & Plan (1) Diarrhea: 89yo male with metastatic colon cancer s/p right hemicolectomy on chemotherapy presenting with diarrhea, subjective fevers, enteritis suggested on CT imaging. Patient presently afebrile, HD stable, non-toxic in appearance. Abdominal exam is benign. -Observation to medical floor -Check C. diff, stool culture -Hold Immodium for now -IVF and electrolyte repletion -Hematology/Onc consultation appreciated Present on Admission?: Yes (2) Atrial fibrillation: Rate controlled. Patient anticoagulated with warfarin. -Continue Metoprolol 50mg po dialy -Continue Coumadin 5mg po qPM -Check INR Present on Admission?: Yes (3) Anemia: Normochromic/normocytic. Near baseline. Hgb=10.3, Hct=29.8. No active bleeding -Continue iron supplement -Continue to monitor Present on Admission?: Yes (4) Adenocarcinoma of colon: As above. Patient follows with Heme/Onc, currently on chemotherapy -Heme/Onc consultation appreciated Present on Admission?: Yes (5) Hyperlipidemia: Chronic. -Continue Atorvastatin -Fish oil Present on Admission?: Yes (6) Benign hypertension: Blood pressure well controlled at present -Continue Metoprolol -Continue to monitor F/E/N - NSS at 80mL/hr = KCl 20mEq, monitor potassium, check Mg/PO4 x 1, regular diet as tolerated Ppx - Continue Coumadin, check INR Code - DNR/DNI per discussion with patient Dispo - Observation to medical floor Present on Admission?: Yes History of Present Illness Chief Complaint: Diarrhea Primary Care Provider: Pop Zuniga MD Austin Chao is an 89yo C male with history of metastatic colon cancer on chemotherapy, following with Dr. Bartlett. Patient presents with worsening diarrhea and weakness, subjective fevers reported over the last two days. Patient states he has had watery BMs, non-bloody. No abdominal pain. No bloating. No chest pain/SOB/cough/nausea. Patient reports poor po intake and decreased appetite. No additional complaints at this time. ER Course: NSS x 1500mL Allergies Allergy/AdvReac Type Severity Reaction Status Date / Time NSAIDS (Non-Steroidal Allergy Unknown Unknown Verified 01/16/20 23:40 Anti-Inflamma sulindac Allergy Unknown Unknown Verified 01/16/20 23:40 acetaminophen [From Percocet] AdvReac Unknown DISORIENTED Verified 01/16/20 23:40 oxycodone [From Percocet] AdvReac Unknown DISORIENTED Verified 01/16/20 23:40 Home Medications Home Medications Medication Instructions Recorded Confirmed Type ferrous gluconate 324 mg (38 mg 324 mg PO UD tab 10/20/18 01/16/20 History iron) tablet tamsulosin 0.4 mg capsule 0.4 mg PO HS #90 cap 03/01/19 01/16/20 Rx aspirin 81 mg PO QAM 08/28/19 01/16/20 History metoprolol succinate 50 mg 50 mg PO QAM #90 tab 10/28/19 01/16/20 Rx tablet,extended release 24 hr pramipexole 0.125 mg tablet 0.125 mg PO HS #30 tab 12/21/19 01/16/20 Rx furosemide 20 mg tablet 20 mg PO 3XWK tab 01/03/20 01/16/20 History atorvastatin 10 mg PO QAM 01/04/20 01/16/20 History cholecalciferol (vitamin D3) 600 mcg PO QAM 01/04/20 01/16/20 History loperamide 2 mg PO QID PRN 01/04/20 01/16/20 History multivitamin 1 tab PO QPM 01/04/20 01/16/20 History omega-3 fatty acids [Fish Oil 1,000 mg PO QPM 01/04/20 01/16/20 History Concentrate] warfarin 5 mg tablet 5 mg PO QPM #90 tab 01/16/20 01/16/20 Rx Past Med/Surg History Medical History (Updated 01/17/20 @ 02:58 by Ju Aj DO) Anemia Arthritis Atrial fibrillation Chronic/rate controlled- on Warfarin Basal cell carcinoma of face Carotid stenosis s/p left CEA Change in bowel habits CHF (congestive heart failure) Dysplastic nevus Enlarged prostate Hearing loss Hypercholesterolemia Hypertension Left inguinal hernia Restless leg syndrome Seborrheic keratosis Segmental and somatic dysfunction of thoracic region Speech disorder Surgical History H/O hemicolectomy (09/01/19) Right Open Hemicolectomy Dr. 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); Hx Alcohol Use: No Hx Substance Use: No Preferred Language: Ukrainian Communication Ability: Effective Hearing Ability: Use of Hearing Aid Education Program Manager Required: No Beliefs That Will Affect Care: None marital status: Current Living Situation: Spouse current occupational status: retired Feels Safe at Home: Yes Seatbelt Use: always Sunscreen Use: No Review of Systems Review of Systems: All systems reviewed & are unremarkable except as noted in HPI & below Physical Exam Physical Exam: General: patient resting comfortably, NAD, non-toxic in appearance, AA&O x 4, frail elderly patient Skin: warm, dry, intact, no rashes or lesions HEENT: NC/AT, PERRL, EOMI, anicteric sclera, conjunctiva without injection, external ear normal to inspection and nontender, nares patent, dry mucus membranes, dentition intact, no oropharyngeal lesions, neck supple, trachea midline, no LAD, no thyromegaly, no JVD Heart: +S1/S2, regular, 3/6 KELLEN across precordium, left chest wall port, nontender Lungs: equal air entry bilaterally, no rales/rhonchi/wheezes Abd: +BS hyperactive, soft, NT/ND, no masses/organomegaly/ascites Ext: warm, 2+ pulses in UE/LE bilaterally, no clubbing/cyanosis or edema Neuro: nonfocal, patient AA&O x 4, speech intact, no facial droop, moving all extremities on command with equal strength 5/5 Results & Data Results & Data ([facility]) Vital Signs (Past 12 Hours) Vital Signs Temp Pulse Resp BP Pulse Ox 01/17/20 01:00 18 133/60 96 01/17/20 00:04 93 H 18 102/60 96 01/16/20 22:54 37.1 C 94 H 18 115/54 L 96 Laboratory Results Lab Results 08/24/20 08/24/20 Range/Units 20:34 23:56 WBC 5.09 (4.8-10.8) K/uL RBC 3.15 L (4.7-6.1) M/uL Hgb 10.3 L (14.0-18.0) g/dL Hct 29.8 L (42-52) % MCV 94.6 (80-100) fL MCH 32.7 (25-34) pg MCHC 34.6 (32-36) g/dL RDW Std Deviation 54.1 H (36.4-46.3) fL RDW Coeff of Jaziel 16.0 H (11.5-14.5) % Plt Count 247 (130-400) K/uL MPV 9.2 (7.4-10.4) fL Immature Gran % (Auto) 0.4 % Neut % (Auto) 65.0 % Lymph % (Auto) 21.0 % [place] % (Auto) 12.4 % Eos % (Auto) 0.6 % Baso % (Auto) 0.6 % Neut # (Auto) 3.31 (1.4-6.5) K/uL Lymph # (Auto) 1.07 L (1.2-3.4) K/uL [place] # (Auto) 0.63 H (0.11-0.59) K/uL Eos # (Auto) 0.03 (0-0.5) K/uL Baso # (Auto) 0.03 (0-0.2) K/uL Immature Gran # (Auto) 0.02 (0.00-0.02) K/uL Sodium 136 (136-145) mmol/L Potassium 3.1 L (3.5-5.1) mmol/L Chloride 106 (98-107) mmol/L Carbon Dioxide 22 (21-32) mmol/L Anion Gap 8.0 (3-11) BUN 19 H (7-18) mg/dl Creatinine 0.89 (0.6-1.4) mg/dl Est Cr Clr Drug Dosing 46.6 ml/min Est GFR ( Amer) 87.9 Est GFR (Non-Af Amer) 75.8 BUN/Creatinine Ratio 21.5 H (10-20) Glucose 120 H (70-99) mg/dl Calcium 7.5 L (8.5-10.1) mg/dl Total Bilirubin 0.6 (0.2-1) mg/dl AST 17 (15-37) U/L ALT 14 (12-78) U/L Alkaline Phosphatase 69 (45-117) U/L Troponin I < 0.015 (0-0.045) ng/ml Total Protein 5.7 L (6.4-8.2) gm/dl Albumin 2.7 L (3.4-5.0) gm/dl Globulin 3.0 (2.5-4.0) gm/dl Albumin/Globulin Ratio 0.9 (0.9-2) TSH 2.080 (0.300-4.500) uIu/ml Diagnostic Findings CT Abdomen and Pelvis without contrast: Comparison made to CT 08/28/19 - Per STAT-rad: Fluid in the colon is suggestive of diarrheal state. Prominent fluid and gas-filled small bowel loops with wall thickening of the ileal small bowel, concerning for enteritis. Portion of small bowel within a left inguinal hernia. Increased, new/extensive hepatic metastases. Distended gallbladder. No defini te calcified gallstones. No hydronephrosis or stone. Nonspecific prominent mesenteric lymph nodes. Trace ascites. Post surgical changes of the right colon. Atherosclerotic changes of the vasculature. No aortic aneurysm. Prostamegaly. Mild bibasilar atelectasis ECG Additional Comments: AF at 93, no acute ischemic changes Code Status & VTE Plan VTE Prophylaxis Plan VTE Prophylaxis will be ordered: Yes PG Care Time/CCT Total # of Minutes Spent Total Time Spent with Patient: Total time spent is greater than 50% in coordination of care (as documented) at patient's floor/unit and/or counseling patient: Coding Level of Care Code 53714 OBS Care - Level 3 Diagnoses Diarrhea R19.7 Diarrhea type: unspecified type Atrial fibrillation I48.91 Atrial fibrillation type: unspecified Anemia D64.9 Anemia type: unspecified type Adenocarcinoma of colon C18.9 Hyperlipidemia E78.5 Hyperlipidemia type: unspecified Benign hypertension I10 (1) Atrial fibrillation Atrial fibrillation type: unspecified Qualified Code(s): I48.91 - Unspecified atrial fibrillation (2) Anemia Anemia type: unspecified type Qualified Code(s): D64.9 - Anemia, unspecified (3) Hyperlipidemia Hyperlipidemia type: unspecified Qualified Code(s): E78.5 - Hyperlipidemia, unspecified (4) Diarrhea Diarrhea type: unspecified type Qualified Code(s): R19.7 - Diarrhea, unspecified
[2020-01-17 04:07] LABS: Appearance Urine Clear (Clear); Bacteria Urine Automated Negative (Negative); Bilirubin Urine Negative (Negative); Blood Urine 3+ (Negative); Color Urine Yellow; Glucose Urine UA Negative (Negative); Ketones Urine 1+ (Negative); Leukocyte Esterase Urine Negative (Negative); Nitrite Urine Negative (Negative); Protein Urine Trace (Negative); Specific Gravity Urine 1.022 (1.000-1.030); Urobilinogen Urine Negative (Negative)
[2020-01-17 04:44] LABS: Magnesium 1.6 mg/dl (1.8-2.4); Phosphorus 2.4 mg/dl (2.5-4.9)
[2020-01-17] MEDS: NSS + 20MEQ KCL 20 MEQ/1,000 ML BAG IV SCH ×2 (05:20→16:55)
--- NOTE | 2020-01-17 07:21 | CT Scan Report ---
CT OF THE ABDOMEN AND PELVIS WITHOUT CONTRAST CLINICAL HISTORY: diarrhea, fever, colon CA COMPARISON STUDY: CT of the abdomen and pelvis August 24, 2019. PET/CT October 31, 2019. TECHNIQUE: Axial images of the abdomen and pelvis were obtained without IV contrast. Images were revi ewed in the axial, sagittal, and coronal planes. Automated exposure control was utilized for the iva dy. A dose lowering technique was utilized adhering to the principles of ALARA. FINDINGS: No pneumatosis, free air or portal venous gas is present. Evaluation of the abdomen and pel vis is suboptimal on this unenhanced examination. Innumerable hepatic metastases are noted. These steven sure up to 4.6 cm. Although suboptimally assessed on this unenhanced exam, these have likely increase d since PET/CT of October 31, 2019. Unenhanced images of the spleen, adrenal glands, kidneys and pancreas are unremarkable. There is no hydronephrosis. Moderate to marked gallbladder distention is noted. A loop of small bowel within a left internal hernia is noted. This does not result in a bowel obstructi on. Small large bowel is fluid-filled. Several right lower quadrant small bowel loops demonstrate wal l thickening. Postoperative findings within the right colon are noted. Multiple peritoneal nodules ar e again noted. There are no suspicious osseous lesions. There is mild mesenteric infiltration. There is no abscess. IMPRESSION: 1. Fluid-filled small and large bowel suggestive of a diarrheal state. Moderate wall thickening of se veral small bowel loops which represents a nonspecific enteritis. Mild mesenteric infiltration. 2. Left inguinal hernia which contains a loop of small bowel. No bowel obstruction. 3. Extensive hepatic metastases, likely increased since PET/CT of October 31, 2019. Redemonstration of pe ritoneal implants. 4. Moderate to marked gallbladder distention. If suspicion for acute cholecystitis, a hepatobiliary s can could be obtained. ACT 112: Negative or not required by law. Electronically signed by: Ramon Cabrera M.D. 01/17/2020 7:19 AM
--- NOTE | 2020-01-17 07:57 | XRay Report ---
XR chest 1V portable CLINICAL HISTORY: weakness COMPARISON STUDY: 01/09/2020 FINDINGS: There is a left-sided A-Port catheter present. The cardiac and mediastinal contours remain stable. There is no failure. There is no focal pulmonary consolidation. There are no pleural effusion s.[ IMPRESSION: No active disease in the chest. ACT 112: Negative or not required by law. Electronically signed by: Sunil Lewis M.D. 01/17/2020 7:55 AM
[2020-01-17] MEDS: CHOLECALCIFEROL (VITAMIN D) 400 UNITS TABLET PO SCH (08:27)
[2020-01-17] MEDS: METOPROLOL SUCC 50MG EXT REL TAB PO SCH (08:31)
[2020-01-17] MEDS: ASPIRIN 81 MG ECTAB PO SCH (08:31)
[2020-01-17] MEDS: ATORVASTATIN 10 MG TAB PO SCH (08:31)
[2020-01-17] MEDS: FERROUS GLUCONATE 324 MG TAB PO SCH ×2 (08:31→17:16)
--- NOTE | 2020-01-17 08:43 | Electrocardiogram Report ---
Test Reason : Blood Pressure : / mmHG Vent. Rate : 093 BPM Atrial Rate : 110 BPM P-R Int : 000 ms QRS Dur : 080 ms QT Int : 346 ms P-R-T Axes : 000 -06 050 degrees QTc Int : 430 ms Atrial fibrillation Abnormal ECG When compared with ECG of 28-AUG-2019 15:45, No significant change was found Confirmed by Alon Lynch ([id number]) on 01/17/2020 8:43:17 AM Referred By: Yusef Bartlett Confirmed By:Alon Lynch
--- NOTE | 2020-01-17 09:05 | Consultation Report ---
DATE OF CONSULTATION: 01/17/2020 MEDICAL ONCOLOGY CONSULTATION REASON FOR CONSULTATION: Intractable diarrhea in an 89-year-old gentleman with metastatic colorectal cancer. HISTORY OF PRESENT ILLNESS: The patient is a pleasant 89-year-old gentleman well known to [facility], currently under my care, receiving high-dose 5-FU, leucovorin a salvage for metastatic colorectal cancer. I had gotten multiple calls throughout the weekend and then last night from his , the patient was battling diarrhea. We actually had him in the office yesterday to fluid resuscitate him. Actually prescribed Lomotil, which unfortunately was not available at his local pharmacy. She called me again last night reporting low grade fever and thus recommended he come to the Emergency Room. He underwent a CT scan of the abdomen and pelvis which reveals fluid within his bowel and nonspecific enteritis findings. Additionally, radiologist suggests his hepatic disease has progressed despite our efforts. The patient was diagnosed with metastatic colorectal cancer in early August when he had presented with subacute onset abdominal pain with associated nausea and vomiting. CT scan at that time had revealed a cecal mass involving the ileocecal valve with resultant partial bowel obstruction. Hepatic mets are also seen at that time. Dr. Valdes was consulted and recommended right hemicolectomy for palliation. Surgery was completed on 09/02/2019. Pathology confirmed a moderately differentiated adenocarcinoma extending through the bowel wall (T4) and 6 of 24 lymph nodes contained metastatic cancer. His CEA was also 5.3 at diagnosis. The patient and his went back and forth for a while debating salvage chemotherapy. He was concerned with effect on his life quality and thus crafted a therapeutic plan that I thought he would tolerate. Instead of giving the standard FOLFOX with a targeted therapy decided to proceed with high-dose 5-FU and leucovorin, which most patients tolerate quite well. Three doses of 6 to be administered were given. He was due to resume chemotherapy this coming . Obviously in light of recent clinical events, chemotherapy will be on hold and I suspect the patient and his may decide to seek palliation from here on out. PAST MEDICAL HISTORY: Significant for osteoarthritis, atrial fibrillation, basal cell carcinoma of the skin, carotid stenosis, CHF, BPH, hypercholesterolemia, left inguinal hernia, seborrheic keratoses. PAST SURGICAL HISTORY: Hemicolectomy, history of colonoscopy, hernia repair, left sided carotid endarterectomy, prior ablation treatment and thyroid surgery. MEDICATIONS: Prior to admission include warfarin 5 mg p.o. daily, omega 3 fatty acid fish oil 1000 mg p.o. daily, multivitamin 1 tablet p.o. daily, loperamide 2 mg p.o. q.i.d. p.r.n., vitamin D3 600 mcg p.o. daily, atorvastatin 10 mg p.o. daily, furosemide 20 mg 3 times weekly, pramipexole 0.125 mg p.o. at bedtime, metoprolol 50 mg p.o. daily, aspirin 81 mg p.o. daily, Flomax 0.4 mg p.o. daily, ferrous gluconate 325 mg p.o. daily. ALLERGIES: OXYCODONE, ACETAMINOPHEN, SULINDAC, AND NONSTEROIDAL ANTI-INFLAMMATORIES in general. FAMILY HISTORY: Father suffered from heart disease and diabetes mellitus and an aunt with history of colorectal cancer and an uncle with history of colorectal cancer. REVIEW OF SYSTEMS: Positive for asthenia, poor appetite, profuse watery diarrhea and low-grade fever. SKIN: No rashes or lesions presently. History of basal cell carcinoma. HEENT: Denies headaches, lightheadedness or dizziness. No visual or hearing deficits. No sinus symptoms, sore throat or dysphagia. LYMPH: No history of lymphoproliferative disease. CARDIAC: History of CHF. No current angina or palpitations. PULMONARY: Negative for COPD. No shortness of breath, dyspnea or orthopnea. No cough or hemoptysis. GASTROINTESTINAL: Positive for crampy abdominal pain, mostly in the periumbilical area. Positive for diarrhea. GENITOURINARY: Positive for BPH. No current hematuria or dysuria. PSYCHIATRIC: Negative for anxiety, depression or psychoses. ENDOCRINE: Negative for diabetes or thyroid disease. NEUROLOGIC: Negative for seizure, stroke, or migraine headache. MUSCULOSKELETAL: No focal muscle weakness. Positive for history of osteoarthritis. HEMATOLOGIC: Positive for mild cytopenias attributable to chemotherapeutic effect. PHYSICAL EXAMINATION: GENERAL: Very pleasant, ill-appearing 89-year-old gentleman, awake, alert and appropriate, in no acute distress. VITAL SIGNS: Temperature 37, pulse 106, respiratory rate 20, blood pressure 116/62. SKIN: Without rash or lesion. HEENT: Head is atraumatic, normocephalic. Eyes: PERRLA, EOMI. Nares patent without rhinorrhea or discharge. Throat clear. Tongue midline. Mucous membranes are moist. NECK: Supple. HEART: Regular rate and rhythm. LUNGS: Clear to auscultation bilaterally. ABDOMEN: Soft, nontender, nondistended. Bowel sounds are hyperactive. No rigidity or guarding. EXTREMITIES: No clubbing, cyanosis or edema. MUSCULOSKELETAL: Strength and pulses are equal in all 4 quadrants. NEUROLOGICALLY: He is awake, alert and oriented x3. Cranial nerves are grossly intact. LABORATORY DATA: WBC count 5090, hemoglobin 10.3, platelet count 247,000. Sodium 136, potassium 3.1, chloride 106, carbon dioxide 22, BUN 19, creatinine 0.89, glucose 120, calcium 7.5, phosphorus 2.4, magnesium 1.6, albumin 2.7. Urinalysis reveals 3+ positive blood. IMPRESSION: 1. Intractable watery diarrhea, attributable to 5-FU effect. 2. Electrolyte dysfunction, hypomagnesemia, hypophosphatemia, hypokalemia. 3. Metastatic colorectal cancer. 4. Hypoalbuminemia. 5. Microhematuria. PLAN: In summary, the patient is a pleasant 89-year-old gentleman who was diagnosed with metastatic colorectal cancer in August, had a very good performance status at the onset of chemotherapy. The patient and his engaged in lengthy discussion regarding treatment moving forward. The patient and his fully understood well the intent of treatment was not curative, but it is my hope that we would extend his life while maintaining quality. We debated on rather to use the traditional combination of FOLFOX versus high-dose 5-FU and leucovorin and the latter being more tolerable. Unfortunately, in the patient's case, the clinical circumstance has not worked out that way. 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 Usually with DPD deficiency; however, profound myelosuppression also accompanies other somatic symptomatology. That said, I suspect the patient and his will most likely opt for palliation. Should he decide to proceed with chemotherapy, plans are underway for a 20% dose reduction moving forward. The patient's CT scan of the abdomen and pelvis also suggest that his disease may be progressing despite our efforts. We will engage in lengthy discussion regarding long-term goals. I would not be against hospice consultation at least to engage in discussion while the patient is in house. We will continue to follow him during his hospital stay. Replace electrolytes as clinically indicated.
[2020-01-17 12:06] LABS: INR > 9.7 (0.9-1.1); Prothrombin Time > 90.0 Seconds (9.0-12.0)
[2020-01-17] MEDS ORDERED: PHYTONADIONE 5 MG TAB PO STA (12:13)
[2020-01-17 13:38] LABS: Calcium 7.5 mg/dl (8.5-10.1); Creatinine Clr Calc Pharmacy 52.1 ml/min; Est GFR (African American) 93.8; Est GFR (Non-African American) 80.9; Magnesium 1.7 mg/dl (1.8-2.4); Potassium 3.2 mmol/L (3.5-5.1)
[2020-01-17 13:39] LABS: Phosphorus 1.9 mg/dl (2.5-4.9)
[2020-01-17] MEDS ORDERED: POTASSIUM PHOS 3 MMOL/1 ML INFUSION IV STA (13:57)
--- NOTE | 2020-01-17 14:05 | Hospitalist Progress Note ---
Date of Service January 17, 2020 Assessment & Plan (1) Diarrhea: - C. diff neg, stool culture pending -Hold Immodium for now -IVF and electrolyte repletion Spoke with Dr. Bartlett this AM. He states that is is unlikely that pt's current chemo caused his diarrhea, however it is possible in the setting of an enzyme defiiciency Pt apparently initially declined chemo on original dx, however recently decided to try. This was his 3rd round of chemo Next chemo is due on , planning to hold per Dr. Bartlett Pt states he is not certain if wants to continue with chemo or not, but is not fully ruling this out and will discuss with Dr. Bartlett (2) Atrial fibrillation: Rate controlled. Patient anticoagulated with warfarin. -Continue Metoprolol 50mg po dialy INR at 9.7 today, likely related to above No s/sx of bleeding Current recs for INR <10 and no active bleeding is vit K PO 2.5mg and NO FFP If pt develops bleeding, will need to add FFP Monitor (3) Anemia: Normochromic/normocytic. Near baseline. Hgb=10.3, Hct=29.8. No active bleeding -Continue iron supplement -Continue to monitor (4) Adenocarcinoma of colon: As above. Patient follows with Heme/Onc, currently on chemotherapy -Heme/Onc consultation appreciated (5) Hyperlipidemia: Chronic. -Continue Atorvastatin -Fish oil (6) Benign hypertension: Blood pressure well controlled at present -Continue Metoprolol -Continue to monitor Ppx - SCDs only given elevated INR Code - DNR/DNI per discussion with patient (7) Hypokalemia: Noted on admission, with hypoMg and hypoPhos Rechecked at 1p and ongoing deficiencies Replace and monitor Admission and Anticipated Discharge Date Admission Date: January 17, 2020 Subjective Pt states he is still having diarrhea, but it is less. He has an episode about once every 2 hours now and less volume. He is still getting cramping abd pain at times, but less. He was able to tolerate PO without issue. No blood in stool or on tissue. No signs of bleeding. Review of Systems Review of Systems: Pertinent positives and negatives reviewed in HPI--all others negative Physical Exam Constitutional: WD/WN, vitals as above Eyes: normal visual kim by confrontation and + anicteric sclerae Neck: normal visual inspection and trachea midline Respiratory: normal respiratory effort, lungs clear to auscultation Cardiovascular: Rate/Rhythm: regular rate and regular rhythm Gastrointestinal (Abdomen): Inspection/Auscultation: abdomen not distended Percussion/Palpation: + abdomen tender (diffuse) and abdomen soft Musculoskeletal: Head/Neck/Chest: normocephalic and head atraumatic negative for edema, peripheral pulses intact Skin: no rashes, warm and dry Neurologic: awake; not confused Speech / Cognition: normal speech Psychiatric: A+Ox3, euthymic affect Results & Data Results & Data ([facility]) Vital Signs (Past 12 Hours) Vital Signs Temp Pulse Pulse Resp BP BP Pulse Ox 01/17/20 07:25 37 C 106 H 20 116/62 95 01/17/20 04:05 37.1 C 86 18 118/72 97 01/17/20 03:30 95 H 27 H 119/64 97 01/17/20 03:00 92 H 24 120/51 L 96 01/17/20 02:30 98 H 19 106/48 L 97 01/17/20 02:00 85 18 112/55 L 97 PG Care Time/CCT Total # of Minutes Spent Total Time Spent with Patient: Total time spent is greater than 50% in coordination of care (as documented) at patient's floor/unit and/or counseling patient: Coding Level of Care Code 32198 Subseq Hosp Care Lvl 3 Diagnoses Diarrhea R19.7 Atrial fibrillation I48.91 Atrial fibrillation type: unspecified Anemia D64.9 Anemia type: unspecified type Adenocarcinoma of colon C18.9 Hyperlipidemia E78.5 Hyperlipidemia type: unspecified Benign hypertension I10 Hypokalemia E87.6 (1) Atrial fibrillation Atrial fibrillation type: unspecified Qualified Code(s): I48.91 - Unspecified atrial fibrillation (2) Anemia Anemia type: unspecified type Qualified Code(s): D64.9 - Anemia, unspecified (3) Hyperlipidemia Hyperlipidemia type: unspecified Qualified Code(s): E78.5 - Hyperlipidemia, unspecified
[2020-01-17] MEDS: MAGNESIUM SULFATE / D5W 1 GM/100 ML BAG IV SCH ×2 (14:49→16:55)
[2020-01-17] MEDS ORDERED: WARFARIN SOD 5 MG TAB PO SCH (16:00)
[2020-01-17] MEDS ORDERED: POTASSIUM PHOSPHATE 30 MMOL in SODIUM CHLORIDE 0.9% 500 ML IV ONE (16:00)
[2020-01-17] MEDS: PRAMIPEXOLE DIHYDROCHLO 0.25 MG TAB PO SCH (21:31)
[2020-01-17] MEDS: MULTIVITAMIN TAB PO SCH (21:31)
[2020-01-17] MEDS: OMEGA-3 (PURIFIED FISH OIL) 1 GM CAP PO SCH (21:31)
[2020-01-17] MEDS: TAMSULOSIN HCL 0.4 MG CAP PO SCH (21:31)
[2020-01-17] MEDS: ACETAMINOPHEN 325 MG TAB PO PRN (23:19)
[2020-01-18] MEDS: HEPARIN 100 UNIT/ML 5ML FLUSH FLUSH PRN ×2 (04:55→07:44)
[2020-01-18 08:16] LABS: Basophils # (auto) 0.05 K/uL (0-0.2); Basophils % (auto) 0.9 %; Eosinophils # (auto) 0.03 K/uL (0-0.5); Eosinophils % (auto) 0.5 %; Hematocrit (blood only) 27.7 % (42-52); Hemoglobin 9.4 g/dL (14.0-18.0); Immature Granulocytes # (auto) 0.01 K/uL (0.00-0.02); Immature Granulocytes % (auto) 0.2 %; Lymphocytes % (auto) 15.5 %; Mean Corpuscular Hemoglobin 32.5 pg (25-34); Mean Corpuscular Hgb Conc 33.9 g/dL (32-36); Mean Corpuscular Volume 95.8 fL (80-100); Mean Platelet Volume 8.9 fL (7.4-10.4); Monocytes # (auto) 0.84 K/uL (0.11-0.59); Monocytes % (auto) 14.5 %; Neutrophils # (auto) 3.98 K/uL (1.4-6.5); Neutrophils % (auto) 68.4 %; Platelet Count 264 K/uL (130-400); RDW Coefficient of Variation 16.4 % (11.5-14.5); RDW Standard Deviation 56.1 fL (36.4-46.3); Red Blood Count 2.89 M/uL (4.7-6.1); White Blood Count 5.81 K/uL (4.8-10.8)
[2020-01-18] MEDS: CHOLECALCIFEROL (VITAMIN D) 400 UNITS TABLET PO SCH (08:24)
[2020-01-18] MEDS: ATORVASTATIN 10 MG TAB PO SCH (08:24)
[2020-01-18] MEDS: METOPROLOL SUCC 50MG EXT REL TAB PO SCH (08:24)
[2020-01-18] MEDS: ASPIRIN 81 MG ECTAB PO SCH (08:24)
[2020-01-18 08:40] LABS: BUN Creatinine Ratio 26.2 (10-20); Calcium 7.4 mg/dl (8.5-10.1); Creatinine Clr Calc Pharmacy 55.8 ml/min; Est GFR (African American) 96.4; Est GFR (Non-African American) 83.2; Magnesium 2.3 mg/dl (1.8-2.4); Potassium 3.2 mmol/L (3.5-5.1)
[2020-01-18] MEDS ORDERED: POTASSIUM CHLORIDE 20 MEQ TABCR PO SCH (09:30)
[2020-01-18 09:37] LABS: Prothrombin Time > 90.0 Seconds (9.0-12.0)
[2020-01-18 09:42] LABS: INR > 9.7 (0.9-1.1)
[2020-01-18] MEDS ORDERED: PHYTONADIONE 2.5 MG in SODIUM CHLORIDE 0.9% 50 ML IV ONE ×2 (10:00→14:45)
[2020-01-18] MEDS ORDERED: MoRPHine SULFATE 2 MG/ML CARP IV STA (14:23)
[2020-01-18] MEDS ORDERED: PANTOPRAZOLE BOLUS/DRIP 1 EA IV STA (14:23)
[2020-01-18] MEDS ORDERED: PANTOprazole 80 MG in DEXTROSE 5% 100 ML IV ONE (14:35)
[2020-01-18] MEDS ORDERED: IOVERSOL 100ml IV ONE (15:05)
--- NOTE | 2020-01-18 15:28 | CT Scan Report ---
CT SCAN OF THE ABDOMEN AND PELVIS WITH IV CONTRAST CLINICAL HISTORY: Generalized abdominal pain. Colorectal carcinoma. COMPARISON STUDY: Abdominal CT dated 01/17/2020. PET CT dated 10/31/2019. TECHNIQUE: Following the IV administration of 93 cc of Optiray 320, CT scan of the abdomen and pelvi s is performed from the lung bases to the proximal femora. Images are reviewed in the axial, sagittal , and coronal planes. IV contrast was administered without complication. A dose lowering technique wa s utilized adhering to the principles of ALARA. CT DOSE: 267.37 mGy.cm FINDINGS: Lung bases: The heart is mildly enlarged and without pericardial effusion. There are coronary artery calcifications. There is elevation of the left hemidiaphragm and bibasilar atelectasis. No airspace c onsolidation or pleural effusion is identified. Liver: The contrast-enhanced liver is normal in size, contour, and attenuation. Multifocal hepatic me tastatic disease has not appreciably changed from yesterday. Lesions measure up to 3.6 cm in diameter . There is no intrahepatic biliary ductal dilatation. The hepatic veins and portal veins are patent. Gallbladder: The gallbladder is distended but otherwise normal in appearance. Spleen: Normal in size and attenuation. Pancreas: Moderately atrophic and grossly unremarkable. Adrenal glands: Unremarkable. Kidneys: The contrast enhanced kidneys are normal in size and without hydronephrosis. The kidneys enh ance symmetrically. Abdominal vasculature: The abdominal aorta is normal in course and caliber noting moderate atheroscle rotic calcification. Bowel: There is postoperative change from right colon resection with ileocolic anastomosis. There are lung segment of thick-walled small bowel with associated mucosal hyperemia and surrounding inflammat ion. [employer] loops are seen in the right midabdomen on image #206 and in the ventral pelvis on image #337. There is no pneumatosis intestinalis or portal venous gas. A left inguinal hernia contai ns a small segment of small bowel. There is no bowel obstruction. The small bowel and colon are fluid -filled. Peritoneum: Findings of peritoneal carcinomatosis are similar to previous. A peritoneal implant in th e left upper quadrant on image #78 measures 2.8 x 1.5 cm. No intraperitoneal free air is seen. Trace free fluid is noted in the pelvis. Lymphadenopathy: None. Pelvic viscera: The prostate gland is enlarged and heterogeneous noting median lobe hypertrophy. The bladder wall is thickened and trabeculated indicating chronic outlet obstruction. A left inguinal her kory contains a small segment of small bowel. Skeletal structures: The skeletal structures are heterogeneously osteopenic. Mild/moderate lumbosacra l spondylosis is observed. No lytic or blastic lesions are seen. IMPRESSION: 1. No significant change from yesterday. 2. The small bowel and colon remain fluid-filled with several thick-walled loops of small bowel ident ified. The appearance suggests a nonspecific enterocolitis and clinical correlation will be required. 3. A left inguinal hernia contains a nonobstructed segment of small bowel. There is no bowel obstruct ion. 4. No intraperitoneal free air is seen. There is no pneumatosis intestinalis or portal venous gas. 5. Again seen are findings of multifocal hepatic metastatic disease as well as peritoneal metastatic disease. 6. Gallbladder distention is similar to previous. 7. Additional findings as above. ACT 112: Negative or not required by law. Electronically signed by: Timur Rios M.D. 01/18/2020 3:27 PM
[2020-01-18] MEDS: NSS + 20MEQ KCL 20 MEQ/1,000 ML BAG IV SCH (15:56)
[2020-01-18] MEDS: PANTOprazole 40 MG in DEXTROSE 5% 100 ML IV SCH ×2 (16:47→21:32)
[2020-01-18 17:33] LABS: INR 3.3 (0.9-1.1); Prothrombin Time 32.4 Seconds (9.0-12.0)
[2020-01-18 18:00] LABS: Hematocrit (blood only) 28.6 % (42-52); Hemoglobin 9.5 g/dL (14.0-18.0)
[2020-01-18] MEDS: MoRPHine SULFATE 2 MG/ML CARP IV PRN (18:44)
[2020-01-18] MEDS: SUCRALFATE 1 GM/10 ML UDC PO SCH ×2 (18:45→21:30)
--- NOTE | 2020-01-18 19:37 | Hospitalist Progress Note ---
Date of Service January 18, 2020 Assessment & Plan (1) Acute GI bleeding: patient with akua melena and heme+ stool. severe coagulopathy from warfarin in the setting of significant liver mets along with chronic aspirin use certainly are his risk factors for GI bleeding. suspect upper GI bleeding given the melena. plan - NPO IV fluids PPI bolus then drip carafate 1gm QID consult Dr Chiang from GI for consideration of EGD reverse coumadin with additional vitamin K; defer on kaycentra if H/H remain stable tonight and BP remains stable INR this afternoon and in am hold aspirin (2) Abdominal pain: likely multifactorial cannot rule out PUD, gastritis, etc leading to GI bleeding has evidence of enterocolitis on CT from admission given his worsening abdominal pain I checked lactate and repeated a CT this afternoon lactate wnl CT with ongoing enterocolitis but no worse than previous; no perforation; no new findings c diff neg stool cx pending making NPO due to GI bleeding and ongoing pain see above (3) Acute blood loss anemia: 2nd to suspected upper GI bleeding serial CBC PPI drip NPO status (4) Enteritis: etiology?? c diff neg stool cx pending viral? other? (5) Benign hypertension: cont metoprolol daily (6) BPH (benign prostatic hyperplasia): cont alpha sharda if BP will allow (7) Atrial fibrillation: reversing coumadin as above rates controlled w/ beta sharda (8) Severe protein-calorie malnutrition: significant weight loss - about 15 kg - since cancer dx (9) Metastatic colon cancer to liver: stage 4 colon ca with worsening metastatic disease to liver ongoing weight loss, failure to thrive, etc check ammonia in am due to liver mets and confusion s/p right hemicolectomy earlier this spring by [facility] surgery follows with [facility] and has received chemo this spring/summer (10) Hypokalemia: replace IV bmp am mag noted to be wnl (11) Metabolic encephalopathy: cause? consider head CT - r/o mets to brain check ammonia in am metabolic from infectious process? (12) Warfarin-induced coagulopathy: severe, with GI bleeding give 5mg of vitamin K additional today repeat INR tonight and in am (13) DVT prophylaxis: SCDs chemical means contraindicated updated at bedside care d/w Dr Chiang - GI Admission and Anticipated Discharge Date Admission Date: January 18, 2020 Subjective patient confused during the visit. reports confusion at home as well. he c/o "the blackest stool I've ever seen." could not tell me when it started, but states she saw melena at home 1-2 days before admission. he takes chronic low-dose aspirin in addition to coumadin. he c/o abdominal pain that comes in waves. he had hard time telling me where the pain was -- initially pointed to upper portion of abdomen, then said it was lower, then he pointed at the bedside table as the location of pain. no vomiting. poor appetite. still having loose stools. patient has lost significant weight since his colon ca diagnosis. Review of Systems Constitutional: + fatigue and + weakness Respiratory: no cough and no dyspnea Cardiovascular: no chest pain Gastrointestinal: + abdominal pain, + nausea, + diarrhea/loose stools and + melena; no vomiting Physical Exam Constitutional: + acute distress (Due to abd pain ), + ill appearing, + altered mental status and + frail appearing ENMT: Mouth: + dry oral mucous membranes Respiratory: normal respiratory effort, lungs clear to auscultation Cardiovascular: Rate/Rhythm: regular rhythm and + irregularly irregular Heart Sounds: normal S1 and normal S2; no murmur Vessels: posterior tibial pulses present and dorsalis pedis pulses present; no JVD Extremities: no edema Gastrointestinal (Abdomen): Percussion/Palpation: + abdomen tender, abdomen soft and + hepatomegaly; no guarding and abdomen not rigid Skin: + pallor Psychiatric: Orientation: alert and oriented to person; + not oriented to time Results & Data Results & Data ([facility]) Vital Signs (Past 12 Hours) Vital Signs Temp Pulse Resp BP Pulse Ox 01/18/20 16:57 36.9 C 98 H 16 142/84 H 98 01/18/20 15:52 36.5 C 92 H 16 125/74 97 01/18/20 11:00 36.3 C L 99 H 18 132/80 97 Laboratory Results Laboratory Results - last 24 hr 01/18/20 01/18/20 01/18/20 07:44 07:44 07:44 WBC 5.81 RBC 2.89 L Hgb 9.4 L Hct 27.7 L MCV 95.8 MCH 32.5 MCHC 33.9 RDW Std Deviation 56.1 H RDW Coeff of Jaziel 16.4 H Plt Count 264 MPV 8.9 Immature Gran % (Auto) 0.2 Neut % (Auto) 68.4 Lymph % (Auto) 15.5 [place] % (Auto) 14.5 Eos % (Auto) 0.5 Baso % (Auto) 0.9 Neut # (Auto) 3.98 Lymph # (Auto) 0.90 L [place] # (Auto) 0.84 H Eos # (Auto) 0.03 Baso # (Auto) 0.05 Immature Gran # (Auto) 0.01 PT Cancelled INR Cancelled Sodium 141 Potassium 3.2 L Chloride 115 H Carbon Dioxide 20 L Anion Gap 6.0 BUN 19 H Creatinine 0.71 Est Cr Clr Drug Dosing 55.8 Est GFR ( Amer) 96.4 Est GFR (Non-Af Amer) 83.2 BUN/Creatinine Ratio 26.2 H Glucose 137 H Lactate Calcium 7.4 L Phosphorus 2.0 L Magnesium 2.3 Stool Occult Bld Scrn 01/18/20 01/18/20 01/18/20 09:06 14:20 17:12 WBC RBC Hgb 9.5 L Hct 28.6 L MCV MCH MCHC RDW Std Deviation RDW Coeff of Jaziel Plt Count MPV Immature Gran % (Auto) Neut % (Auto) Lymph % (Auto) [place] % (Auto) Eos % (Auto) Baso % (Auto) Neut # (Auto) Lymph # (Auto) [place] # (Auto) Eos # (Auto) Baso # (Auto) Immature Gran # (Auto) PT > 90.0 H INR > 9.7 H* Sodium Potassium Chloride Carbon Dioxide Anion Gap BUN Creatinine Est Cr Clr Drug Dosing Est GFR ( Amer) Est GFR (Non-Af Amer) BUN/Creatinine Ratio Glucose Lactate Calcium Phosphorus Magnesium Stool Occult Bld Scrn Positive A 01/18/20 01/18/20 17:12 17:12 WBC RBC Hgb Hct MCV MCH MCHC RDW Std Deviation RDW Coeff of Jaziel Plt Count MPV Immature Gran % (Auto) Neut % (Auto) Lymph % (Auto) [place] % (Auto) Eos % (Auto) Baso % (Auto) Neut # (Auto) Lymph # (Auto) [place] # (Auto) Eos # (Auto) Baso # (Auto) Immature Gran # (Auto) PT 32.4 H INR 3.3 H Sodium Potassium Chloride Carbon Dioxide Anion Gap BUN Creatinine Est Cr Clr Drug Dosing Est GFR ( Amer) Est GFR (Non-Af Amer) BUN/Creatinine Ratio Glucose Lactate 1.7 Calcium Phosphorus Magnesium Stool Occult Bld Scrn PG Care Time/CCT Total # of Minutes Spent Total Time Spent with Patient: Total time spent is greater than 50% in coordination of care (as documented) at patient's floor/unit and/or counseling patient: Coding Level of Care Code 13095 Subseq Hosp Care Lvl 3 Diagnoses Acute GI bleeding K92.2 Abdominal pain R10.9 Acute blood loss anemia D62 Enteritis K52.9 Benign hypertension I10 BPH (benign prostatic hyperplasia) N40.0 Lower urinary tract symptom presence: symptoms absent Atrial fibrillation I48.91 Atrial fibrillation type: unspecified Severe protein-calorie malnutrition E43 Metastatic colon cancer to liver C18.9; C78.7 Hypokalemia E87.6 Metabolic encephalopathy G93.41 Warfarin-induced coagulopathy D68.32; T45.515A DVT prophylaxis Z29.9 (1) BPH (benign prostatic hyperplasia) Lower urinary tract symptom presence: symptoms absent Qualified Code(s): N40.0 - Benign prostatic hyperplasia without lower urinary tract symptoms (2) Atrial fibrillation Atrial fibrillation type: unspecified Qualified Code(s): I48.91 - Unspecified atrial fibrillation
[2020-01-18] MEDS: OMEGA-3 (PURIFIED FISH OIL) 1 GM CAP PO SCH (21:30)
[2020-01-18] MEDS: PRAMIPEXOLE DIHYDROCHLO 0.25 MG TAB PO SCH (21:30)
[2020-01-18] MEDS: MULTIVITAMIN TAB PO SCH (21:30)
[2020-01-18] MEDS: TAMSULOSIN HCL 0.4 MG CAP PO SCH (21:30)
[2020-01-18] MEDS: ACETAMINOPHEN 325 MG TAB PO PRN (23:41)
[2020-01-19] MEDS: NSS + 20MEQ KCL 20 MEQ/1,000 ML BAG IV SCH ×3 (01:49→20:27)
[2020-01-19] MEDS: PANTOprazole 40 MG in DEXTROSE 5% 100 ML IV SCH ×4 (01:49→15:57)
[2020-01-19 06:31] LABS: Hematocrit (blood only) 24.4 % (42-52); Hemoglobin 8.3 g/dL (14.0-18.0); Mean Corpuscular Hemoglobin 32.8 pg (25-34); Mean Corpuscular Volume 96.4 fL (80-100); Mean Platelet Volume 8.9 fL (7.4-10.4); Platelet Count 245 K/uL (130-400); RDW Coefficient of Variation 16.9 % (11.5-14.5); RDW Standard Deviation 57.6 fL (36.4-46.3); Red Blood Count 2.53 M/uL (4.7-6.1); White Blood Count 4.23 K/uL (4.8-10.8)
[2020-01-19 06:39] LABS: INR 1.6 (0.9-1.1); Prothrombin Time 16.4 Seconds (9.0-12.0)
[2020-01-19 06:46] LABS: BUN Creatinine Ratio 24.4 (10-20); Calcium 8.1 mg/dl (8.5-10.1); Est GFR (African American) 95.9; Est GFR (Non-African American) 82.7; Potassium 3.6 mmol/L (3.5-5.1)
[2020-01-19] MEDS: SUCRALFATE 1 GM/10 ML UDC PO SCH ×4 (08:45→20:27)
[2020-01-19] MEDS: CHOLECALCIFEROL (VITAMIN D) 400 UNITS TABLET PO SCH (08:45)
[2020-01-19] MEDS: FERROUS GLUCONATE 324 MG TAB PO SCH ×2 (08:46→15:58)
[2020-01-19] MEDS: ATORVASTATIN 10 MG TAB PO SCH (08:46)
[2020-01-19] MEDS: METOPROLOL SUCC 50MG EXT REL TAB PO SCH (08:46)
--- NOTE | 2020-01-19 08:54 | Progress Notes ---
DATE: 01/19/2020 DIAGNOSES: 1. Intractable watery diarrhea, attributable to 5-FU effect. 2. Electrolyte dysfunction. 3. Metastatic colorectal cancer. 4. Hypoalbuminemia. 5. Coagulopathy. SUBJECTIVE: The patient was seen and examined at bedside. He remarks feeling better with slowing diarrhea. Gastroenterology is on consult, perhaps for scoping. He is currently n.p.o. The patient was found to be profoundly coagulopathic yesterday, was administered vitamin K with some improvement. Certainly coags are now out of the critical zone. Nursing reports no overnight difficulties otherwise. OBJECTIVE: GENERAL: A very pleasant 89-year-old gentleman, lying supine, in no acute distress. VITAL SIGNS: Temperature 36.4, pulse 87, respiratory rate 18, blood pressure 118/65. HEENT: No buccal lesions or ulcerations. SKIN: Without rash or lesion. HEART: Regular rate and rhythm. LUNGS: Clear to auscultation bilaterally. ABDOMEN: Soft, nontender, nondistended. EXTREMITIES: No clubbing, cyanosis or edema. NEUROLOGICAL: He is somewhat somnolent, but mentation is intact. LABORATORY DATA: WBC count 4230, hemoglobin 8.3, platelet count 245,000. His PT is 16.4 seconds, INR 1.6. Sodium 142, potassium 3.6, chloride 118, carbon dioxide 18, creatinine 0.72, BUN 18, phosphorus 2, serum ammonia 58. Stools are positive for blood. IMPRESSION: 1. Intractable watery diarrhea, I suspect chemotherapeutic effect. 2. Coagulopathy attributable to malnutrition, perhaps liver metastatic disease. 3. Metastatic colorectal cancer. 4. Hypoalbuminemia. 5. Electrolyte dysfunction. PLAN: Again, it was my pleasure to visit with the patient this morning at bedside. Very pleased to see he seems better. He is currently n.p.o. perhaps for GI examination later on today. Coagulopathy responded well to vitamin K. He is now becoming more anemic, which is no surprise. Once his hemoglobin goes below 8, would transfuse 2 units of packed RBCs. As I said in the original consultation, I think we are at crossroads where the patient's treatment is concerned. He was reluctant to receive chemotherapy from the start. Generally speaking, high-dose 5-FU and leucovorin is well tolerated by most, but unfortunately not in the patient's case. That said, we will allow him more time to heal and become medically stable before engaging in discussion regarding future treatment. I agree with current medical management at this time and really have nothing further to add. We will periodically check in on the patient during his hospital stay.
[2020-01-19] MEDS: RIFAXIMIN 550 MG TABLET PO SCH ×2 (09:51→20:27)
--- NOTE | 2020-01-19 11:18 | Gastrointestinal Consultation ---
Date of Consultation January 19, 2020 Assessment & Plan (1) Acute GI bleeding: -Keep NPO for EGD today -Continue to monitor H/H -Continue PPI drip -Further recommendations pending results of testing Thank you for allowing us to participate in the care of this patient. If you should have any further questions or concerns, do not hesitate to contact us at extension [phone] or [phone]. Supervising Physician Co-Signing Physician Notes Agree with Lauren Rahman, PAC Abd: Soft, tender throughout, ND, +BS Continue current therapy Proceed with EGD today History of Present Illness Reason for Consultation: Melena Attending Physician: Stiven Le History of Present Illness Patient is an 89 yo male with a history of metastatic colon cancer currently managed by Dr. Bartlett. He had originally presented to the hospital with complaints of diarrhea, weakness, and fevers. He reports his diarrhea has formed, however he was experiencing what he describes as "jet black" stool. He denies abdominal pain. C diff and stool cultures were negative. He denies ever having an EGD or colonoscopy. He notes he is not hungry. He has had CT findings a nonspecific enterocolitis. H/H 8.3/24.4. His INR was 9.7 yesterday, however has been reversed to 1.6. Coumadin is held. He is on a Protonix drip at present. Allergies Allergy/AdvReac Type Severity Reaction Status Date / Time NSAIDS (Non-Steroidal Allergy Unknown Unknown Verified 01/19/20 13:34 Anti-Inflamma sulindac Allergy Unknown Unknown Verified 01/19/20 13:34 oxycodone [From Percocet] AdvReac Unknown DISORIENTED Verified 01/19/20 13:34 Home Medications Home Medications Medication Instructions Recorded Confirmed Type ferrous gluconate 324 mg (38 mg 324 mg PO UD tab 10/20/18 01/16/20 History iron) tablet tamsulosin 0.4 mg capsule 0.4 mg PO HS #90 cap 03/01/19 01/16/20 Rx aspirin 81 mg PO QAM 08/28/19 01/16/20 History metoprolol succinate 50 mg 50 mg PO QAM #90 tab 10/28/19 01/16/20 Rx tablet,extended release 24 hr pramipexole 0.125 mg tablet 0.125 mg PO HS #30 tab 12/21/19 01/16/20 Rx furosemide 20 mg tablet 20 mg PO 3XWK tab 01/03/20 01/16/20 History atorvastatin 10 mg PO QAM 01/04/20 01/16/20 History cholecalciferol (vitamin D3) 600 mcg PO QAM 01/04/20 01/16/20 History loperamide 2 mg PO QID PRN 01/04/20 01/16/20 History multivitamin 1 tab PO QPM 01/04/20 01/16/20 History omega-3 fatty acids [Fish Oil 1,000 mg PO QPM 01/04/20 01/16/20 History Concentrate] warfarin 5 mg tablet 5 mg PO QPM #90 tab 01/16/20 01/16/20 Rx Patient History Medical History Anemia Arthritis Atrial fibrillation Chronic/rate controlled- on Warfarin Basal cell carcinoma of face Carotid stenosis s/p left CEA Change in bowel habits CHF (congestive heart failure) Dysplastic nevus Enlarged prostate Hearing loss Hypercholesterolemia Hypertension Left inguinal hernia Restless leg syndrome Seborrheic keratosis Segmental and somatic dysfunction of thoracic region Speech disorder Surgical History H/O hemicolectomy (09/01/19) Right Open Hemicolectomy Dr. 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); Do You Dip or Chew Tobacco: No; Hx Alcohol Use: No Hx Substance Use: No Preferred Language: Welsh Communication Ability: Effective Hearing Ability: Use of Hearing Aid Cabinetmaker Helper Required: No Beliefs That Will Affect Care: None marital status: Current Living Situation: Spouse current occupational status: retired Feels Safe at Home: Yes Seatbelt Use: always Sunscreen Use: No Review of Systems Constitutional: no fever and no chills Eyes: no problem reported Ear, Nose, Mouth, Throat: no problem reported Respiratory: no cough and no dyspnea Cardiovascular: no chest pain Gastrointestinal: + melena; no abdominal pain, no heartburn and no coffee ground emesis denies using NSAIDs for pain relief Integumentary: no rash Neurologic: + generalized weakness Physical Exam Constitutional: WD/WN, vitals as above Respiratory: normal respiratory effort, lungs clear to auscultation Cardiovascular: RRR, no murmur, no edema Gastrointestinal (Abdomen): normal bowel sounds, soft, nontender, no hepatosplenomegaly Musculoskeletal: Head/Neck/Chest: normocephalic Skin: no rashes, warm and dry Psychiatric: Orientation: alert and oriented x 3 Results & Data ([facility]) Vital Signs (Past 12 Hours) Vital Signs Temp Pulse Resp BP Pulse Ox 01/19/20 07:33 36.4 C L 87 18 118/65 96 01/19/20 00:34 36.9 C 01/18/20 23:45 37.8 C H 97 H 16 119/69 98 PG Care Time/CCT Total # of Minutes Spent Total Time Spent with Patient: Total time spent is greater than 50% in coordination of care (as documented) at patient's floor/unit and/or counseling patient: Coding Level of Care Code 28183 Initial Inpt Care Lvl 3 Diagnoses Acute GI bleeding K92.2
[2020-01-19] MEDS: MoRPHine SULFATE 2 MG/ML CARP IV PRN (12:42)
--- NOTE | 2020-01-19 13:53 | Anesthesiology Consultation ---
Date of Service January 19, 2020 Assessment & Plan (1) Encounter for pre-operative examination: Chart Review Chart Review: Acceptable Risk for Surgery and Patient NOT seen in Pre Admission Testing Consults Requested none ASA ASA4 Proposed Anesthesia Anesthesia Type: MAC Risk / Benefits Reviewed With: PT / POA / Parent / Guardian, Accepts Plan and Informed Consent Obtained History Surgery Operation Date: 01/19/20 09:15 Proposed Procedures p Esophagogastroduodenoscopy Dr Chiang - Ashok Bergman Case, DO Height/Weight Height: 5 ft 5 in Weight: 55.9 kg Allergies Allergy/AdvReac Type Severity Reaction Status Date / Time NSAIDS (Non-Steroidal Allergy Unknown Unknown Verified 01/19/20 13:34 Anti-Inflamma sulindac Allergy Unknown Unknown Verified 01/19/20 13:34 oxycodone [From Percocet] AdvReac Unknown DISORIENTED Verified 01/19/20 13:34 Medications Home Medications Medication Instructions Recorded Confirmed Last Taken ferrous gluconate 324 mg (38 mg 324 mg PO UD tab 10/20/18 01/16/20 Unknown iron) tablet tamsulosin 0.4 mg capsule 0.4 mg PO HS #90 cap 03/01/19 01/16/20 01/05/20 aspirin 81 mg PO QAM 08/28/19 01/16/20 01/09/20 08:30 metoprolol succinate 50 mg 50 mg PO QAM #90 tab 10/28/19 01/16/20 01/09/20 08:30 tablet,extended release 24 hr pramipexole 0.125 mg tablet 0.125 mg PO HS #30 tab 12/21/19 01/16/20 01/05/20 furosemide 20 mg tablet 20 mg PO 3XWK tab 01/03/20 01/16/20 01/06/20 atorvastatin 10 mg PO QAM 01/04/20 01/16/20 01/09/20 08:30 cholecalciferol (vitamin D3) 600 mcg PO QAM 01/04/20 01/16/20 Unknown loperamide 2 mg PO QID PRN 01/04/20 01/16/20 Unknown multivitamin 1 tab PO QPM 01/04/20 01/16/20 01/08/20 19:00 omega-3 fatty acids [Fish Oil 1,000 mg PO QPM 01/04/20 01/16/20 01/05/20 Concentrate] warfarin 5 mg tablet 5 mg PO QPM #90 tab 01/16/20 01/16/20 Unknown Active Medications Generic Name Dose Route Start Last Admin Trade Name Todq PRN Reason Stop Dose Admin Acetaminophen 650 mg 01/17/20 04:16 01/18/20 23:41 Acetaminophen 325 Mg Tab PO 02/16/20 04:15 650 mg Q4H PRN Administration pain/fever Aspirin 81 mg 01/17/20 09:00 01/18/20 08:24 Aspirin 81 Mg Ectab PO 02/16/20 08:59 81 mg QAM KAILYN Administration Atorvastatin Calcium 10 mg 01/17/20 09:00 01/19/20 08:46 Atorvastatin 10 Mg Tab PO 02/16/20 08:59 10 mg QAM KAILYN Administration Ferrous Gluconate 324 mg 01/17/20 09:00 01/19/20 08:46 Ferrous Gluconate 324 Mg Tab PO 02/16/20 08:59 324 mg Q2D@0900,1700 KAILYN Administration Fish Oil 1 gm 01/17/20 21:00 01/18/20 21:30 [place]-3 (Purified Fish Oil) 1 Gm Cap PO 02/16/20 20:59 1 gm QPM KAILYN Administration Heparin Sodium (Porcine) 5 ml 01/17/20 23:30 01/18/20 07:44 Heparin 100 Unit/Ml 5ml Flush FLUSH 02/16/20 23:29 5 ml PRN PRN Administration Flush Pantoprazole Sodium 40 mg/ 100 mls @ 20 mls/hr 01/18/20 14:52 01/19/20 10:56 Dextrose IV 02/17/20 14:51 8 mg/hr Q5H KAILYN 20 mls/hr Administration 8 MG/HR Potassium Chloride/Sodium Chloride 20 meq in 1,000 mls @ 100 mls/hr 01/18/20 14:45 01/19/20 09:52 Normal Saline W/20 Meq Kcl IV 02/17/20 14:44 100 mls/hr .Q10H KAILYN Administration Metoprolol Succinate 50 mg 01/17/20 09:00 01/19/20 08:46 Metoprolol Succ 50mg Ext Rel Tab PO 02/16/20 08:59 50 mg QAM KAILYN Administration Morphine Sulfate 2 mg 01/18/20 14:23 01/19/20 12:42 Morphine Sulfate 2 Mg/Ml Carp IV 02/01/20 14:22 2 mg Q3H PRN Administration Pain Multivitamins 1 tab 01/17/20 21:00 01/18/20 21:30 Multivitamin Tab PO 02/16/20 20:59 1 tab QPM KAILYN Administration Pramipexole Dihydrochloride 0.125 mg 01/17/20 21:00 01/18/20 21:30 Pramipexole Dihydrochlo 0.25 Mg Tab PO 02/16/20 20:59 0.125 mg HS KAILYN Administration Rifaximin 550 mg 01/19/20 09:00 01/19/20 09:51 Rifaximin 550 Mg Tablet PO 02/18/20 08:59 550 mg BID KAILYN Administration Sucralfate 1 gm 01/18/20 18:00 01/19/20 12:09 Sucralfate 1 Gm/10 Ml Udc PO 02/17/20 17:59 Not Given QID KAILYN Tamsulosin HCl 0.4 mg 01/17/20 21:00 01/18/20 21:30 Tamsulosin Hcl 0.4 Mg Cap PO 02/16/20 20:59 0.4 mg HS KAILYN Administration Vitamin D 600 units 01/17/20 09:00 01/19/20 08:45 Cholecalciferol (Vitamin D) 400 Units Tablet PO 02/16/20 08:59 600 units QAM KAILYN Administration NPO Date Last Intake of Fluids: 01/19/20 Time Last Intake of Fluids: 09:50 Last Intake of Fluids Comment: sip water with pills Date Last Intake of Solids: 01/18/20 Time Last Intake of Solids: 23:00 Past Medical History Medical History Anemia Arthritis Atrial fibrillation Chronic/rate controlled- on Warfarin Basal cell carcinoma of face Carotid stenosis s/p left CEA Change in bowel habits CHF (congestive heart failure) Dysplastic nevus Enlarged prostate Hearing loss Hypercholesterolemia Hypertension Left inguinal hernia Restless leg syndrome Seborrheic keratosis Segmental and somatic dysfunction of thoracic region Speech disorder Exercise / Class Metabolic Activity II 4-5 Yardwork/Stairs/Walk up hill Past Family History Family History Father Diabetes Cardiac disorder Aunt Family hx of colon cancer Uncle Family hx of colon cancer Past Surgical History Surgical History H/O hemicolectomy (09/01/19) Right Open Hemicolectomy Dr. Valdes 09/01/19 History of cataract surgery R/L History of colonoscopy History of hernia repair History of left-sided carotid endarterectomy History of prior ablation treatment History of thyroid surgery Past Anesthesia History No Hx of Anesthesia Complications and No Family Hx of Anesthesia Complications History of PONV No Hx of PONV and No Hx of Motion Sickness Social History Smoking Status: Never smoker Do You Dip or Chew Tobacco: No Hx Alcohol Use: No Alcohol type: other alcohol intake frequency: other Hx Substance Use: No substance use type: does not use Physical Exam Vital Signs Last Vital Signs Temp 36.5 C 01/19/20 13:36 Pulse 73 01/19/20 13:36 Resp 16 01/19/20 13:36 BP 105/49 L 01/19/20 13:36 Pulse Ox 98 01/19/20 13:36 ENMT Mouth: no dentition abnormality Thyromental Distance: > or= 3.5 Finger Breadths Mallampati Class: II Neck normal visual inspection Respiratory normal respiratory effort Auscultation: lungs clear to auscultation bilaterally Cardiovascular Rate/Rhythm: regular rate and regular rhythm Psychiatric Orientation: alert Testing Laboratory Results 01/19/20 06:14 01/19/20 06:14 PT 16.4 Seconds (9.0-12.0) H 01/19/20 06:14 INR 1.6 (0.9-1.1) H 01/19/20 06:14 Urine Color Yellow 01/17/20 03:53 Urine Appearance Clear (Clear) 01/17/20 03:53 Urine pH 5.0 (4.5-7.5) 01/17/20 03:53 Ur Specific [place] 1.022 (1.000-1.030) 01/17/20 03:53 Urine Protein Trace (Negative) H 01/17/20 03:53 Urine Glucose (UA) Negative (Negative) 01/17/20 03:53 Urine Ketones 1+ (Negative) H 01/17/20 03:53 Urine Nitrite Negative (Negative) 01/17/20 03:53 Ur Leukocyte Esterase Negative (Negative) 01/17/20 03:53 Urine WBC (Auto) 1-5 /hpf (0-5) 01/17/20 03:53 Urine RBC (Auto) 5-10 /hpf (0-4) H 01/17/20 03:53 U Hyaline Cast (Auto) 1-5 /lpf (0-5) 01/17/20 03:53 U Epithel Cells (Auto) 5-10 /lpf (0-5) H 01/17/20 03:53 Urine Bacteria (Auto) Negative (Negative) 01/17/20 03:53 01/18/20 01:44 Escherichia coli Shiga Toxins Test - Preliminary Stool Stool Culture - Preliminary No Salmonella isolated to date, No Shigella isolated to date, No Campylobacter jejuni isolated to date. 01/16/20 23:56 Aerobic Blood Culture - Preliminary Blood No growth in Aerobic bottle after 48 hours. Anaerobic Blood Culture - Preliminary No growth in Anaerobic bottle after 48 hours. 01/16/20 23:48 Aerobic Blood Culture - Preliminary Blood No growth in Aerobic bottle after 48 hours. Anaerobic Blood Culture - Preliminary No growth in Anaerobic bottle after 48 hours.
[2020-01-19] MEDS ORDERED: PHENYLEPHRINE 100MCG/ML 5ML SYR ONE (14:42)
[2020-01-19] MEDS ORDERED: LIDOCAINE HCL 2% 2 ML VIAL/AMP(20MG/ML) INFIL ONE (14:42)
[2020-01-19] MEDS ORDERED: PROPOFOL IV EMULSION 10 MG/ML 20 ML VIAL IV ONE (14:42)
--- NOTE | 2020-01-19 14:57 | GI REPORT ---
Patient Name: Austin Chao Procedure Date: 01/19/2020 2:08 PM Date of : 1930 Admit Type: Inpatient Age: 89 Gender: Male Attending MD: Ashok Chiang DO Procedure: Upper GI endoscopy Providers: Ashok Chiang DO Referring MD: Stiven Ortiz Indications: Melena Medicines: Monitored Anesthesia Care Complications: No immediate complications. Estimated Blood Loss: Estimated blood loss: none. Procedure: Pre-Anesthesia Assessment: - Prior to the procedure, a History and Physical was performed, and patient medications and allergies were reviewed. The patient's tolerance of previous anesthesia was also reviewed. The risks and benefits of the procedure and the sedation options and risks were discussed with the patient. All questions were answered, and informed consent was obtained. Prior Anticoagulants: The patient last took aspirin 1 day and Coumadin (warfarin) 2 days prior to the procedure. ASA Grade Assessment: IV - A patient with severe systemic disease that is a constant threat to life. After reviewing the risks and benefits, the patient was deemed in satisfactory condition to undergo the procedure. After obtaining informed consent, the endoscope was passed under direct vision. Throughout the procedure, the patient's blood pressure, pulse, and oxygen saturations were monitored continuously. The Endoscope was introduced through the mouth, and advanced to the third part of duodenum. The upper GI endoscopy was accomplished without difficulty. The patient tolerated the procedure well. Findings: Diffuse, white plaques were found in the upper third of the esophagus and in the middle third of the esophagus. Cells for cytology were obtained by brushing. The entire examined stomach was normal. The examined duodenum was normal. Impression: - Esophageal plaques were found, suspicious for candidiasis. Cells for cytology obtained. - Normal stomach. - Normal examined duodenum. Recommendation: - Return patient to [facility] for [facility] care. - Clear liquid diet. - Continue present medications. - Consider colonoscopy tomorrow if he has any further overt GI bleeding, however, due to multiple medical comorbidities and advanced colon cancer, I would hold off at this time. Ashok Chiang DO 01/19/2020 2:57:00 PM This report has been signed electronically. Note Initiated On: 01/19/2020 2:08 PM Number of Addenda: 0 I attest to the content of the Intraoperative Record and orders documented therein, exceptions below {[id number]}
--- NOTE | 2020-01-19 15:32 | Anesthesiology Progress Note ---
Date of Service January 19, 2020 Anesthesia Post Procedure Vital Signs Vital Signs: Temp Pulse Resp BP Pulse Ox 01/19/20 15:15 91 H 20 96/47 L 98 01/19/20 14:59 86 20 99/52 L 98 01/19/20 14:45 90 18 107/55 L 97 01/19/20 13:36 36.5 C 73 16 105/49 L 98 01/19/20 07:33 36.4 C L 87 18 118/65 96 01/19/20 00:34 36.9 C 01/18/20 23:45 37.8 C H 97 H 16 119/69 98 01/18/20 16:57 36.9 C 98 H 16 142/84 H 98 01/18/20 15:52 36.5 C 92 H 16 125/74 97 Pain Intensity Abdomen: Pain Intensity: 0 Transfer of Care Handoff Completed per policy Notes Mental Status: alert / awake / arousable and participated in evaluation Nausea / Vomiting: adequately controlled Pain: adequately controlled Airway Patency, RR, SpO2: stable & adequate BP & HR: stable & adequate Hydration State: stable & adequate Anesthetic Complications: no major complications apparent and Pt Satisfied with anesthetic care
[2020-01-19] MEDS ORDERED: ACETAMINOPHEN 500 MG TAB PO PRN (16:30)
[2020-01-19] MEDS: FLUCONAZOLE 100 MG TAB PO SCH (19:32)
[2020-01-19] MEDS: TAMSULOSIN HCL 0.4 MG CAP PO SCH (20:27)
[2020-01-19] MEDS: OMEGA-3 (PURIFIED FISH OIL) 1 GM CAP PO SCH (20:28)
[2020-01-19] MEDS: MULTIVITAMIN TAB PO SCH (20:28)
[2020-01-19] MEDS: PRAMIPEXOLE DIHYDROCHLO 0.25 MG TAB PO SCH (20:28)
--- NOTE | 2020-01-19 22:09 | Hospitalist Progress Note ---
Date of Service January 19, 2020 Assessment & Plan (1) Acute GI bleeding: s/p EGD today by Dr Chiang. no source of bleeding found. esophageal candidiasis likely present, however. could have been small bowel bleed vs anastomotic site bleeding. either way H/H are plateauing, and stools are no longer akua melena. reversing coumadin and holding aspirin were mcmahan. stop PPI drip. CBC am. (2) Abdominal pain: likely multifactorial EGD negative - no PUD, etc. has gallstones but doubt they are causing symptoms has evidence of enterocolitis on CT from admission c diff neg stool cx neg enterocolitis could be due to recent high-dose 5-FU?? allow clears continue IVF (3) Acute blood loss anemia: 2nd to GI bleeding EGD neg for source stop PPI drip allow clears CBC in am H/H have plateaued suggesting bleeding has stopped in face of reversal of coagulopathy (4) Toxic gastroenteritis: enterocolitis 2nd to high-dose 5-FU?? vs other? supportive care (5) Candidiasis of esophagus: start diflucan 100mg daily x 10 days (6) Benign hypertension: cont metoprolol daily (7) BPH (benign prostatic hyperplasia): cont alpha sharda (8) Atrial fibrillation: coumadin reversed INR now <2 rates controlled w/ beta sharda (9) Severe protein-calorie malnutrition: significant weight loss - about 15 kg - since cancer dx (10) Metastatic colon cancer to liver: stage 4 colon ca with worsening metastatic disease to liver ongoing weight loss, failure to thrive, etc s/p right hemicolectomy earlier this spring by [facility] [place] surgery follows with [facility] and has received chemo this spring/summer (11) Hypokalemia: replace IV bmp am mag noted to be wnl (12) Metabolic encephalopathy: 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? ammonia level elevated defer on lactulose as patient is already having significant diarrhea start rifaximin 550mg BID (13) Warfarin-induced coagulopathy: severe, with GI bleeding s/p multiple doses of vit K -- now resolved (14) DVT prophylaxis: SCDs chemical means contraindicated updated at bedside appreciate GI assistance Admission and Anticipated Discharge Date Admission Date: January 18, 2020 Subjective saw patient post-EGD. he reports his stools are no longer melena but have turned brown in color. abd pain is improved today. feels he looks better overall. no vomiting. stools are still loose. also feels that confusion/speech are better today. Review of Systems Constitutional: + fatigue and + weakness Respiratory: no cough and no dyspnea Cardiovascular: no chest pain Gastrointestinal: as per Subjective / HPI; no blood in stools and no melena Physical Exam Constitutional: + ill appearing and + frail appearing; no acute distress ENMT: external ear and nose normal, oropharynx normal Respiratory: normal respiratory effort, lungs clear to auscultation Cardiovascular: Rate/Rhythm: regular rhythm and + irregularly irregular Heart Sounds: normal S1 and normal S2; no murmur Vessels: posterior tibial pulses present and dorsalis pedis pulses present; no JVD Extremities: no edema Gastrointestinal (Abdomen): Percussion/Palpation: + abdomen tender (epigastric region ), abdomen soft and + hepatomegaly; no guarding and abdomen not rigid Skin: + pallor Psychiatric: Orientation: alert and oriented to person; + not oriented to time Results & Data Results & Data ([facility]) Vital Signs (Past 12 Hours) Vital Signs Temp Pulse Resp BP Pulse Ox 01/19/20 15:15 91 H 20 96/47 L 98 01/19/20 14:59 86 20 99/52 L 98 01/19/20 14:45 90 18 107/55 L 97 01/19/20 13:36 36.5 C 73 16 105/49 L 98 Laboratory Results Laboratory Results - last 24 hr 01/19/20 01/19/20 01/19/20 06:14 06:14 06:14 WBC 4.23 L RBC 2.53 L Hgb 8.3 L Hct 24.4 L MCV 96.4 MCH 32.8 MCHC 34.0 RDW Std Deviation 57.6 H RDW Coeff of Jaziel 16.9 H Plt Count 245 MPV 8.9 PT 16.4 H INR 1.6 H Sodium 142 Potassium 3.6 Chloride 118 H Carbon Dioxide 18 L Anion Gap 6.0 BUN 18 Creatinine 0.72 Est Cr Clr Drug Dosing 55.0 Est GFR ( Amer) 95.9 Est GFR (Non-Af Amer) 82.7 BUN/Creatinine Ratio 24.4 H Glucose 140 H Calcium 8.1 L Ammonia COVID-19 Eval Order SARS-CoV-2, RNA, NAAT 01/19/20 01/19/20 01/19/20 06:14 13:35 13:35 WBC RBC Hgb Hct MCV MCH MCHC RDW Std Deviation RDW Coeff of Jaziel Plt Count MPV PT INR Sodium Potassium Chloride Carbon Dioxide Anion Gap BUN Creatinine Est Cr Clr Drug Dosing Est GFR ( Amer) Est GFR (Non-Af Amer) BUN/Creatinine Ratio Glucose Calcium Ammonia 58.0 H COVID-19 Eval [facility] SARS-CoV-2, RNA, NAAT NEGATIVE PG Care Time/CCT Total # of Minutes Spent Total Time Spent with Patient: Total time spent is greater than 50% in coordination of care (as documented) at patient's floor/unit and/or counseling patient: Coding Level of Care Code 90482 Subseq Hosp Care Lvl 3 Diagnoses Acute GI bleeding K92.2 Abdominal pain R10.84 Abdominal location: generalized Acute blood loss anemia D62 Toxic gastroenteritis K52.1 Candidiasis of esophagus B37.81 Benign hypertension I10 BPH (benign prostatic hyperplasia) N40.0 Lower urinary tract symptom presence: symptoms absent Atrial fibrillation I48.91 Atrial fibrillation type: unspecified Severe protein-calorie malnutrition E43 Metastatic colon cancer to liver C18.9; C78.7 Hypokalemia E87.6 Metabolic encephalopathy G93.41 Warfarin-induced coagulopathy D68.32; T45.515A DVT prophylaxis Z29.9 (1) BPH (benign prostatic hyperplasia) Lower urinary tract symptom presence: symptoms absent Qualified Code(s): N40.0 - Benign prostatic hyperplasia without lower urinary tract symptoms (2) Atrial fibrillation Atrial fibrillation type: unspecified Qualified Code(s): I48.91 - Unspecified atrial fibrillation (3) Abdominal pain Abdominal location: generalized Qualified Code(s): R10.84 - Generalized abdominal pain
[2020-01-20] MEDS: NSS + 20MEQ KCL 20 MEQ/1,000 ML BAG IV SCH (06:06)
[2020-01-20 06:15] LABS: Hematocrit (blood only) 23.6 % (42-52); Mean Corpuscular Hemoglobin 32.8 pg (25-34); Mean Corpuscular Hgb Conc 33.9 g/dL (32-36); Mean Corpuscular Volume 96.7 fL (80-100); Mean Platelet Volume 8.9 fL (7.4-10.4); Nucleated RBC # (auto) 0.02 K/uL (0-0); Nucleated RBC % (auto) 0.4 %; Platelet Count 246 K/uL (130-400); RDW Standard Deviation 59.4 fL (36.4-46.3); Red Blood Count 2.44 M/uL (4.7-6.1); White Blood Count 5.58 K/uL (4.8-10.8)
[2020-01-20 06:50] LABS: Calcium 7.5 mg/dl (8.5-10.1); Creatinine Clr Calc Pharmacy 62.9 ml/min; Est GFR (African American) 101.3; Est GFR (Non-African American) 87.4; Magnesium 1.9 mg/dl (1.8-2.4); Potassium 3.4 mmol/L (3.5-5.1)
[2020-01-20] MEDS ORDERED: STAT IV STA (08:00)
--- NOTE | 2020-01-20 08:24 | Anesthesiology Progress Note ---
Date of Service January 20, 2020 Anesthesia Post Procedure Vital Signs Vital Signs: Temp Pulse Pulse Resp BP Pulse Ox 01/20/20 07:37 36.6 C 116 H 18 111/65 100 01/20/20 03:26 37 C 102 H 16 94/51 L 98 01/19/20 23:10 37.8 C H 112 H 18 97/58 L 97 01/19/20 15:15 91 H 20 96/47 L 98 01/19/20 14:59 86 20 99/52 L 98 01/19/20 14:45 90 18 107/55 L 97 01/19/20 13:36 36.5 C 73 16 105/49 L 98 Pain Intensity Abdomen: Pain Intensity: 10 Notes Mental Status: alert / awake / arousable and participated in evaluation Patient Amnestic to Procedure: Yes Nausea / Vomiting: adequately controlled Pain: adequately controlled Airway Patency, RR, SpO2: stable & adequate BP & HR: stable & adequate Hydration State: stable & adequate Anesthetic Complications: no major complications apparent and Pt Satisfied with anesthetic care
[2020-01-20] MEDS: SUCRALFATE 1 GM/10 ML UDC PO SCH ×2 (08:36→15:58)
[2020-01-20] MEDS: FLUCONAZOLE 100 MG TAB PO SCH (08:36)
[2020-01-20] MEDS: METOPROLOL SUCC 50MG EXT REL TAB PO SCH (08:37)
[2020-01-20] MEDS: CHOLECALCIFEROL (VITAMIN D) 400 UNITS TABLET PO SCH (08:37)
[2020-01-20] MEDS: RIFAXIMIN 550 MG TABLET PO SCH ×2 (08:38→21:36)
[2020-01-20] MEDS: ATORVASTATIN 10 MG TAB PO SCH (08:38)
--- NOTE | 2020-01-20 10:41 | Gastroenterology Progress Note ---
Date of Service January 20, 2020 Assessment & Plan (1) Melena: Melena resolved. H/H 8.0/23.6. -Continue to monitor. -Hold off on invasive testing due to medical comorbidities. Admission and Anticipated Discharge Date Admission Date: January 18, 2020 Supervising Physician Co-Signing Physician Notes Agree with SOLANGE Del Rosario Abd: Soft, NT, ND No overt GI bleeding noted Brushings positive for Aracelis esophagitis, therefore, start Diflucan 400 mg by mouth today, then 200 mg by mouth daily for 20 days. Continue supportive care Subjective Patient is an 89 yo male with melena. This has resolved. He had an EGD on 01/19/20 that indicated esophageal candidiasis. There was no source of melena. Patient reports he is not having any melena at present. He denies abdominal pain. He communicates to me that he believes he is going to discontinue chemotherapy as it is affecting the quality of life. Review of Systems Constitutional: no fever and no chills Respiratory: no cough and no dyspnea Cardiovascular: no chest pain Gastrointestinal: no abdominal pain, no constipation, no diarrhea/loose stools, no blood in stools and no melena Musculoskeletal: no problem reported Physical Exam Constitutional: + ill appearing Respiratory: normal respiratory effort Cardiovascular: Extremities: no edema Gastrointestinal (Abdomen): Inspection/Auscultation: abdomen normal to inspection Percussion/Palpation: abdomen soft; abdomen nontender Psychiatric: Orientation: alert Results & Data Results & Data ([facility]) Vital Signs (Past 12 Hours) Vital Signs Temp Pulse Pulse Resp BP Pulse Ox 01/20/20 07:37 36.6 C 116 H 18 111/65 100 01/20/20 03:26 37 C 102 H 16 94/51 L 98 01/19/20 23:10 37.8 C H 112 H 18 97/58 L 97 PG Care Time/CCT Total # of Minutes Spent Total Time Spent with Patient: Total time spent is greater than 50% in coordination of care (as documented) at patient's floor/unit and/or counseling patient: Coding Level of Care Code 85661 Subseq Hosp Care Lvl 2 Diagnoses Melena K92.1
[2020-01-20] MEDS: SODIUM BICARBONATE 8.4% 75 MEQ in DEXTROSE 5% 1,000 ML IV SCH ×2 (11:28→18:20)
[2020-01-20] MEDS: POTASSIUM CHLORIDE 20 MEQ/15 ML UDC PO SCH ×2 (11:28→16:09)
[2020-01-20] MEDS ORDERED: FLUCONAZOLE 100 MG TAB PO ONE (14:30)
[2020-01-20] MEDS ORDERED: MoRPHine SULFATE 5 MG/0.25 ML UDP PO PRN (16:38)
[2020-01-20] MEDS ORDERED: POTASSIUM CHLORIDE / WTR 10 MEQ/100 ML PLCT IV ONE (16:45)
--- NOTE | 2020-01-20 20:28 | Hospitalist Progress Note ---
Date of Service January 20, 2020 Assessment & Plan (1) Acute GI bleeding: resolved. H/H remaining stable. s/p EGD by Dr Chiang with no source of bleeding found. esophageal candidiasis was present, however. could have been small bowel bleed vs anastomotic site bleeding. coumadin and aspirin both stopped. coagulopathy resolved. CBC am. (2) Acute blood loss anemia: 2nd to GI bleeding EGD neg for source stop PPI drip since EGD neg cont clears CBC in am H/H have plateaued suggesting bleeding has stopped (3) Abdominal pain: likely multifactorial EGD negative - no PUD, etc. has gallstones but doubt they are causing symptoms has evidence of enterocolitis on CT from admission along with peritoneal carcinomatosis c diff neg stool cx neg enterocolitis could be due to recent high-dose 5-FU allow clears continue IVF may need fentanyl patch (4) Toxic gastroenteritis: enterocolitis 2nd to high-dose 5-FU?? vs other? 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 with worsening metastatic disease to liver ongoing weight loss, failure to thrive, etc s/p right hemicolectomy earlier this spring by [facility] [place] surgery follows with [facility] and has received chemo this spring/summer (11) Hypokalemia: replace IV bmp am 2nd diarrhea (12) Metabolic encephalopathy: 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 ammonia level elevated defer on lactulose as patient is already having significant diarrhea cont rifaximin 550mg BID could have brain mets but will defer imaging since transitioning to likely hospice (13) Warfarin-induced coagulopathy: severe, with GI bleeding resolved (14) DVT prophylaxis: SCDs chemical means contraindicated updated at bedside extensively today will place formal palliative care consult changing IV Fluilds to bicarbonate drip due to low bicarb from diarrhea Admission and Anticipated Discharge Date Admission Date: January 18, 2020 Subjective patient still with liquid stools but they are brown; not melena. still with waves of abdominal pain. appetite very poor. denies dyspnea or chest pain. lengthy discussion held with patient and today. he does NOT want to pursue additional chemo for his colon ca moving forward. just "wants to be comfortable" and ultimately wants to be at home. we discussed hospice in detail and they are leaning towards that. they have a daughter that lives locally who would be involved in this discussion as well. both patient and his are accepting of current situation and stated several times "he's lived a good life". Review of Systems Respiratory: no dyspnea Cardiovascular: no chest pain Gastrointestinal: + abdominal pain, + dysphagia (for pills) and + diarrhea/loose stools; no vomiting, no blood in stools and no melena Physical Exam Constitutional: + ill appearing, + cachectic and + frail appearing; no acute distress ENMT: external ear and nose normal, oropharynx normal Respiratory: normal respiratory effort, lungs clear to auscultation Cardiovascular: Rate/Rhythm: regular rhythm and + irregularly irregular Heart Sounds: normal S1 and normal S2; no murmur Vessels: posterior tibial pulses present and dorsalis pedis pulses present; no JVD Extremities: no edema Gastrointestinal (Abdomen): Percussion/Palpation: + abdomen tender (epigastric region ), abdomen soft and + hepatomegaly; no guarding and abdomen not rigid Skin: + pallor Psychiatric: Orientation: alert and oriented to person; + not oriented to time Results & Data Results & Data ([facility]) Laboratory Results Laboratory Results - last 24 hr 01/20/20 01/20/20 05:47 05:47 WBC 5.58 RBC 2.44 L Hgb 8.0 L Hct 23.6 L MCV 96.7 MCH 32.8 MCHC 33.9 RDW Std Deviation 59.4 H RDW Coeff of Jaziel 17.0 H Plt Count 246 MPV 8.9 Absolute Nucleated RBC 0.02 H Nucleated RBC % (auto) 0.4 Sodium 144 Potassium 3.4 L Chloride 119 H Carbon Dioxide 15 L Anion Gap 10.0 BUN 19 H Creatinine 0.63 Est Cr Clr Drug Dosing 62.9 Est GFR ( Amer) 101.3 Est GFR (Non-Af Amer) 87.4 BUN/Creatinine Ratio 30.0 H Glucose 106 H Calcium 7.5 L Magnesium 1.9 PG Care Time/CCT Total # of Minutes Spent Total Time Spent with Patient: Total time spent is greater than 50% in coordination of care (as documented) at patient's floor/unit and/or counseling patient: Coding Level of Care Code 93908 Subseq Hosp Care Lvl 3 Diagnoses Acute GI bleeding K92.2 Acute blood loss anemia D62 Abdominal pain R10.84 Abdominal location: generalized Toxic gastroenteritis K52.1 Candidiasis of esophagus B37.81 Benign hypertension I10 BPH (benign prostatic hyperplasia) N40.0 Lower urinary tract symptom presence: symptoms absent Atrial fibrillation I48.91 Atrial fibrillation type: unspecified Severe protein-calorie malnutrition E43 Metastatic colon cancer to liver C18.9; C78.7 Hypokalemia E87.6 Metabolic encephalopathy G93.41 Warfarin-induced coagulopathy D68.32; T45.515A DVT prophylaxis Z29.9 (1) BPH (benign prostatic hyperplasia) Lower urinary tract symptom presence: symptoms absent Qualified Code(s): N40.0 - Benign prostatic hyperplasia without lower urinary tract symptoms (2) Atrial fibrillation Atrial fibrillation type: unspecified Qualified Code(s): I48.91 - Unspecified atrial fibrillation (3) Abdominal pain Abdominal location: generalized Qualified Code(s): R10.84 - Generalized abdominal pain
[2020-01-20] MEDS: TAMSULOSIN HCL 0.4 MG CAP PO SCH (21:35)
[2020-01-20] MEDS: PRAMIPEXOLE DIHYDROCHLO 0.25 MG TAB PO SCH (21:35)
[2020-01-20] MEDS: OMEGA-3 (PURIFIED FISH OIL) 1 GM CAP PO SCH (21:36)
[2020-01-20] MEDS: MULTIVITAMIN TAB PO SCH (21:36)
[2020-01-21] MEDS: SODIUM BICARBONATE 8.4% 75 MEQ in DEXTROSE 5% 1,000 ML IV SCH (05:28)
[2020-01-21] MEDS: CHOLECALCIFEROL (VITAMIN D) 400 UNITS TABLET PO SCH (08:35)
[2020-01-21] MEDS: FERROUS GLUCONATE 324 MG TAB PO SCH ×2 (08:36→16:14)
[2020-01-21] MEDS: RIFAXIMIN 550 MG TABLET PO SCH ×2 (08:36→20:24)
[2020-01-21] MEDS: METOPROLOL SUCC 50MG EXT REL TAB PO SCH (08:36)
[2020-01-21] MEDS: ATORVASTATIN 10 MG TAB PO SCH (08:36)
[2020-01-21] MEDS: FLUCONAZOLE 100 MG TAB PO SCH (08:37)
[2020-01-21 10:38] LABS: Hematocrit (blood only) 23.6 % (42-52); Hemoglobin 8.2 g/dL (14.0-18.0); Mean Corpuscular Hemoglobin 32.2 pg (25-34); Mean Corpuscular Hgb Conc 34.7 g/dL (32-36); Mean Corpuscular Volume 92.5 fL (80-100); Nucleated RBC # (auto) 0.06 K/uL (0-0); Nucleated RBC % (auto) 0.5 %; Platelet Count 289 K/uL (130-400); RDW Coefficient of Variation 16.9 % (11.5-14.5); RDW Standard Deviation 57.1 fL (36.4-46.3); Red Blood Count 2.55 M/uL (4.7-6.1); White Blood Count 11.53 K/uL (4.8-10.8)
[2020-01-21 10:53] LABS: BUN Creatinine Ratio 19.9 (10-20); Calcium 7.2 mg/dl (8.5-10.1); Est GFR (African American) 95.9; Est GFR (Non-African American) 82.7; Potassium 2.5 mmol/L (3.5-5.1)
[2020-01-21] MEDS: POTASSIUM CHLORIDE / WTR 10 MEQ/100 ML PLCT IV SCH ×4 (12:27→16:13)
[2020-01-21] MEDS ORDERED: CHLORPROMAZINE HCL 10 MG TABLET PO PRN (14:28)
[2020-01-21] MEDS: MoRPHine SULFATE 2 MG/ML CARP IV PRN (15:53)
[2020-01-21] MEDS: FAMOTIDINE 20 MG in SYRINGE 3 ML IV SCH ×2 (16:42→20:25)
[2020-01-21] MEDS: HEPARIN 100 UNIT/ML 5ML FLUSH FLUSH PRN ×2 (18:12→20:25)
[2020-01-21] MEDS ORDERED: ONDANSETRON INJ 2 MG/ML 2 ML VIAL IV PRN (18:42)
[2020-01-21] MEDS: PRAMIPEXOLE DIHYDROCHLO 0.25 MG TAB PO SCH (20:24)
[2020-01-21] MEDS: TAMSULOSIN HCL 0.4 MG CAP PO SCH (20:24)
--- NOTE | 2020-01-21 22:08 | Hospitalist Progress Note ---
Date of Service January 21, 2020 Assessment & Plan (1) Acute GI bleeding: resolved. H/H remaining stable. s/p EGD by Dr Chiang with no source of bleeding found. esophageal candidiasis was present, however. could have been small bowel bleed vs anastomotic site bleeding. coumadin and aspirin both stopped. coagulopathy resolved. hemoglobin in am. (2) Acute blood loss anemia: 2nd to GI bleeding EGD neg for source stopped PPI drip since EGD neg H/H have plateaued suggesting bleeding has stopped allow full liquids (3) Abdominal pain: likely multifactorial EGD negative - no PUD, etc. has gallstones but doubt they are causing symptoms has evidence of enterocolitis on CT from admission along with peritoneal carcinomatosis c diff neg stool cx neg enterocolitis could be due to recent high-dose 5-FU allow full liquids consider fentanyl patch - he likely will continue to have pain from the peritoneal carcinomatosis (4) Toxic gastroenteritis: enterocolitis may be 2nd to high-dose 5-FU stool cx remains neg c diff neg diarrhea is improving slowly (5) Candidiasis of esophagus: diflucan x 10 days day #3 of such (6) Benign hypertension: cont metoprolol daily (7) BPH (benign prostatic hyperplasia): cont alpha sharda (8) Atrial fibrillation: coumadin reversed INR now <2 and will NOT resume coumadin (risks >> benefits) rates controlled w/ beta sharda (9) Severe protein-calorie malnutrition: significant weight loss - about 15 kg - since cancer dx (10) Metastatic colon cancer to liver: stage 4 colon ca with worsening metastatic disease to liver ongoing weight loss, failure to thrive, etc s/p right hemicolectomy earlier this spring [place] [facility] [place] follows with [facility] and has received chemo this spring/summer patient does NOT want to pursue additional chemo; wishes to transition to hospice (11) Hypokalemia: worse today 2nd diarrhea; bicarb infusion may have shifted K as well KCL 10meq x 4 runs IV BMP am mag am (12) Metabolic encephalopathy: 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 improved today cont rifaximin 550mg BID could have brain mets but will defer imaging since transitioning to likely hospice (13) Warfarin-induced coagulopathy: severe, with GI bleeding resolved (14) Hiccups: thorazine prn (15) DVT prophylaxis: SCDs chemical means contraindicated stop IV fluids allow full liquids focus on pain control daughter extensively updated by phone today palliative care consult pending Admission and Anticipated Discharge Date Admission Date: January 18, 2020 Subjective c/o hiccups along with belching. This has been persistent all day today. he ate lunch today but then had nausea after. continues with some diarrhea. minimal abdominal pain today. he had a visit from his daughter today and this made him quite happy. he asks if he can have his diet advanced. Review of Systems Constitutional: + fatigue Respiratory: no cough and no dyspnea Cardiovascular: no chest pain Gastrointestinal: as per Subjective / HPI, + abdominal pain, + nausea and + diarrhea/loose stools; no vomiting, no blood in stools and no melena Physical Exam Constitutional: + ill appearing, + cachectic and + frail appearing; no acute distress ENMT: external ear and nose normal, oropharynx normal Respiratory: normal respiratory effort, lungs clear to auscultation Cardiovascular: Rate/Rhythm: regular rhythm and + irregularly irregular Heart Sounds: normal S1 and normal S2; no murmur Vessels: posterior tibial pulses present and dorsalis pedis pulses present; no JVD Extremities: no edema Gastrointestinal (Abdomen): Percussion/Palpation: + abdomen tender (epigastric region ), abdomen soft and + hepatomegaly; no guarding and abdomen not rigid Skin: + pallor Neurologic: Motor/Sensory: no asterixis Psychiatric: Orientation: alert, oriented to person, oriented to place and oriented to time Results & Data Results & Data ([facility]) Vital Signs (Past 12 Hours) Vital Signs Temp Pulse Resp BP Pulse Ox 01/21/20 06:57 36.6 C 85 16 95/55 L 98 01/20/20 23:40 36.5 C 99 H 16 119/67 97 Intake and Output 01/21/20 01/21/20 01/21/20 06:59 14:59 22:59 Intake Total 1225 / 3546.667 2049 200 2249 Output Total 200 / 200 Balance 1224 / 2892.667 2049 Intake: IV 1075 / 2071.667 1275 / 1475 200 / 1475 K RIDER / WTR 10 meq In 100 ml 200 / 400 200 / 400 @ 100 mls/hr IV Q1H KAILYN Rx#: [id number] Sodium Bicarbonate 8.4% 75 Meq 1075 / 0951.215 9025 / 1075 In D5w 1,000 ml @ 100 mls/hr IV .[id number] [facility] Rx#:[id number] Oral 150 / 1475 775 / 775 Output: Urine 200 / 200 Urine/Stool Mix Other: # Unmeasured Voids 1 Laboratory Results Laboratory Results - last 24 hr 01/21/20 01/21/20 10:04 10:04 WBC 11.53 H RBC 2.55 L Hgb 8.2 L Hct 23.6 L MCV 92.5 MCH 32.2 MCHC 34.7 RDW Std Deviation 57.1 H RDW Coeff of Jaziel 16.9 H Plt Count 289 MPV 9.0 Absolute Nucleated RBC 0.06 H Nucleated RBC % (auto) 0.5 Sodium 137 Potassium 2.5 L* D Chloride 109 H Carbon Dioxide 21 Anion Gap 8.0 BUN 14 Creatinine 0.72 Est Cr Clr Drug Dosing 55.0 Est GFR ( Amer) 95.9 Est GFR (Non-Af Amer) 82.7 BUN/Creatinine Ratio 19.9 Glucose 141 H Calcium 7.2 L PG Care Time/CCT Total # of Minutes Spent Total Time Spent with Patient: Total time spent is greater than 50% in coordination of care (as documented) at patient's floor/unit and/or counseling patient: Coding Level of Care Code 94616 Subseq Hosp Care Lvl 3 Diagnoses Acute GI bleeding K92.2 Acute blood loss anemia D62 Abdominal pain R10.84 Abdominal location: generalized Toxic gastroenteritis K52.1 Candidiasis of esophagus B37.81 Benign hypertension I10 BPH (benign prostatic hyperplasia) N40.0 Lower urinary tract symptom presence: symptoms absent Atrial fibrillation I48.91 Atrial fibrillation type: unspecified Severe protein-calorie malnutrition E43 Metastatic colon cancer to liver C18.9; C78.7 Hypokalemia E87.6 Metabolic encephalopathy G93.41 Warfarin-induced coagulopathy D68.32; T45.515A Hiccups R06.6 DVT prophylaxis Z29.9 (1) Abdominal pain Abdominal location: generalized Qualified Code(s): R10.84 - Generalized abdominal pain (2) BPH (benign prostatic hyperplasia) Lower urinary tract symptom presence: symptoms absent Qualified Code(s): N40.0 - Benign prostatic hyperplasia without lower urinary tract symptoms (3) Atrial fibrillation Atrial fibrillation type: unspecified Qualified Code(s): I48.91 - Unspecified atrial fibrillation
[2020-01-21] MEDS ORDERED: METOPROLOL SUCC 50MG EXT REL TAB PO STA (23:06)
[2020-01-22] MEDS: HEPARIN 100 UNIT/ML 5ML FLUSH FLUSH PRN ×3 (05:21→17:24)
[2020-01-22 06:36] LABS: BUN Creatinine Ratio 21.9 (10-20); Calcium 7.9 mg/dl (8.5-10.1); Creatinine Clr Calc Pharmacy 55.8 ml/min; Est GFR (African American) 96.4; Est GFR (Non-African American) 83.2; Magnesium 1.9 mg/dl (1.8-2.4); Potassium 2.9 mmol/L (3.5-5.1)
[2020-01-22] MEDS: POTASSIUM CHLORIDE / WTR 10 MEQ/100 ML PLCT IV SCH ×6 (07:09→11:54)
[2020-01-22] MEDS ORDERED: POTASSIUM CHLORIDE 20 MEQ/15 ML UDC PO ONE (07:15)
[2020-01-22] MEDS: FLUCONAZOLE 100 MG TAB PO SCH (08:11)
[2020-01-22] MEDS: METOPROLOL SUCC 50MG EXT REL TAB PO SCH (08:11)
[2020-01-22] MEDS: RIFAXIMIN 550 MG TABLET PO SCH ×2 (08:11→21:41)
[2020-01-22] MEDS: FAMOTIDINE 20 MG in SYRINGE 3 ML IV SCH ×2 (08:14→21:51)
--- NOTE | 2020-01-22 10:22 | Electrocardiogram Report ---
Test Reason : Blood Pressure : / mmHG Vent. Rate : 119 BPM Atrial Rate : 182 BPM P-R Int : 000 ms QRS Dur : 084 ms QT Int : 316 ms P-R-T Axes : 000 094 216 degrees QTc Int : 444 ms Atrial fibrillation with rapid ventricular response Rightward axis Nonspecific ST and T wave abnormality Abnormal ECG When compared with ECG of 16-JAN-2020 23:44, Nonspecific ST and T wave abnormality are now present Confirmed by Milton Oseguera ([id number]) on 01/22/2020 10:22:12 AM Referred By: Yusef Bartlett Confirmed By:Milton Oseguera
[2020-01-22] MEDS: MoRPHine SULFATE 2 MG/ML CARP IV PRN ×2 (12:53→17:20)
--- NOTE | 2020-01-22 21:06 | Hospitalist Progress Note ---
Date of Service January 22, 2020 Assessment & Plan (1) Abdominal pain: likely multifactorial including enterocolitis along with peritoneal carcinomatosis enterocolitis likely due to toxic effects of recent high-dose 5-FU c diff neg stool cx neg EGD w/o PUD or gastritis will place on SCHEDULED morphine elixir 2.5mg AC as eating typically instigates pain despite the pain the patient really wants regular food - given transition to hospice soon will allow low fiber diet strongly consider fentanyl patch as well (2) Acute GI bleeding: resolved. H/H remaining stable. s/p EGD by Dr Chiang with no source of bleeding found. esophageal candidiasis was found incidentally. could have been small bowel bleed vs anastomotic site bleeding but not pursuing additional testing. coumadin and aspirin both stopped. coagulopathy resolved. hemoglobin today acceptable/stable. (3) Acute blood loss anemia: 2nd to GI bleeding EGD neg for source stopped PPI drip since EGD neg H/H have plateaued suggesting bleeding has stopped Hb today very acceptable advance diet at patient's request (4) Toxic gastroenteritis: enterocolitis may be 2nd to high-dose 5-FU stool cx remains neg c diff neg diarrhea has improved w/ time (5) Candidiasis of esophagus: diflucan x 10 days day #4 of such (6) Benign hypertension: cont metoprolol daily (7) BPH (benign prostatic hyperplasia): cont alpha sharda (8) Atrial fibrillation: coumadin reversed INR now <2 and will NOT resume coumadin (risks >> benefits) rates controlled w/ beta sharda (9) Severe protein-calorie malnutrition: significant weight loss - about 15 kg - since cancer dx ongoing (10) Metastatic colon cancer to liver: stage 4 colon ca with worsening metastatic disease to liver ongoing weight loss, failure to thrive, etc s/p [place] [facility] [place] [facility] and has received chemo this spring/summer patient does NOT want to pursue additional chemo; wishes to transition to hospice palliative care consult placed to help with dispo, etc (11) Hypokalemia: ongoing 2nd diarrhea and poor PO intake KCL IV BMP am (12) Metabolic encephalopathy: 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 improved cont rifaximin 550mg BID could have brain mets but will defer imaging since transitioning to likely hospice slurry speech today is likely due to dry mouth and narcotic usage (13) Warfarin-induced coagulopathy: severe, with GI bleeding resolved (14) Hiccups: thorazine prn (15) DVT prophylaxis: SCDs chemical means contraindicated daughter extensively updated by phone 01/20 extensively updated at bedside today palliative care consult pending Admission and Anticipated Discharge Date Admission Date: January 18, 2020 Subjective patient states he had pain following his lunch today. he also had discomfort in his abdomen after breakfast. only 1 loose stool today. brown stool. abdominal pain is made worse by eating; despite such he does ask for "regular food." at bedside today - both still wanting home with hospice. Review of Systems Respiratory: no cough and no dyspnea Cardiovascular: no chest pain Gastrointestinal: + nausea; no vomiting Physical Exam Constitutional: + ill appearing, + cachectic and + frail appearing; no acute distress ENMT: external ear and nose normal, oropharynx normal Mouth: + dry oral mucous membranes Respiratory: normal respiratory effort, lungs clear to auscultation Cardiovascular: Rate/Rhythm: regular rhythm and + irregularly irregular Heart Sounds: normal S1 and normal S2; no murmur Vessels: posterior tibial pulses present and dorsalis pedis pulses present; no JVD Extremities: no edema Gastrointestinal (Abdomen): Percussion/Palpation: + abdomen tender (epigastric region ), abdomen soft and + hepatomegaly; no guarding and abdomen not rigid Skin: + pallor Neurologic: slurred speech Psychiatric: Orientation: alert, oriented to person, oriented to place and oriented to time Results & Data Results & Data ([facility]) Vital Signs (Past 12 Hours) Vital Signs Temp Pulse Resp BP Pulse Ox 01/22/20 15:02 36.4 C L 84 16 120/65 99 Laboratory Results Laboratory Results - last 24 hr 01/22/20 01/22/20 05:20 05:20 Hgb 9.3 L Sodium 139 Potassium 2.9 L D Chloride 113 H Carbon Dioxide 18 L Anion Gap 7.0 BUN 16 Creatinine 0.71 Est Cr Clr Drug Dosing 55.8 Est GFR ( Amer) 96.4 Est GFR (Non-Af Amer) 83.2 BUN/Creatinine Ratio 21.9 H Glucose 144 H Calcium 7.9 L Magnesium 1.9 PG Care Time/CCT Total # of Minutes Spent Total Time Spent with Patient: Total time spent is greater than 50% in coordination of care (as documented) at patient's floor/unit and/or counseling patient: Coding Level of Care Code 80270 Subseq Hosp Care Lvl 2 Diagnoses Abdominal pain R10.84 Abdominal location: generalized Acute GI bleeding K92.2 Acute blood loss anemia D62 Toxic gastroenteritis K52.1 Candidiasis of esophagus B37.81 Benign hypertension I10 BPH (benign prostatic hyperplasia) N40.0 Lower urinary tract symptom presence: symptoms absent Atrial fibrillation I48.91 Atrial fibrillation type: unspecified Severe protein-calorie malnutrition E43 Metastatic colon cancer to liver C18.9; C78.7 Hypokalemia E87.6 Metabolic encephalopathy G93.41 Warfarin-induced coagulopathy D68.32; T45.515A Hiccups R06.6 DVT prophylaxis Z29.9 (1) BPH (benign prostatic hyperplasia) Lower urinary tract symptom presence: symptoms absent Qualified Code(s): N40.0 - Benign prostatic hyperplasia without lower urinary tract symptoms (2) Atrial fibrillation Atrial fibrillation type: unspecified Qualified Code(s): I48.91 - Unspecified atrial fibrillation (3) Abdominal pain Abdominal location: generalized Qualified Code(s): R10.84 - Generalized abdominal pain
[2020-01-22] MEDS: TAMSULOSIN HCL 0.4 MG CAP PO SCH (21:37)
[2020-01-22] MEDS: PRAMIPEXOLE DIHYDROCHLO 0.25 MG TAB PO SCH (21:39)
[2020-01-23 07:50] LABS: BUN Creatinine Ratio 21.7 (10-20); Calcium 7.5 mg/dl (8.5-10.1); Est GFR (African American) 99.3; Est GFR (Non-African American) 85.7; Potassium 3.1 mmol/L (3.5-5.1)
[2020-01-23] MEDS: MoRPHine SULFATE 5 MG/0.25 ML UDP PO SCH ×3 (08:25→17:32)
[2020-01-23] MEDS ORDERED: MAGNESIUM SULFATE / D5W 1 GM/100 ML BAG IV ONE (08:45)
[2020-01-23] MEDS: RIFAXIMIN 550 MG TABLET PO SCH ×2 (09:42→21:34)
[2020-01-23] MEDS: METOPROLOL SUCC 50MG EXT REL TAB PO SCH (09:43)
[2020-01-23] MEDS: FLUCONAZOLE 100 MG TAB PO SCH (09:43)
[2020-01-23] MEDS: FAMOTIDINE 20 MG in SYRINGE 3 ML IV SCH (09:58)
[2020-01-23] MEDS: POTASSIUM CHLORIDE / WTR 10 MEQ/100 ML PLCT IV SCH ×3 (10:03→12:29)
--- NOTE | 2020-01-23 10:06 | Palliative Care Consultation ---
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 He is a patient of Dr. Morton and decided to pursue palliative chemotherapy and used High dose 5-FU. He initially tolerated chemotherapy, but then is appears on CT that his disease is progressing, despite efforts. Lengthy conversations were held over the weekend between the hospitalist and the family and the decision was made to continue with some electrolyte replacement and focus on comfort measures. He was started on Roxanol and has received a few doses. Palliative care was consulted to discuss goals of care and Hospice. -I met with the patient in room 354-2. The patients , Jing, and Sophia from case management were both in the room. -The patient was sitting upright in his bed, in no apparent distress eating a few bites of his lunch. -The patient is confused but states he is not having any pain. He has been ordered 2 mg IV Morphine and has utilized 3 doses over the past 24 hours in addition to Roxanol 2.5 mg SL scheduled TID. -The patients stated that she has a hard time remembering details of the conversation, so would like her daughter, Samantha, to be present for the conversation regarding returning home with hospice services. -Samantha, their daughter, does live next door to them and is a director for beauty school at [employer] [facility] [place]. She is able to come in at 1530, for which Dr. Hoskins will attend. -I have no concerns with him returning home with hospice services as long as adequate support is available for not only the patient, but also the as well. -Should additional caregivers not be possible, I explained we would need to discuss SNF placement with hospice services. -Pt is a DNR/DNI. -Hospice diagnosis could include, in this order: 1. Metastatic adenocarcinoma 2. Protein Caloric Malnourishment -PPS: 30% (2) Severe protein-calorie malnutrition: (3) Adenocarcinoma of colon: (4) Acute blood loss anemia: Supervising Physician Co-Signing Physician Notes Chart reviewed, patient seen and examined Met with patient's and daughter, Samantha at bedside. Completed POLST form with DNR, limited interventions, trial of antibiotics, trial of IV fluids. Discussed going home with hospice care with patient and family-patient does have a long-term care policy-daughter to look into what they can provide right away, able to hire caregivers if needed. Spoke with family at length-answered all their questions and addressed all their concerns. They would like the ability to have occasional IV fluids as long as they are helpful and not harmful-discussed when they may no longer be helpful and signs to look for that they can becoming harmful. Spent 45 minutes at bedside discussing options and goals of care with patient and family in addition to the 70 minutes spent by CORY Greenwood for total of 115 minutes. Collaborated with attending physician. History of Present Illness Reason for Consultation: Goals of care Requesting Physician: Dr. 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 He is a patient of Dr. Bartlett'mary and decided to pursue palliative chemotherapy and used High dose 5-FU. He initially tolerated chemotherapy, but then is appears on CT that his disease is progressing, despite efforts. Lengthy conversations were held over the weekend between the hospitalist and the family and the decision was made to continue with some electrolyte replacement and focus on comfort measures. He was started on Roxanol and has received a few doses. Palliative care was consulted to discuss goals of care and Hospice. Please see A/P for further details. Thank you kindly for involving the palliative care team. We will follow. Allergies Allergy/AdvReac Type Severity Reaction Status Date / Time NSAIDS (Non-Steroidal Allergy Unknown Unknown Verified 01/19/20 13:34 Anti-Inflamma sulindac Allergy Unknown Unknown Verified 01/19/20 13:34 oxycodone [From Percocet] AdvReac Unknown DISORIENTED Verified 01/19/20 13:34 Home Medications Home Medications Medication Instructions Recorded Confirmed Type ferrous gluconate 324 mg (38 mg 324 mg PO UD tab 10/20/18 01/16/20 History iron) tablet tamsulosin 0.4 mg capsule 0.4 mg PO HS #90 cap 03/01/19 01/16/20 Rx aspirin 81 mg PO QAM 08/28/19 01/16/20 History metoprolol succinate 50 mg 50 mg PO QAM #90 tab 10/28/19 01/16/20 Rx tablet,extended release 24 hr pramipexole 0.125 mg tablet 0.125 mg PO HS #30 tab 12/21/19 01/16/20 Rx furosemide 20 mg tablet 20 mg PO 3XWK tab 01/03/20 01/16/20 History atorvastatin 10 mg PO QAM 01/04/20 01/16/20 History cholecalciferol (vitamin D3) 600 mcg PO QAM 01/04/20 01/16/20 History loperamide 2 mg PO QID PRN 01/04/20 01/16/20 History multivitamin 1 tab PO QPM 01/04/20 01/16/20 History omega-3 fatty acids [Fish Oil 1,000 mg PO QPM 01/04/20 01/16/20 History Concentrate] warfarin 5 mg tablet 5 mg PO QPM #90 tab 01/16/20 01/16/20 Rx Patient History Medical History (Updated 01/23/20 @ 13:38 by CORY Greenwood) Anemia Arthritis Atrial fibrillation Chronic/rate controlled- on Warfarin Basal cell carcinoma of face Carotid stenosis s/p left CEA Change in bowel habits CHF (congestive heart failure) Dysplastic nevus Enlarged prostate Goals of care, counseling/discussion Hearing loss Hypercholesterolemia Hypertension Left inguinal hernia Restless leg syndrome Seborrheic keratosis Segmental and somatic dysfunction of thoracic region Speech disorder Surgical History H/O hemicolectomy (09/01/19) Right Open Hemicolectomy Dr. 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); Hx Alcohol Use: No Hx Substance Use: No Preferred Language: [place] Communication Ability: Effective Hearing Ability: Use of Hearing Aid Mule Tender Required: No Beliefs That Will Affect Care: None marital status: Current Living Situation: Spouse current occupational status: retired Feels Safe at Home: Yes Seatbelt Use: always Sunscreen Use: No Review of Systems Review of Systems: Unobtainable due to cognitive status Results & Data ([facility]) Vital Signs (Past 12 Hours) Vital Signs Temp Pulse Resp BP Pulse Ox 01/23/20 09:41 103 H 115/65 01/23/20 07:06 36.6 C 95 H 16 119/69 98 01/22/20 23:02 36.5 C 91 H 16 120/66 98 PG Care Time/CCT Total # of Minutes Spent Total Time Spent with Patient: Total time spent is greater than 50% in coordination of care (as documented) at patient's floor/unit and/or counseling patient: 70 Prolonged Care Time Prolonged Care Time: Yes Total Prolonged Care Time: 45 Coding Level of Care Code 37098 Inpt Consult Level 3 Diagnoses Goals of care, counseling/discussion Z71.89 Severe protein-calorie malnutrition E43 Adenocarcinoma of colon C18.9 Acute blood loss anemia D62 Additional Codes Prolonged Care Time - Prolonged Care Time: Yes ([id number]) Time Spent (min) 115 Time Spent Midlevel Total time spent 70 minutes with > 50% of that time spent assessing the patient, discussing goals of care with patients and case management team Critical Care Time Prolonged Care Time Prolonged Care Time: Yes Total Prolonged Care Time: 45 115
[2020-01-23] MEDS: HEPARIN 100 UNIT/ML 5ML FLUSH FLUSH PRN (13:59)
--- NOTE | 2020-01-23 19:28 | Hospitalist Progress Note ---
Date of Service January 23, 2020 Assessment & Plan (1) Abdominal pain: likely multifactorial including enterocolitis along with peritoneal carcinomatosis enterocolitis likely due to toxic effects of recent high-dose 5-FU c diff neg stool cx neg EGD w/o PUD or gastritis cont SCHEDULED morphine elixir 2.5mg AC as eating typically instigates pain strongly consider fentanyl patch as well (2) Acute GI bleeding: resolved. s/p EGD by Dr Chiang with no source of bleeding found. esophageal candidiasis was found incidentally. small bowel bleed vs anastomotic site bleeding right colon also possible. coumadin and aspirin both stopped. coagulopathy resolved. hemoglobins since his EGD have remained acceptable/stable. (3) Acute blood loss anemia: 2nd to GI bleeding EGD neg for source stopped PPI drip since EGD neg H/H since the EGD are stable cont low fiber diet (4) Toxic gastroenteritis: enterocolitis may be 2nd to high-dose 5-FU stool cx remains neg c diff neg diarrhea has improved w/ time loperamide prn (5) Candidiasis of esophagus: diflucan x 10 days day #5 of such (6) Benign hypertension: cont metoprolol daily (7) BPH (benign prostatic hyperplasia): cont alpha sharda (8) Atrial fibrillation: coumadin reversed INR now <2 and will NOT resume coumadin (risks >> benefits) since we are transitioning to hospice rates controlled w/ beta sharda (9) Severe protein-calorie malnutrition: significant weight loss - about 15 kg - since cancer dx (10) Metastatic colon cancer to liver: stage 4 colon ca with worsening metastatic disease to liver ongoing weight loss, failure to thrive, etc s/p right hemicolectomy earlier this spring by [facility] surgery s/p high-dose 5-FU patient does NOT want to pursue additional chemo wants to focus on symptom control appreciate palliative care consult remains DNR POLST form completed to home with hospice at d/c (11) Hypokalemia: ongoing 2nd diarrhea and poor PO intake KCL IV again today (12) Metabolic encephalopathy: 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 2nd to narcotics (Toxic) as well cont rifaximin 550mg BID could have brain mets but defer imaging since transitioning to hospice slurry speech likely due to dry mouth and narcotic usage (13) Warfarin-induced coagulopathy: severe, with GI bleeding resolved NOT resuming coumadin - transitioning to hospice (14) Hiccups: thorazine prn (15) DVT prophylaxis: SCDs chemical means contraindicated appreciate palliative care consult to home with hospice - tomorrow? , daughter updated at bedside today Admission and Anticipated Discharge Date Admission Date: January 18, 2020 Anticipated date of discharge: 01/24/20 Subjective Patient reports just mild abdominal pain today. The preprandial morphine is helping him. He has enjoyed having bites of solids. His diarrhea continues but is not as frequent. Hiccups are a bit better. No vomiting. I witnessed his PT session and he did quite well, walking an entire loop around the floor with use of walker and contact guard. was at bedside during the visit. Goal is still home with hospice. Review of Systems Constitutional: + anorexia Respiratory: no dyspnea on exertion Cardiovascular: no chest pain Gastrointestinal: + abdominal pain Physical Exam Constitutional: + ill appearing, + cachectic and + frail appearing; no acute distress Eyes: mild confusion, slurred speech ENMT: external ear and nose normal, oropharynx normal Mouth: + dry oral mucous membranes Respiratory: normal respiratory effort, lungs clear to auscultation Cardiovascular: Rate/Rhythm: regular rhythm and + irregularly irregular Heart Sounds: normal S1 and normal S2; no murmur Vessels: posterior tibial pulses present and dorsalis pedis pulses present; no JVD Extremities: no edema Gastrointestinal (Abdomen): Inspection/Auscultation: + abdomen distended Percussion/Palpation: + hepatomegaly; abdomen nontender, no guarding and abdomen not rigid Skin: + pallor Neurologic: Motor/Sensory: no asterixis Psychiatric: Orientation: alert, oriented to person and oriented to place Results & Data Results & Data ([facility]) Vital Signs (Past 12 Hours) Vital Signs Temp Pulse Pulse Pulse Resp BP Pulse Ox 01/23/20 16:32 97 H 131/78 01/23/20 15:22 37.0 C 97 H 16 154/80 H 96 01/23/20 09:41 103 H 115/65 Laboratory Results Laboratory Results - last 24 hr 01/23/20 06:59 Sodium 140 Potassium 3.1 L Chloride 113 H Carbon Dioxide 19 L Anion Gap 8.0 BUN 14 Creatinine 0.66 Est Cr Clr Drug Dosing 60.0 Est GFR ( Amer) 99.3 Est GFR (Non-Af Amer) 85.7 BUN/Creatinine Ratio 21.7 H Glucose 104 H Calcium 7.5 L PG Care Time/CCT Total # of Minutes Spent Total Time Spent with Patient: Total time spent is greater than 50% in coordination of care (as documented) at patient's floor/unit and/or counseling patient: Coding Level of Care Code 16355 Subseq Hosp Care Lvl 2 Diagnoses Abdominal pain R10.84 Abdominal location: generalized Acute GI bleeding K92.2 Acute blood loss anemia D62 Toxic gastroenteritis K52.1 Candidiasis of esophagus B37.81 Benign hypertension I10 BPH (benign prostatic hyperplasia) N40.0 Lower urinary tract symptom presence: symptoms absent Atrial fibrillation I48.91 Atrial fibrillation type: unspecified Severe protein-calorie malnutrition E43 Metastatic colon cancer to liver C18.9; C78.7 Hypokalemia E87.6 Metabolic encephalopathy G93.41 Warfarin-induced coagulopathy D68.32; T45.515A Hiccups R06.6 DVT prophylaxis Z29.9 (1) BPH (benign prostatic hyperplasia) Lower urinary tract symptom presence: symptoms absent Qualified Code(s): N40.0 - Benign prostatic hyperplasia without lower urinary tract symptoms (2) Atrial fibrillation Atrial fibrillation type: unspecified Qualified Code(s): I48.91 - Unspecified atrial fibrillation (3) Abdominal pain Abdominal location: generalized Qualified Code(s): R10.84 - Generalized abdominal pain
[2020-01-23] MEDS: PRAMIPEXOLE DIHYDROCHLO 0.25 MG TAB PO SCH (21:33)
[2020-01-23] MEDS: TAMSULOSIN HCL 0.4 MG CAP PO SCH (21:34)
[2020-01-23] MEDS: FAMOTIDINE 20 MG TAB PO SCH (21:35)
[2020-01-24] MEDS: MoRPHine SULFATE 5 MG/0.25 ML UDP PO SCH ×3 (08:06→17:29)
[2020-01-24] MEDS: FAMOTIDINE 20 MG TAB PO SCH ×2 (08:54→21:36)
[2020-01-24] MEDS: METOPROLOL SUCC 50MG EXT REL TAB PO SCH (08:54)
[2020-01-24] MEDS: FLUCONAZOLE 100 MG TAB PO SCH (08:55)
[2020-01-24] MEDS: RIFAXIMIN 550 MG TABLET PO SCH ×2 (09:30→21:37)
[2020-01-24] MEDS ORDERED: MoRPHine SULFATE 5 MG/0.25 ML UDP PO PRN (17:30)
--- NOTE | 2020-01-24 19:25 | Hospitalist Progress Note ---
Date of Service January 24, 2020 Assessment & Plan (1) Metabolic encephalopathy: metabolic AND toxic metaboalic -- 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 toxic -- 2nd to narcotics cont rifaximin 550mg BID could have brain mets but defer imaging since transitioning to hospice slurry speech likely due to dry mouth and narcotic usage - will make morphine PRN (2) Abdominal pain: likely multifactorial including enterocolitis along with peritoneal carcin omatosis enterocolitis likely due to toxic effects of recent high-dose 5-FU c diff neg stool cx neg EGD w/o PUD or gastritis cont morphine elixir 2.5mg AC but make PRN strongly consider fentanyl patch counseled pt and that likely all narcotics will cause confusion/slurred speech due to significant liver dysfunction from metastatic disease (3) Acute GI bleeding: resolved. s/p EGD by Dr Chiang with no source of bleeding found. esophageal candidiasis was found incidentally. small bowel bleed vs anastomotic site bleeding right colon also possible. coumadin and aspirin both stopped. coagulopathy resolved. (4) Acute blood loss anemia: 2nd to GI bleeding EGD neg for source stopped PPI drip since EGD neg H/H since the EGD stable cont low fiber diet (5) Toxic gastroenteritis: enterocolitis may be 2nd to high-dose 5-FU stool cx remains neg c diff neg diarrhea has improved w/ time loperamide prn (6) Candidiasis of esophagus: diflucan x 10 days day #6 of such (7) Benign hypertension: cont metoprolol daily (8) BPH (benign prostatic hyperplasia): cont alpha sharda (9) Atrial fibrillation: coumadin reversed INR now <2 and will NOT resume coumadin (risks >> benefits) since we are transitioning to hospice rates controlled w/ beta sharda (10) Severe protein-calorie malnutrition: significant weight loss - about 15 kg - since cancer dx ongoing (11) Metastatic colon cancer to liver: stage 4 colon ca with worsening metastatic disease to liver ongoing weight loss, failure to thrive, etc s/p right hemico[place] [facility] [place] s/p high-dose 5-FU patient does NOT want to pursue additional chemo wants to focus on symptom control appreciate palliative care consult remains DNR POLST form completed to home with hospice at d/c tomorrow (12) Hypokalemia: ongoing 2nd diarrhea and poor PO intake defer on repeat BMPs w/ transition to hospice (13) Warfarin-induced coagulopathy: severe, with GI bleeding resolved NOT resuming coumadin - transitioning to hospice (14) Hiccups: thorazine prn (15) DVT prophylaxis: SCDs chemical means contraindicated appreciate palliative care consult to home with hospice - tomorrow updated at bedside today Admission and Anticipated Discharge Date Admission Date: January 18, 2020 Subjective no abd pain today eating bites of solids w/o nausea/emesis speech cont to be slurry and he has thought blocking/confusion - notes it worsens after scheduled morphine hospice is being set up and he will be ready to d/c home tomorrow no new issues still having lots of flatus w/ diarrhea Review of Systems Constitutional: + fatigue, + weakness and + anorexia Respiratory: no dyspnea Cardiovascular: no chest pain Gastrointestinal: as per Subjective / HPI Physical Exam Constitutional: + ill appearing, + cachectic and + frail appearing; no acute distress ENMT: Mouth: + dry oral mucous membranes Respiratory: normal respiratory effort, lungs clear to auscultation Cardiovascular: Rate/Rhythm: regular rhythm and + irregularly irregular Heart Sounds: normal S1 and normal S2; no murmur Vessels: posterior tibial pulses present and dorsalis pedis pulses present; no JVD Extremities: no edema Gastrointestinal (Abdomen): Inspection/Auscultation: + abdomen distended Percussion/Palpation: + hepatomegaly; abdomen nontender, no guarding and abdomen not rigid Skin: + pallor Neurologic: slurred speech/thought blocking/difficulty finding his words Psychiatric: Orientation: alert, oriented to person and oriented to place Results & Data Results & [facility] ([facility]) Vital Signs (Past 12 Hours) Vital Signs Temp Pulse Resp BP BP Pulse Ox 01/24/20 15:20 36.5 C 90 18 109/69 99 01/24/20 08:53 99 H 107/61 01/24/20 07:37 36.4 C L 88 15 107/62 95 PG Care Time/CCT Total # of Minutes Spent Total Time Spent with Patient: Total time spent is greater than 50% in coordination of care (as documented) at patient's floor/unit and/or counseling patient: Coding Level of Care Code 72333 Subseq Hosp Care Lvl 2 Diagnoses Metabolic encephalopathy G93.41 Abdominal pain R10.84 Abdominal location: generalized Acute GI bleeding K92.2 Acute blood loss anemia D62 Toxic gastroenteritis K52.1 Candidiasis of esophagus B37.81 Benign hypertension I10 BPH (benign prostatic hyperplasia) N40.0 Lower urinary tract symptom presence: symptoms absent Atrial fibrillation I48.91 Atrial fibrillation type: unspecified Severe protein-calorie malnutrition E43 Metastatic colon cancer to liver C18.9; C78.7 Hypokalemia E87.6 Warfarin-induced coagulopathy D68.32; T45.515A Hiccups R06.6 DVT prophylaxis Z29.9 (1) BPH (benign prostatic hyperplasia) Lower urinary tract symptom presence: symptoms absent Qualified Code(s): N40.0 - Benign prostatic hyperplasia without lower urinary tract symptoms (2) Atrial fibrillation Atrial fibrillation type: unspecified Qualified Code(s): I48.91 - Unspecified atrial fibrillation (3) Abdominal pain Abdominal location: generalized Qualified Code(s): R10.84 - Generalized abdominal pain
[2020-01-24] MEDS: PRAMIPEXOLE DIHYDROCHLO 0.25 MG TAB PO SCH (21:35)
[2020-01-24] MEDS: TAMSULOSIN HCL 0.4 MG CAP PO SCH (21:36)
[2020-01-25 07:04] VITALS: TEMP 97.5; O2SAT 98
[2020-01-25] MEDS: FLUCONAZOLE 100 MG TAB PO SCH (09:19)
[2020-01-25] MEDS: RIFAXIMIN 550 MG TABLET PO SCH (09:19)
[2020-01-25] MEDS: METOPROLOL SUCC 50MG EXT REL TAB PO SCH (09:19)
[2020-01-25] MEDS: FAMOTIDINE 20 MG TAB PO SCH (09:19)
[2020-01-25 14:37] VITALS: BP 107/62; PULSE 97
--- NOTE | 2020-01-25 14:56 | Discharge Summary ---
Date of Service date of admission - January 17, 2020 date of discharge - January 25, 2020 Admission HPI Per Admitting Provider Austin Chao is an 89yo C male with history of metastatic colon cancer on chemotherapy, following with Dr. Bartlett. Patient presents with worsening diarrhea and weakness, subjective fevers reported over the last two days. Patient states he has had watery BMs, non-bloody. No abdominal pain. No bloating. No chest pain/SOB/cough/nausea. Patient reports poor po intake and decreased appetite. No additional complaints at this time. ER Course: NSS x 1500mL Principal Diagnosis toxic gastroenteritis likely 2nd to high-dose 5-FU stage 4 colon cancer with transition to hospice Discharge Exam Constitutional + ill appearing, + cachectic and + frail appearing; no acute distress ENMT Mouth: + dry oral mucous membranes Respiratory normal respiratory effort, lungs clear to auscultation Cardiovascular Rate/Rhythm: regular rhythm and + irregularly irregular Heart Sounds: normal S1 and normal S2; no murmur Vessels: posterior tibial pulses present and dorsalis pedis pulses present; no JVD Extremities: no edema Gastrointestinal (Abdomen) Inspection/Auscultation: + abdomen distended Percussion/Palpation: + hepatomegaly; abdomen nontender, no guarding and abdomen not rigid Skin + pallor Psychiatric Orientation: alert, oriented to person and oriented to place Discharge Data Allergies Allergy/AdvReac Type Severity Reaction Status Date / Time NSAIDS (Non-Steroidal Allergy Unknown Unknown Verified 01/19/20 13:34 Anti-Inflamma sulindac Allergy Unknown Unknown Verified 01/19/20 13:34 oxycodone [From Percocet] AdvReac Unknown DISORIENTED Verified 01/19/20 13:34 Consultations Hematology/oncology - Jesse Bartlett DO [facility] Gastroenterology - Ashok Case DO Palliative care PT, OT Procedures Performed Operation Date: 01/19/20 09:15 Actual Procedures p EGD Biopsy Cytology - Ashok Bergman Case, DO * findings suggestive of esophageal candidiasis * no source of bleeding found Ordered Studies 01/16/20 23:32 CT abd pelvis wo con Urgent IMPRESSION: 1. Fluid-filled small and large bowel suggestive of a diarrheal state. Moderate wall thickening of several small bowel loops which represents a nonspecific enteritis. Mild mesenteric infiltration. 2. Left inguinal hernia which contains a loop of small bowel. No bowel obstruction. 3. Extensive hepatic metastases, likely increased since PET/CT of October 31, 2019. Redemonstration of peritoneal implants. 4. Moderate to marked gallbladder distention. If suspicion for acute cholecystitis, a hepatobiliary scan could be obtained. 01/18/20 15:05 CT abd pelvis IV con only Stat IMPRESSION: 1. No significant change from yesterday. 2. The small bowel and colon remain fluid-filled with several thick-walled loops of small bowel identified. The appearance suggests a nonspecific enterocolitis and clinical correlation will be required. 3. A left inguinal hernia contains a nonobstructed segment of small bowel. There is no bowel obstruction. 4. No intraperitoneal free air is seen. There is no pneumatosis intestinalis or portal venous gas. 5. Again seen are findings of multifocal hepatic metastatic disease as well as peritoneal metastatic disease. 6. Gallbladder distention is similar to previous. Hospital Course (1) Toxic gastroenteritis: The patient's diarrhea & enterocolitis seen on CT imaging likely were due to high-dose 5-FU. C diff testing and stool cultures were negative. Diarrhea gradually improved with time but never fully resolved. He will continue loperamide prn at home. (2) Acute GI bleeding: The patient had melena stools in the setting of severe warfarin-induced coagulopathy. Lowest hemoglobin level was about 8. He was seen in consult by Dr Ashok Chiang, [facility], who performed EGD. No source of bleeding was found. Esophageal candidiasis was found incidentally. Suspect the bleeding was small bowel in origin. Other possibility was that of an anastomotic site bleed from the right colon. Either way the stopping of his coumadin and aspirin led to the cessation of bleeding. H/H remained stable later in his stay. (3) Acute blood loss anemia: 2nd to GI bleeding of uncertain location. EGD neg for source. (4) Abdominal pain: likely multifactorial including enterocolitis along with peritoneal carcinomatosis. enterocolitis likely due to toxic effects of recent high-dose 5-FU. c diff neg stool cx neg EGD w/o PUD or gastritis The patient is transitioning to hospice and a large focus will be treating his abdominal pain with narcotics. (5) Metastatic colon cancer to liver: stage 4 colon ca with worsening metastatic disease to liver ongoing weight loss, failure to thrive, etc s/p right hemicolectomy earlier this spring by [facility] surgery s/p high-dose 5-FU Early on in his stay the patient voiced that he did NOT want to pursue additional chemotherapy for his cancer. He wanted to focus on symptom control. Seen in consult by his oncologist, Dr Bartlett, and the palliative care team. POLST form was completed. Multiple discussions were had about returning home with hospice. Hospice was ultimately chosen and the patient is returning home on hospice services. (6) Metabolic encephalopathy: metabolic AND toxic metabolic -- 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 toxic -- 2nd to narcotics received rifaximin 550mg BID while here but this was NOT continued at discharge could have brain mets but deferred on imaging since transitioning to hospice (7) Candidiasis of esophagus: diflucan x 10 days (8) Benign hypertension: cont metoprolol daily (9) BPH (benign prostatic hyperplasia): cont alpha sharda (10) Atrial fibrillation: coumadin reversed and NOT resumed at discharge rates controlled w/ beta sharda (11) Severe protein-calorie malnutrition: significant weight loss - about 15 kg - since cancer diagnosis ongoing (12) Hypokalemia: ongoing 2nd diarrhea and poor PO intake defer on repeat BMPs w/ transition to hospice (13) Warfarin-induced coagulopathy: severe, with GI bleeding INR nearly 10 early on in his hospitalization s/p multiple doses of vitamin K coagulopathy resolved with the above NOT resuming coumadin - transitioning to hospice (14) Hiccups: thorazine prn at discharge Total Time Total Time Spent Total Time Spent (In Minutes): 45 Total Time Includes: Examination of the Patient, Discharge Planning, Medication Reconciliation and Communication With Other Providers Discharge Plan Discharge Items Patient Disposition: Hospice - Home Reason For Visit: weakness, diarrhea Discharge Diagnosis: 1. diarrhea due to recent chemotherapy 2. advancing metastatic colon cancer 3. severely elevated INR (coumadin level) - resolved 4. GI bleeding - cause uncertain 5. yeast infection of esophagus 6. abdominal pain - due to #1 and cancer that has spread within the abdominal cavity 7. return to home with hospice Activity: As commented below Activity Comment: take it easy and enjoy being home ! Non-emergency contact: Specialist Call non-emergency contact if: you have any medication questions, your symptoms worsen, your pain is not controlled, your pain is worsening, your pain is unusual for you and your pain is concerning for you Follow-up/Referrals: [facility],Home Healthcare [Non-Staff] - (please contact [facility] Hospice with any questions, concerns, problems, worsening pain, or any needs at any time) Diet: Low Fiber Diet Texture: Easy to Chew Addtl Attending Provider Instructions: You were treated for the above problems listed in "discharge diagnoses." During your stay you and your had discussions about what to do about the colon cancer. You ultimately decided that you did not want to continue on with chemotherapy. We involved our palliative care team in your care, and after meeting with them, you and your family chose to return home with hospice. When you arrive home we will focus on making sure your pain is controlled and that you are as comfortable as possible. We have stopped any medication that won't provide you comfort or benefit. If you have any questions, concerns, problems, needs, uncontrolled pain, difficulty breathing - anything - please contact [facility] Hosp[facility] any time of day. They will be able to address the majority of your needs at your home. Recommendations - 1. for pain - * hydrocodone-acetaminophen 1 tablet every 6 hours as needed for pain 2. for anxiety/agitation/sleep - * lorazepam 0.5mg every 6 hours as needed 3. for nausea or vomiting - * ondansetron tablet - 1 tablet on the tongue every 6 hours as needed 4. for heartburn/burping - * prevacid solutab - 30mg every day; just simply place on tongue and let dissolve 5. for hiccups - * chlorpromazine 10mg every 8 hours as needed 6. for yeast in the esophagus -- 4 more days of fluconazole then stop; start tomorrow Again if you have any needs, concerns or questions always contact [facility] Hosp[facility] FIRST. It was my pleasure caring for you. I enjoyed getting to know you and your along with your daughter. I'll be thinking of you and keeping you in my prayers. God bless, Dr Le Pending Studies at Discharge: No Stand-Alone Forms: My [facility] Medications and DC Order Prescriptions: New chlorpromazine 10 mg Tablet 10 mg PO Q8H PRN (Reason: hiccups) Qty: 20 RF: 0 hydrocodone-acetaminophen [Cary] 5-325 mg tablet 1 tab PO Q6H PRN (Reason: pain) Qty: 30 RF: 0 ondansetron 4 mg tablet,disintegrating 4 mg PO Q6H PRN (Reason: nausea and vomiting) Qty: 20 RF: 0 lansoprazole [Prevacid SoluTab] 30 mg tablet,disintegrat, delay rel 30 mg PO DAILY Qty: 30 RF: 1 lorazepam [Ativan] 0.5 mg tablet 0.5 mg PO Q6H PRN (Reason: anxiety/agitation/sleep ) Qty: 20 RF: 0 Continued tamsulosin 0.4 mg capsule 0.4 mg PO HS Qty: 90 RF: 3 metoprolol succinate 50 mg tablet extended release 24 hr 50 mg PO QAM Qty: 90 RF: 1 pramipexole 0.125 mg tablet 0.125 mg PO HS Qty: 30 RF: 5 loperamide 2 mg Capsule 2 mg PO QID PRN (Reason: Diarrhea) RF: 0 Discontinued warfarin [Jantoven] 5 mg tablet 5 mg PO QPM Qty: 90 RF: 3 ferrous gluconate 324 mg (38 mg iron) tablet 324 mg PO UD RF: 0 furosemide 20 mg tablet 20 mg PO 3XWK RF: 0 aspirin 81 mg Tablet,Delayed Release (Dr/Ec) 81 mg PO QAM RF: 0 atorvastatin 10 mg tablet 10 mg PO QAM RF: 0 cholecalciferol (vitamin D3) 10 mcg (400 unit) capsule 600 mcg PO QAM RF: 0 multivitamin Tablet 1 tab PO QPM RF: 0 omega-3 fatty acids [Fish Oil Concentrate] 1,000 mg capsule 1,000 mg PO QPM RF: 0 Discharge Orders: Discharge Order (Routine); Ordered 01/25/20 Ordered By: Stiven Hogan/Other Patient Handouts: Starting Hospice Admission Data Admit Date/Time: 01/18/20 14:33 Attending Provider: Stiven Le Admit Provider: Ju Aj Primary Care Provider: Ozzie Zuniga Other Providers: Ju Aj ; Jesse Bartlett V. ; Ashok Chiang ; Samantha Hoskins ; [facility],Home Healthcare Other Interventions: Discharge Summary Assessment (RN) Last Done: 01/25/20 14:36 Coding Level of Care Code D/C Day Management >30 mins Diagnoses Toxic gastroenteritis K52.1 Acute GI bleeding K92.2 Acute blood loss anemia D62 Abdominal pain R10.84 Abdominal location: generalized Metastatic colon cancer to liver C18.9; C78.7 Metabolic encephalopathy G93.41 Candidiasis of esophagus B37.81 Benign hypertension I10 BPH (benign prostatic hyperplasia) N40.0 Lower urinary tract symptom presence: symptoms absent Atrial fibrillation I48.91 Atrial fibrillation type: unspecified Severe protein-calorie malnutrition E43 Hypokalemia E87.6 Warfarin-induced coagulopathy D68.32; T45.515A Hiccups R06.6
== END 2020-01-25 16:20 | disposition hospice, home (50) | DRG 374 ==
LOC: 3W 22:43 → ED 22:43 → SUATTDRO 01-17 02:45 → 3W 01-17 03:59